=== PATIENT | male | born 1950 | race Caucasian/White ===

== ENCOUNTER 2022-03-24 11:30 | Outpatient (RCR) | payer MEDICARE, SELFPAY | END 2022-07-15 11:47 | disposition home or self-care (01) | PROVIDERS: PCP Family Medicine; Visit Provider Family Medicine | DX: M54.41 Lumbago with sciatica, right side (principal); M79.601 Pain in right arm; M54.13 Radiculopathy, cervicothoracic region; M48.03 Spinal stenosis, cervicothoracic region; M54.6 Pain in thoracic spine; Z51.89 Encounter for other specified aftercare | CPT/HCPCS: 97110; 97140; 97162 ==

== ENCOUNTER 2022-09-16 12:59 | Emergency (ER) | payer OTHER, SELFPAY ==
[2022-09-16 13:05] VITALS: BP 121/73; PULSE 93; RESP 18; TEMP 36.5; O2SAT 95; BMI 29.3
[2022-09-16 13:21] VITALS: BP 123/76; PULSE 93; RESP 16; TEMP 36.5; O2SAT 95
--- NOTE | 2022-09-16 13:40 | CRLHL7_ITS ---
For Patients: As a result of the Century Cures Act, medical imaging exams and procedure reports are released immediately into your electronic medical record. You may view this report before your referring provider. If you have questions, please contact your health care provider. INDICATION: Pain radiates to left shoulder and head. COMPARISON: Cervical spine radiographs 06/09/2011. TECHNIQUE: CT of the cervical spine without IV contrast. Coronal and sagittal reconstructions. FINDINGS: No acute fracture or traumatic malalignment of the cervical spine. Normal vertebral body alignment. Reversal of the normal cervical lordosis. Anterior instrumented fusion of C5-C6 with interbody spacer. Hardware appears intact. Status post C3-C6 laminectomies. Spondylotic changes including endplate spurring, facet arthropathy, and disc space narrowing greatest at C6-C7. Mild to moderate neural foraminal narrowing on the left at C2-C3, severe bilaterally at C3-C4, severe bilaterally at C4-C5, moderate bilaterally at C5-C6, severe on the right and moderate on the left at C6-C7, and severe on the right at C7-T1. Posterior osteophytes indenting on the anterior thecal sac at C4-C5 and C5-C6. Moderate spinal canal stenosis at C6-C7. Soft tissue scarring in the posterior neck. No prevertebral soft tissue swelling. Visualized intracranial contents are unremarkable. The mastoid air cells are clear. Partially visualized large polyp or mucous retention cyst in the left maxillary sinus. Bilateral carotid bulb calcifications. The thyroid gland is normal in appearance. The lung apices are clear. IMPRESSION: 1. No acute fracture or traumatic malalignment of the cervical spine. 2. Intact anterior instrumented fusion of C5-C6. Status post C3-C6 laminectomies. 3. Spondylotic changes of the cervical spine with multilevel moderate to severe neural foraminal narrowing as described above. 4. Moderate spinal canal stenosis at C6-C7. Please note that all CT scans at this facility use dose modulation, iterative reconstruction, and/or weight-based dosing when appropriate to reduce radiation dose to as low as reasonably achievable. Dictated by Beba Solorzano MD @ 09/16/2022 3:45:11 PM (Electronically Signed)
[2022-09-16] MEDS: OXYCODONE 5 MG TABLET 2.5 MG PO (13:55)
[2022-09-16] MEDS: ACETAMINOPHEN 500 MG TABLET 1000 MG PO (13:55)
--- NOTE | 2022-09-16 16:17 | ED_ITS ---
HPI - General Adult General Chief complaint: Neck Injury/Pain Stated complaint: L shoulder and neck pain Time Seen by Provider: 09/16/22 13:02 History of Present Illness HPI narrative: Patient is a 71-year-old male who presents saying that yesterday afternoon he developed pain in the back of his neck. He says for the past couple of weeks he has had some intermittent numbness in both hands kind of on and off. His left thumb has felt numb on and off as well, right now it feels pretty normal. However, he says he was on his way back from [employer] yesterday, he says he won 89 dollars, so who is in a pretty good mood, a by the time he got back, his neck was starting to bother him quite a bit. He denies any trauma, including even minor trauma. He has in the goes down into his left shoulder and into his upper arm. He has difficulty turning his head in either direction because of pain. Does have a history of prior neck pain and has had surgery although he does not remember anything about what kind of surgery had. He gets his care at the [place]. he says he takes 8-10 medications, he has no idea what he takes or what he might take them for. Does think he takes a blood thinner. He isn't sure whether he takes anything for pain although he does not think he does. He denie s chronic pain in his neck. He has not had any bad headache, he denies other neurologic changes. He has not had any chest pain. He does smoke but says that is his only bad habit. Related Data Allergies Allergy/AdvReac Type Severity Reaction Status Date / Time No Known Drug Allergies Allergy Verified 09/16/22 13:14 Review of Systems Status of ROS: Reports: 10 or more systems reviewed and unremarkable except as noted in History and below [facility] Social History Smoking Status: Current every day smoker What tobacco products do you use: cigarettes Smoking packs per day: 1 Smoking cigarettes per day: 20.0 Do you use any of these nicotine containing products: None How often do you have a drink containing alcohol: never AUDIT-C Alcohol total score: 0 Non-prescribed substance use: denies use service: Yes ([employer] Exam Narrative: Exam Narrative: Vital signs as noted above. In general, an alert, pleasant elderly male. He looks comfortable, sitting stil l on the cart. Head: Normocephalic, atraumatic. Eyes: Pupils are equal reactive. Extraocular movements are full. Conjunctivae are normal. ENT: Mucous membranes are moist. Throat is normal. Neck: He has a surgical scar over the midline posteriorly. He does not have a lot of tenderness to palpation anywhere in the posterior cervical spine. Rotation is essentially absent in both directions secondary to pain. He does have fairly well-preserved extension and flexion given his age. There is no anterior cervical tenderness. Heart: Regular with occasional ectopy. No significant murmur. Lungs: Clear bilaterally. No increased work of breathing, crackles or wheezes. Extremities: Well perfused. No edema. No calf tenderness. Pulses intact. Neurologic: Patient is alert and oriented to person and place. Speech is fluent. Face is symmetric. Strength in bilateral extremities is 5/5, sensation right now is equal. Affect: Normal. Skin: Warm and dry. Well perfused. Const: Vital Signs, click to edit/add: Vital Signs - 24 hr 09/16/22 13:05 09/16/22 13:21 Temperature 97.7 F 97.7 F Pulse Rate [Left P ulse Oximeter] 93 93 Respiratory Rate 18 16 Blood Pressure [Ri ght Upper Arm] 121/73 123/76 Pulse Oximetry 95 95 Oxygen Delivery Me thod Room Air Room Air Documenting provider has reviewed patient's vital signs: yes Course Course Hospital Course: Given his age, previous surgery, waxing and waning bilateral sensory symptoms, I elected to do a CT scan of the cervical spine. He had 2.5 mg of oxycodone as well as a 1000 mg of Tylenol here with improvement in his symptoms. CT scan is read by Radiology as follows: FINDINGS: No acute fracture or traumatic malalignment of the cervical spine. Normal vertebral body alignment. Reversal of the normal cervical lordosis. Anterior instrumented fusion of C5-C6 with interbody spacer. Hardware appears intact. Status post C3-C6 laminectomies. Spondylotic changes including endplate spurring, facet arthropathy, and disc space narrowing greatest at C6-C7. Mild to moderate neural foraminal narrowing on the left at C2-C3, severe bilaterally at C3-C4, severe bilaterally at C4-C5, moderate bilaterally at C5-C6, severe on the right and moderate on the left at C6-C7, and severe on the right at C7-T1. Posterior osteophytes indenting on the anterior thecal sac at C4-C5 and C5-C6. Moderate spinal canal stenosis at C6-C7. Soft tissue scarring in the posterior neck. No prevertebral soft tissue swelling. Visualized intracranial contents are unremarkable. The mastoid air cells are clear. Partially visualized large polyp or mucous retention cyst in the left maxillary sinus. Bilateral carotid bulb calcifications. The thyroid gland is normal in appearance. The lung apices are clear. IMPRESSION: 1. No acute fracture or traumatic malalignment of the cervical spine. 2. Intact anterior instrumented fusion of C5-C6. Status post C3-C6 laminectomies. 3. Spondylotic changes of the cervical spine with multilevel moderate to severe neural foraminal narrowing as described above. 4. Moderate spinal canal stenosis at C6-C7. He does not appear to have any acute findings which are concerning, but clearly has a lot of chronic degenerative findings which I think are responsible for his symptoms today. He was inadvertently discharged prior to my having a chance to go in and discuss to CT scan with him. I did provide discharge instructions advising the use of Tylenol 1000 mg daily, and will send a prescription for him for a small number of oxycodone over the next day or 2. He is limited in his use of anti-inflammatories because of his Coumadin. If he is not improving over the next few days to week, primary care follow-up. Acute changes such as fever, significant neurologic deficit, return to the ER. Vital Signs Vital signs: Initial Vital Signs Temperature 97.7 F 09/16/22 13:05 Temperature Source Temporal Artery Scan 09/16/22 13:05 Pulse Rate 93 09/16/22 13:05 Respiratory Rate 18 09/16/22 13:05 Blood Pressure 121/73 09/16/22 13:05 Blood Pressure Mean 89 09/16/22 13:05 Pulse Oximetry 95 09/16/22 13:05 Oxygen Delivery Method 09/16/22 13:05 Vital Signs Temperature 97.7 F 09/16/22 13:05 Pulse Rate 93 09/16/22 13:05 Respiratory Rate 18 09/16/22 13:05 Blood Pressure 121/73 09/16/22 13:05 Pulse Oximetry 95 09/16/22 13:05 Oxygen Delivery Method 09/16/22 13:05 Temperature 97.7 F 09/16/22 13:21 Pulse Rate 93 09/16/22 13:21 Respiratory Rate 16 09/16/22 13:21 Blood Pressure 123/76 09/16/22 13:21 Pulse Oximetry 95 09/16/22 13:21 Oxygen Delivery Method 09/16/22 13:21 Discharge Plan Discharge Clinical Impression: Acute neck pain Patient Disposition: Home, Self-Care Condition: Improved Instructions: Acute Neck Pain (ED) Additional Instructions: Tylenol 1000 mg 3 times daily. If needed for severe pain, oxycodone 2.5 mg. [facility] not improving over the next few days to week. If you have worsening pain, new symptoms such as fever, weakness, difficulty walking, or other new changes, return to the ER. Follow Up/Referrals: Provider,Not a Local [Primary Care Provider] - Stand Alone [facility]
== END 2022-09-16 16:27 | disposition home or self-care (01) ==
PROVIDERS: Emergency Provider Emergency Medicine
DX: M54.2 Cervicalgia (principal)
CPT/HCPCS: 72125; 99283; 99284; A9270

== ENCOUNTER 2022-09-29 23:07 | Inpatient (IN) | payer OTHER, SELFPAY ==
[2022-09-29 23:12] VITALS: BP 157/73; PULSE 86; RESP 18; TEMP 36.1; O2SAT 96
[2022-09-29 23:59] VITALS: BP 141/77; PULSE 84; RESP 18; TEMP 36.2; O2SAT 18
[2022-09-30] VITALS (11 sets, daily range): BP systolic 142–175; BP diastolic 66–77; PULSE 77–106; RESP 16–20; TEMP 36.6–36.9; O2SAT 91–99; BMI 29.2
--- NOTE | 2022-09-30 00:14 | ED_ITS ---
HPI - General Adult General Date Seen: 09/30/22 Chief complaint: Urogenital Problems, Male Stated complaint: blood in urine Time Seen by Provider: 09/29/22 23:24 Source: patient and family Mode of arrival: ambulatory Limitations: no limitations History of Present Illness HPI narrative: Patient is a 71-year-old male who is here on recommendation of his primary doctor, Dr. Smith. He was apparently in clinic today being seen for hematuria which he has had for about a month. This is painless. He had an INR checked which returned tonight at 7.29, and he received a call saying he should come to the ER immediately to have his Coumadin reversed. The bleeding has been pretty steady, not significantly changed. He has not had any urinary retention. It seems as if the Coumadin is most likely for atrial fibrillation although the patient himself is not really sure. I talked with his daughter on the phone and best I can tell, AFib seems to be the diagnosis. He does not have a history of heart valve replacement. His INR was last checked about 3 weeks ago and he reports that it was therapeutic at that time. He is not on any new medications. It is unclear why his INR is supratherapeutic today. He denies any other bleeding problems. He has not felt short of breath, lightheaded, or otherwise ill. He does have an appointment apparently for a CT scan tomorrow and then next week with a specialist, presumably Urology, for further evaluation of the hematuria. Related Data Home Medications Medication Instructions Recorded Confirmed amlodipine 10 mg tablet 10 mg PO DAILY 09/30/22 09/30/22 atorvastatin 20 mg tablet 20 mg PO HS 09/30/22 09/30/22 finasteride 5 mg tablet 5 mg PO DAILY 09/30/22 09/30/22 levothyroxine 75 mcg tablet 75 mcg PO DAILY 09/30/22 09/30/22 lisinopril 20 mg tablet 20 mg PO QPM 09/30/22 09/30/22 metformin 500 mg tablet 500 mg PO QPM 09/30/22 09/30/22 metoprolol tartrate 25 mg tablet 25 mg PO BID 09/30/22 09/30/22 pantoprazole 40 mg tablet,delayed 40 mg PO BID 09/30/22 09/30/22 release tamsulosin 0.4 mg capsule 0.4 mg PO DAILY 09/30/22 09/30/22 warfarin 1 mg tablet 1 - 2 mg PO DAILY 09/30/22 09/30/22 Allergies Allergy/AdvReac Type Severity Reaction Status Date / Time amoxicillin [From Augmentin] Allergy Unverified 09/30/22 10:01 clavulanic acid Allergy Unverified 09/30/22 10:01 [From Augmentin] Review of Systems Status of ROS: Reports: 6 or more systems reviewed and unremarkable except as noted in History and below [facility] Medical History (Updated 10/01/22 @ 16:14 by Fan Soto MD) Atrial fibrillation BPH (benign prostatic hyperplasia) Diverticulitis H/O drainage of abscess History of DVT of lower extremity Hyperlipidemia Hypertension Hypothyroidism Kidney stones Non-insulin dependent diabetes mellitus Surgical History (Updated 09/30/22 @ 08:06 by Meka Vines MD) H/O cervical discectomy History of laminectomy S/P partial colectomy Family History (Updated 09/30/22 @ 08:07 by Meka Vines MD) Father Heart disease Brother Heart disease Social History (Updated 09/30/22 @ 07:26 by Meka Vines MD) Narrative: Lives alone in [place], . 2 living daughters (son at age 23), daughter Francisco Javier in [place] and would be medical decision maker if needed. + smoker, no ETOH use. Requests Full Code Status. Smoking Status: Current every day smoker What tobacco products do you use: cigarettes Smoking packs per day: 1 Smoking cigarettes per day: 20.0 Years smoked: 60 Smoking pack-years: 60.00 Do you use any of these nicotine containing products: None How often do you have a drink containing alcohol: never AUDIT-C Alcohol total score: 0 Non-prescribed substance use: denies use Caffeine: Yes (2-5 cans pepsi per day) service: Yes ([employer], follows at [facility]) Exam Narrative: Exam Narrative: Vital signs as noted above. In general, an alert, nontoxic elderly male. Head: Normocephalic, atraumatic. Eyes: Pupils are equal reactive. Extraocular movements are full. Conjunctivae are normal. ENT: Mucous membranes are moist. Throat is normal. Neck: Supple without lymphadenopathy. Heart: Regular rate and rhythm. Lungs: Clear bilaterally. No increased work of breathing, crackles or wheezes. Abdomen: Soft and nontender. No organomegaly. Extremities: Well perfused. No edema. No calf tenderness. Pulses intact. Neurologic: Patient is alert and oriented to person and place. Speech is fluent. Face is symmetric. Moves all extremities equally. Affect: Normal. Skin: Warm and dry. Well perfused. Const: Vital Signs, click to edit/add: Vital Signs - 24 hr 09/29/22 23:12 09/29/22 23:59 09/30/22 00:57 Temperature 97.0 F L 97.2 F L Pulse Rate 106 H Pulse Rate [Left P ulse Oximeter] 86 84 Respiratory Rate 18 18 Blood Pressure Blood Pressure [Ri ght Upper Arm] 157/73 H 141/77 H Pulse Oximetry 96 18 L 99 Oxygen Delivery Me thod Room Air Room Air 09/30/22 01:00 09/30/22 01:15 09/30/22 01:17 Temperature 98 F Pulse Rate 98 100 97 Pulse Rate [Left P ulse Oximeter] Respiratory Rate 18 Blood Pressure 162/77 H 142/69 H Blood Pressure [Ri ght Upper Arm] Pulse Oximetry 98 96 97 Oxygen Delivery Me thod Documenting provider has reviewed patient's vital signs: yes Course Course Hospital Course: I am going to just recheck his INR and confirm that he is supra therapeutic. Will check hemoglobin, as well as get a UA and make sure there is no evidence of infection. At this time, bleeding seems to be mild, he is not showing evidence of urinary retention, unstable vital signs, or symptomatic bleeding. Ultimately labs showed an INR of 4.8, hemoglobin is reasonable at 11.9. However, his potassium is significantly low at 2.7. BUN and creatinine are normal and sodium is also normal at 142. His calcium came back at 6. The magnesium and ionized calcium are pending. Blood sugars normal. Urinalysis shows greater than 100 red blood cells but 2-5 white blood cells, infection seems unlikely particularly in the absence of symptoms. I have recommended that he stay overnight for replacement of his potassium. I have given 50 mEq orally here. I am going to give him 2.5 mg of oral vitamin K and we will hold his Coumadin for now and allow his INR to come down a bit. Vital Signs Vital signs: Initial Vital Signs Temperature 97.0 F L 09/29/22 23:12 Temperature Source Temporal Artery Scan 09/29/22 23:12 Pulse Rate 86 09/29/22 23:12 Pulse Rhythm 09/29/22 23:12 Respiratory Rate 18 09/29/22 23:12 Blood Pressure 157/73 H 09/29/22 23:12 Blood Pressure Mean 101 09/29/22 23:12 Blood Pressure Position Sitting 09/29/22 23:12 Pulse Oximetry 96 09/29/22 23:12 Oxygen Delivery Method 09/29/22 23:12 Vital Signs Temperature 97.0 F L 09/29/22 23:12 Pulse Rate 86 09/29/22 23:12 Respiratory Rate 18 09/29/22 23:12 Blood Pressure 157/73 H 09/29/22 23:12 Pulse Oximetry 96 09/29/22 23:12 Oxygen Delivery Method 09/29/22 23:12 Temperature 98.8 F 10/01/22 19:32 Pulse Rate 87 10/01/22 19:32 Respiratory Rate 18 10/01/22 19:32 Blood Pressure 157/81 H 10/01/22 19:32 Pulse Oximetry 95 10/01/22 19:32 Oxygen Delivery Method 10/01/22 19:32 Medical Decision Making Lab Data Labs: Lab Results 09/30/22 09/30/22 09/30/22 Range/Units 00:20 00:20 00:20 WBC 8.32 (4.50-11.00) K/uL RBC 3.98 L (4.30-5.90) m/uL Hgb 11.9 L (13.5-17.5) gm/dL Hct 35.2 L (37.0-53.0) % MCV 88 (80-100) fL MCH 30 (26-34) pg MCHC 34 (32-36) gm/dL RDW Coeff of [place] 13.6 (11.5-15.5) % Plt Count 177 (140-440) K/uL Neut % (Auto) 71.7 (42.0-72.0) % Lymph % (Auto) 20.2 (20-44) % [place] % (Auto) 6.5 (0.0-11.0) % Eos % (Auto) 1.4 (0.0-7.0) % Baso % (Auto) 0.1 (0.0-3.0) % Neut # (Auto) 5.96 (1.7-7.0) K/uL Lymph # (Auto) 1.68 (0.90-2.90) K/uL [place] # (Auto) 0.50 (0.00-0.90) K/UL Eos # (Auto) 0.12 (0.00-0.50) K/uL Baso # (Auto) 0.01 (0.00-0.30) K/uL INR 5.83 H* (0.91-1.10) Sodium 142 (135-149) mmol/L Potassium 2.7 L* (3.6-5.1) mmol/L Chloride 107 (96-114) mmol/L Carbon Dioxide 30 (20-32) mmol/L BUN 16 (7-30) mg/dL Creatinine 0.6 (0.5-1.5) mg/dL Estimated Creat Clear Estimated GFR 102 ml/min Glucose 125 H (60-115) mg/dL Calcium 6.0 L (8.4-10.6) mg/dL Ionized Calcium Ramos (1.11-1.30) mmol/L Magnesium (1.5-2.6) mg/dL TSH (0.270-4.20) uIU/mL Urine Color (Yellow) Urine Appearance (Clear) Urine pH (5.0-8.5) Ur Specific [place] (1.000-1.030) Urine Protein (Negative) Urine Glucose (UA) (Negative) Urine Ketones (Negative) Urine Blood (Negative) Urine Nitrite (Negative) Urine Bilirubin (Negative) Urine Urobilinogen (0.2-1.0) Ur Leukocyte Esterase (Negative) Urine RBC (0-2) Urine WBC (0-5) Ur Squamous Epith Cells (None-Few) Urine Bacteria (None) SARS-CoV-2 (PCR) (Negative) 09/30/22 09/30/22 09/30/22 Range/Units 00:20 00:20 01:00 WBC (4.50-11.00) K/uL RBC (4.30-5.90) m/uL Hgb (13.5-17.5) gm/dL Hct (37.0-53.0) % MCV (80-100) fL MCH (26-34) pg MCHC (32-36) gm/dL RDW Coeff of [place] (11.5-15.5) % Plt Count (140-440) K/uL Neut % (Auto) (42.0-72.0) % Lymph % (Auto) (20-44) % [place] % (Auto) (0.0-11.0) % Eos % (Auto) (0.0-7.0) % Baso % (Auto) (0.0-3.0) % Neut # (Auto) (1.7-7.0) K/uL Lymph # (Auto) (0.90-2.90) K/uL [place] # (Auto) (0.00-0.90) K/UL Eos # (Auto) (0.00-0.50) K/uL Baso # (Auto) (0.00-0.30) K/uL INR (0.91-1.10) Sodium (135-149) mmol/L Potassium (3.6-5.1) mmol/L Chloride (96-114) mmol/L Carbon Dioxide (20-32) mmol/L BUN (7-30) mg/dL Creatinine (0.5-1.5) mg/dL Estimated Creat Clear Estimated GFR ml/min Glucose (60-115) mg/dL Calcium (8.4-10.6) mg/dL Ionized Calcium Ramos (1.11-1.30) mmol/L Magnesium 0.6 L* (1.5-2.6) mg/dL TSH (0.270-4.20) uIU/mL Urine Color Red A (Yellow) Urine Appearance Cloudy A (Clear) Urine pH 8.5 (5.0-8.5) Ur Specific [place] 1.015 (1.000-1.030) Urine Protein 3+ A (Negative) Urine Glucose (UA) Negative (Negative) Urine Ketones Trace A (Negative) Urine Blood 3+ A (Negative) Urine Nitrite Positive A (Negative) Urine Bilirubin 2+ A (Negative) Urine Urobilinogen 2.0 A (0.2-1.0) Ur Leukocyte Esterase 3+ A (Negative) Urine RBC >100 A (0-2) Urine WBC 2-5 (0-5) Ur Squamous Epith Cells Few (None-Few) Urine Bacteria Few A (None) SARS-CoV-2 (PCR) Negative SARS-CoV-2 (Negative) 09/30/22 09/30/22 09/30/22 Range/Units 01:50 07:15 07:15 WBC (4.50-11.00) K/uL RBC (4.30-5.90) m/uL Hgb (13.5-17.5) gm/dL Hct (37.0-53.0) % MCV (80-100) fL MCH (26-34) pg MCHC (32-36) gm/dL RDW Coeff of [place] (11.5-15.5) % Plt Count (140-440) K/uL Neut % (Auto) (42.0-72.0) % Lymph % (Auto) (20-44) % [place] % (Auto) (0.0-11.0) % Eos % (Auto) (0.0-7.0) % Baso % (Auto) (0.0-3.0) % Neut # (Auto) (1.7-7.0) K/uL Lymph # (Auto) (0.90-2.90) K/uL [place] # (Auto) (0.00-0.90) K/UL Eos # (Auto) (0.00-0.50) K/uL Baso # (Auto) (0.00-0.30) K/uL INR 2.73 H (0.91-1.10) Sodium 142 (135-149) mmol/L Potassium 3.2 L (3.6-5.1) mmol/L Chloride 105 (96-114) mmol/L Carbon Dioxide 33 H (20-32) mmol/L BUN 15 (7-30) mg/dL Creatinine 0.6 (0.5-1.5) mg/dL Estimated Creat Clear 70.07 Estimated GFR 102 ml/min Glucose 111 (60-115) mg/dL Calcium 5.9 L* (8.4-10.6) mg/dL Ionized Calcium Ramos 0.78 L (1.11-1.30) mmol/L Magnesium (1.5-2.6) mg/dL TSH (0.270-4.20) uIU/mL Urine Color (Yellow) Urine Appearance (Clear) Urine pH (5.0-8.5) Ur Specific [place] (1.000-1.030) Urine Protein (Negative) Urine Glucose (UA) (Negative) Urine Ketones (Negative) Urine Blood (Negative) Urine Nitrite (Negative) Urine Bilirubin (Negative) Urine Urobilinogen (0.2-1.0) Ur Leukocyte Esterase (Negative) Urine RBC (0-2) Urine WBC (0-5) Ur Squamous Epith Cells (None-Few) Urine Bacteria (None) SARS-CoV-2 (PCR) (Negative) 09/30/22 09/30/22 09/30/22 Range/Units 07:15 07:15 07:15 WBC 7.62 (4.50-11.00) K/uL RBC 3.84 L (4.30-5.90) m/uL Hgb 11.6 L (13.5-17.5) gm/dL Hct 34.2 L (37.0-53.0) % MCV 89 (80-100) fL MCH 30 (26-34) pg MCHC 34 (32-36) gm/dL RDW Coeff of [place] 13.8 (11.5-15.5) % Plt Count 201 (140-440) K/uL Neut % (Auto) 66.9 (42.0-72.0) % Lymph % (Auto) 23.6 (20-44) % [place] % (Auto) 6.7 (0.0-11.0) % Eos % (Auto) 1.7 (0.0-7.0) % Baso % (Auto) 0.3 (0.0-3.0) % Neut # (Auto) 5.10 (1.7-7.0) K/uL Lymph # (Auto) 1.80 (0.90-2.90) K/uL [place] # (Auto) 0.50 (0.00-0.90) K/UL Eos # (Auto) 0.13 (0.00-0.50) K/uL Baso # (Auto) 0.02 (0.00-0.30) K/uL INR (0.91-1.10) Sodium (135-149) mmol/L Potassium (3.6-5.1) mmol/L Chloride (96-114) mmol/L Carbon Dioxide (20-32) mmol/L BUN (7-30) mg/dL Creatinine (0.5-1.5) mg/dL Estimated Creat Clear Estimated GFR ml/min Glucose (60-115) mg/dL Calcium (8.4-10.6) mg/dL Ionized Calcium Ramos 0.80 L (1.11-1.30) mmol/L Magnesium 1.4 L (1.5-2.6) mg/dL TSH (0.270-4.20) uIU/mL Urine Color (Yellow) Urine Appearance (Clear) Urine pH (5.0-8.5) Ur Specific [place] (1.000-1.030) Urine Protein (Negative) Urine Glucose (UA) (Negative) Urine Ketones (Negative) Urine Blood (Negative) Urine Nitrite (Negative) Urine Bilirubin (Negative) Urine Urobilinogen (0.2-1.0) Ur Leukocyte Esterase (Negative) Urine RBC (0-2) Urine WBC (0-5) Ur Squamous Epith Cells (None-Few) Urine Bacteria (None) SARS-CoV-2 (PCR) (Negative) 09/30/22 Range/Units 07:15 WBC (4.50-11.00) K/uL RBC (4.30-5.90) m/uL Hgb (13.5-17.5) gm/dL Hct (37.0-53.0) % MCV (80-100) fL MCH (26-34) pg MCHC (32-36) gm/dL RDW Coeff of [place] (11.5-15.5) % Plt Count (140-440) K/uL Neut % (Auto) (42.0-72.0) % Lymph % (Auto) (20-44) % [place] % (Auto) (0.0-11.0) % Eos % (Auto) (0.0-7.0) % Baso % (Auto) (0.0-3.0) % Neut # (Auto) (1.7-7.0) K/uL Lymph # (Auto) (0.90-2.90) K/uL [place] # (Auto) (0.00-0.90) K/UL Eos # (Auto) (0.00-0.50) K/uL Baso # (Auto) (0.00-0.30) K/uL INR (0.91-1.10) Sodium (135-149) mmol/L Potassium (3.6-5.1) mmol/L Chloride (96-114) mmol/L Carbon Dioxide (20-32) mmol/L BUN (7-30) mg/dL Creatinine (0.5-1.5) mg/dL Estimated Creat Clear Estimated GFR ml/min Glucose (60-115) mg/dL Calcium (8.4-10.6) mg/dL Ionized Calcium Ramos (1.11-1.30) mmol/L Magnesium (1.5-2.6) mg/dL TSH 2.450 (0.270-4.20) uIU/mL Urine Color (Yellow) Urine Appearance (Clear) Urine pH (5.0-8.5) Ur Specific [place] (1.000-1.030) Urine Protein (Negative) Urine Glucose (UA) (Negative) Urine Ketones (Negative) Urine Blood (Negative) Urine Nitrite (Negative) Urine Bilirubin (Negative) Urine Urobilinogen (0.2-1.0) Ur Leukocyte Esterase (Negative) Urine RBC (0-2) Urine WBC (0-5) Ur Squamous Epith Cells (None-Few) Urine Bacteria (None) SARS-CoV-2 (PCR) (Negative) Discharge Plan Discharge Clinical Impression: Hematuria, Elevated INR, Acute hypokalemia Patient Disposition: Admitted As Inpatient Condition: Stable
[2022-09-30 00:30] LABS: Basophils Absolute Auto 0.01 K/uL (0.00-0.30); Basophils Percent Auto 0.1 % (0.0-3.0); Eosinophils Absolute Auto 0.12 K/uL (0.00-0.50); Eosinophils Percent Auto 1.4 % (0.0-7.0); Hematocrit 35.2 % (37.0-53.0); Hemoglobin* 11.9 gm/dL (13.5-17.5); Immature Granulocytes Abs Auto 0.01 K/uL (0.00-0.30); Immature Granulocytes Pct Auto 0.1 %; Lymphocytes Absolute Auto 1.68 K/uL (0.90-2.90); Lymphocytes Percent Auto 20.2 % (20-44); Mean Corpuscular HGB Conc 34 gm/dL (32-36); Mean Corpuscular Hemoglobin 30 pg (26-34); Mean Corpuscular Volume 88 fL (80-100); Monocytes Percent Auto 6.5 % (0.0-11.0); Neutrophils Absolute Auto 5.96 K/uL (1.7-7.0); Neutrophils Percent Auto 71.7 % (42.0-72.0); Platelet Count* 177 K/uL (140-440); RDW Coefficient of Variation % 13.6 % (11.5-15.5); Red Blood Count 3.98 m/uL (4.30-5.90); White Blood Count* 8.32 K/uL (4.50-11.00)
[2022-09-30 00:32] LABS: Slide Review Reflex No
[2022-09-30 00:42] LABS: Chloride* 107 mmol/L (96-114); Sodium* 142 mmol/L (135-149)
[2022-09-30 00:44] LABS: Creatinine* 0.6 mg/dL (0.5-1.5); Estimated Glomerular Filt Rate 102 ml/min
[2022-09-30 00:45] LABS: Blood Urea Nitrogen* 16 mg/dL (7-30); Carbon Dioxide* 30 mmol/L (20-32); Glucose* 125 mg/dL (60-115)
[2022-09-30 00:47] LABS: Potassium* 2.7 mmol/L (3.6-5.1)
[2022-09-30 01:04] LABS: Appearance Urine Cloudy (Clear); Bilirubin Urine 2+ (Negative); Blood Urine 3+ (Negative); Color Urine Red (Yellow); Glucose Urine Negative (Negative); Ketones Urine Trace (Negative); Leukocyte Esterase Urine 3+ (Negative); Nitrite Urine Positive (Negative); Protein Urine 3+ (Negative); Specific Gravity Urine 1.015 (1.000-1.030); pH Urine 8.5 (5.0-8.5)
[2022-09-30 01:07] LABS: Prothrombin Time 54.7 Seconds
[2022-09-30 01:08] LABS: INR 5.83 (0.91-1.10)
[2022-09-30 01:11] LABS: Bacteria Urine Few; RBC Urine >100 (0-2); Squamous Epithelial Cell Urine Few (None-Few)
[2022-09-30] MEDS: POTASSIUM BICARB 25 MEQ EFFERVESCENT TAB 50 MEQ PO (01:20)
[2022-09-30 02:01] LABS: Ionized Calcium* 0.78 mmol/L (1.11-1.30)
[2022-09-30 02:02] LABS: SARS PCR* Negative SARS-CoV-2 (Negative)
[2022-09-30 02:03] LABS: Magnesium* 0.6 mg/dL (1.5-2.6)
[2022-09-30] MEDS: MAGNESIUM IV 4 GM/100 ML PIGGYBACK IVPB (03:21)
--- NOTE | 2022-09-30 04:04 | PM.IMCN1 ---
Date of Consult Consult date: 09/30/22 Primary Care Provider: Duane Smith MD Consult Narrative Narrative: [facility] was contacted with request of consultation on Duane Corrigan. 71-year-old gentleman who was sent to the hospital by his PCP because of intermittent hematuria that has been going on for about 1 month. He denies any abdominal pain. He is not sure of his medications and why is he taking Coumadin. He denies bleeding from any other orifices. He denies melena. Home Medications: see EMR Pertinent Medical History: See EMR Pertinent Social History: See EMR Exam (performed via interactive video with assistance of bedside nurse; Yudith): General: alert, cooperative, no acute distress HEENT: oral mucosa pink and moist without erythema Lungs: clear to auscultation bilaterally without crackle or wheeze CV: regular rate and rhythm without loud murmur rub or gallop Abd: denies tenderness and does not exhibit signs of pain with palpation done by bedside nurse Ext: no pitting edema noted Skin: no rashes, bruises or lesions. Neuro: alert, oriented x 3. facial muscles grossly intact, moves all extremities without any significant focal deficit appreciated by nurse Labs and imaging were reviewed. Assessment and Plan: Supratherapeutic INR Most likely incidental finding Could be exacerbating the degree of hematuria Agree on holding Coumadin right now Patient received 1 dose of vitamin K 2.5 mg IV in ED I would hold off on further reversal at this time Severe hypomagnesemia Hypokalemia I would assume the patient is taken loop diuretics at home however we do not have his medications at this time We will continue IV potassium and magnesium correction Hematuria Painless, has been going on for about 1 month I explained to the patient the importance of urgent urology evaluation for cystoscopy Thank you for including Piero Corona in the patients care. This service is available for further assistance as requested by your care team by calling [phone]. [facility] Social History Smoking Status: Current every day smoker What tobacco products do you use: cigarettes Smoking packs per day: 1 Smoking cigarettes per day: 20.0 Years smoked: 60 Smoking pack-years: 60.00 Do you use any of these nicotine containing products: None How often do you have a drink containing alcohol: never AUDIT-C Alcohol total score: 0 Non-prescribed substance use: denies use Caffeine: Yes (2-5 cans pepsi per day) service: Yes ([employer], follows at [facility]) Meds Home Medications and Allergies Allergies Allergy/AdvReac Type Severity Reaction Status Date / Time amoxicillin [From Augmentin] Allergy Unverified 09/29/22 23:23 clavulanic acid Allergy Unverified 09/29/22 23:23 [From Augmentin] Exam Const: Vital Signs, click to edit/add: Vital Signs - 24 hr 09/29/22 23:12 09/29/22 23:59 09/30/22 00:57 Temperature 97.0 F L 97.2 F L Pulse Rate 106 H Pulse Rate [Left P ulse Oximeter] 86 84 Pulse Rate [Right Pulse Oximeter] Respiratory Rate 18 18 Blood Pressure Blood Pressure [Ri ght Arm] Blood Pressure [Ri ght Upper Arm] 157/73 H 141/77 H Pulse Oximetry 96 18 L 99 Oxygen Delivery Me thod Room Air Room Air 09/30/22 01:00 09/30/22 01:15 09/30/22 01:17 Temperature 98 F Pulse Rate 98 100 97 Pulse Rate [Left P ulse Oximeter] Pulse Rate [Right Pulse Oximeter] Respiratory Rate 18 Blood Pressure 162/77 H 142/69 H Blood Pressure [Ri ght Arm] Blood Pressure [Ri ght Upper Arm] Pulse Oximetry 98 96 97 Oxygen Delivery Me thod 09/30/22 02:21 09/30/22 02:21 Temperature 98 F Pulse Rate Pulse Rate [Left P ulse Oximeter] Pulse Rate [Right Pulse Oximeter] 88 Respiratory Rate 20 20 Blood Pressure Blood Pressure [Ri ght Arm] 147/75 H Blood Pressure [Ri ght Upper Arm] Pulse Oximetry 96 96 Oxygen Delivery Me thod Room Air Room Air Labs Labs: Short CBC 09/30/22 Range/Units 00:20 WBC 8.32 (4.50-11.00) K/uL Hgb 11.9 L (13.5-17.5) gm/dL Hct 35.2 L (37.0-53.0) % Plt Count 177 (140-440) K/uL BMP 09/30/22 00:20 Sodium 142 Potassium 2.7 L* Chloride 107 Carbon Dioxide 30 BUN 16 Creatinine 0.6 Glucose 125 H Calcium 6.0 L Urine 09/30/22 Range/Units 01:00 Urine Color Red A (Yellow) Urine Appearance Cloudy A (Clear) Urine pH 8.5 (5.0-8.5) Ur Specific [place] 1.015 (1.000-1.030) Urine Protein 3+ A (Negative) Urine Glucose (UA) Negative (Negative)
[2022-09-30] MEDS: POTASSIUM CHLORIDE 10 MEQ CAPSULE ER 40 MEQ PO (06:15)
--- NOTE | 2022-09-30 06:58 | PC.NURSE ---
ADMISSION/SHIFT NOTE: Pt pleasant and cooperative, A&O. Denies pain. VSS on RA. Up adlib. Pt in with hematuria, reports he has had this for about one month, denies any UTI symptoms.
--- NOTE | 2022-09-30 07:23 | P.IMHP_ITS ---
Hospitalist- H&P: HPI History of Present Illness Date Seen: 09/30/22 Chief complaint: blood in urine Narrative: Duane Corrigan is a 71 year old male who presented to the ER last night at the behest of Dr. Smith at the [facility]. He was seen in the clinic for painless hematuria, present for 1-2 weeks. Exam was within normal limits, INR noted to be 7.2, patient and daughter directed to the ER for this finding. ER course and findings: - INR 5.8, given vitamin K - potassium 2.7, calcium 6.0, Mag 0.6; received all of these electrolytes in supplementation - EKG revealed normal sinus rhythm with prolonged QT - patient admitted by of al tele hospitalist overnight, no acute events noted after admission This morning, patient has no concerns for hospitalist team. He specifically denies abdominal pain or back pain. Upon questioning, it appears he has a degree of cognitive impairment. Patient is unable to provide details of his past medical history, after chart review and discussion with daughter Francisco Javier, tabs updated below. Notably, patient on Coumadin for history of paroxysmal atrial fibrillation and history of DVT. Francisco Javier notes that he had an abbreviated cognitive assessment at the [facility] recently, was told results were fine; however, she and her sister have both noted cognitive decline in their father. 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 Continues to smoke daily, no ETOH use for a few years. 2 living adult daughters; daughter Francisco Javier lives locally and would be medical decision maker if needed. Review of Systems Narrative: Limited by cognitive impairment, but notable findings: + diarrhea, unsure of time frame. Sometimes dark in color. No BRBPR No abdominal pain, no back pain + neck pain, noticed for the past 10 days. Unsure of any inciting incident, denies paresthesias PFSH PFSH Medical History (Updated 09/30/22 @ 09:46 by Meka Vines MD) Atrial fibrillation BPH (benign prostatic hyperplasia) Diverticulitis H/O drainage of abscess History of DVT of lower extremity Hyperlipidemia Hypertension Hypothyroidism Kidney stones Non-insulin dependent diabetes mellitus Surgical History (Updated 09/30/22 @ 08:06 by Meka Vines MD) H/O cervical discectomy History of laminectomy S/P partial colectomy Family History (Updated 09/30/22 @ 08:07 by Meka Vines MD) Father Heart disease Brother Heart disease Social History (Updated 09/30/22 @ 07:26 by Meka Vines MD) Narrative: Lives alone in [place], . 2 living daughters (son at age 23), daughter Francisco Javier in [place] and would be medical decision maker if needed. + smoker, no ETOH use. Requests Full Code Status. Smoking Status: Current every day smoker What tobacco products do you use: cigarettes Smoking packs per day: 1 Smoking cigarettes per day: 20.0 Years smoked: 60 Smoking pack-years: 60.00 Do you use any of these nicotine containing products: None How often do you have a drink containing alcohol: never AUDIT-C Alcohol total score: 0 Non-prescribed substance use: denies use Caffeine: Yes (2-5 cans pepsi per day) service: Yes ([employer], follows at [facility]) Meds Home Medications and Allergies Home Medications Medication Instructions Recorded Confirmed Type amlodipine 10 mg tablet 10 mg PO DAILY 09/30/22 09/30/22 History atorvastatin 20 mg tablet 20 mg PO HS 09/30/22 09/30/22 History finasteride 5 mg tablet 5 mg PO DAILY 09/30/22 09/30/22 History levothyroxine 75 mcg tablet 75 mcg PO DAILY 09/30/22 09/30/22 History lisinopril 20 mg tablet 20 mg PO QPM 09/30/22 09/30/22 History metformin 500 mg tablet 500 mg PO QPM 09/30/22 09/30/22 History metoprolol tartrate 25 mg tablet 25 mg PO BID 09/30/22 09/30/22 History pantoprazole 40 mg tablet,delayed 40 mg PO DAILY 09/30/22 09/30/22 History release tamsulosin 0.4 mg capsule 0.4 mg PO DAILY 09/30/22 09/30/22 History warfarin 1 mg tablet 1 mg PO DAILY 09/30/22 09/30/22 History Home Medication Comments: Patient unable to provide any history regarding his medication reconciliation. Does set up his own medications at home, per Francisco Javier. Allergies Allergy/AdvReac Type Severity Reaction Status Date / Time amoxicillin [From Augmentin] Allergy Unverified 02/09/23 23:23 clavulanic acid Allergy Unverified 09/29/22 23:23 [From Augmentin] Exam Narrative: Exam Narrative: GEN: Alert and laying comfortably in bed HEENT: Pupils miotic, EOMIs bilaterally, no scleral icterus. Scar noted posterior neck CV: RRR, No concerning murmurs, rubs, or gallops R: Air movement adequate, lungs exhibit wheezing throughout Ab: soft, nondistended, nontender to palpation, no masses Back: Normal contours, no mass or ttp over CVA Ext: wwp, no concerning edema Skin: No concerning skin lesions or rashes on exposed skin Neuro: Nonfocal Psych: Appropriate with normal affect, appears to have an element of cognitive impairment; unaware of any of his medical problems or medications. Also can not remember his address Const: Vital Signs, click to edit/add: Vital Signs - 24 hr 09/29/22 23:12 09/29/22 23:59 09/30/22 00:57 Temperature 97.0 F L 97.2 F L Pulse Rate 106 H Pulse Rate [Left P ulse Oximeter] 86 84 Pulse Rate [Right Pulse Oximeter] Respiratory Rate 18 18 Blood Pressure Blood Pressure [Ri ght Arm] Blood Pressure [Ri ght Upper Arm] 157/73 H 141/77 H Pulse Oximetry 96 18 L 99 Oxygen Delivery Me thod Room Air Room Air 09/30/22 01:00 09/30/22 01:15 09/30/22 01:17 Temperature 98 F Pulse Rate 98 100 97 Pulse Rate [Left P ulse Oximeter] Pulse Rate [Right Pulse Oximeter] Respiratory Rate 18 Blood Pressure 162/77 H 142/69 H Blood Pressure [Ri ght Arm] Blood Pressure [Ri ght Upper Arm] Pulse Oximetry 98 96 97 Oxygen Delivery Me thod 09/30/22 02:21 09/30/22 02:21 Temperature 98 F Pulse Rate Pulse Rate [Left P ulse Oximeter] Pulse Rate [Right Pulse Oximeter] 88 Respiratory Rate 20 20 Blood Pressure Blood Pressure [Ri ght Arm] 147/75 H Blood Pressure [Ri ght Upper Arm] Pulse Oximetry 96 96 Oxygen Delivery Co thod Room Air Room Air Hospitalist - H&P: Result Labs Labs: Short CBC 09/30/22 Range/Units 00:20 WBC 8.32 (4.50-11.00) K/uL Hgb 11.9 L (13.5-17.5) gm/dL Hct 35.2 L (37.0-53.0) % Plt Count 177 (140-440) K/uL [facility] 09/30/22 00:20 Sodium 142 Potassium 2.7 L* Chloride 107 Carbon Dioxide 30 BUN 16 Creatinine 0.6 Glucose 125 H Calcium 6.0 L Urine 09/30/22 Range/Units 01:00 Urine Color Red A (Yellow) Urine Appearance Cloudy A (Clear) Urine pH 8.5 (5.0-8.5) Ur Specific [place] 1.015 (1.000-1.030) Urine Protein 3+ A (Negative) Urine Glucose (UA) Negative (Negative) Assessment and Plan Assessment and plan (1) Hematuria: Problem comment: - likely secondary to supratherapeutic INR, concern for possible underlying process - history of nephrolithiasis, no back pain at this time - CT Urogram 09/30/22 Status: Acute (2) Elevated INR: Problem comment: - 5.8 on admission, presumably secondary to poor medication compliance, received vitamin K 09/29 - therapeutic INR noted 09/30 Status: Acute (3) Non-insulin dependent diabetes mellitus: Problem comment: - Accu-Cheks and sliding scale insulin, continue home medications Status: Acute (4) Acute hypokalemia: Problem comment: - replace and follow Status: Acute (5) Hypomagnesemia: Problem comment: - replace and follow Status: Acute (6) Hypocalcemia: Problem comment: - Replace and follow Status: Acute (7) Atrial fibrillation: Problem comment: - on Coumadin for this unclear history. In sinus rhythm upon admission Status: Acute (8) Tobacco use: Problem comment: - nicotine replacement prn Status: Acute Plan - continue to replace and follow electrolytes - CT Urogram today - daily INRs, pharmacy to manage Coumadin - reviewed plan of care with daughter Francisco Javier by phone; she endorses that patient certainly has memory issues and would be interested in more assistance if needed (Home health, [facility] community [facility] etc) - social work and occupational therapy referrals in place - patient requests full code status
[2022-09-30 07:24] LABS: Basophils Absolute Auto 0.02 K/uL (0.00-0.30); Basophils Percent Auto 0.3 % (0.0-3.0); Eosinophils Absolute Auto 0.13 K/uL (0.00-0.50); Eosinophils Percent Auto 1.7 % (0.0-7.0); Hematocrit 34.2 % (37.0-53.0); Hemoglobin* 11.6 gm/dL (13.5-17.5); Immature Granulocytes Abs Auto 0.06 K/uL (0.00-0.30); Immature Granulocytes Pct Auto 0.8 %; Lymphocytes Percent Auto 23.6 % (20-44); Mean Corpuscular HGB Conc 34 gm/dL (32-36); Mean Corpuscular Hemoglobin 30 pg (26-34); Mean Corpuscular Volume 89 fL (80-100); Monocytes Percent Auto 6.7 % (0.0-11.0); Neutrophils Percent Auto 66.9 % (42.0-72.0); Platelet Count* 201 K/uL (140-440); RDW Coefficient of Variation % 13.8 % (11.5-15.5); Red Blood Count 3.84 m/uL (4.30-5.90); White Blood Count* 7.62 K/uL (4.50-11.00)
[2022-09-30 07:29] LABS: Slide Review Reflex No
[2022-09-30 07:43] LABS: Chloride* 105 mmol/L (96-114); Potassium* 3.2 mmol/L (3.6-5.1); Sodium* 142 mmol/L (135-149)
[2022-09-30 07:45] LABS: Creatinine* 0.6 mg/dL (0.5-1.5); Est. Creatinine Clearance* 70.07; Estimated Glomerular Filt Rate 102 ml/min; INR 2.73 (0.91-1.10); Prothrombin Time 30.2 Seconds
[2022-09-30 07:46] LABS: Blood Urea Nitrogen* 15 mg/dL (7-30); Carbon Dioxide* 33 mmol/L (20-32); Glucose* 111 mg/dL (60-115)
[2022-09-30 07:49] LABS: Magnesium* 1.4 mg/dL (1.5-2.6)
[2022-09-30 07:50] LABS: Calcium* 5.9 mg/dL (8.4-10.6)
[2022-09-30] MEDS: CALCIUM GLUC 1,000MG/50 ML 1,000 MG/50 ML BAG 100 MG IVPB ×2 (08:14→14:03)
--- NOTE | 2022-09-30 09:24 | CRLHL7_ITS ---
For Patients: As a result of the 21st Century Cures Act, medical imaging exams and procedure reports are released immediately into your electronic medical record. You may view this report before your referring provider. If you have questions, please contact your health care provider. INDICATION: Hematuria. COMPARISON: June 24, 2017 TECHNIQUE: CT examination of the abdomen and pelvis was performed before and after the uneventful intravenous administration of 100 cc of Isovue 370. Thin section axial images were obtained from the lung bases through the pubic symphysis. Oral contrast was not administered. The examination is performed as a noncontrast study and then 2 faces obtained after contrast administration as per renal protocol. Please note that all CT scans at this facility use dose modulation, iterative reconstruction, and/or weight-based dosing when appropriate to reduce radiation dose to as low as reasonably achievable. FINDINGS: LUNG BASES: There is no significant lung base abnormality. Trace atelectasis. Heart size normal and the lung bases. LIVER/BILIARY SYSTEM:Hepatic steatosis. No focal mass or biliary ductal dilatation. The gallbladder appears normal. ADRENALS: Normal KIDNEYS, URETERS and BLADDER:The kidneys are normal in size. There are calculi bilaterally but there is no evidence of current obstructive uropathy. No calculi within the bladder. The prostate is significantly enlarged. There are scattered low-density renal lesions. The larger ones represent cysts. The smaller ones are too small to characterize. There are 2 hyperdense lesions on the left that do not enhance after contrast administration and represent hyperdense cysts. No solid enhancing mass. No filling defects identified within the upper tracts, ureters or bladder as visualized. There is abnormal thickening of the urothelium of the left renal pelvis without focal mass. This can be seen in recent obstruction or infection. No discretely visible tumor apparent flow urologic evaluation is advised. SPLEEN:Normal appearance. PANCREAS: Appears normal. RETROPERITONEUM and MESENTERY: There is no mass, adenopathy or aortic aneurysm. Atherosclerotic vascular calcification. Prominent mesenteric fat density probably representing incidental mesenteric panniculitis. GASTROINTESTINAL SYSTEM: There is no evidence of diverticulitis, colitis, mechanical obstruction, or appendicitis. The small bowel as visualized appears normal.Postoperative changes of the bowel PELVIS: Enlarged prostate. OSSEOUS STRUCTURES and ABDOMINAL WALL: There is an age-appropriate appearance of the osseous structures.No significant abdominal wall defect. OTHER: No free fluid or free air. IMPRESSION: 1. Bilateral renal calculi but no evidence of current obstructive uropathy. 2. Multiple bilateral renal lesions. These appear to represent a combination of cysts and hyperdense cysts. Smaller lesions are too small to characterize but likely benign. No suspicious appearing renal lesion. 3. Diffuse abnormal thickening of the urothelium of the left renal pelvis without focal mass. This is usually infectious/inflammatory but can be seen with recent obstruction. No focal tumor. Follow-up evaluation of this is advised. 4. No filling defects discretely visible in the upper tracts, ureters or bladder. 5. Significantly enlarged prostate. 6. Other incidental Bon acute non urinary tract findings as above Please note that all CT scans at this facility use dose modulation, iterative reconstruction, and/or weight-based dosing when appropriate to reduce radiation dose to as low as reasonably achievable. Dictated by Andriy Myers MD @ 09/30/2022 10:35:23 AM (Electronically Signed)
[2022-09-30] MEDS: MAGNESIUM OXIDE 400 MG TABLET PO ×2 (10:13→20:35)
[2022-09-30] MEDS: MAGNESIUM IV 2 GM/50 ML PIGGYBACK IVPB (10:13)
[2022-09-30] MEDS: SODIUM CHLORIDE 0.9 % (FLUSH) 10 ML SYRINGE 5 ML IVF ×2 (10:18→19:38)
[2022-09-30] MEDS: NICOTINE 14 mg PATCH 1 PATCH TRANSDERMA (10:46)
[2022-09-30] MEDS: predniSONE 20 MG TABLET 40 MG PO (11:18)
--- NOTE | 2022-09-30 12:38 | RESP.RT ---
Patient has a significant 60 pack year history. We discussed his smoking and COPD possibility. He was open to maintenance medications for COPD and is aware of the benefits of stopping smoking, but is not willing to do so at this time. Patient RR is normal 16RR and has a strong loose cough. Wheezing is audible throughout.
--- NOTE | 2022-09-30 13:37 | PC.SOCIAL ---
Discharge Planning: Met with patient, Bill and daughter, Francisco Javier. Francisco Javier had requested aids social worker visit. Francisco Javier would like her father to be discharged to an assisted living facility to provide him with more care. Explained about Assisted Living cost most likely not covered and applying for assistance if needed. Supplied daughter with list of area assisted living facilities. Encouraged daughter to contact the [employer] to inquire about benefits he might have. aniline press worker also e-mailed daughter with information and link to the Senior [employer], and [employer] Medical Assistance program.
[2022-09-30 17:29] LABS: Potassium* 3.4 mmol/L (3.6-5.1)
[2022-09-30 17:33] LABS: Magnesium* 2.2 mg/dL (1.5-2.6)
[2022-09-30] MEDS: WARFARIN 2 MG TABLET PO (18:45)
--- NOTE | 2022-09-30 19:31 | PC.NURSE ---
End of shift: Pt pleasant and cooperative, A&O. Denies pain. VSS on RA. Up independently in room. Pt in with hematuria, reports he has had this for about one month, denies any UTI symptoms, urine color is a bright reddish color. Pt. on reg. diet tolerating well. Pt's nicotine patch is located on the posterior left shoulder. PRN nicotine cartridges also used. see eMAR.
[2022-10-01] VITALS (8 sets, daily range): BP systolic 144–176; BP diastolic 63–95; PULSE 67–88; RESP 18; TEMP 36.4–37.1; O2SAT 91–96
--- NOTE | 2022-10-01 04:21 | PC.NURSE ---
Pt rested well this night. Up IND in room. On RA. LS wheeze insp & Exp. Afebrile. VS unremarkable. Reporting Zero Pain.
[2022-10-01 07:14] LABS: INR 1.44 (0.91-1.10); Prothrombin Time 18.4 Seconds
[2022-10-01 07:19] LABS: Basophils Absolute Auto 0.02 K/uL (0.00-0.30); Basophils Percent Auto 0.2 % (0.0-3.0); Eosinophils Absolute Auto 0.01 K/uL (0.00-0.50); Eosinophils Percent Auto 0.1 % (0.0-7.0); Hematocrit 33.5 % (37.0-53.0); Hemoglobin* 11.4 gm/dL (13.5-17.5); Immature Granulocytes Abs Auto 0.01 K/uL (0.00-0.30); Immature Granulocytes Pct Auto 0.1 %; Lymphocytes Percent Auto 17.1 % (20-44); Mean Corpuscular HGB Conc 34 gm/dL (32-36); Mean Corpuscular Hemoglobin 30 pg (26-34); Mean Corpuscular Volume 89 fL (80-100); Neutrophils Percent Auto 76.5 % (42.0-72.0); Platelet Count* 211 K/uL (140-440); RDW Coefficient of Variation % 13.3 % (11.5-15.5); Red Blood Count 3.76 m/uL (4.30-5.90); White Blood Count* 8.13 K/uL (4.50-11.00)
[2022-10-01 07:32] LABS: Slide Review Reflex No
[2022-10-01 07:37] LABS: Albumin* 3.2 g/dL (3.3-5.0)
[2022-10-01 07:38] LABS: Chloride* 109 mmol/L (96-114); Potassium* 3.5 mmol/L (3.6-5.1); Sodium* 139 mmol/L (135-149)
[2022-10-01 07:40] LABS: Aspartate Amino Transferase* 18 U/L (12-35); Bilirubin Total* 0.6 mg/dL (0.1-1.5); Carbon Dioxide* 29 mmol/L (20-32); Creatinine* 0.6 mg/dL (0.5-1.5); Est. Creatinine Clearance* 70.07; Estimated Glomerular Filt Rate 102 ml/min; Total Protein* 6.1 g/dL (6.0-8.3)
[2022-10-01 07:41] LABS: Alanine Aminotransferase* 13 U/L (4-50); Alkaline Phosphatase* 81 U/L (40-150); Blood Urea Nitrogen* 17 mg/dL (7-30); Calcium* 7.1 mg/dL (8.4-10.6); Glucose* 156 mg/dL (60-115); Phosphorus* 2.7 mg/dL (2.5-4.5)
[2022-10-01] MEDS: predniSONE 20 MG TABLET 40 MG PO (08:51)
[2022-10-01] MEDS: MAGNESIUM OXIDE 400 MG TABLET PO ×2 (08:51→20:38)
[2022-10-01] MEDS: SODIUM CHLORIDE 0.9 % (FLUSH) 10 ML SYRINGE 5 ML IVF ×2 (08:52→20:39)
[2022-10-01] MEDS: cefTRIAXone 1 GM in 0.9 % SODIUM CHLORIDE Mini-bag 100 ML IVPB (10:29)
[2022-10-01] MEDS: NICOTINE 14 mg PATCH 1 PATCH TRANSDERMA (12:27)
--- NOTE | 2022-10-01 16:07 | P.IMPN_ITS ---
Progress Note: A&P Assessment and plan (1) Hematuria: Problem details: - likely secondary to supratherapeutic INR, concern for possible underlying process - history of nephrolithiasis, no back pain at this time - CT Urogram 09/30/22: 1. Bilateral renal calculi but no evidence of current obstructive uropathy. 2. Multiple bilateral renal lesions. These appear to represent a combination of cysts and hyperdense cysts. Smaller lesions are too small to characterize but likely benign. No suspicious appearing renal lesion. 3. Diffuse abnormal thickening of the urothelium of the left renal pelvis without focal mass. This is usually infectious/inflammatory but can be seen with recent obstruction. No focal tumor. Follow-up evaluation of this is advised. 4. No filling defects discretely visible in the upper tracts, ureters or bladder. 5. Significantly enlarged prostate. 6. Other incidental non acute non urinary tract findings as above Status: Acute Assessment and Plan: Urine culture so far is negative. Possible contaminant thus far. (2) Elevated INR: Problem details: - 5.8 on admission, presumably secondary to poor medication compliance, received vitamin K 09/29. Current INR down to 1.4. - therapeutic INR noted 09/30 Status: Acute (3) Non-insulin dependent diabetes mellitus: Problem details: - Accu-Cheks and sliding scale insulin, continue home medications Status: Acute (4) Acute hypokalemia: Problem details: - replace and follow Status: Acute Assessment and Plan: Improved. (5) Hypomagnesemia: Problem details: - replace and follow - the combination of hypomagnesemia, hypocalcemia, and hypokalemia are suggestive of the possibility of proton pump inhibitor induced electrolyte changes. Status: Acute Assessment and Plan: Improved (6) Hypocalcemia: Problem details: - Replace and follow Status: Acute Assessment and Plan: Improving. (7) Atrial fibrillation: Problem details: - on Coumadin for this unclear history. In sinus rhythm upon admission Status: Acute (8) Tobacco use: Problem details: - nicotine replacement prn Status: Acute (9) Cognitive impairment: Problem details: MOCA on 09/30/2022 scored 22/30, consistent with severe cognitive impairment Status: Acute Assessment and Plan: 1. Reviewed with patient and his daughter Marylin in person, and with his daughter Francisco Javier via telephone. 2. Informed patient that he can not drive a vehicle at this time. Also given the adverse consequence of his inability to manage his medication regimen such that he landed in the hospital with this current admission, I informed him that his too dangerous for him to live independently at this time. He will be moving in with 1 of his daughters temporarily. 3. Recommended that he have outpatient neuropsychiatric testing in the relative ly near future which he is agreeable to. Plan 1. Reviewed above with patient and 2 daughters. 2. Daughter Francisco Javier will be taking care of her father in her home for a period of time as they continue their efforts to help further assess his condition in the outpatient setting particularly the neuro cognitive component. 3. Will need urology consultation the near future. 4. Was started empirically on ceftriaxone given the possibility of infection based on CT urogram findings. I am doubting that it is going to be an infection. I am anticipating will be able to discontinue the ceftriaxone at time of discharge if urine culture remains negative. Will likely need urology consultation the relatively near future. Time Spent With Patient Total time spent: 30 minutes Subjective Time Seen by Provider: 09:30 Date Seen: 10/01/22 Interval history: Hospital day number 2. His hematuria has stopped. Denies any pain. Tolerating activities. Exam Const: Vital Signs, click to edit/add: Vital Signs - 24 hr 09/30/22 18:48 09/30/22 22:54 09/30/22 23:38 Temperature 98.4 F 98.4 F Pulse Rate [Right Pulse Oximeter] 93 89 89 Respiratory Rate 16 16 16 Blood Pressure [Ri ght Arm] 143/66 H 151/71 H Pulse Oximetry 94 97 Oxygen Delivery Me thod Room Air Room Air 10/01/22 02:14 10/01/22 07:00 10/01/22 07:00 Temperature 98.6 F 97.6 F Pulse Rate [Right Pulse Oximeter] 76 67 67 Respiratory Rate 18 18 18 Blood Pressure [Ri ght Arm] 144/63 H 146/78 H Pulse Oximetry 93 91 Oxygen Delivery Me thod Room Air Room Air 10/01/22 11:00 Temperature 97.6 F Pulse Rate [Right Pulse Oximeter] 69 Respiratory Rate 18 Blood Pressure [Ri ght Arm] 152/77 H Pulse Oximetry 96 Oxygen Delivery Me thod Room Air Labs Labs: Laboratory Results - last 24 hr 09/30/22 09/30/22 10/01/22 17:10 17:10 06:17 WBC 8.13 RBC 3.76 L Hgb 11.4 L Hct 33.5 L MCV 89 MCH 30 MCHC 34 RDW Coeff of [place] 13.3 Plt Count 211 Neut % (Auto) 76.5 H Lymph % (Auto) 17.1 L [place] % (Auto) 6.0 Eos % (Auto) 0.1 Baso % (Auto) 0.2 Neut # (Auto) 6.20 Lymph # (Auto) 1.40 [place] # (Auto) 0.50 Eos # (Auto) 0.01 Baso # (Auto) 0.02 INR Sodium Potassium 3.4 L Chloride Carbon Dioxide BUN Creatinine Estimated Creat Clear Estimated GFR Glucose Calcium Ionized Calcium [place] 0.90 L Phosphorus Magnesium 2.2 Total Bilirubin AST ALT Alkaline Phosphatase Total Protein Albumin 10/01/22 10/01/22 10/01/22 06:17 06:17 06:17 WBC RBC Hgb Hct MCV MCH MCHC RDW Coeff of [place] Plt Count Neut % (Auto) Lymph % (Auto) [place] % (Auto) Eos % (Auto) Baso % (Auto) Neut # (Auto) Lymph # (Auto) [place] # (Auto) Eos # (Auto) Baso # (Auto) INR 1.44 H Sodium 139 Potassium 3.5 L Chloride 109 Carbon Dioxide 29 BUN 17 Creatinine 0.6 Estimated Creat Clear 70.07 Estimated GFR 102 Glucose 156 H Calcium 7.1 L Ionized Calcium [place] 1.00 L Phosphorus 2.7 Magnesium 2.0 Total Bilirubin 0.6 AST 18 ALT 13 Alkaline Phosphatase 81 Total Protein 6.1 Albumin [address] urogram: Attestation: I have reviewed the pertinent imaging results. Radiologist's impression: 1. Bilateral renal calculi but no evidence of current obstructive uropathy. 2. Multiple bilateral renal lesions. These appear to represent a combination of cysts and hyperdense cysts. Smaller lesions are too small to characterize but likely benign. No suspicious appearing renal lesion. 3. Diffuse abnormal thickening of the urothelium of the left renal pelvis without focal mass. This is usually infectious/inflammatory but can be seen with recent obstruction. No focal tumor. Follow-up evaluation of this is advised. 4. No filling defects discretely visible in the upper tracts, ureters or bladder. 5. Significantly enlarged prostate. 6. Other incidental Bon acute non urinary tract findings as above
[2022-10-01] MEDS: WARFARIN 2 MG TABLET PO (16:57)
--- NOTE | 2022-10-01 19:41 | PC.NURSE ---
End of shift: Pt pleasant and cooperative, A&O. Denies pain. VSS on RA. Up independently in room. Pt in with hematuria, reports he has had this for about one month, denies any UTI symptoms, urine color is a straw color today. Pt. on reg. diet tolerating well. Pt's nicotine patch is located on the anterior right shoulder. PRN nicotine cartridges also used. see eMAR.
[2022-10-02 04:11] VITALS: BP 136/68; PULSE 73; RESP 18; TEMP 37; O2SAT 97
--- NOTE | 2022-10-02 04:38 | PC.NURSE ---
Pt rested well this night. Reporting zero pain. Urine appears Clear Yellow.
[2022-10-02 07:00] VITALS: BP 149/69; PULSE 66; RESP 18; TEMP 37; O2SAT 95
[2022-10-02 07:07] LABS: Potassium* 3.3 mmol/L (3.6-5.1)
[2022-10-02 07:10] LABS: Calcium* 7.2 mg/dL (8.4-10.6); Magnesium* 1.9 mg/dL (1.5-2.6)
[2022-10-02 07:25] LABS: INR 1.76 (0.91-1.10); Prothrombin Time 21.5 Seconds
[2022-10-02] MEDS: predniSONE 20 MG TABLET 40 MG PO (09:31)
[2022-10-02] MEDS: MAGNESIUM OXIDE 400 MG TABLET PO (09:31)
[2022-10-02] MEDS: POTASSIUM BICARB 25 MEQ EFFERVESCENT TAB PO ×2 (10:51→12:45)
[2022-10-02 11:00] VITALS: BP 152/73; PULSE 84; RESP 18; TEMP 36.6; O2SAT 100
[2022-10-02 13:27] VITALS: BP 142/69; PULSE 97; RESP 18; TEMP 37
--- NOTE | 2022-10-02 16:29 | PM.DS1 ---
DS: Providers Provider Time Seen by Provider: 11:00 Date Seen: 10/02/22 Date of admission: 09/30/22 07:54 Primary care physician: Duane Smith MD Admitting Clinician: Jacquie Kee MD Consults: 09/30/22 07:56 Consult to Occupational Therapy [CONS] Routine Comment: ADLs, MOCA Reason(s) for OT Consult:: Evaluate and Treat Any Restrictions?:: No Restrictions 09/30/22 09:30 Consult to Retail [facility] [CONS] Routine Comment[facility], [facility] etc Reason for Consult:: Discharge Planning Needs 09/30/22 09:51 Consult to Respiratory Therapy [CONS] Routine Comment: Reason(s) for RT Consult:: New COPD/Asthma Diag 09/30/22 19:18 Consult to Physical Therapy [CONS] Routine Comment: Reason(s) for PT Consult:: Balance Assessment Any Restrictions?:: No Restrictions Attending Physician on discharge: Fan Soto MD Date of Discharge: 10/02/22 DS: Diagnosis Discharge Diagnosis (1) Hematuria: Status: Acute Problem details: - likely secondary to supratherapeutic INR, concern for possible underlying process - history of nephrolithiasis, no back pain at this time - CT Urogram 09/30/22: 1. Bilateral renal calculi but no evidence of current obstructive uropathy. 2. Multiple bilateral renal lesions. These appear to represent a combination of cysts and hyperdense cysts. Smaller lesions are too small to characterize but likely benign. No suspicious appearing renal lesion. 3. Diffuse abnormal thickening of the urothelium of the left renal pelvis without focal mass. This is usually infectious/inflammatory but can be seen with recent obstruction. No focal tumor. Follow-up evaluation of this is advised. 4. No filling defects discretely visible in the upper tracts, ureters or bladder. 5. Significantly enlarged prostate. 6. Other incidental non acute non urinary tract findings as above (2) Elevated INR: Status: Acute Problem details: - 5.8 on admission, presumably secondary to poor medication compliance, received vitamin K 09/29. Current INR down to 1.4. - therapeutic INR noted 09/30 (3) Atrial fibrillation: Status: Acute Problem details: - on Coumadin for this unclear history. In sinus rhythm upon admission (4) Abnormal radiologic findings on diagnostic imaging of left kidney: Status: Acute Problem details: 09/30/2022 CT urogram: Urothelial thickening of left renal pelvis (5) Renal calculi: Status: Acute (6) Medical non-compliance: Status: Acute Problem details: Due to cognitive impairment (7) Medication adverse effect: Status: Acute Problem details: Presumably has hypomagnesemia and hypocalcemia associated with chronic use of PPI, pantoprazole. (8) Cognitive impairment: Status: Acute Problem details: MOCA on 09/30/2022 scored 22/30, consistent with severe cognitive impairment (9) Hypocalcemia: Status: Acute Problem details: - Replace and follow (10) Hypomagnesemia: Status: Acute Problem details: - replace and follow - the combination of hypomagnesemia, hypocalcemia, and hypokalemia are suggestive of the possibility of proton pump inhibitor induced electrolyte changes. (11) Acute hypokalemia: Status: Acute Problem details: - replace and follow (12) Non-insulin dependent diabetes mellitus: Status: Acute Problem details: - Accu-Cheks and sliding scale insulin, continue home medications (13) Tobacco use: Status: Acute Problem details: - nicotine replacement prn (14) Wheezing: Status: Acute Problem details: - likely COPD given smoking history DS: Summary Hospital Course Hospital Course: Duane Corrigan is a 71 year old male who presented to the ER last night at the behest of Dr[facility]. He was seen in the clinic for painless hematuria, present for 1-2 weeks.? Exam was within normal limits, INR noted to be 7.2, patient and daughter directed to the ER for this finding. ER course and findings: ?- INR 5.8, given vitamin K ?- potassium 2.7, calcium 6.0, Mag 0.6; received all of these electrolytes in supplementation ?- EKG revealed normal sinus rhythm with prolonged QT ?- patient admitted by of [facility] hospitalist overnight, no acute events noted after admission This morning, patient has no concerns for hospitalist team.? He specifically denies abdominal pain or back pain.? Upon questioning, it appears he has a degree of cognitive impairment. Patient is unable to provide details of his past medical history, after chart review and discussion with daughter Francisco Javier, tabs updated below. Notably, patient on Coumadin for history of paroxysmal atrial fibrillation and history of DVT. Francisco Javier notes that he had an abbreviated cognitive assessment at the [facility] recently, was told results were fine; however, she and her sister have both noted cognitive decline in their father. 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 Continues to smoke daily, no ETOH use for a few years. 2 living adult daughters; daughter Francisco Javier lives locally and would be medical decision maker if needed. With reversal of his elevated INR he no longer had hematuria. CT urogram suggests abnormality in the left renal pelvis with urothelial thickening, unclear if it is inflammatory versus neoplastic. Will warrant additional urologic consultation to sort through this. Subsequently restarted his warfarin and will need to monitor his PT INR closely hereafter. Remarkably presented with hypokalemia, hypomagnesemia, hypocalcemia. He is on a proton pump inhibitor. In this setting the proton pump inhibitor can cause the hypo magnesemia and hypocalcemia. The hypo magnesemia can elicit the hypokalemia. I stopped the proton pump inhibitor that he presented on, pantoprazole 40 mg once daily. I switched him to famotidine. We replaced his various electrolyte abnormalities. This will warrant outpatient monitoring and intervention as warranted. Ferguson cognitive Assessment (MOCA) performed in hospital with patient scoring 22/30 suggestive of severe cognitive impairment. This finding certainly warrants additional neuropsychiatric assessment. This finding in combination with his poor judgment in taking his medications as prescribed, with family description of his altered cognition evolving over time, prompted us to recommend that he no longer drive an automobile at this time until such time as additional testing demonstrates that he can in fact safely drive an automobile. This also prompted our recommendation that he remain with family members until such time as it is determined that he can safely return to an independent living setting as he has been attempting to live up until now. Patient hesitatingly agrees to above-stated recommendations. Status at Discharge Overall status at discharge: patient is progressing back to baseline Time Spent with Patient Time attestation: Total time spent providing and/or coordinating discharge services: Time spent: Greater than 30 minutes Exam Narrative: Exam Narrative: Appears comfortable and in no acute distress. Alert and oriented to self, not to time, oriented to place, in part to situation. Sometimes asks the same question multiple times despite are trying to answer in a way that he might understand. Lungs are clear to auscultation. Heart tones chaotic with regular rate. Abdomen with active bowel sounds, soft, nontender. Independent transfer, station, and gait. Const: Vital Signs, click to edit/add: Vital Signs - 24 hr 10/01/22 19:32 10/01/22 22:27 10/01/22 22:28 Temperature 98.8 F 98.8 F Pulse Rate Pulse Rate [Right Pulse Oximeter] 87 76 76 Respiratory Rate 18 18 18 Blood Pressure Blood Pressure [Ri ght Arm] 157/81 H 162/71 H Pulse Oximetry 95 96 Oxygen Delivery Me thod Room Air Room Air 10/01/22 22:29 10/02/22 04:11 10/02/22 07:00 Temperature 98.6 F Pulse Rate Pulse Rate [Right Pulse Oximeter] 76 73 66 Respiratory Rate 18 18 18 Blood Pressure Blood Pressure [Ri ght Arm] 136/68 Pulse Oximetry 97 Oxygen Delivery Me thod Room Air 10/02/22 07:00 10/02/22 11:00 10/02/22 13:27 Temperature 98.6 F 97.8 F 98.6 F Pulse Rate 97 Pulse Rate [Right Pulse Oximeter] 66 84 Respiratory Rate 18 18 18 Blood Pressure 142/69 H Blood Pressure [Ri ght Arm] 149/69 H 152/73 H Pulse Oximetry 95 100 Oxygen Delivery Me thod Room Air Room Air Documenting provider has reviewed patient's vital signs: yes DS: Data Data Completed and Pending Labs on day of discharge: Labs from last 24 hours 10/02/22 10/02/22 06:00 06:00 INR 1.76 H Potassium 3.3 L Calcium 7.2 L Magnesium 1.[address] urogram: Radiologist's impression: FINDINGS: LUNG BASES: There is no significant lung base abnormality. Trace atelectasis. Heart size normal and the lung bases. LIVER/BILIARY SYSTEM:Hepatic steatosis. No focal mass or biliary ductal dilatation. The gallbladder appears normal. ADRENALS: Normal KIDNEYS, URETERS and BLADDER:The kidneys are normal in size. There are calculi bilaterally but there is no evidence of current obstructive uropathy. No calculi within the bladder. The prostate is significantly enlarged. There are scattered low-density renal lesions. The larger ones represent cysts. The smaller ones are too small to characterize. There are 2 hyperdense lesions on the left that do not enhance after contrast administration and represent hyperdense cysts. No solid enhancing mass. No filling defects identified within the upper tracts, ureters or bladder as visualized. There is abnormal thickening of the urothelium of the left renal pelvis without focal mass. This can be seen in recent obstruction or infection. No discretely visible tumor apparent flow urologic evaluation is advised. SPLEEN:Normal appearance. PANCREAS: Appears normal. RETROPERITONEUM and MESENTERY: There is no mass, adenopathy or aortic aneurysm. Atherosclerotic vascular calcification. Prominent mesenteric fat density probably representing incidental mesenteric panniculitis. GASTROINTESTINAL SYSTEM: There is no evidence of diverticulitis, colitis, mechanical obstruction, or appendicitis. The small bowel as visualized appears normal.Postoperative changes of the bowel PELVIS: Enlarged prostate. OSSEOUS STRUCTURES and ABDOMINAL WALL: There is an age-appropriate appearance of the osseous structures.No significant abdominal wall defect. OTHER: No free fluid or free air. IMPRESSION: 1. Bilateral renal calculi but no evidence of current obstructive uropathy. 2. Multiple bilateral renal lesions. These appear to represent a combination of cysts and hyperdense cysts. Smaller lesions are too small to characterize but likely benign. No suspicious appearing renal lesion. 3. Diffuse abnormal thickening of the urothelium of the left renal pelvis without focal mass. This is usually infectious/inflammatory but can be seen with recent obstruction. No focal tumor. Follow-up evaluation of this is advised. 4. No filling defects discretely visible in the upper tracts, ureters or bladder. 5. Significantly enlarged prostate. Discharge Plan Discharge Disposition: Home w/ Parent or Adult Date of Admission: 09/30/22 07:54 Attending Provider on Discharge: Fan Soto Primary Care Provider: Duane Smith Condition: Stable Anticipated Discharge Date/Time: 10/02/22 13:30 Discharge Medications: New potassium chloride 10 mEq Capsule, Extended Release 20 meq PO DAILY 30 Days Qty: 60 1RF prednisone 20 mg Tablet 40 mg PO DAILYWM 3 Days Qty: 6 0RF magnesium oxide 400 mg (241.3 mg magnesium) Tablet 400 mg PO BID 30 Days Qty: 60 1RF famotidine 20 mg tablet 20 mg PO DAILY 30 Days Qty: 30 2RF Continued amlodipine 10 mg tablet 10 mg PO DAILY atorvastatin 20 mg tablet 20 mg PO HS finasteride 5 mg tablet 5 mg PO DAILY levothyroxine 75 mcg tablet 75 mcg PO DAILY lisinopril 20 mg tablet 20 mg PO QPM metformin 500 mg tablet 500 mg PO QPM metoprolol tartrate 25 mg tablet 25 mg PO BID tamsulosin 0.4 mg capsule 0.4 mg PO DAILY warfarin 1 mg tablet 1 - 2 mg PO DAILY Label Comments: INR GOAL OF 2-3 Rx Instructions: 1 mg on Mon and Monday 2 mg on Mon, , Wed, Th, Sat Discontinued pantoprazole 40 mg tablet,delayed release (DR/EC) 40 mg PO BID Discharge Orders: Discharge Order (Routine); Ordered 10/02/22 Ordered By: Fan Soto Patient Education: Famotidine (By mouth), Prednisone (By mouth), Potassium Chloride (By mouth), Magnesium (By mouth), Hypokalemia (DC), Hematuria (ED) Additional Instructions: Hold your warfarin for now. Discuss when to resume and dosing with Dr. Smith. Follow-up for CT scan and with Urology as planned. Return to the emergency department if you have urinary retention or develop other significant bleeding. Activity Level: Activity as Tolerated Activity Detail: 1. Need follow-up with primary care physician in 5-10 days with pre-visit labs: Sodium, potassium, magnesium, calcium, creatinine, PT/INR, and CBC; 2. Return to clinic or hospital sooner if needed; 3. Live with daughter(s) for now, due to safety risk, until can obtain formal neuropsychiatric testing; 4. No driving any automobile until can have additional testing to ascertain ability to drive safely given concern of decreased cognition. Discharge Diet: Diabetic Follow Up Appointments: Provider,Not a Local [Referring] - Duane Smith MD [Primary Care Provider] - 10/05/22 2:45 pm (Pre-visit labs: Sodium, potassium, magnesium, calcium, creatinine, PT/INR, and CBC ) Forms: [employer] Info Instructions
--- NOTE | 2022-10-02 16:37 | PC.NURSE ---
Discharge: Pt pleasant and cooperative, A&O. Denies pain. VSS on RA. Up independently in room. Pt in with hematuria, urine color is a straw color. Pt. on reg. diet tolerating well. Pt's nicotine patch is located on the anterior right shoulder and DC'd. Discharged at 1430 accompanied by daughter Francisco Javier whom pt. will be living with until he gets further testing. IV removed intact. Discharge instructions were given to both the patient and his Daughter. They verbalized understanding. Belongings sheet signed and discharge forms signed.
== END 2022-10-02 14:30 | disposition home or self-care (01) | DRG 696 ==
LOC: ED 09-30 02:10 → MEDSURG 09-30 02:12
PROVIDERS: Internal Medicine; Admitting Provider Emergency Medicine; Emergency Provider Emergency Medicine; PCP Family Medicine; Visit Provider Family Medicine
DX: R31.9 Hematuria, unspecified (principal); D68.32 Hemorrhagic disorder due to extrinsic circulating anticoagulants; T45.515A Adverse effect of anticoagulants, initial encounter; E83.42 Hypomagnesemia; E87.6 Hypokalemia; R93.422 Abnormal radiologic findings on diagnostic imaging of left kidney; N20.0 Calculus of kidney; Z91.199 Patient's noncompliance with other medical treatment and regimen due to unspecified reason; T50.905A Adverse effect of unspecified drugs, medicaments and biological substances, initial encounter; I48.0 Paroxysmal atrial fibrillation; T47.1X5A Adverse effect of other antacids and anti-gastric-secretion drugs, initial encounter; G31.84 Mild cognitive impairment of uncertain or unknown etiology; N28.9 Disorder of kidney and ureter, unspecified; N28.1 Cyst of kidney, acquired; R06.2 Wheezing; E11.9 Type 2 diabetes mellitus without complications; I10 Essential (primary) hypertension; N40.1 Benign prostatic hyperplasia with lower urinary tract symptoms; F17.210 Nicotine dependence, cigarettes, uncomplicated; E78.5 Hyperlipidemia, unspecified; E03.9 Hypothyroidism, unspecified
CPT/HCPCS: 36415; 74178; 80048; 80053; 81001; 82310; 82330; 83735; 84100; 84132; 84443; 85025; 85610; 87086; 87635; 93005; 97165; 97535; 99199; 99284; 99285; A9270; G0378; J0610; J0696; J3430; J3475; J7512; Q9967; S4990

== ENCOUNTER 2022-10-31 11:29 | Outpatient (REF) | payer OTHER, SELFPAY ==
[2022-10-31 12:17] LABS: Basophils Absolute Auto 0.02 K/uL (0.00-0.30); Basophils Percent Auto 0.2 % (0.0-3.0); Eosinophils Absolute Auto 0.12 K/uL (0.00-0.50); Eosinophils Percent Auto 1.2 % (0.0-7.0); Hematocrit 41.7 % (37.0-53.0); Hemoglobin* 13.7 gm/dL (13.5-17.5); Immature Granulocytes Abs Auto 0.01 K/uL (0.00-0.30); Immature Granulocytes Pct Auto 0.1 %; Lymphocytes Percent Auto 19.6 % (20-44); Mean Corpuscular HGB Conc 33 gm/dL (32-36); Mean Corpuscular Hemoglobin 30 pg (26-34); Mean Corpuscular Volume 91 fL (80-100); Monocytes Percent Auto 4.9 % (0.0-11.0); Platelet Count* 227 K/uL (140-440); RDW Coefficient of Variation % 13.6 % (11.5-15.5); Red Blood Count 4.57 m/uL (4.30-5.90); White Blood Count* 9.75 K/uL (4.50-11.00)
[2022-10-31 12:18] LABS: Slide Review Reflex No
[2022-10-31 12:31] LABS: Chloride* 102 mmol/L (96-114); Potassium* 4.5 mmol/L (3.6-5.1); Sodium* 137 mmol/L (135-149)
[2022-10-31 12:34] LABS: Blood Urea Nitrogen* 29 mg/dL (7-30); Calcium* 9.7 mg/dL (8.4-10.6); Carbon Dioxide* 31 mmol/L (20-32); Creatinine* 0.9 mg/dL (0.5-1.5); Estimated Glomerular Filt Rate 90 ml/min; Glucose* 219 mg/dL (60-115)
== END 2022-10-31 11:30 | disposition home or self-care (01) ==
LOC: NPINS 11:29
PROVIDERS: PCP Family Medicine; Visit Provider Internal Medicine Cardiovascular Disease
DX: I10 Essential (primary) hypertension (principal); I48.91 Unspecified atrial fibrillation; E11.9 Type 2 diabetes mellitus without complications; Z79.01 Long term (current) use of anticoagulants
CPT/HCPCS: 80048; 85025

== ENCOUNTER 2022-11-07 12:11 | Emergency (ER) | payer OTHER, SELFPAY ==
[2022-11-07 12:23] VITALS: BP 111/64; PULSE 51; RESP 16; TEMP 36.4; O2SAT 96; BMI 33.5
--- NOTE | 2022-11-07 12:51 | ED_ITS ---
HPI - Weakness General Time Seen by Provider: 12:51 Date Seen: 11/07/22 Chief complaint: Weakness Stated complaint: low BP 89/55 Time Seen by Provider: 11/07/22 12:51 Source: patient and RN notes reviewed Mode of arrival: ambulatory Limitations: no limitations History of Present Illness HPI Narrative: Patient is a very pleasant 72-year-old gentleman with a history of short-term memory loss, atrial fibrillation, type 2 diabetes and recent hospitalization for elevated INR, hematuria and acute hypokalemia who comes to the emergency room after having been noted to be hypotensive at home. Patient notes that he is feeling well but that home health noted multiple blood pressure readings that were low. They describe of systolic blood pressure in the 80s. Patient denies lightheadedness, fever, dysuria, chest pain, shortness of breath. However, they thought he needed to be checked out. Here in the emergency room blood pressure is 111 systolic and most recent reading 118 systolic. Alex denies being dehydrated although he admits to poor fluid intake this morning. States he only takes 2 drinks of water with his pills and has had a half of Pepsi. He denies any diarrhea. He denies chest pain, shortness of breath, recent cough or cold. Recent hospitalization noted him to have an INR of 7.2 and a potassium that was concerning. Alexs daughter is not sure if it was low or high. Again, Alex feels well and has no complaints at this time. No recent medication changes. Related Data Home Medications Medication Instructions Recorded Confirmed amlodipine 10 mg tablet 10 mg PO DAILY 09/30/22 11/07/22 atorvastatin 20 mg tablet 20 mg PO HS 09/30/22 11/07/22 finasteride 5 mg tablet 5 mg PO DAILY 09/30/22 11/07/22 levothyroxine 75 mcg tablet 75 mcg PO DAILY 09/30/22 11/07/22 lisinopril 20 mg tablet 20 mg PO QPM 09/30/22 11/07/22 metformin 500 mg tablet 500 mg PO QPM 09/30/22 11/07/22 metoprolol tartrate 25 mg tablet 25 mg PO BID 09/30/22 11/07/22 tamsulosin 0.4 mg capsule 0.4 mg PO DAILY 09/30/22 11/07/22 warfarin 1 mg tablet 1 - 2 mg PO DAILY 09/30/22 11/07/22 omeprazole 20 mg capsule,delayed 20 mg PO DAILY 11/07/22 11/07/22 release Previous Rx's Medication Instructions Recorded famotidine 20 mg tablet 20 mg PO DAILY 30 days #30 tabs 10/02/22 magnesium oxide 400 mg (241.3 mg 400 mg PO BID 30 days #60 tabs 10/02/22 magnesium) tablet potassium chloride 10 mEq 20 meq PO DAILY 30 days #60 caps 10/02/22 capsule,extended release Allergies Allergy/AdvReac Type Severity Reaction Status Date / Time amoxicillin [From Augmentin] Allergy Verified 11/07/22 12:29 clavulanic acid Allergy Verified 11/07/22 12:29 [From Augmentin] Review of Systems Status of ROS: Reports: 10 or more systems reviewed and unremarkable except as noted in History and below Const: Denies: fever, chills or fatigue Eyes: Denies: change in vision or blurry vision ENMT: Denies: throat pain or neck pain Cardio: Denies: chest pain, palpitations, edema, swelling of feet/ankles, lightheadedness or shortness of breath with exertion Resp: Denies: shortness of breath, cough or wheezing GI: Denies: abdominal pain, nausea, vomiting or diarrhea : Denies: painful urination or urinary frequency Musculo: Denies: neck pain Neuro: Denies: headache, numbness in extremities or weakness in extremities Endo: Denies: excessive urination or fatigue Allergy/Immuno: Denies: wheezing PFSH PFSH Medical History Atrial fibrillation BPH (benign prostatic hyperplasia) Diverticulitis H/O drainage of abscess History of DVT of lower extremity Hyperlipidemia Hypertension Hypothyroidism Kidney stones Non-insulin dependent diabetes mellitus Surgical History H/O cervical discectomy History of laminectomy S/P partial colectomy Family History Father Heart disease Brother Heart disease Social History Narrative: Lives alone in [place], . 2 living daughters (son at age 23), daughter Francisco Javier in [place] and would be medical decision maker if needed. + smoker, no ETOH use. Requests Full Code Status. Smoking Status: Current every day smoker What tobacco products do you use: cigarettes Smoking packs per day: 1 Smoking cigarettes per day: 20.0 Years smoked: 60 Smoking pack-years: 60.00 Do you use any of these nicotine containing products: None Second hand tobacco smoke exposure: No How often do you have a drink containing alcohol: never AUDIT-C Alcohol total score: 0 Non-prescribed substance use: denies use Caffeine: Yes (2-5 cans pepsi per day) service: Yes ([employer], follows at [facility]) Exam Narrative: Exam Narrative: Patient is alert and oriented. No acute distress. External ears eyes nose clear. Face symmetrical. Speech is normal. Neck is supple without lymphadenopathy. Heart with a drip bradycardic rate normal rhythm. Lungs are clear in all lung topete. Abdomen soft nontender. Lower extremities with no evidence of edema or calf tenderness. Moving all extremities. Const: Vital Signs, click to edit/add: Vital Signs - 24 hr 11/07/22 12:23 Temperature 97.6 F Pulse Rate [Right Pulse Oximeter] 51 L Respiratory Rate 16 Blood Pressure [Ri ght Upper Arm] 111/64 Pulse Oximetry 96 Oxygen Delivery Me thod Room Air Documenting provider has reviewed patient's vital signs: yes Course Course Hospital Course: Patient was sent to the emergency room for hypotension asymptomatic. After discussion with daughter it does sound like amlodipine was added to his medical regimen in late September. He has not been experiencing any near syncope, lightheadedness or falls. Nursing concerned this morning regarding his hypotension but blood pressure here is normal. His pulse, however is low initially 51 and a EKG shows 48. No evidence of infection, and no recent fever chills cough dysuria. Vital Signs Vital signs: Initial Vital Signs Temperature 97.6 F 11/07/22 12:23 Temperature Source Temporal Artery Scan 11/07/22 12:23 Pulse Rate 51 L 11/07/22 12:23 Respiratory Rate 16 11/07/22 12:23 Blood Pressure 111/64 11/07/22 12:23 Blood Pressure Mean 79 11/07/22 12:23 Blood Pressure Position Sitting 11/07/22 12:23 Pulse Oximetry 96 11/07/22 12:23 Oxygen Delivery Method 11/07/22 12:23 Vital Signs Temperature 97.6 F 11/07/22 12:23 Pulse Rate 51 L 11/07/22 12:23 Respiratory Rate 16 11/07/22 12:23 Blood Pressure 111/64 11/07/22 12:23 Pulse Oximetry 96 11/07/22 12:23 Oxygen Delivery Method 11/07/22 12:23 Temperature 97.6 F 11/07/22 12:23 Pulse Rate 51 L 11/07/22 12:23 Respiratory Rate 16 11/07/22 12:23 Blood Pressure 111/64 11/07/22 12:23 Pulse Oximetry 96 11/07/22 12:23 Oxygen Delivery Method 11/07/22 12:23 MDM - Weakness MDM Narrative Medical decision making narrative: 1. Bradycardia-patient is asymptomatic but heart rate drops into the 40s. Recently had amlodipine added to his medical regimen. Will decrease his metoprolol from 25 mg b.i.d. to 12.5 mg at this time. I do worry that this may precipitate atrial fibrillation which she has had in the past but certainly would continue to monitor. I did state that primary MD may change this. Our initial plan was to leave all the medications as is and have patient follow-up with primary MD. However, just learned that they are waiting on paperwork to be transferred to the [facility]. [facility] will not allow them to make an appointment until that happens. Because of this potential delay will decreased medication at this time. No evidence of acute coronary injury. 2. Disposition-patient is discharged home in the care of his daughter. Issues that had been a problem previously include elevated INR, hypokalemia and hematuria. Patient is noted to have INR of 1.99, potassium of 4.8 and 20-25 rbc's in his urine. His daughter states that they will be following up with Urology. Medical Records Attestation: I reviewed the patient's medical records. Lab Data Attestation: I reviewed the patient's lab results. Labs: Lab Results 11/07/22 11/07/22 11/07/22 Range/Units 13:15 13:15 13:15 WBC 7.67 (4.50-11.00) K/uL RBC 4.31 (4.30-5.90) m/uL Hgb 12.8 L (13.5-17.5) gm/dL Hct 39.1 (37.0-53.0) % MCV 91 (80-100) fL MCH 30 (26-34) pg MCHC 33 (32-36) gm/dL RDW Coeff of Duane 13.7 (11.5-15.5) % Plt Count 197 (140-440) K/uL Neut % (Auto) 71.1 (42.0-72.0) % Lymph % (Auto) 21.8 (20-44) % Garrard % (Auto) 5.7 (0.0-11.0) % Eos % (Auto) 1.2 (0.0-7.0) % Baso % (Auto) 0.1 (0.0-3.0) % Neut # (Auto) 5.45 (1.7-7.0) K/uL Lymph # (Auto) 1.67 (0.90-2.90) K/uL Garrard # (Auto) 0.40 (0.00-0.90) K/UL Eos # (Auto) 0.09 (0.00-0.50) K/uL Baso # (Auto) 0.01 (0.00-0.30) K/uL INR 1.99 H (0.91-1.10) Sodium 137 (135-149) mmol/L Potassium 4.8 (3.6-5.1) mmol/L Chloride 103 (96-114) mmol/L Carbon Dioxide 30 (20-32) mmol/L BUN 28 (7-30) mg/dL Creatinine 0.9 (0.5-1.5) mg/dL Estimated Creat Clear 69.03 Estimated GFR 90 ml/min Glucose 123 H (60-115) mg/dL Calcium 9.3 (8.4-10.6) mg/dL Urine Color (Yellow) Urine Appearance (Clear) Urine pH (5.0-8.5) Ur Specific [place] (1.000-1.030) Urine Protein (Negative) Urine Glucose (UA) (Negative) Urine Ketones (Negative) Urine Blood (Negative) Urine Nitrite (Negative) Urine Bilirubin (Negative) Urine Urobilinogen (0.2-1.0) Ur Leukocyte Esterase (Negative) Urine RBC (0-2) Urine WBC (0-5) Ur Squamous Epith Cells (None-Few) Urine Bacteria (None) Urine Mucus (None) 03/20/23 Range/Units 13:34 WBC (4.50-11.00) K/uL RBC (4.30-5.90) m/uL Hgb (13.5-17.5) gm/dL Hct (37.0-53.0) % MCV (80-100) fL MCH (26-34) pg MCHC (32-36) gm/dL RDW Coeff of Duane (11.5-15.5) % Plt Count (140-440) K/uL Neut % (Auto) (42.0-72.0) % Lymph % (Auto) (20-44) % Garrard % (Auto) (0.0-11.0) % Eos % (Auto) (0.0-7.0) % Baso % (Auto) (0.0-3.0) % Neut # (Auto) (1.7-7.0) K/uL Lymph # (Auto) (0.90-2.90) K/uL [place]ard # (Auto) (0.00-0.90) K/UL Eos # (Auto) (0.00-0.50) K/uL Baso # (Auto) (0.00-0.30) K/uL INR (0.91-1.10) Sodium (135-149) mmol/L Potassium (3.6-5.1) mmol/L Chloride (96-114) mmol/L Carbon Dioxide (20-32) mmol/L BUN (7-30) mg/dL Creatinine (0.5-1.5) mg/dL Estimated Creat Clear Estimated GFR ml/min Glucose (60-115) mg/dL Calcium (8.4-10.6) mg/dL Urine Color [place]aris A (Yellow) Urine Appearance Clear (Clear) Urine pH 6.0 (5.0-8.5) Ur Specific [place] 1.020 (1.000-1.030) Urine Protein Trace A (Negative) Urine Glucose (UA) Negative (Negative) Urine Ketones Negative (Negative) Urine Blood 2+ A (Negative) Urine Nitrite Negative (Negative) Urine Bilirubin Negative (Negative) Urine Urobilinogen 0.2 (0.2-1.0) Ur Leukocyte Esterase Negative (Negative) Urine RBC 10-25 A (0-2) Urine WBC 2-5 (0-5) Ur Squamous Epith Cells Few (None-Few) Urine Bacteria Few A (None) Urine Mucus Moderate A (None) ECG Data Attestation: I personally reviewed and interpreted this ECG as follows: Interpretation: EKG shows sinus bradycardia at a rate of 48. No acute ST or T-wave changes are noted. Normal QT and NH intervals. Discharge Plan Discharge Clinical Impression: Bradycardia Patient Disposition: Home w/ Parent or Adult Condition: Unchanged Additional Instructions: Continue to monitor heart rate. At this time suggest changing medication called metoprolol from 25 mg twice a day to 12.5 mg twice a day. This means you will be taking a half a tablet twice a day. Your new doctor may change that back. Please return to the emergency room for chest pain, shortness of breath, lightheadedness, fainting and as needed. INR today 1.99 and potassium 4.8 Prescriptions: No Action amlodipine 10 mg tablet 10 mg PO DAILY atorvastatin 20 mg tablet 20 mg PO HS finasteride 5 mg tablet 5 mg PO DAILY levothyroxine 75 mcg tablet 75 mcg PO DAILY lisinopril 20 mg tablet 20 mg PO QPM metformin 500 mg tablet 500 mg PO QPM metoprolol tartrate 25 mg tablet 25 mg PO BID tamsulosin 0.4 mg capsule 0.4 mg PO DAILY warfarin 1 mg tablet 1 - 2 mg PO DAILY Label Comments: INR GOAL OF 2-3 Rx Instructions: 1 mg on Mon and Monday 2 mg on Sun, , Mon, , Sat potassium chloride 10 mEq Capsule, Extended Release 20 meq PO DAILY 30 Days Qty: 60 1RF magnesium oxide 400 mg (241.3 mg magnesium) Tablet 400 mg PO BID 30 Days Qty: 60 1RF famotidine 20 mg tablet 20 mg PO DAILY 30 Days Qty: 30 2RF omeprazole 20 mg capsule,delayed release(DR/EC) 20 mg PO DAILY Follow Up/Referrals: Duane Smith MD [Primary Care Provider] - Stand Alone Forms: [employer] Info Instructions
[2022-11-07 13:28] LABS: Basophils Absolute Auto 0.01 K/uL (0.00-0.30); Basophils Percent Auto 0.1 % (0.0-3.0); Eosinophils Absolute Auto 0.09 K/uL (0.00-0.50); Eosinophils Percent Auto 1.2 % (0.0-7.0); Hematocrit 39.1 % (37.0-53.0); Hemoglobin* 12.8 gm/dL (13.5-17.5); Immature Granulocytes Abs Auto 0.01 K/uL (0.00-0.30); Immature Granulocytes Pct Auto 0.1 %; Lymphocytes Absolute Auto 1.67 K/uL (0.90-2.90); Lymphocytes Percent Auto 21.8 % (20-44); Mean Corpuscular HGB Conc 33 gm/dL (32-36); Mean Corpuscular Hemoglobin 30 pg (26-34); Mean Corpuscular Volume 91 fL (80-100); Monocytes Percent Auto 5.7 % (0.0-11.0); Neutrophils Absolute Auto 5.45 K/uL (1.7-7.0); Neutrophils Percent Auto 71.1 % (42.0-72.0); Platelet Count* 197 K/uL (140-440); RDW Coefficient of Variation % 13.7 % (11.5-15.5); Red Blood Count 4.31 m/uL (4.30-5.90); White Blood Count* 7.67 K/uL (4.50-11.00)
[2022-11-07 13:33] LABS: Slide Review Reflex No
[2022-11-07 13:44] LABS: Appearance Urine Clear (Clear); Bilirubin Urine Negative (Negative); Blood Urine 2+ (Negative); Color Urine Amber (Yellow); Glucose Urine Negative (Negative); Ketones Urine Negative (Negative); Leukocyte Esterase Urine Negative (Negative); Nitrite Urine Negative (Negative); Protein Urine Trace (Negative); Urobilinogen Urine 0.2 (0.2-1.0)
[2022-11-07 14:08] LABS: Chloride* 103 mmol/L (96-114); INR 1.99 (0.91-1.10); Potassium* 4.8 mmol/L (3.6-5.1); Prothrombin Time 23.6 Seconds; Sodium* 137 mmol/L (135-149)
[2022-11-07 14:11] LABS: Blood Urea Nitrogen* 28 mg/dL (7-30); Carbon Dioxide* 30 mmol/L (20-32); Creatinine* 0.9 mg/dL (0.5-1.5); Est. Creatinine Clearance* 69.03; Estimated Glomerular Filt Rate 90 ml/min; Glucose* 123 mg/dL (60-115)
[2022-11-07 14:12] LABS: Calcium* 9.3 mg/dL (8.4-10.6)
[2022-11-07 14:13] LABS: Bacteria Urine Few; Squamous Epithelial Cell Urine Few (None-Few)
[2022-11-07 14:14] LABS: Mucus Urine Moderate
== END 2022-11-07 14:50 | disposition home or self-care (01) ==
PROVIDERS: Emergency Provider Family Medicine; PCP Family Medicine
DX: R00.1 Bradycardia, unspecified (principal)
CPT/HCPCS: 36415; 80048; 81001; 85025; 85610; 87086; 93005; 99284

== ENCOUNTER 2022-11-23 18:03 | Emergency (ER) | payer OTHER, SELFPAY ==
[2022-11-23 18:04] VITALS: BP 109/92; PULSE 86; TEMP 35.7; O2SAT 95
--- NOTE | 2022-11-23 18:27 | ED.GENADULT ---
HPI - General Adult General Time Seen by Provider: 18:27 Date Seen: 11/23/22 Chief complaint: Psychiatric Problem/Disorder Stated complaint: Mental health Time Seen by Provider: 11/23/22 18:14 Source: patient and family Mode of arrival: ambulatory Limitations: no limitations History of Present Illness HPI narrative: 72-year-old male brought in by family today for suicidal statements. Patient had a driving evaluation today and apparently was told he cannot drive anymore. On the way home from that appointment, he and his daughter got into argument as she said she was going to take his car back to her house. He said that he did not want to be here anymore if he cannot drive. He refused to stay at her house tonight and given her concerns, she brought him to the emergency department. Patient does avoid acknowledging statements made initially but does say that he got upset and said some things with he probably should not have. Patient had blood work done at the [facility] today, INR 1.8, per daughter remaining labs reassuring. Patient does smoke cigarettes. Related Data Home Medications Medication Instructions Recorded Confirmed amlodipine 10 mg tablet 10 mg PO DAILY 09/30/22 11/07/22 atorvastatin 20 mg tablet 20 mg PO HS 09/30/22 11/07/22 finasteride 5 mg tablet 5 mg PO DAILY 09/30/22 11/07/22 levothyroxine 75 mcg tablet 75 mcg PO DAILY 09/30/22 11/07/22 lisinopril 20 mg tablet 20 mg PO QPM 09/30/22 11/07/22 metformin 500 mg tablet 500 mg PO QPM 09/30/22 11/07/22 metoprolol tartrate 25 mg tablet 25 mg PO BID 09/30/22 11/07/22 tamsulosin 0.4 mg capsule 0.4 mg PO DAILY 09/30/22 11/07/22 warfarin 1 mg tablet 1 - 2 mg PO DAILY 09/30/22 11/07/22 omeprazole 20 mg capsule,delayed 20 mg PO DAILY 11/07/22 11/07/22 release Previous Rx's Medication Instructions Recorded famotidine 20 mg tablet 20 mg PO DAILY 30 days #30 tabs 10/02/22 magnesium oxide 400 mg (241.3 mg 400 mg PO BID 30 days #60 tabs 10/02/22 magnesium) tablet potassium chloride 10 mEq 20 meq PO DAILY 30 days #60 caps 10/02/22 capsule,extended release Allergies Allergy/AdvReac Type Severity Reaction Status Date / Time amoxicillin [From Augmentin] Allergy Verified 11/07/22 12:29 clavulanic acid Allergy Verified 11/07/22 12:29 [From Augmentin] Review of Systems Status of ROS: Reports: 10 or more systems reviewed and unremarkable except as noted in History and below PFSH PFS Medical History Atrial fibrillation BPH (benign prostatic hyperplasia) Diverticulitis H/O drainage of abscess History of DVT of lower extremity Hyperlipidemia Hypertension Hypothyroidism Kidney stones Non-insulin dependent diabetes mellitus Surgical History H/O cervical discectomy History of laminectomy S/P partial colectomy Family History Father Heart disease Brother Heart disease Social History Narrative: Lives alone in [place], . 2 living daughters (son at age 23), daughter Francisco Javier in [place] and would be medical decision maker if needed. + smoker, no ETOH use. Requests Full Code Status. Smoking Status: Current every day smoker What tobacco products do you use: cigarettes Smoking packs per day: 1 Smoking cigarettes per day: 20.0 Years smoked: 60 Smoking pack-years: 60.00 Do you use any of these nicotine containing products: None Second hand tobacco smoke exposure: No How often do you have a drink containing alcohol: never AUDIT-C Alcohol total score: 0 Non-prescribed substance use: denies use Caffeine: Yes (2-5 cans pepsi per day) service: Yes ([employer], follows at [facility]) Exam Narrative: Exam Narrative: General: Well-developed and well-nourished, no acute distress Head: Atraumatic and normocephalic Eyes: Pupils are equal reactive, extraocular motions intact, conjunctiva clear ENT: External nose and ears are normal, posterior pharynx without erythema or exudate Neck: No midline cervical tenderness, full spontaneous range of motion the neck, trachea midline, no adenopathy Heart: irregular rate and rhythm no murmurs or thrills Lungs: Expiratory wheezes bilaterally Abdomen: Soft, nontender, nondistended with active bowel sounds Musculoskeletal: No tenderness, deformity, or edema Neurologic: Awake, alert, and oriented x3, no gross focal neurologic deficits, cranial nerves intact as tested, slight upper extremity tremor Psych: Mood and affect are appropriate Skin: No rashes Const: Vital Signs, click to edit/add: Vital Signs - 24 hr 11/23/22 18:04 Temperature 96.2 F L Pulse Rate [Pulse Oximeter] 86 Blood Pressure [Ri ght Upper Arm] 109/92 H Pulse Oximetry 95 Oxygen Delivery Me thod Room Air Course Course Hospital Course: Patient seen examined, prior records reviewed. Patient brought in by daughter concerned about suicide ideation in setting of multiple life changes including moving into assisted living this week as well as loss of driving privileges today. Labs are done today at [facility], will attempt to get these records. Telemental health assessment ordered. Reevaluation(s) Reevaluation #1: Care discussed with mental health data communications software consultant, patient is stable for discharge daughter, neuropsych testing tomorrow. Time: 22:30 Vital Signs Vital signs: Initial Vital Signs Temperature 96.2 F L 11/23/22 18:04 Temperature Source Temporal Artery Scan 11/23/22 18:04 Pulse Rate 86 11/23/22 18:04 Blood Pressure 109/92 H 11/23/22 18:04 Blood Pressure Mean 97 11/23/22 18:04 Blood Pressure Position Sitting 11/23/22 18:04 Pulse Oximetry 95 11/23/22 18:04 Oxygen Delivery Method Room Air 11/23/22 18:04 Vital Signs Temperature 96.2 F L 11/23/22 18:04 Pulse Rate 86 11/23/22 18:04 Blood Pressure 109/92 H 11/23/22 18:04 Pulse Oximetry 95 11/23/22 18:04 Oxygen Delivery Method Room Air 11/23/22 18:04 Temperature 96.2 F L 11/23/22 18:04 Pulse Rate 86 11/23/22 18:04 Blood Pressure 109/92 H 11/23/22 18:04 Pulse Oximetry 95 11/23/22 18:04 Oxygen Delivery Method Room Air 11/23/22 18:04 Medical Decision Making Medical Records Medical records reviewed: Yes I reviewed the patient's medical records Lab Data Lab results reviewed: Yes I reviewed the patient's lab results Discharge Plan Discharge Clinical Impression: Mental health-related complaint Patient Disposition: Home w/ Parent or Adult Condition: Stable Instructions: Depression in Older Adults (ED) Activity Level: No Restrictions Discharge Diet: Regular Prescriptions: No Action amlodipine 10 mg tablet 10 mg PO DAILY atorvastatin 20 mg tablet 20 mg PO HS finasteride 5 mg tablet 5 mg PO DAILY levothyroxine 75 mcg tablet 75 mcg PO DAILY lisinopril 20 mg tablet 20 mg PO QPM metformin 500 mg tablet 500 mg PO QPM metoprolol tartrate 25 mg tablet 25 mg PO BID tamsulosin 0.4 mg capsule 0.4 mg PO DAILY warfarin 1 mg tablet 1 - 2 mg PO DAILY Patient Comments: INR GOAL OF 2-3 Rx Instructions: 1 mg on Mon and Monday 2 mg on Mon, , Mon, , Sat potassium chloride 10 mEq Capsule, Extended Release 20 meq PO DAILY 30 Days Qty: 60 1RF magnesium oxide 400 mg (241.3 mg magnesium) Tablet 400 mg PO BID 30 Days Qty: 60 1RF famotidine 20 mg tablet 20 mg PO DAILY 30 Days Qty: 30 2RF omeprazole 20 mg capsule,delayed release(DR/EC) 20 mg PO DAILY Follow Up/Referrals: Duane Smith MD [Primary Care Provider] - Stand Alone Forms: [employer] Info Instructions
--- OUTSIDE RECORDS SUMMARY | 2022-11-23 18:51 | XMS_ITS | Continuity of Care Document ---
Author Name Unknown Organization [facility] Address [address] [address] [place] [address] Phone Care Team Providers Care Underwriting Support Specialist Name Role Phone Unavailable Unavailable Unavailable Allergies, [...] Active Procedures Procedure Date Colonoscopy Flex; Dx (sep Pro) 16 Init Hosp-da E&m Mod Severity 6 cancelled appt cancelled appt Advance Directives Directive Yes / No Effective Date File Name No Information Encounters Encounter Description Practice Location Reason(s) For Visit Diagnoses Date Provider Providers Copied on Encounter [facility], [address] [address], [place], [place], [id number], [place] tel:[phone] [facility] No Information 6 No Information [facility], [address] [address], [place], [place], [id number], [place] tel:[phone] [facility] No Information 6 No Information Referring Provider: Jorge Cobb, [address], [place], [address]. tel:[phone] [facility], [address] [address], [place], [place], [id number], [place] tel:[phone] [facility] No Information 6 No Information Referring Provider: Jorge Cobb, [address], [place], [address]. tel:[phone] [facility], [address] [address], [place], [place], [id number], [place] tel:[phone] [facility] No Information 6 Carolina Rios. [address] [place] [address], [id number], [place]. tel:[phone] Referring Provider: Jorge Cobb, [address], [place], [address]. tel:[phone] [facility], [address] [address], [place], [place], [id number], [place] tel:[phone] [facility] No Information 6 Rodo Juares. [address] [place] [address], [id number], [place]. tel:[phone] Referring Provider: Jorge Cobb, [address], [place], [address]. tel:[phone] [facility], [address] [address], [place], [place], [id number], [place] tel:[phone] [facility] Diverticuliti s of large intestine with abscess without bleeding Sep-2 6 Rodo Juares. [address] [facility], [place], [place], [id number], [place]. tel:[phone] Referring Provider: Jorge Pulido MD W, [address] [facility], [place], [address]. tel:[phone] Family History Family Member Type Diagnosis Age At Onset No Information Payers Payer name Insurance type Covered constitution party ID Authoriza tion(s) No Information Social History Type Description Quantity Date Captured Comments Sex Male Smoking Status No Information Chief Complaint And Reason For Visit No Information Reason For Referral Reason For Referral No Information Plan Of Treatment Date Type Action Status No Information History Of Present Illness Encounter Date Complaint History Of Prese nt Illness No Information Functional Status Date Functional Assessmen t No Information Instructions Date Instruction Additional Infor mation No Information Assessments Type Assessment Date No Information Patient Care Teams Name Effective Dates (start - stop) Status Members No Information
[2022-11-23] MEDS: IPRAT-ALBUT 0.5-2.5 MG/3 ML NEB 1 NEB IH (18:55)
[2022-11-23] MEDS: NICOTINE 2 MG GUM BUCCAL (22:04)
--- NOTE | 2022-11-23 23:07 | ED.NURSE ---
safety contract signed and pt dc'd, son in law for ride home.
[2022-11-23 23:10] VITALS: BP 121/71; PULSE 64; RESP 16; TEMP 36.9
== END 2022-11-23 23:11 | disposition home or self-care (01) ==
PROVIDERS: Emergency Provider Family Medicine; PCP Family Medicine
DX: F99 Mental disorder, not otherwise specified (principal); R45.851 Suicidal ideations
CPT/HCPCS: 94640; 99283; 99284

== ENCOUNTER 2024-01-16 13:46 | Outpatient (CLI) | payer OTHER, SELFPAY ==
--- OUTSIDE RECORDS SUMMARY | 2024-01-16 13:51 | XMS_ITS | Encounter Summary ---
Author Name [facility] of [facility] Organization [facility] Address [address] [place] [address] Support Name Relationship Address Phone UNK, NON-GIVEN Emergency Contact Unknown Azeba LELAND Childers Next of Kin [id number] [place] [address] EVA NGUYEN Next of Kin [id number] [place] [id number] Insurance Providers: All historical and current Section Date Range: From patient's date of to the date document was created. This section includes the names of all active insurance providers for the patient. Insurance Provider Type of Coverage Plan Name Start of Policy Coverage End of Policy Coverage Group Number Member ID Insurance Provider's Telephone Number Policy Carvalho's Name Patient's Relationship to Policy [facility]valho [facility] MEDICARE ADVANTAGE [facility] ([facility]) Aug 21, 2022 [id number] [phone] KELLEN BARRIENTOS [facility]IENT [facility] MEDICARE ADVANTAGE M[employer] ([facility]) Aug 21, 2022 [id number] KELLEN BARRIENTOS PATIENT [facility] ([facility]) MEDICARE [facility] ([facility]) Oct 19, 2018 [id number] KELLEN BARRIENTOS PATIENT [facility] ([facility]) MEDICARE ADVANTAGE M[employer] ([facility]) Oct 19, 2018 [id number] KELLEN BARRIENTOS PATIENT [facility] ([facility]) MEDICARE ADVANTAGE MCR ([facility]) Aug 21, 2018 [id number] KELELN BARRIENTOS PATIENT [facility] ([facility]) MEDICARE ADVANTAGE [facility] ([facility]) Aug 21, 2018 [id number] KELLEN BARRIENTOS PATIENT Selected Encounter This section includes the information on record at [place] for the Encounter. Date/Time Encounter Type Encounter Description Reason Pro vider Source Nov 22, 2023 07:39 AM Outpatient Encounter TELEPHONE/MEDICINE IHE Encounter Template Text not used by [place] Plan of Treatment: Future Appointments (+ 6 months) and Future Tests (+/- 45 days) The Plan of Treatment section includes future care activities for the patient from all [place] treatmentfacilities. This section includes future appointments and future orders which are active, pending or scheduled. Future Appointments This section includes appointments that were scheduled to occur 6 months from the date of the Encounter, up to a maximum of 20 appointments. The data comes from all [facility] facilities. Appointment Date/Time Appointment Type Appointme nt Facility Name January 05, 2024 08:00 AM AMBULATORY - NONE [facility] Active, Pending, and Scheduled Orders This section includes a listing of several types of active, pending, and scheduled orders, including clinic medications orders, diagnostic test orders, procedure orders and consult orders; where the start date of the order is 45 days before the date of the Encounter or 45 days after the date of theEncounter. The data comes from all [facility]. Test Date/Time Test Type Test Details Facility Name Nov 21, 2023 03:31 PM Consult Order COMMUNITY CARE-PRIMARY CARE Cons Cloth Washer's Choice [facility] January 04, 2024 10:17 AM Consult Order COMMUNITY CARE-WOUND CARE PC Cons Cloth [facility] Choice [facility] Social History: Smoking Status (Most current) and Tobacco Use (All prior to encounter date) This section includes the most current, and the historical, smoking and tobacco- related health factors from the [place] facility where the Encounter took place. Current Smoking Status This section includes the most current smoking, or tobacco-related health factor, from the [place] facility where the Encounter took place. Date/Time Current Smoking Status Johny colbert Oct 04, 2022 04:00 PM VA-TOBACCO USER EVERY DAY [facility] Tobacco Use History This section includes a history of the smoking, or tobacco-related health factors, that were collected on or before the date of the Encounter. The data comes from the [place] facility where the Encounter took place. 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 NO [facility] Oct 04, 2022 04:00 PM VA-TOBACCO USE MED NO [facility] Oct 04, 2022 04:00 PM VA-TOBACCO USE WI 30 MIN OF WAKE UP [facility] Oct 04, 2022 04:00 PM VA-TOBACCO USER EVERY DAY [facility] Sep 17, 2021 01:30 PM VA-TOBACCO USE 30 YEARS OR MORE [facility] Sep 17, 2021 01:30 PM VA-TOBACCO USE ADVICE [facility] Sep 17, 2021 01:30 PM VA-TOBACCO USE LABOR RELATIONS WORKER NO [facility] Sep 17, 2021 01:30 PM VA-TOBACCO USE MED NO [facility] Sep 17, 2021 01:30 PM VA-TOBACCO USE WI 30 MIN OF WAKE UP [facility] Sep 17, 2021 01:30 PM VA-TOBACCO USER EVERY DAY [facility] Dec 14, 2020 03:05 PM VA-TOBACCO USE 30 YEARS OR MORE [facility] Dec 14, 2020 03:05 PM VA-TOBACCO USE ADVICE [facility] Dec 14, 2020 03:05 PM VA-TOBACCO USE LABOR RELATIONS WORKER NO [facility] Dec 14, 2020 03:05 PM VA-TOBACCO USE MED NO [facility] Dec 14, 2020 03:05 PM VA-TOBACCO USE WI 30 MIN OF WAKE UP [facility] Dec 14, 2020 03:05 PM VA-TOBACCO USER EVERY DAY [facility] Mar 27, 2018 01:28 PM CURRENT TOBACCO USER [facility] Advance Directives: All historical and current Section Date Range: From patient's date of to the date document was created. This section includes ALL of a patient's completed or amended [place] Advance and Rescinded Directives. The entries below indicate that a directive exists for the patient, but an actual copy is not included with this document. The data comes from all [place] facilities. Date Advance Directives Provider Source Oct 07, 2022 ADVANCE DIRECTIVE ANUM GRIFFITHS [facility] Oct 07, 2022 ADVANCE DIRECTIVE DISCUSSION AMIRAH GRIFFITHS [facility] Encounter Notes: All associated encounter notes This section contains the clinical notes associated to the Encounter. Date/Time Encounter Note(s) Provider Source Nov 22, 2023 07:39 AM PRIMARY CARE NOTE: LOCAL TITLE: PC REFERRAL TEAM NOTE STANDARD TITLE: PRIMARY CARE NOTE DATE OF NOTE: NOV 22, 2023@07:39 ENTRY DATE: NOV 22, 2023@07:39:47 AUTHOR: MIGUEL MARTINEZ COSIGNER: URGENCY: STATUS: COMPLETED The following information has been mailed to the [place], [facility] is committed to providing excellent health care for all Veterans and you may choose to return to the [facility] system for your primary care anytime by [phone]. This letter confirms you have chosen to receive your Primary Care outside of the [facility]. The authorization for [facility] Primary Care is valid for 365 days, starting with your first appointment, at that time you are considered established. If you were on a [facility] Patient Aligned Care Team (PACT) you will be reassigned to a [facility] PACT team, and you may not be eligible for home telehealth monitoring services that require a [place] primary care referral. Your assigned RN PACT Dietitian Consultant for [facility] Care: Nany Nj [phone] Please call with questions or concerns, Monday-Monday from 7:30 a.m. to 4:00 p.m., or contact [facility] Care through secure messaging on [email or web address]. Things you need to know: ALL Community Care MUST be pre-authorized. If you seek services or attend an appointment without authorization, payment is not guaranteed. All care must be provided by vendors within the [facility] ([facility]) and MUST be requested, reviewed, and pre-authorized BEFORE scheduling an appointment. Community Care records are required before additional care will be approved by the [place]. Community Care Primary Care approval does not mean you are eligible for all Community Care; requirements differ by department/specialty. Requests for additional care in the community can be done through the Community Care Call Line at [phone], Monday-Monday from 8:30 a.m. to 3:00 p.m. If you chose to self-schedule, our facility community care office will mail you a letter with the community provider address and phone number along with an authorization number so that you can schedule your own appointment. Please remember, wait for this letter before you schedule your appointment. You will have seven (7) calendar days from the date on the letter to schedule your appointment. After you schedule the appointment, you must notify the community [facility] office of the appointment date so it can be documented. The contact number will be included in the letter. Audiology and Optometry: To schedule basic Eye Care and Hearing/Audiology exams call [phone]. If your Community Care provider orders equipment, [place] must be notified before equipment is issued. If you have a [place] Mental Health Provider, you will stay assigned to this provider. Veterans Crisis Line dial [phone], press #1. Prescriptions need to be faxed by the Community Care provider to the [place] pharmacy at [phone]. If a medication is needed urgently, please see attached Billing Information Card. Anticoagulants (blood thinners), checking labs, and dosage changes will be managed by the [facility] provider. You will be unenrolled with the [place] anti- coagulation clinic. Emergency Care Notification: If you go to the emergency department for any services and want the [place] to consider payment, please call the national ER Notification Line at [phone] within 72 hours of presenting to an outside facility for emergency care or hospitalization. [facility] does not provide authorization for emergency care. /jamaal/ JOSE WEST, RN REGISTERED NURSE REFERRAL COORDINATION TEAM Signed: 11/22/2023 07:42 Receipt Acknowledged By: 11/22/2023 09:40 /jamaal/ LUPE CORTES MD STAFF PHYSICIAN 11/22/2023 09:06 /jamala/ NANY [place] RN Registered Nurse, Care in [facility]
--- OUTSIDE RECORDS SUMMARY | 2024-01-16 13:51 | XMS_ITS | Encounter Summary ---
Author Name Department of Vetera Affairs Organization Department of Vetera ns Affairs Address [address] [place] [address] Support Name Relationship Address Phone UNK, NON-GIVEN Emergency Contact Unknown Azeba FRANCISCO JAVIER Childers Next of Kin [id number] [place] [address] EVA NGUYEN Next of Kin [phone] [place] [id number] Insurance Providers: All historical and current Section Date Range: From patient's date of to the date document was created. This section includes the names of all active insurance providers for the patient. Insurance Provider Type of Coverage Plan Name Start of Policy Coverage End of Policy Coverage Group Number Member ID Insurance Provider's Telephone Number Policy Carvalho's Name Patient's Relationship to Policy Carvalho DANIELLAA [facility] ([facility]) MEDICARE ADVANTAGE M[facility] ([facility]) Aug 21, 2022 [id number] KELLEN BARRIENTOS [facility]) MEDICARE [facility] ([facility]) Aug 21, 2022 [id number] [phone] KELLEN BARRIENTOS PATIENT [facility] ([place]NR) MEDICARE ADVANTAGE [facility] ([facility]) Oct 19, 2018 RIVAAB [id number] KELLEN BARRIENTOS PATIENT [facility] ([place]NR) MEDICARE ADVANTAGE MCR ([facility]) Oct 19, 2018 [id number] [phone] KELLEN BARRIENTOS PATIENT [facility]ARE [facility] (WN) MEDICARE ADVANTAGE MCR ([facility]) Aug 21, 2018 RIVAAB [id number] KELLEN BARRIENTOS PATIENT [facility]ARE [facility] (WNR) MEDICARE ADVANTAGE [facility] (WNR) Aug 21, 2018 [id number] [phone] KELLEN BARRIENTOS PATIENT Selected Encounter This section includes the information on record at [place] for the Encounter. Date/Time Encounter Type Encounter Description Reason Pro vider Source Nov 21, 2023 01:49 PM Outpatient Encounter COMMUNITY CARE CONSULT IHE Encounter Template Text not used by [place] Plan of Treatment: Future Appointments (+ 6 months) and Future Tests (+/- 45 days) The Plan of Treatment section includes future care activities for the patient from all [place] treatmentfacilities. This section includes future appointments and future orders which are active, pending or scheduled. Future Appointments This section includes appointments that were scheduled to occur 6 months from the date of the Encounter, up to a maximum of 20 appointments. The data comes from all [facility] facilities. Appointment Date/Time Appointment Type Appointme nt Facility Name January 05, 2024 08:00 AM AMBULATORY - NONE [facility] Active, Pending, and Scheduled Orders This section includes a listing of several types of active, pending, and scheduled orders, including clinic medications orders, diagnostic test orders, procedure orders and consult orders; where the start date of the order is 45 days before the date of the Encounter or 45 days after the date of theEncounter. The data comes from all [facility]. Test Date/Time Test Type Test Details Facility Name Nov 21, 2023 03:31 PM Consult Order COMMUNITY CARE-PRIMARY CARE Cons Pulmonary Specialist's Choice [facility] January 04, 2024 10:17 AM Consult Order COMMUNITY CARE-WOUND CARE PC Cons Pulmonary Specialist's Choice [facility] Social History: Smoking Status (Most current) and Tobacco Use (All prior to encounter date) This section includes the most current, and the historical, smoking and tobacco- related health factors from the [place] facility where the Encounter took place. Current Smoking Status This section includes the most current smoking, or tobacco-related health factor, from the [place] facility where the Encounter took place. Date/Time Current Smoking Status Johny colbert Oct 04, 2022 04:00 PM VA-TOBACCO USER EVERY DAY [facility] Tobacco Use History This section includes a history of the smoking, or tobacco-related health factors, that were collected on or before the date of the Encounter. The data comes from the [place] facility where the Encounter took place. Date/Time Smoking Status/Tobacco Use Comment F acility Oct 04, 2022 04:00 PM VA-TOBACCO USE ADVICE [facility] Oct 04, 2022 04:00 PM VA-TOBACCO USE PROGRAM MANAGEMENT MANAGER NO [facility] Oct 04, 2022 04:00 PM VA-TOBACCO USE MED NO [facility] Oct 04, 2022 04:00 PM VA-TOBACCO USE [place] [address] UP [facility] Oct 04, 2022 04:00 PM VA-TOBACCO USER EVERY DAY [facility] Sep 17, 2021 01:30 PM VA-TOBACCO USE [address] [facility] Sep 17, 2021 01:30 PM VA-TOBACCO USE ADVICE [facility] Sep 17, 2021 01:30 PM VA-TOBACCO USE PROGRAM MANAGEMENT MANAGER NO [facility] Sep 17, 2021 01:30 PM VA-TOBACCO USE MED NO [facility] Sep 17, 2021 01:30 PM VA-TOBACCO USE [place] [address] [facility] Sep 17, 2021 01:30 PM VA-TOBACCO USER EVERY DAY [facility] Dec 14, 2020 03:05 PM VA-TOBACCO USE [address] [facility] Dec 14, 2020 03:05 PM VA-TOBACCO USE ADVICE [facility] Dec 14, 2020 03:05 PM VA-TOBACCO USE PROGRAM MANAGEMENT MANAGER NO [facility] Dec 14, 2020 03:05 PM VA-TOBACCO USE MED NO [facility] Dec 14, 2020 03:05 PM VA-TOBACCO USE WI [address] [facility] Dec 14, 2020 03:05 PM VA-TOBACCO USER EVERY DAY [facility] Mar 27, 2018 01:28 [address] TOBACCO USER [facility] Advance Directives: All historical and current Section Date Range: From patient's date of to the date document was created. This section includes ALL of a patient's completed or amended [place] Advance and Rescinded Directives. The entries below indicate that a directive exists for the patient, but an actual copy is not included with this document. The data comes from all [place] facilities. Date Advance Directives Provider Source Oct 07, 2022 ADVANCE DIRECTIVE [facility]UM [facility] Oct 07, 2022 ADVANCE DIRECTIVE DISCUSSION AMIRAH [facility]RIFF[facility] Encounter Notes: All associated encounter notes This section contains the clinical notes associated to the Encounter. Date/Time Encounter Note(s) Provider Source Dec 08, 2023 11:17 AM ADDENDUM: LOCAL TITLE: Addendum STANDARD TITLE: ADDENDUM DATE OF NOTE: DEC 08, 2023@11:17:03 ENTRY DATE: DEC 08, 2023@11:17:04 AUTHOR: PEDRO LUIS OSWALD COSIGNER: URGENCY: STATUS: COMPLETED Second outreach call to 's daughter as requested concerning disposition planning. Francisco Javier answers the call, noting she unfortunately is home sick with a migraine today. Leave my direct # with her for call back next week to address her questions. /jamaal/ Pedro Lius Oswald Web Press Operator Community Lumber Sorter Machine Signed: 12/08/2023 11:18 Receipt Acknowledged By: 12/08/2023 11:41 /jamaal/ NANY SHRESTHA RN Registered Nurse, Care in Community --- Original Document --- 11/21/23 COMMUNITY CARE-CARE COORDINATION PLAN NOTE: Received a call from Francisco Javier Gavin(PH: [phone])daughter who is POA and would like to renew his Primary Care. She states they prefer to stay with [facility] due to distance/dementia. She would like to also have someone call to give resources in community as he is living independently now but with his dementia progressing would like resources re assisted living and NH placement. She also thought he was to have follow-up with neuropsyche at [place]. In review of notes he was last seen in 11/2022, I will alert that provider to see if follow-up can be done(Dr. Mono Davis). Confirmed patient's address: Residential Address: Mailing Address: [address] [facility] [place] [address] [place] [address] Referral expires on 11/30/2023 Authorization #:[id number] He would like to renew with: [facility] Dr. Smith [address] [place] [id number] Placed new CC PCP consult held for signature. MADELEINE:12/01/2023 Next scheduled appointment: appt on 11/21/2023 We did review his current CC Specialty consults: None Discussed [facility] in [place] [facility] [place] [facility] network with [facility]. Informed patient he will get an appt date of the day after the expiration of his previous CC PCP referral He understands the CITC process, need for preauthorization for appts and has my number to call with any questions or concerns. Discussed the ER/Hospitalization notification process and he has the phone number to call within 72 hours. Provided the ER Notification line phone number [phone]. will call if he has any questions or concerns regarding [facility]. Alerting Steffanie Oswald in social work to contact patient's daughter to provide assisting living/NH resources for noam. Alerting Dr. Davis to call patient's daughter re neuropsyche follow-up /jamaal/ NANY SHRESTHA RN Registered Nurse, Care in Community Signed: 11/21/2023 14:14 Receipt Acknowledged By: 11/22/2023 12:00 /julito Oswald Web Press Operator Community Lumber Sorter Machine 11/21/2023 15:31 /jamaal/ LUPE CORTES MD STAFF PHYSICIAN 11/23/2023 12:57 /jamaal/ Mono Georges, PhD Staff Neuropsychologist 11/21/2023 ADDENDUM STATUS: COMPLETED Order for ongoing CC primary care has been signed as requested. /julito CORTES MD STAFF PHYSICIAN Signed: 11/21/2023 15:32 11/27/2023 ADDENDUM STATUS: COMPLETED Outreach call to 's daughter/healthcare LIZA Gavin, , left message with food writer's direct number to arrange time for follow up consultation re: care planning/disposition. /julito Oswald Web Press Operator Community Lumber Sorter Machine Signed: 11/27/2023 15:30 11/24/2023 ADDENDUM STATUS: COMPLETED Outreach call made to Dilliner's daughter/healthcare POAlexis, Francisco Javier Gavin, as requested above re: Neuropsychology follow up. There was no answer, left message with food writer's direct number and requested call back. /jamaal/ Mono Georges, PhD Staff Neuropsychologist Signed: 11/27/2023 15:[address] [facility] Nov 21, 2023 01:49 PM NONVA NOTE: LOCAL TITLE: COMMUNITY CARE-CARE COORDINATION PLAN NOTE STANDARD TITLE: NONVA NOTE DATE OF NOTE: NOV 21, 2023@13:49 ENTRY DATE: NOV 21, 2023@13:49:08 AUTHOR: NANY SHRESTHA EXP COSIGNER: URGENCY: STATUS: COMPLETED COMMUNITY CARE-CARE COORDINATION PLAN NOTE Has ADDENDA Received a call from Francisco Javier Gavin(PH: [phone])daughter who is POA and would like to renew his CC Primary Care. She states they prefer to stay with [facility] due to distance/dementia. She would like to also have someone call to give resources in community as he is living independently now but with his dementia progressing would like resources re assisted living and NH placement. She also thought he was to have follow-up with [place]psyche [place]. In review of notes he was last seen in 11/2022, I will alert that provider to see if follow-up can be done(Dr. Mono Davis). Confirmed patient's address: Residential Address: Mailing Address: [address] [place] [address] [address] [facility] [address] [place] [address] [place] [address] Referral expires on 11/30/2023 Authorization #:[id number] He would like to renew with: [facility] [address] Placed new CC PCP consult held for signature. MADELEINE:12/01/2023 Next scheduled appointment: appt on 11/21/2023 We did review his current CC Specialty consults: None Discussed [facility] in [place] not in network with [place]. Informed patient he will get an appt date of the day after the expiration of his previous CC PCP referral He understands the CITC process, need for preauthorization for appts and has my number to call with any questions or concerns. Discussed the ER/Hospitalization notification process and he has the phone number to call within 72 hours. Provided the ER Notification line phone number [phone]. will call if he has any questions or concerns regarding [facility]. Alerting Steffanie Oswald in social work to contact patient's daughter to provide assisting living/NH resources for noam. Alerting Dr. Davis to call patient's daughter re neuropsyche follow-up /jamaal/ NANY SHRESTHA RN Registered Nurse, Care in Community Signed: 11/21/2023 14:14 Receipt Acknowledged By: 11/22/2023 12:00 /julito Oswald Web Press Operator Community Lumber Sorter Machine 11/21/2023 15:31 /jamaal/ LUPE CORTES MD STAFF PHYSICIAN 11/23/2023 12:57 /jamaal/ Mono Georges, PhD Staff Neuropsychologist 11/21/2023 ADDENDUM STATUS: COMPLETED Order for ongoing CC primary care has been signed as requested. /julito OCRTES MD STAFF PHYSICIAN Signed: 11/21/2023 15:32 11/27/2023 ADDENDUM STATUS: COMPLETED Outreach call to Dilliner's daughter/healthcare POA Francisco Javier Gavin, , left message with food writer's direct number to arrange time for follow up consultation re: care planning/disposition. /julito Oswald Web Press Operator Community Lumber Sorter Machine Signed: 11/27/2023 15:30 11/24/2023 ADDENDUM STATUS: COMPLETED Outreach call made to Dilliner's daughter/healthcare POA, Francisco Javier Romaine, as requested above re: Neuropsychology follow up. There was no answer, left message with food writer's direct number and requested call back. /jamaal/ Mono Georges, PhD Staff Neuropsychologist Signed: 11/27/2023 15:35 12/08/2023 ADDENDUM STATUS: COMPLETED Second outreach call to Dilliner's daughter as requested concerning disposition planning. Francisco Javier answers the call, noting she unfortunately is home sick with a migraine today. Leave my direct # with her for call back next week to address her questions. /jamaal/ Pedro Luis Oswald Web Press Operator Community Lumber Sorter Machine Signed: 12/08/2023 11:18 Receipt Acknowledged By: * AWAITING SIGNATURE * NANY SHRESTHA ANNE E [facility]
--- OUTSIDE RECORDS SUMMARY | 2024-01-16 13:51 | XMS_ITS | Encounter Summary ---
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 This section includes the names of all active insurance providers for the patient. Insurance Provider Type of Coverage Plan Name Start of Policy Coverage End of Policy Coverage Group Number Member ID Insurance Provider's Telephone Number Policy Carvalho's Name Patient's Relationship to Policy [facility] MEDICARE ADVANTAGE MCR ([facility]) Aug 21, 2022 [id number] KELLEN BARRIENTOS [facility]IENT [facility] MEDICARE ADVANTAGE MCR ([facility]) Aug 21, 2022 [id number] [phone] KELLEN BARRIENTOS PATIENT [facility] ([facility]) MEDICARE [facility] ([facility]) Oct 19, 2018 RIVAAB [id number] KELLEN BARRIENTOS PATIENT [facility] OF [facility] (WN) MEDICARE ADVANTAGE MCR ([facility]) Oct 19, 2018 [id number] [phone] KELLEN BARRIENTOS PATIENT [facility] ([facility]) MEDICARE ADVANTAGE MCR ([facility]) Aug 21, 2018 [id number] KELLEN BARRIENTOS PATIENT [facility] (WNR) MEDICARE ADVANTAGE [facility] ([facility]NR) Aug 21, 2018 RIVAAB [id number] EKLLEN BARRIENTOS PATIENT Selected Encounter This section includes the information on record at [place] for the Encounter. Date/Time Encounter Type Encounter Description Reason Pro vider Source May 03, 2023 08:45 AM Outpatient Encounter COMMUNITY CARE CONSULT IHE Encounter Template Text not used by [place] Plan of Treatment: Future Appointments (+ 6 months) and Future Tests (+/- 45 days) The Plan of Treatment section includes future care activities for the patient from all [place] treatmentfacilities. This section includes future appointments and future orders which are active, pending or scheduled. Future Appointments This section includes appointments that were scheduled to occur 6 months from the date of the Encounter, up to a maximum of 20 appointments. The data comes from all [place] treatment facilities. Appointment Date/Time Appointment Type Appointme nt Facility Name Oct 28, 2023 07:00 AM AMBULATORY - NONE [facility] Social History: Smoking Status (Most current) and Tobacco Use (All prior to encounter date) This section includes the most current, and the historical, smoking and tobacco- related health factors from the [place] facility where the Encounter took place. Current Smoking Status This section includes the most current smoking, or tobacco-related health factor, from the [place] facility where the Encounter took place. Date/Time Current Smoking Status Comment Remi colbert Oct 04, 2022 04:00 PM VA-TOBACCO USER EVERY DAY [facility] Tobacco Use History This section includes a history of the smoking, or tobacco-related health factors, that were collected on or before the date of the Encounter. The data comes from the [place] facility where the Encounter took place. 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 [facility] Sep 17, 2021 01:30 PM VA-TOBACCO USE MED NO [facility] Sep 17, 2021 01:30 PM VA-TOBACCO USE WI 30 MIN OF WAKE UP [facility] Sep 17, 2021 01:30 PM VA-TOBACCO USER EVERY DAY [facility] Dec 14, 2020 03:05 PM VA-TOBACCO USE 30 YEARS OR MORE [facility] Dec 14, 2020 03:05 PM VA-TOBACCO USE ADVICE [facility] Dec 14, 2020 03:05 PM VA-TOBACCO USE 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 This section includes ALL of a patient's completed or amended [place] Advance and Rescinded Directives. The entries below indicate that a directive exists for the patient, but an actual copy is not included with this document. The data comes from all [place] facilities. Date Advance Directives Provider Source Oct 07, 2022 ADVANCE DIRECTIVE ANUM [facility] Oct 07, 2022 ADVANCE DIRECTIVE DISCUSSION AMIRAH GRIFFITHS [facility] Encounter Notes: All associated encounter notes This section contains the clinical notes associated to the Encounter. Date/Time Encounter Note(s) Provider Source May 03, 2023 08:45 AM PHARMACY NOTE: LOCAL TITLE: PHARMACY NON VA CARE MEDICATIONS STANDARD TITLE: PHARMACY NOTE DATE OF NOTE: MAY 03, 2023@08:45 ENTRY DATE: MAY 03, 2023@08:45:53 AUTHOR: REBECCA SLADE EXP COSIGNER: URGENCY: STATUS: COMPLETED PHARMACY NON VA CARE MEDICATIONS Has ADDENDA [facility] received a anticoagulant prescription for from NON-VA provider, authorized [facility]-Primary Care provider: MD Khadijah NOEL[facility] FAX: [phone] Date RX received: 05/01/2023 Prescription Information: eRx Drug: warfarin 2 mg tablet (COUMADIN) eRx Qty: 75 eRx Refills: 1 eRx Sig: Take by mouth 1 mg (2 mg x 0.5) every Mon, Wed, Fri 2 mg (2 mg x 1) all other days in the evening OR as directed Anticoagulation prescriptions cannot be co-managed. Patient has [facility]. Alerting Finished Goods Planner to send the Anticoagulation Responsibility letter. 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
--- OUTSIDE RECORDS SUMMARY | 2024-01-16 13:51 | XMS_ITS | Encounter Summary ---
Author Name [facility] Organization [facility] Address [address] [place] [address] Support Name Relationship Address Phone UNK, NON-GIVEN Emergency Contact Unknown Azeba LELAND Childers Next of Kin [id number] [place] [address] EVA NGUYEN Next of Kin [id number] [place] [id number] Insurance Providers: All historical and current Section Date Range: From patient's date of to the date document was created. This section includes the names of all active insurance providers for the patient. Insurance Provider Type of Coverage Plan Name Start of Policy Coverage End of Policy Coverage Group Number Member ID Insurance Provider's Telephone Number Policy Carvalho's Name Patient's Relationship to Policy [facility] MEDICARE ADVANTAGE [facility] ([facility]) Aug 21, 2022 [id number] KELLEN BARRIENTOS [facility] MEDICARE ADVANTAGE [employer] ([facility]) Aug 21, 2022 [id number] KELLEN BARRIENTOS PATIENT [facility] ([facility]) MEDICARE [facility] ([facility]) Oct 19, 2018 [id number] KELLEN BARRIENTOS PATIENT [facility] ([facility]) MEDICARE ADVANTAGE [facility] ([facility]) Oct 19, 2018 [id number] KELLEN BARRIENTOS PATIENT [facility] ([facility]) MEDICARE ADVANTAGE [facility] ([facility]) Aug 21, 2018 [id number] KELLEN BARRIENTOS PATIENT [facility] ([facility]) MEDICARE [facility] Aug 21, 2018 [id number] KELLEN BARRIENTOS PATIENT Selected Encounter This section includes the information on record at [place] for the Encounter. Date/Time Encounter Type Encounter Description Reason Pro vider Source Oct 20, 2023 08:50 AM Outpatient Encounter COMMUNITY CARE CONSULT IHE Encounter Template Text not used by [place] Plan of Treatment: Future Appointments (+ 6 months) and Future Tests (+/- 45 days) The Plan of Treatment section includes future care activities for the patient [facility] [place] [facility] This section includes future appointments and future orders which are active, pending or scheduled. Future Appointments This section includes appointments that were scheduled to occur 6 months from the date of the Encounter, up to a maximum of 20 appointments. The data comes from all [facility] ([facility] facilities. Appointment Date/Time Appointment Type Appointme nt Facility Name Oct 28, 2023 07:00 AM AMBULATORY - NONE [facility] January 05, 2024 08:00 AM AMBULATORY - NONE [facility] Active, Pending, and Scheduled Orders This section includes a listing of several types of active, pending, and scheduled orders, including clinic medications orders, diagnostic test orders, procedure orders and consult orders; where the start date of the order is 45 days before the date of the Encounter or 45 days after the date of theEncounter. The data comes from all [facility] ([facility]) facilities. Test Date/Time Test Type Test Details Facility Name Nov 21, 2023 03:31 PM Consult Order COMMUNITY CARE-PRIMARY CARE Cons [employer] [place] [facility] Social History: Smoking Status (Most current) and Tobacco Use (All prior to encounter date) This section includes the most current, and the historical, smoking and tobacco- related health factors from the [place] facility where the Encounter took place. Current Smoking Status This section includes the most current smoking, or tobacco-related health factor, from the [place] facility where the Encounter took place. Date/Time Current Smoking Status Comment Remi colbert Oct 04, 2022 04:00 PM VA-TOBACCO USER EVERY DAY [facility] Tobacco Use History This section includes a history of the smoking, or tobacco-related health factors, that were collected on or before the date of the Encounter. The data comes from the [place] facility where the Encounter took place. 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 [facility] Oct 04, 2022 04:00 PM VA-TOBACCO USE MED NO [facility] Oct 04, 2022 04:00 PM VA-TOBACCO USE WI 30 MIN OF WAKE UP [facility] Oct 04, 2022 04:00 PM VA-TOBACCO USER EVERY DAY [facility] Sep 17, 2021 01:30 PM VA-TOBACCO USE 30 YEARS OR MORE [facility] Sep 17, 2021 01:30 PM VA-TOBACCO USE ADVICE [facility] Sep 17, 2021 01:30 PM VA-TOBACCO USE WRINKLE CHASER NO [facility] Sep 17, 2021 01:30 PM VA-TOBACCO USE MED NO [facility] Sep 17, 2021 01:30 PM VA-TOBACCO USE WI 30 MIN OF WAKE UP [facility] Sep 17, 2021 01:30 PM VA-TOBACCO USER EVERY DAY [facility] Dec 14, 2020 03:05 PM VA-TOBACCO USE 30 YEARS OR MORE [facility] Dec 14, 2020 03:05 PM VA-TOBACCO USE ADVICE [facility] Dec 14, 2020 03:05 PM VA-TOBACCO USE WRINKLE CHASER NO [facility] Dec 14, 2020 03:05 PM VA-TOBACCO USE MED NO [facility] Dec 14, 2020 03:05 PM VA-TOBACCO USE WI 30 MIN OF WAKE UP [facility] Dec 14, 2020 03:05 PM VA-TOBACCO USER EVERY DAY [facility] Mar 27, 2018 01:28 PM CURRENT TOBACCO USER [facility] Advance Directives: All historical and current Section Date Range: From patient's date of to the date document was created. This section includes ALL of a patient's completed or amended [place] Advance and Rescinded Directives. The entries below indicate that a directive exists for the patient, but an actual copy is not included with this document. The data comes from all [place] facilities. Date Advance Directives Provider Source Oct 07, 2022 ADVANCE DIRECTIVE ANUM GRIFFITHS [facility] Oct 07, 2022 ADVANCE DIRECTIVE DISCUSSION AMIRAH GRIFFITHS [facility] Encounter Notes: All associated encounter notes This section contains the clinical notes associated to the Encounter. Date/Time Encounter Note(s) Provider Source Oct 20, 2023 08:50 AM PHARMACY NOTE: LOCAL TITLE: PHARMACY NON VA CARE MEDICATIONS STANDARD TITLE: PHARMACY NOTE DATE OF NOTE: OCT 20, 2023@08:50 ENTRY DATE: OCT 20, 2023@08:50:51 AUTHOR: LALITHA BRANDT EXP COSIGNER: URGENCY: STATUS: COMPLETED PHARMACY NON VA CARE MEDICATIONS Has ADDENDA [facility] [address] [place] [address] Oct Provider: Dr Kellen Smith Fax #: [phone] Regarding Patient: KELLEN BARRIENTOS Date of : Oct [facility] ([facility]) received a PRESCRIPTION written for: Rivaroxaban (Xarelto) 2.5mg by mouth twice daily for persistent atrial fibrillation This [place] [facility] cannot process this due to the following: [X] Dose/SIG needs Clarification: -Has patient discontinued warfarin? -Approved doing for persistent atrial fibrillation is 20mg daily for normal renal function (15mg daily if CrCl is 15-50ml/min). A dose of 2.5mg twice daily is typically reserved for vascular events. [X] Please send updated prescription with updated labs for consideration. PLEASE NOTE: Prescriptions may be sent ELECTRONICALLY to [facility] FAX RESPONSE to FAX # or call # if questions. /julito BRANDT pharmacist Signed: 10/20/2023 09:07 10/20/2023 ADDENDUM STATUS: COMPLETED SENT /jamaal/ CHRISTIANO GAITAN pharmacy intake technician Signed: 10/20/2023 10:07 10/23/2023 ADDENDUM STATUS: COMPLETED Per [facility] notes and JHONY Henderson (Khadijah Middleton): Patient will be transitioning from Warfarin to DOAC. Instructions have been given to patient about the transition. Beatriz will be sending us an updated RX with correct dosing. /julito LARRY PharmD CLINICAL PHARMACIST Signed: 10/23/2023 09:45 2023 ADDENDUM STATUS: COMPLETED Received a new RX with correct dosing and processed to be mailed /es/ DAHLIA [email or web address], PharmD CLINICAL PHARMACIST Signed: 2023 08:59 LALITHA BRANDT [facility]
--- OUTSIDE RECORDS SUMMARY | 2024-01-16 13:51 | XMS_ITS | Continuity of Care Document ---
Author Name [facility] Organization [facility] Care Team Providers Care Bottle Packer Name Role Phone [facility] Unavailable Unavailable Problems Combined list of problems from Department of Defense and Veterans Affairs facilities. It does not include entries that were removed or entered in error. Problem Status Onset Date Problem Type Date of Resolution Comments Source AF- Atrial Fibrillation (SCT [id number]) Active Condition [facility] Benign Prostatic Hypertrophy Without Outflow Obstruction (SCT [id number]) Active Condition [facility] Diabetes Mellitus Type 2 ([facility] [id number]) Active Condition [facility] GERD - Gastro-Esophageal Reflux Disease ([facility] [id number]) Active Condition [facility] Hearing Loss ([facility] [id number]) Active Condition [facility] HTN - Hypertension ([facility] [id number]) Active Condition [facility] Hypothyroidism (SCT 22307014) Active Condition [facility] Long-term current use of anticoagulant Active Condition [facility] Mild dementia Active Condition [facility] Tobacco User ([facility] [id number]) Active Condition [facility] Diagnosis: ICD-10-CM Z51.81 Encounter for therapeutic drug level monitoring Active Diagnosis [facility] Diagnosis: ICD-10-CM F02.A0 Dem in other dis classd elswhr, mild, w/o beh/psych/mood/anx Active Diagnosis [facility] Diagnosis: ICD-10-CM Z73.6 Limitation of activities due to disability Active Diagnosis [facility] Diagnosis: ICD-10-CM Z71.9 Counseling, unspecified Active Diagnosis [facility] Diagnosis: ICD-10-CM R31.0 Gross hematuria Active Diagnosis [facility] Diagnosis: ICD-10-CM F03.918 Unsp dementia, unsp severity, with other behavioral disturb Active Diagnosis [facility] Diagnosis: ICD-10-CM R31.9 Hematuria, unspecified Active Diagnosis [facility] Diagnosis: ICD-10-CM Z79.01 alf (current) use of anticoagulants Active Diagnosis [facility] Medications Combined list of outpatient medications from Department of Defense and [facility] Affairs facilities.Medications provided include 1) outpatient medications from the last 15 months, and 2) patient-reported medications. Medication Details Route Status Patient Instructions Prescription Expires Prescription Number Last Dispense Date Ordering Provider Order Date Order Qty Source ALBUTEROL 90MCG/ACTUA T (CFC-F) INHL,ORAL,8 .5GM DOSE COUNTER INHALE 2 PUFFS BY INHALATI ON FOUR TIMES A DAY NEEDED INHALA TION ACTIVE Yordan BENITEZ E 2017 [facility] AMLODIPINE BESYLATE 10MG TAB TAKE ONE TABLET BY MOUTH EVERY DAY ORALLY ACTIVE 11/14/2024 [id number] 4 Yordan BENITEZ E 2023 90 [facility] AMLODIPINE BESYLATE 10MG TAB TAKE ONE TABLET BY MOUTH EVERY DAY ORALLY DISCONT INUED 09/08/2023 [id number] 3 Yordan BENITEZ E 2022 90 [facility] ATORVASTATI N CA 20MG TAB TAKE ONE TABLET BY MOUTH AT BEDTIME FOR CHOLESTE ROL ORALLY ACTIVE 08/16/2024 [id number] 4 Yordan BENITEZ E 2023 90 [facility] ATORVASTATI N CA 20MG TAB TAKE ONE TABLET BY MOUTH AT BEDTIME FOR CHOLESTE ROL ORALLY DISCONT INUED 08/25/2023 [id number] 3 Yordan BENITEZ E 2022 90 [facility] ATORVASTATI N CA 40MG TAB TAKE ONE-HALF TABLET BY MOUTH AT BEDTIME FOR CHOLESTE ROL ORALLY DISCONT INUED (EDIT) 08/25/2023 [id number] 3 Yordan BENITEZMIN E 2022 45 [facility] DOCUSATE NA 100MG CAP TAKE ONE CAPSULE BY MOUTH TWICE A DAY FOR CONSTIPA TION ORALLY DISCONT INUED 09/19/2024 [id number] 4 KELLEN LOBO 2023 200 [facility] DOCUSATE NA 50MG/SENNOS IDES 8.6MG TAB TAKE 2 TABLETS BY MOUTH TWICE A DAY ORALLY DISCONT INUED 11/23/2024 [id number] 4 MELISSA RODRIGUEZ 2023 400 [facility] FAMOTIDINE 20MG TAB TAKE ONE TABLET BY MOUTH EVERY DAY NEEDED FOR HEARTBUR N TAKE SEPARATE D BY 2 HOURS FROM OMEPRAZO LE ORALLY 11/18/2023 [id number] 3 Yordan BENITEZ ENJAMIN E 2022 30 [facility] FINASTERIDE 5MG TAB TAKE ONE TABLET BY MOUTH EVERY DAY FOR PROSTATE ORALLY ACTIVE 09/26/2024 [id number] 4 Yordan BENITEZJAMIN E 2023 90 [facility] FINASTERIDE 5MG TAB TAKE ONE TABLET BY MOUTH EVERY DAY FOR PROSTATE ORALLY DISCONT INUED 09/22/2023 [id number] 3 Yordan BENITEZ ENWANDAMIN E 2022 90 [facility] LEVOTHYROXI NE NA 75MCG TAB (SYNTHROID) TAKE ONE TABLET BY MOUTH EVERY DAY FOR THYROID -TAKE ON AN EMPTY STOMACH ORALLY ACTIVE 12/27/2024 [id number] 4 Yordan BENITEZ ENJAMIN E 2023 90 [facility] LEVOTHYROXI NE NA 75MCG TAB (SYNTHROID) TAKE ONE TABLET BY MOUTH EVERY DAY FOR THYROID -TAKE ON AN EMPTY STOMACH ORALLY DISCONT INUED 01/10/2024 [id number] 4 Yordan BENITEZ ENJAMIN E 2022 90 [facility] LISINOPRIL 10MG TAB TAKE ONE TABLET BY MOUTH ONCE EVERY DAY *DOSE REDUCTIO N 02/10 ORALLY ACTIVE 02/02/2024 [id number] 4 KELLEN LOBO 2022 90 [facility] LISINOPRIL 20MG TAB TAKE ONE TABLET BY MOUTH EVERY DAY ORALLY DISCONT INUED 12/08/2023 [id number] 3 Yordan BENITEZ ENWANDAMIN E 2022 90 [facility] LISINOPRIL 40MG TAB TAKE ONE-HALF TABLET BY MOUTH EVERY DAY ORALLY DISCONT INUED (EDIT) 12/06/2023 [id number] 3 Yordan BENITEZ ENJAMIN E 2022 45 [facility] MAGNESIUM OXIDE 400MG TAB TAKE ONE TABLET BY MOUTH TWICE A DAY ORALLY ACTIVE 02/08/2024 [id number] KELLEN LOBO 2022 120 [facility] MAGNESIUM OXIDE 400MG TAB TAKE ONE TABLET BY MOUTH TWICE A DAY FOR MAGNESIU M SUPPLEME NT ORALLY DISCONT INUED 10/15/2023 [id number] 3 Yordan BENITEZ E 2022 240 [facility] METFORMIN HCL 1000MG TAB TAKE ONE-HALF TABLET BY MOUTH EVERY DAY FOR DIABETES -TAKE WITH FOOD ORALLY 09/29/2023 [id number] 4 Yordan BENITEZ E 2022 45 [facility] METFORMIN HCL 500MG TAB TAKE ONE TABLET BY MOUTH EVERY DAY WITH A MEAL ORALLY ACTIVE 02/26/2024 [id number] 4 MELISSA RODRIGUEZ 2023 90 [facility] METOPROLOL TARTRATE 25MG TAB TAKE ONE-HALF TABLET BY MOUTH TWICE A DAY ORALLY ACTIVE 01/27/2024 [id number] 4 MELISSA RODRIGUEZ 2023 60 [facility] METOPROLOL TARTRATE 25MG TAB TAKE ONE TABLET BY MOUTH TWICE A DAY FOR ATRIAL FIBRILLA TION ORALLY DISCONT INUED (EDIT) 10/15/2023 [id number] 3 Yordan BENITEZ E 2022 180 [facility] METOPROLOL TARTRATE 25MG TAB TAKE ONE-HALF TABLET BY MOUTH TWICE A DAY FOR ATRIAL FIBRILLA TION ORALLY 11/16/2023 [id number] 4 Yordan BENITEZ E 2022 90 [facility] OMEPRAZOLE 20MG CAP,EC TAKE ONE CAPSULE BY MOUTH TWICE A DAY BEFORE MEALS ORALLY ACTIVE 02/08/2024 [id number] 4 FB-KELLEN RODRIGUEZ 2022 180 [facility] OMEPRAZOLE 20MG CAP,EC TAKE ONE CAPSULE BY MOUTH TWICE A DAY FOR HEARTBUR N ORALLY DISCONT INUED 10/15/2023 [id number] 3 Yordan BENITEZ ENJAMIN E 2022 180 [facility] POTASSIUM CHLORIDE 20MEQ TAB,SA (DISPERSIBL E) TAKE ONE TABLET BY MOUTH EVERY DAY FOR POTASSIU M SUPPLEME NT ORALLY 10/15/2023 [id number] 3 Yordan BENITEZ ENJAMIN E 2022 90 [facility] PSYLLIUM SUGAR FREE PWDR,ORAL TAKE 1 TEASPOON FUL BY MOUTH EVERY DAY MIXED IN JUICE OR WATER DIRECTED : COULD INCREASE TO TABLESPO ON, IF NEEDED ORALLY 11/16/2023 [id number] 3 Yordan BENITEZ ENJAMIN E 2022 300 [facility] RIVAROXABAN 20MG TAB TAKE ONE TABLET BY MOUTH EVERY DAY WITH EVENING MEALTH IS REPLACES YOUR WARFARIN * ORALLY ACTIVE 10/23/2024 [id number] 4 MELISSA RODRIGUEZ 2023 90 [facility] TAMSULOSIN HCL 0.4MG CAP TAKE ONE CAPSULE BY MOUTH EVERY DAY ORALLY ACTIVE 12/12/2024 [id number] 4 Yordan BENITEZ ENJAMIN E 2023 90 [facility] TAMSULOSIN HCL 0.4MG CAP TAKE ONE CAPSULE BY MOUTH EVERY DAY ORALLY DISCONT INUED 01/10/2024 [id number] 4 Yordan BENITEZ ENJAMIN E 2022 90 [facility] TRAZODONE HCL 50MG TAB TAKE ONE TABLET BY MOUTH EVERY DAY AT BEDTIME ORALLY ACTIVE 02/20/2024 [id number] 4 MELISSA RODRIGUEZ R 2023 90 [facility] TRAZODONE HCL 50MG TAB TAKE ONE TABLET BY MOUTH AT BEDTIME ORALLY DISCONT INUED 06/19/2024 [id number] 3 FB-KELLEN RODRIGUEZ 2022 30 [facility] TRAZODONE HCL 50MG TAB TAKE ONE TABLET BY MOUTH AT BEDTIME ORALLY 10/26/2023 [id number] 3 FB-KELLEN RODRIGUEZ 2022 90 [facility] WARFARIN NA ([place]) 2MG TAB TAKE ONE-HALF TABLET (1MG) BY MOUTH EVERY MONDAY, AND MONDAY AND TAKE ONE TABLET (2MG) ALL OTHER DAYS OR DIRECTED . TAKE IN THE EVENING. ORALLY DISCONT INUED 05/01/2024 [id number] 3 FB-KELLEN RODRIGUEZ 2022 75 [facility] WARFARIN NA ([place]) 2MG TAB TAKE THIS MEDICATI ON BY MOUTH DIRECTED BY YOUR ANTICOAG ULATION PROVIDER TO PREVENT AND/OR TREAT BLOOD CLOTS. CALL THE [facility] CLINIC AT [phone] WITH QUESTION S BY YOUR ANTICOAG ULATION PROVIDER TO PREVENT AND/OR TREAT BLOOD CLOTS. CALL THE [facility]ICO[facility]ATION CLINIC AT [phone] WITH QUESTION S ORALLY DISCONT INUED 08/11/2023 [id number] 3 Tess STEVENS Y 2021 90 [facility] WARFARIN TAB TAKE DIRECTED BY MOUTH EVERY DAY ORALLY ACTIVE KERRIE PRICE 2022 [facility] Allergies, Adverse Reactions, Alerts Combined list of allergies from Department of Defense and Veterans Affairs facilities. It does not include entries that were removed or entered in error. Substance Category Reaction Severity Reaction type Status Date Reported Comments Source AUGMENTIN Propensity to adverse reactions to drug (finding) Anaphylaxis active 8 [facility] ERYTHROMYCIN Propensity to adverse reactions to drug (finding) active 8 [facility] PENICILLIN Propensity to adverse reactions to drug (finding) Anaphylaxis active 8 [facility] Immunizations Combined list of available immunizations from the Department of Defense and Veterans Affairs facilities. Immunization Series Date Given Administered By Site Reaction Lot Number CVX Code Drug Citizenship Teacher Status Comments Source INFLUENZA VACCINE, QUADRIVALENT, ADJUVANTED 2022 SUNIL RAPHAELSOSA Yoselin Alexis LEFT DELTO ID [id number] 205 complet ed [facility] TDAP 2021 115 complet ed [facility] COVID-19 (PFIZER), MRNA, LNP-S, PF, 30 MCG/0.3 ML DOSE 3 2020 208 complet ed PFR; [id number]; 2 [facility] INFLUENZA, INJECTABLE, QUADRIVALENT, PRESERVATIVE FREE 2020 150 complet ed [facility] PNEUMOCOCCAL POLYSACCHARID E PPV23 2020 33 complet ed [facility] COVID-19 (PFIZER), MRNA, LNP-S, PF, 30 MCG/0.3 ML DOSE 2 2020 208 complet ed PFR; [id number]; 1 [facility] COVID-19 (PFIZER), MRNA, LNP-S, PF, 30 MCG/0.3 ML DOSE 1 2020 LEFT DELTO ID 208 complet ed PFR; [id number]; 1 [facility] INFLUENZA, INJECTABLE, QUADRIVALENT, PRESERVATIVE FREE 2019 150 complet ed [facility] INFLUENZA, SEASONAL, INJECTABLE, PRESERVATIVE FREE 2018 140 complet ed [facility] ZOSTER RECOMBINANT 2 2018 187 complet ed [facility] PNEUMOCOCCAL CONJUGATE PCV 13 2018 133 complet ed [facility] [id number] 01/07 [facility] ZOSTER RECOMBINANT 1 2018 187 complet ed [facility] INFLUENZA, SEASONAL, INJECTABLE 2017 141 complet ed [facility] TDAP 2011 115 complet ed [facility] Results Combined list of recent chemistry, hematology and other laboratory results from Department of Defense and Veterans Affairs, ranging from 15 months to all on record, depending upon the facility. Order Name Results Value Reference Range Date Interpretation Specimen Comments Source PROTHROM BIN TIME/INR INR IN PLATELET POOR PLASMA BY COAGULATIO N ASSAY 1.8 0.8 - 1.1 11/23 H Specimen Type: PLASMA No comment entered. Ordering Provider: HEENA BENITEZ Report Released Date/Time: Nov 15, 2022 08:59 AM Reporting Lab: [facility] [address] Performing Lab: [facility] [address] [place] [facility] PROTHROM BIN TIME/INR PROTHROMBI N TIME (PT) 21.7 9.4 - 12.5 11/23 H Specimen Type: PLASMA No comment entered. Ordering Provider: HEENA BENITEZ Report Released Date/Time: Nov 15, 2022 08:59 AM Reporting Lab: [facility] [address] Performing Lab: [facility] [address] [place] [facility] CBC LEUKOCYTES [#/VOLUME] IN BLOOD BY AUTOMATED COUNT 7.52 4.0 - 11.0 11/23 Specimen Type: BLOOD No comment entered. Ordering Provider: HEENA BENITEZ Report Released Date/Time: Nov 15, 2022 08:56 AM Reporting Lab: [facility] [address] Performing Lab: [facility] [address] [place] [facility] CBC ERYTHROCYT ES [#/VOLUME] IN BLOOD BY AUTOMATED COUNT 4.73 4.6 - 6.2 11/23 Specimen Type: BLOOD No comment entered. Ordering Provider: HEENA BENITEZ Report Released Date/Time: Nov 15, 2022 08:56 AM Reporting Lab: [facility] [address] Performing Lab: [facility] [address] [place] [facility] CBC HEMOGLOBIN [MASS/VOLU ME] IN BLOOD 14.1 13.5 - 17.9 11/23 Specimen Type: BLOOD No comment entered. Ordering Provider: HEENA BENITEZ Report Released Date/Time: Nov 15, 2022 08:56 AM Reporting Lab: [facility] [address] Performing Lab: [facility] [address] [place] [facility] CBC HEMATOCRIT [VOLUME FRACTION] OF BLOOD BY AUTOMATED COUNT 43.0 41 - 54 11/23 Specimen Type: BLOOD No comment entered. Ordering Provider: HEENA BEINTEZ Report Released Date/Time: Nov 15, 2022 08:56 AM Reporting Lab: [facility] [address] Performing Lab: [facility] [address] [place] [facility] CBC MCV [ENTITIC VOLUME] BY AUTOMATED COUNT 90.9 80 - 100 11/23 Specimen Type: BLOOD No comment entered. Ordering Provider: HEENA BENITEZ Report Released Date/Time: Nov 15, 2022 08:56 AM Reporting Lab: [facility] [address] Performing Lab: [facility] [address] [place] [facility] CBC MCH [ENTITIC MASS] BY AUTOMATED COUNT 29.8 27 - 33 11/23 Specimen Type: BLOOD No comment entered. Ordering Provider: HEENA BENITEZ Report Released Date/Time: Nov 15, 2022 08:56 AM Reporting Lab: [facility] [address] Performing Lab: [facility] [address] [place] [facility] CBC MCHC [MASS/VOLU ME] BY AUTOMATED COUNT 32.8 32.0 - 37.5 11/23 Specimen Type: BLOOD No comment entered. Ordering Provider: HEENA BENITEZ Report Released Date/Time: Nov 15, 2022 08:56 AM Reporting Lab: [facility] [address] Performing Lab: [facility] [address] [place] [facility] CBC PLATELETS [#/VOLUME] IN BLOOD BY AUTOMATED COUNT 168 150 - 400 11/23 Specimen Type: BLOOD No comment entered. Ordering Provider: HEENA BENITEZ Report Released Date/Time: Nov 15, 2022 08:56 AM Reporting Lab: [facility] [address] Performing Lab: [facility] [address] [place] [facility] CBC PLATELET MEAN VOLUME [ENTITIC VOLUME] IN BLOOD BY AUTOMATED COUNT 10.2 7.4 - 10.4 11/23 Specimen Type: BLOOD No comment entered. Ordering Provider: HEENA BENITEZ Report Released Date/Time: Nov 15, 2022 08:56 AM Reporting Lab: [facility] [address] Performing Lab: [facility] [address] [place] [facility] CBC ERYTHROCYT E DISTRIBUTI ON WIDTH [RATIO] BY AUTOMATED COUNT 14.4 11.5 - 14.5 11/23 Specimen Type: BLOOD No comment entered. Ordering Provider: HEENA BENITEZ Report Released Date/Time: Nov 15, 2022 08:56 AM Reporting Lab: [facility] [address] Performing Lab: [facility] [address] [place] [facility] BASIC METABOLI C PANEL+MG CREATININE [MASS/VOLU ME] IN SERUM OR PLASMA 0.8 0.7 - 1.2 11/23 Specimen Type: PLASMA No comment entered. Ordering Provider: HEENA BENITEZ Report Released Date/Time: Nov 15, 2022 08:56 AM Reporting Lab: [facility] [address] Performing Lab: [facility] [address] [place] [facility] BASIC METABOLI C PANEL+MG UREA NITROGEN [MASS/VOLU ME] IN SERUM OR PLASMA 26 8 - 26 11/23 Specimen Type: PLASMA No comment entered. Ordering Provider: HEENA BENITEZ Report Released Date/Time: Nov 15, 2022 08:56 AM Reporting Lab: [facility] [address] Performing Lab: [facility] [address] [place] [facility] BASIC METABOLI C PANEL+MG GLUCOSE [MASS/VOLU ME] IN SERUM OR PLASMA 151 70 - 100 11/23 H Specimen Type: PLASMA No comment entered. Ordering Provider: HEENA BENITEZ Report Released Date/Time: Nov 15, 2022 08:56 AM Reporting Lab: [facility] [address] Performing Lab: [facility] [address] [place] [facility] BASIC METABOLI C PANEL+MG SODIUM [MOLES/VOL UME] IN SERUM OR PLASMA 139 136 - 145 11/23 Specimen Type: PLASMA No comment entered. Ordering Provider: HEENA BENITEZ Report Released Date/Time: Nov 15, 2022 08:56 AM Reporting Lab: [facility] [address] Performing Lab: [facility] [address] [place] [facility] BASIC METABOLI C PANEL+MG POTASSIUM [MOLES/VOL UME] IN SERUM OR PLASMA 4.5 3.5 - 5.1 11/23 Specimen Type: PLASMA No comment entered. Ordering Provider: HEENA BENITEZ Report Released Date/Time: Nov 15, 2022 08:56 AM Reporting Lab: [facility] [address] Performing Lab: [facility] [address] [place] [facility] BASIC METABOLI C PANEL+MG CHLORIDE [MOLES/VOL UME] IN SERUM OR PLASMA 105 98 - 107 11/23 Specimen Type: PLASMA No comment entered. Ordering Provider: HEENA BENITEZ Report Released Date/Time: Nov 15, 2022 08:56 AM Reporting Lab: [facility] [address] Performing Lab: [facility] [address] [place] [facility] BASIC METABOLI C PANEL+MG CARBON DIOXIDE, TOTAL [MOLES/VOL UME] IN SERUM OR PLASMA 27 - 11/23 Specimen Type: PLASMA No comment entered. Ordering Provider: HEENA BENITEZ Report Released Date/Time: Nov 15, 2022 08:56 AM Reporting Lab: [facility] [address] Performing Lab: [facility] [address] [place] [facility] BASIC METABOLI C PANEL+MG CALCIUM [MASS/VOLU ME] IN SERUM OR PLASMA 9.7 8.4 - 10.2 11/23 Specimen Type: PLASMA No comment entered. Ordering Provider: HEENA BENITEZ Report Released Date/Time: Nov 15, 2022 08:56 AM Reporting Lab: [facility] [address] Performing Lab: [facility] [address] [place] [facility] BASIC METABOLI C PANEL+MG MAGNESIUM [MASS/VOLU ME] IN SERUM OR PLASMA 2.0 1.6 - 2.6 11/23 Specimen Type: PLASMA No comment entered. Ordering Provider: HEENA BENITEZ Report Released Date/Time: Nov 15, 2022 08:56 AM Reporting Lab: [facility] [address] Performing Lab: [facility] [address] [place] [facility] BASIC METABOLI C PANEL+MG ANION GAP IN SERUM OR PLASMA 7 5 - 15 11/23 Specimen Type: PLASMA No comment entered. Ordering Provider: HEENA BENITEZ Report Released Date/Time: Nov 15, 2022 08:56 AM Reporting Lab: [facility] [address] Performing Lab: [facility] [address] [place] [facility] BASIC METABOLI C PANEL+MG GLOMERULAR FILTRATION RATE/1.73 SQ M.PREDICTE D [VOLUME RATE/AREA] IN SERUM, PLASMA OR BLOOD BY CREATININE -BASED FORMULA (CKD-EPI) >90 60 11/23 Specimen Type: PLASMA No comment entered. Ordering Provider: HEENA BENITEZ Report Released Date/Time: Nov 15, 2022 08:56 AM Reporting Lab: [facility] [address] Performing Lab: [facility] [address] [place] [facility] HEMOGLOB IN A1C HEMOGLOBIN A1C/HEMOGL OBIN.TOTAL IN BLOOD 6.3 4.0 - 6.0 11/23 H Specimen Type: BLOOD Comment: Values obtained from A1C measurement s can vary. For typical A1C assays, a reported value of 7.0 could actually be between 6.7 and 7.3 if measured by a reference method. A reported value of 9.0 could actually be between 8.7 and 9.3. Ref: http://www. ngsp.org/[place] Pdata.asp Ordering Provider: HEENA BENITEZ Report Released Date/Time: Nov 23, 2022 04:00 PM Reporting Lab: [facility] [address] Performing Lab: [place] [address] [place] [facility] URINALYS IS COLOR OF URINE LIGHT-OR ANA 10/26 Specimen Type: URINE No comment entered. Ordering Provider: GENARO GORDON Report Released Date/Time: Oct 26, 2022 07:36 AM Reporting Lab: [facility] [address] Performing Lab: [facility] [address] [place] [facility] URINALYS IS SPECIFIC GRAVITY OF URINE 1.024 1.003 - 1.035 10/26 Specimen Type: URINE No comment entered. Ordering Provider: GENARO GORDON Report Released Date/Time: Oct 26, 2022 07:36 AM Reporting Lab: [facility] [address] Performing Lab: [facility] [address] [place] [facility] URINALYS IS BILIRUBIN. TOTAL [PRESENCE] IN URINE BY TEST STRIP NEGATIVE 10/26 Specimen Type: URINE No comment entered. Ordering Provider: GENARO GORDON Report Released Date/Time: Oct 26, 2022 07:36 AM Reporting Lab: [facility] [address] Performing Lab: [facility] [address] [place] [facility] URINALYS IS KETONES [MASS/VOLU ME] IN URINE BY TEST STRIP NEGATIVE 10/26 Specimen Type: URINE No comment entered. Ordering Provider: GENARO GORDON Report Released Date/Time: Oct 26, 2022 07:36 AM Reporting Lab: [facility] [address] Performing Lab: [facility] [address] [place] [facility] URINALYS IS GLUCOSE [MASS/VOLU ME] IN URINE BY TEST STRIP NEGATIVE <30 - 30 10/26 Specimen Type: URINE No comment entered. Ordering Provider: GENARO GORDON Report Released Date/Time: Oct 26, 2022 07:36 AM Reporting Lab: [facility] [address] Performing Lab: [facility] [address] [place] [facility] URINALYS IS PROTEIN [MASS/VOLU ME] IN URINE BY TEST STRIP 50 <20 - 20 10/26 Specimen Type: URINE No comment entered. Ordering Provider: GENARO GORDON Report Released Date/Time: Oct 26, 2022 07:36 AM Reporting Lab: [facility] [address] Performing Lab: [facility] [address] [place] [facility] URINALYS IS PH OF URINE BY TEST STRIP 5.5 5.0 - 8.0 10/26 Specimen Type: URINE No comment entered. Ordering Provider: GENARO GORDON Report Released Date/Time: Oct 26, 2022 07:36 AM Reporting Lab: [facility] [address] Performing Lab: [facility] [address] [place] [facility] URINALYS IS LEUKOCYTES [#/AREA] IN URINE SEDIMENT BY MICROSCOPY HIGH POWER FIELD 9 0 - 7 10/26 H Specimen Type: URINE No comment entered. Ordering Provider: GENARO GORDON Report Released Date/Time: Oct 26, 2022 07:36 AM Reporting Lab: [facility] [address] Performing Lab: [facility] [address] [place] [facility] URINALYS IS BACTERIA [PRESENCE] IN URINE SEDIMENT BY LIGHT MICROSCOPY NONE SEEN 10/26 Specimen Type: URINE No comment entered. Ordering Provider: GENARO GORDON Report Released Date/Time: Oct 26, 2022 07:36 AM Reporting Lab: [facility] [id number] Performing Lab: [facility] [id number] [place] [facility] URINALYS IS ERYTHROCYT ES [#/AREA] IN URINE SEDIMENT BY MICROSCOPY HIGH POWER FIELD 14 0 - 3 10/26 H Specimen Type: URINE No comment entered. Ordering Provider: GENARO GORDON Report Released Date/Time: Oct 26, 2022 07:36 AM Reporting Lab: [facility] [phone] Performing Lab: [facility] [address] [place] [facility] URINALYS IS APPEARANCE OF URINE EX.TURBI D 10/26 Specimen Type: URINE No comment entered. Ordering Provider: GENARO GORDON Report Released Date/Time: Oct 26, 2022 07:36 AM Reporting Lab: [facility] [phone] Performing Lab: [facility] [id number] [place] [facility] URINALYS IS EPITHELIAL CELLS.SQUA MOUS [#/AREA] IN URINE SEDIMENT BY MICROSCOPY HIGH POWER FIELD 1 10/26 Specimen Type: URINE No comment entered. Ordering Provider: GENARO GORDON Report Released Date/Time: Oct 26, 2022 07:36 AM Reporting Lab: [facility] [phone] Performing Lab: [facility] [address] [place] [facility] URINALYS IS HEMOGLOBIN [PRESENCE] IN URINE BY TEST STRIP 1+ 10/26 Specimen Type: URINE No comment entered. Ordering Provider: GENARO GORDON Report Released Date/Time: Oct 26, 2022 07:36 AM Reporting Lab: [facility] [phone] Performing Lab: [facility] [address] [place] [facility] URINALYS IS NITRITE [PRESENCE] IN URINE BY TEST STRIP NEGATIVE 10/26 Specimen Type: URINE No comment entered. Ordering Provider: GENARO GORDON Report Released Date/Time: Oct 26, 2022 07:36 AM Reporting Lab: [facility] [address] Performing Lab: [facility] [address] [place] [facility] URINALYS IS LEUKOCYTE ESTERASE [PRESENCE] IN URINE BY TEST STRIP 25 10/26 Specimen Type: URINE No comment entered. Ordering Provider: GENARO GORDON Report Released Date/Time: Oct 26, 2022 07:36 AM Reporting Lab: [facility] [address] Performing Lab: [facility] [address] [place] [facility] PT/INR(A NTICOAG) INR IN PLATELET POOR PLASMA BY COAGULATIO N ASSAY 3.4 0.8 - 1.1 10/14 H Specimen Type: PLASMA No comment entered. Ordering Provider: YONNY HIDALGO Report Released Date/Time: Oct 14, 2022 01:10 PM Reporting Lab: [facility] [address] Performing Lab: [facility] [address] [place] [facility] PT/INR(A NTICOAG) PROTHROMBI N TIME (PT) 41.3 9.4 - 12.5 10/14 H Specimen Type: PLASMA No comment entered. Ordering Provider: YONNY HIDALGO Report Released Date/Time: Oct 14, 2022 01:10 PM Reporting Lab: [facility] [address] Performing Lab: [facility] [address] [place] [facility] DIFF COUNT (BLOOD) NEUTROPHIL S/100 LEUKOCYTES IN BLOOD BY MANUAL COUNT 74.6 10/14 Specimen Type: BLOOD Comment: Added by [id number] on Oct 16, 2022@17:48 Automated Differentia l Performed Ordering Provider: HEENA BENITEZ Report Released Date/Time: Sep 17, 2021 01:45 PM Reporting Lab: [facility] [address] Performing Lab: [facility] [address] [place] [facility] DIFF COUNT (BLOOD) LYMPHOCYTE S/100 LEUKOCYTES IN BLOOD BY MANUAL COUNT 16.1 10/14 Specimen Type: BLOOD Comment: Added by [id number] on Oct 16, 2022@17:48 Automated Differentia l Performed Ordering Provider: HEENA BENITEZ Report Released Date/Time: Sep 17, 2021 01:45 PM Reporting Lab: [facility] [address] Performing Lab: [facility] [address] [place] [facility] DIFF COUNT (BLOOD) MONOCYTES/ 100 LEUKOCYTES IN BLOOD BY AUTOMATED COUNT 7.6 10/14 Specimen Type: BLOOD Comment: Added by [id number] on Oct 16, 2022@17:48 Automated Differentia l Performed Ordering Provider: HEENA BENITEZ Report Released Date/Time: Sep 17, 2021 01:45 PM Reporting Lab: [facility] [address] Performing Lab: [facility] [address] [place] [facility] DIFF COUNT (BLOOD) EOSINOPHIL S/100 LEUKOCYTES IN BLOOD BY AUTOMATED COUNT 0.5 10/14 Specimen Type: BLOOD Comment: Added by [id number] on Oct 16, 2022@17:48 Automated Differentia l Performed Ordering Provider: HEENA BENITEZ Report Released Date/Time: Sep 17, 2021 01:45 PM Reporting Lab: [facility] [address] Performing Lab: [place] [address] [place] [facility] DIFF COUNT (BLOOD) BASOPHILS/ 100 LEUKOCYTES IN BLOOD BY MANUAL COUNT 0.5 10/14 Specimen Type: BLOOD Comment: Added by [id number] on Oct 16, 2022@17:48 Automated Differentia l Performed Ordering Provider: HEENA BENITEZ Report Released Date/Time: Sep 17, 2021 01:45 PM Reporting Lab: [facility] [address] Performing Lab: [facility] [address] [place] [facility] DIFF COUNT (BLOOD) LYMPHOCYTE S [#/VOLUME] IN BLOOD BY AUTOMATED COUNT 1.97 1.0 - 4.0 10/14 Specimen Type: BLOOD Comment: Added by [id number] on Oct 16, 2022@17:48 Automated Differentia l Performed Ordering Provider: HEENA BENITEZ Report Released Date/Time: Sep 17, 2021 01:45 PM Reporting Lab: [facility] [address] Performing Lab: [facility] [address] [place] [facility] DIFF COUNT (BLOOD) MONOCYTES [#/VOLUME] IN BLOOD BY AUTOMATED COUNT 0.93 0.1 - 1.0 10/14 Specimen Type: BLOOD Comment: Added by [id number] on Oct 16, 2022@17:48 Automated Differentia l Performed Ordering Provider: HEENA BENITEZ Report Released Date/Time: Sep 17, 2021 01:45 PM Reporting Lab: [facility] [address] Performing Lab: [facility] [address] [employer] DIFF COUNT (BLOOD) NEUTROPHIL S [#/VOLUME] IN BLOOD BY AUTOMATED COUNT 9.15 2.0 - 7.7 10/14 H Specimen Type: BLOOD Comment: Added by [id number] on Oct 16, 2022@17:48 Automated Differentia l Performed Ordering Provider: HEENA BENITEZ Report Released Date/Time: Sep 17, 2021 01:45 PM Reporting Lab: [facility] [address] Performing Lab: [place] [address] [employer] DIFF COUNT (BLOOD) EOSINOPHIL S [#/VOLUME] IN BLOOD BY AUTOMATED COUNT 0.06 0 - 0.5 10/14 Specimen Type: BLOOD Comment: Added by [id number] on Oct 16, 2022@17:48 Automated Differentia l Performed Ordering Provider: HEENA BENITEZ Report Released Date/Time: Sep 17, 2021 01:45 PM Reporting Lab: [facility] [address] Performing Lab: [facility] [address] [employer] DIFF COUNT (BLOOD) BASOPHILS [#/VOLUME] IN BLOOD BY AUTOMATED COUNT 0.06 0 - 0.2 10/14 Specimen Type: BLOOD Comment: Added by [id number] on Oct 16, 2022@17:48 Automated Differentia l Performed Ordering Provider: HEENA BENITEZ Report Released Date/Time: Sep 17, 2021 01:45 PM Reporting Lab: [facility] [address] Performing Lab: [facility] [address] [employer] DIFF COUNT (BLOOD) IG(META,MY ELIESER,PRO) 0.7 10/14 Specimen Type: BLOOD Comment: Added by [id number] on Oct 16, 2022@17:48 Automated Differentia l Performed Ordering Provider: HEENA BENITEZ Report Released Date/Time: Sep 17, 2021 01:45 PM Reporting Lab: [facility] [address] Performing Lab: [facility] [address] [employer] DIFF COUNT (BLOOD) IMMATURE GRANULOCYT ES [PRESENCE] IN BLOOD BY AUTOMATED COUNT 0.09 0 - 0.1 10/14 Specimen Type: BLOOD Comment: Added by [id number] on Oct 16, 2022@17:48 Automated Differentia l Performed Ordering Provider: HEENA BENITEZ Report Released Date/Time: Sep 17, 2021 01:45 PM Reporting Lab: [facility] [address] Performing Lab: [facility] [address] [employer] CBC LEUKOCYTES [#/VOLUME] IN BLOOD BY AUTOMATED COUNT 12.23 4.0 - 11.0 10/14 H Specimen Type: BLOOD Comment: Added by [id number] on Oct 16, 2022@17:48 Automated Differentia l Performed Ordering Provider: HEENA BENITEZ Report Released Date/Time: Sep 17, 2021 01:45 PM Reporting Lab: [facility] [address] Performing Lab: [facility] [address] [employer] CBC ERYTHROCYT ES [#/VOLUME] IN BLOOD BY AUTOMATED COUNT 4.90 4.6 - 6.2 10/14 Specimen Type: BLOOD Comment: Added by [id number] on Oct 16, 2022@17:48 Automated Differentia l Performed Ordering Provider: HEENA BENITEZ Report Released Date/Time: Sep 17, 2021 01:45 PM Reporting Lab: [facility] [address] Performing Lab: [facility] [address] [employer] CBC HEMOGLOBIN [MASS/VOLU ME] IN BLOOD 14.8 13.5 - 17.9 10/14 Specimen Type: BLOOD Comment: Added by [id number] on Oct 16, 2022@17:48 Automated Differentia l Performed Ordering Provider: HEENA BENITEZ Report Released Date/Time: Sep 17, 2021 01:45 PM Reporting Lab: [facility] [address] Performing Lab: [facility] [address] [place] [facility] CBC HEMATOCRIT [VOLUME FRACTION] OF BLOOD BY AUTOMATED COUNT 45.3 41 - 54 10/14 Specimen Type: BLOOD Comment: Added by [id number] on Oct 16, 2022@17:48 Automated Differentia l Performed Ordering Provider: HEENA BENITEZ Report Released Date/Time: Sep 17, 2021 01:45 PM Reporting Lab: [facility] [address] Performing Lab: [facility] [address] [place] [facility] CBC MCV [ENTITIC VOLUME] BY AUTOMATED COUNT 92.4 80 - 100 10/14 Specimen Type: BLOOD Comment: Added by [id number] on Oct 16, 2022@17:48 Automated Differentia l Performed Ordering Provider: HEENA BENITEZ Report Released Date/Time: Sep 17, 2021 01:45 PM Reporting Lab: [facility] [address] Performing Lab: [facility] [address] [place] [facility] CBC MCH [ENTITIC MASS] BY AUTOMATED COUNT 30.2 27 - 33 10/14 Specimen Type: BLOOD Comment: Added by [id number] on Oct 16, 2022@17:48 Automated Differentia l Performed Ordering Provider: HEENA BENITEZ Report Released Date/Time: Sep 17, 2021 01:45 PM Reporting Lab: [facility] [address] Performing Lab: [facility] [address] [place] [facility] CBC MCHC [MASS/VOLU ME] BY AUTOMATED COUNT 32.7 32.0 - 37.5 10/14 Specimen Type: BLOOD Comment: Added by [id number] on Oct 16, 2022@17:48 Automated Differentia l Performed Ordering Provider: HEENA BENITEZ Report Released Date/Time: Sep 17, 2021 01:45 PM Reporting Lab: [facility] [address] Performing Lab: [facility] [address] [place] [facility] CBC PLATELETS [#/VOLUME] IN BLOOD BY AUTOMATED COUNT 236 150 - 400 10/14 Specimen Type: BLOOD Comment: Added by [id number] on Oct 16, 2022@17:48 Automated Differentia l Performed Ordering Provider: HEENA BENITEZ Report Released Date/Time: Sep 17, 2021 01:45 PM Reporting Lab: [facility] [address] Performing Lab: [facility] [address] [place] [facility] CBC PLATELET MEAN VOLUME [ENTITIC VOLUME] IN BLOOD BY AUTOMATED COUNT 10.6 7.4 - 10.4 10/14 H Specimen Type: BLOOD Comment: Added by [id number] on Oct 16, 2022@17:48 Automated Differentia l Performed Ordering Provider: HEENA BENITEZ Report Released Date/Time: Sep 17, 2021 01:45 PM Reporting Lab: [facility] [address] Performing Lab: [facility] [address] [facility] CBC ERYTHROCYT E DISTRIBUTI ON WIDTH [RATIO] BY AUTOMATED COUNT 14.0 11.5 - 14.5 10/14 Specimen Type: BLOOD Comment: Added by [id number] on Oct 16, 2022@17:48 Automated Differentia l Performed Ordering Provider: HEENA BENITEZ Report Released Date/Time: Sep 17, 2021 01:45 PM Reporting Lab: [facility] [address] Performing Lab: [facility] [address] [place] [facility] LIPID PANEL,NO N-FASTIN G CHOLESTERO L [MASS/VOLU ME] IN SERUM OR PLASMA 154 <199 - 199 10/14 Specimen Type: PLASMA No comment entered. Ordering Provider: HEENA BENITEZ Report Released Date/Time: Sep 17, 2021 01:45 PM Reporting Lab: [facility] [address] Performing Lab: [facility] [address] [place] [facility] LIPID PANEL,NO N-FASTIN G CHOLESTERO L IN HDL [MASS/VOLU ME] IN SERUM OR PLASMA 51 40 10/14 Specimen Type: PLASMA No comment entered. Ordering Provider: HEENA BENITEZ Report Released Date/Time: Sep 17, 2021 01:45 PM Reporting Lab: [facility] [address] Performing Lab: [facility] [address] [place] [facility] LIPID PANEL,NO N-FASTIN G CHOLESTERO L IN LDL [MASS/VOLU ME] IN SERUM OR PLASMA BY CALCULATIO N 71 <99 - 99 10/14 Specimen Type: PLASMA No comment entered. Ordering Provider: HEENA BENITEZ Report Released Date/Time: Sep 17, 2021 01:45 PM Reporting Lab: [facility] [address] Performing Lab: [facility] [address] [place] [facility] LIPID PANEL,NO N-FASTIN G CHOLESTERO L IN VLDL [MASS/VOLU ME] IN SERUM OR PLASMA BY CALCULATIO N 32 <29 - 29 10/14 H Specimen Type: PLASMA No comment entered. Ordering Provider: HEENA BENITEZ Report Released Date/Time: Sep 17, 2021 01:45 PM Reporting Lab: [facility] [address] Performing Lab: [facility] [address] [place] [facility] LIPID PANEL,NO N-FASTIN G CHOLESTERO L NON HDL [MASS/VOLU ME] IN SERUM OR PLASMA 103 <129 - 129 10/14 Specimen Type: PLASMA No comment entered. Ordering Provider: HEENA BENITEZ Report Released Date/Time: Sep 17, 2021 01:45 PM Reporting Lab: [facility] [address] Performing Lab: [facility] [address] [place] [facility] LIPID PANEL,NO N-FASTIN G TRIGLYCERI DE [MASS/VOLU ME] IN SERUM OR PLASMA 162 <149 - 149 10/14 H Specimen Type: PLASMA No comment entered. Ordering Provider: HEENA BENITEZ Report Released Date/Time: Sep 17, 2021 01:45 PM Reporting Lab: [facility] [address] Performing Lab: [facility] [address] [place] [facility] HEMOGLOB IN A1C HEMOGLOBIN A1C/HEMOGL OBIN.TOTAL IN BLOOD 6.2 4.0 - 6.0 10/14 H Specimen Type: BLOOD Comment: Values obtained from A1C measurement s can vary. For typical A1C assays, a reported value of 7.0 could actually be between 6.7 and 7.3 if measured by a reference method. A reported value of 9.0 could actually be between 8.7 and 9.3. Ref: http://www. ngsp.org/[place] Pdata.asp Ordering Provider: HEENA BENITEZ Report Released Date/Time: Sep 17, 2021 01:45 PM Reporting Lab: [facility] [address] Performing Lab: [facility] [address] [employer] Encounters Combined list of: 1) Encounters from Department of Veterans Affairs facilities going back up to thelast 18 months. 2) Encounters from the Department of Defense facilities going back up to 280 months. Location Location Details Encounter Type Encounter Number Reason For Visit Attending Provider ADM Date DC Date Status Disposition Source [facility] QNHP OL DIG ASSMT&MGMT 5-10 [id number] Diagnos is: ICD-10- CM Z51.81 Encount er for therape utic drug level monitor ing<br/ > AG HIGHTOWER 07/13 [facility] PRO PHONE CALL 5-10 MIN [id number] Diagnos is: ICD-10- CM Z51.81 Encount er for therape utic drug level monitor ing<br/ > AJ STEVENS 08/10 [facility] [place] [facility] Outpatient Encounter [id number] 09/29 [facility] [place] [facility] Outpatient Encounter [id number] 09/30 [facility] Outpatient Encounter [id number] BRYN STRANGE Yoselin M 09/30 [place] [facility] [place] [facility] Outpatient Encounter [id number] 10/03 [place] [facility] [place] [facility] QNHP OL DIG ASSMT&MGMT 11-20 [id number] Diagnos is: ICD-10- CM Z79.01 watermaster (curren t) use of anticoa gulants
ERNESTO CHEUNG 10/04 [place] [facility] [place] [facility] OFFICE O/P EST HI 40-54 MIN [id number] Diagnos is: ICD-10- CM Z79.01 alf (curren t) use of anticoa gulants
SAKINA FRANKS 10/04 [place] [facility] [place] [facility] HC PRO PHONE CALL 11-20 MIN [id number] Diagnos is: ICD-10- CM Z51.81 Encount er for therape utic drug level monitor ing<br/ > YONNY HIDALGO 10/05 [place] [facility] [place] [facility] Outpatient Encounter [id number] 10/07 [place] [facility] [place] [facility] HC PRO PHONE CALL 11-20 MIN [id number] Diagnos is: ICD-10- CM Z79.01 watermaster (curren t) use of anticoa gulants
JAXSON CRYSTAL M 10/07 [place] [facility] [place] [facility] Outpatient Encounter [id number] 10/11 [place] [facility] [place] [facility] OFFICE O/P EST HI 40-54 MIN [id number] Diagnos is: ICD-10- CM R31.9 Hematur ia, unspeci fied
GENESIS BENITEZ E 10/14 [place] [facility] PRO PHONE CALL 11-20 MIN [id number] Diagnos is: ICD-10- CM Z51.81 Encount er for therape utic drug level monitor ing<br/ > ERNESTO CHEUNG 10/14 [facility] PRO PHONE CALL 11-20 MIN [id number] Diagnos is: ICD-10- CM Z71.9 Review Specialist ing, unspeci fied
MARY ANNE SOTELO 10/17 [facility] Outpatient Encounter [id number] 10/18 [facility] Outpatient Encounter [id number] 10/19 [facility] IS [facility] PRO PHONE CALL 21-30 MIN [id number] Diagnos is: ICD-10- CM F03.918 Unsp dementi a, unsp severit y, with other behavio ral disturb
VERONA GARCIABE NJAMIN E 10/19 [facility] Outpatient Encounter [id number] Diagnos is: ICD-10- CM F02.A0 Dem in other dis classd elswhr, mild, w/o beh/psy ch/mood /anx
GENESIS BENITEZ NJAMIN E 10/20 [facility] Outpatient Encounter [id number] 10/24 [facility] Outpatient Encounter [id number] 10/24 [facility] Outpatient Encounter [id number] 10/24 [facility] Outpatient Encounter [id number] SUDARSHAN HAYES 10/25 [facility] Outpatient Encounter [id number] 10/25 [place] [facility] [place] [facility] QNHP OL DIG ASSMT&MGMT 5-10 [id number] Diagnos is: ICD-10- CM Z51.81 Encount er for therape utic drug level monitor ing<br/ > MIGUEL BISHOP 10/26 [place] [facility] [place] [facility] OFFICE O/P NEW HI 60-74 MIN [id number] Diagnos is: ICD-10- CM R31.0 Gross hematur ia
MIROSLAVA GORDON K 10/26 [place] [facility] [place] [facility] Outpatient Encounter [id number] MARIKA EARL 10/28 [place] [facility] [place] [facility] Outpatient Encounter [id number] 10/31 [place] [facility] [place] [facility] HC PRO PHONE CALL 11-20 MIN [id number] Diagnos is: ICD-10- CM Z51.81 Encount er for therape utic drug level monitor ing<br/ > ERNESTO CHEUNG 10/31 [place] [facility] [place] [facility] Outpatient Encounter [id number] BRYN STRANGE 11/07 [place] [facility] [place] [facility] Outpatient Encounter [id number] 11/10 [place] [facility] [place] [facility] Outpatient Encounter [id number] 11/11 [place] [facility] [place] [facility] Outpatient Encounter [id number] 11/11 [place] [facility] [place] [facility] Outpatient Encounter [id number] 11/14 [place] [facility] [place] [facility] HC PRO PHONE CALL 11-20 MIN [id number] Diagnos is: ICD-10- CM Z51.81 Encount er for therape utic drug level monitor ing<br/ > ERNESTO CHEUNG 11/14 [facility] IS [facility] PRO PHONE CALL 5-10 MIN [id number] Diagnos is: ICD-10- CM Z71.9 Review Specialist ing, unspeci fied
CAMILO KIDD VALERIE 11/14 [facility] Outpatient Encounter [id number] 11/22 [facility] Outpatient Encounter [id number] 11/23 [facility] COMMUNITY/ WORK REINTEGRAT ION [id number] Diagnos is: ICD-10- CM Z73.6 Limitat ion of activit ies due to disabil ity<br/ > HELEN CHO J 11/23 [facility] OFFICE O/P EST HI 40-54 MIN [id number] Diagnos is: ICD-10- CM F02.A0 Dem in other dis classd elswhr, mild, w/o beh/psy ch/mood /anx
GENESIS BENITEZ NJAMIN E 11/23 [facility] Outpatient Encounter [id number] Eddie ALEMAN ACLEFREN R 11/24 [facility] PSYCL/NRPS YC TST PHY/Q[place] [id number] Diagnos is: ICD-10- CM F02.A0 Dem in other dis classd elswhr, mild, w/o beh/psy ch/mood /anx
CATRACHO LASSITER H 11/24 [facility] Outpatient Encounter [id number] BRYN STRANGE 11/24 [place] [facility] [place] [facility] PSYTX W PT 30 MINUTES [id number] Diagnos is: ICD-10- CM F02.A0 Dem in other dis classd elswhr, mild, w/o beh/psy ch/mood /anx
SKROCH,DAVIS ET A 11/24 [place] [facility] [place] [facility] Outpatient Encounter [id number] 11/28 [place] [facility] [place] [facility] HC PRO PHONE CALL 11-20 MIN [id number] Diagnos is: ICD-10- CM Z51.81 Encount er for therape utic drug level monitor ing<br/ > POEPBURAK,H EATHER L 11/29 [place] [facility] [place] [facility] Outpatient Encounter [id number] 11/30 [place] [facility] [place] [facility] Outpatient Encounter [id number] 12/05 [place] [facility] [place] [facility] Outpatient Encounter [id number] AGUSTIN CADENA 12/06 [place] [facility] [place] [facility] Outpatient Encounter [id number] SETH CORONA 12/07 [place] [facility] [place] [facility] Outpatient Encounter [id number] 12/07 [place] [facility] [place] [facility] Outpatient Encounter [id number] 12/12 [place] [facility] [place] [facility] HC PRO PHONE CALL 11-20 MIN [id number] Diagnos is: ICD-10- CM Z51.81 Encount er for therape utic drug level monitor ing<br/ > MIGUEL BISHOP L 12/12 [place] [facility] [place] [facility] NRPSYC TST EVAL PHYS/QHP 1ST [id number] Diagnos is: ICD-10- CM F02.A0 Dem in other dis classd elswhr, mild, w/o beh/psy ch/mood /anx
Amanda BLANCHARD 12/19 [place] [place] [facility] Outpatient Encounter [id number] 12/27 [place] [facility] [place] [facility] Out[place] Encounter [id number] 01/02 [place] [facility] [place] [facility] HC PRO PHONE CALL 11-20 MIN [id number] Diagnos is: ICD-10- CM Z51.81 Encount er for therape utic drug level monitor ing<br/ > AG HIGHTOWER 01/02 [place] [facility] [place] [facility] Out[place] Encounter [id number] 01/02 [place] [facility] [place] [facility] Out[place] Encounter [id number] 01/02 [place] [facility] [place] [facility] Out[place] Encounter [id number] 01/04 [place] [facility] [place] [facility] Out[place] [facility]counter [id number] 01/04 [place] [facility] [place] [facility] Out[place] [facility]counter [id number] 01/04 [place] [facility] [place] [facility] Out[place] Encounter [id number] 01/05 [place] [facility] [place] [facility] Out[place] [facility]counter [id number] 01/05 [place] [facility] [place] [facility] Out[place] Encounter [id number] 01/05 [place] [facility] [place] [facility] Out[place] [facility]counter [id number] 01/19 [place] [facility] [place] [facility] [id number] 02/01 [place] [facility] [place] [facility] [place] [facility] [id number] 02/01 [place] [facility] [place] [facility] [facility] [id number] 02/08 [place] [facility] [place] [facility] [place] [facility] [id number] 02/16 [place] [facility] [place] [facility] [place] [facility] [id number] 05/03 [place] [facility] [place] [facility] [place] [facility] [id number] 10/19 [place] [facility] [place] [facility] Out[place] [facility]counter [id number] 11/20 [place] [facility] [place] [facility] [facility] [id number] 11/21 [place] [facility] [place] [facility] Out[place] Encounter [id number] Alexis SHRESTHA NNE E 11/21 [facility] [place] [facility] Outpatient [facility]counter [id number] 11/30 [place] [place] [facility] Outpatient Encounter [id number] 12/28 [place] [facility] [place] [facility] Outpatient Encounter [id number] SERGIO TONG E 01/01 [place] [facility] [place] [facility] Outpatient Encounter [id number] Alexis SHRESTHA NNE E 01/09 [place] [facility] [place] [facility] Outpatient Encounter [id number] 01/09 [place] Social History Combined list of available smoking, tobacco, and other social history from [facility] and [facility] facilities. Social History Type Response Date Comment Sourc e Tobacco [facility] 30 MIN OF WAKEUP 10/04/2022 [facility] History of tobacco use VA-TOBACCO USE 30 YEARS OR MORE 10/04/2022 [facility] History of tobacco use VA-TOBACCO USER E VERY DAY 09/17/2021 [facility] History of tobacco use VA-TOBACCO USE WI 30 MIN OF WAKEUP 12/14/2020 [facility] History of tobacco use CURRENT TOBACCO USER 03/27/2018 [facility] Plan of Care List of future care activities from [facility] facilities. Additional future care activities may be listed in the Assessment and Plan section. Date/Time Care Activity Care Activity Detail Facili ty 01/04/2024 Consult Order COMMUNITY CARE-[facility] Cons Clinical Trial Specialist's Choice [facility] Advance Directives List of completed, amended, or rescinded Advance Directives on record at [facility] facilities. An actual copy of the Directive is not included. Date Advance Directive Provider Source 10/07/2022 ADVANCE DIRECTIVE ANUM GRIFFITHS [facility] 10/07/2022 ADVANCE DIRECTIVE DISCUSSION AMIRAH GRIFFITHS [facility]
--- OUTSIDE RECORDS SUMMARY | 2024-01-16 13:52 | XMS_ITS | Encounter Summary ---
Author Name [facility] Organization [facility] Address [address] [place] [address] Support Name Relationship Address Phone UNK, NON-GIVEN Emergency Contact Unknown Azeba LELAND Childers Next of Kin [id number] [place] [address] EVA NGUYEN Next of Kin [id number] [place] [id number] Insurance Providers: All historical and current Section Date Range: From patient's date of to the date document was created. This section includes the names of all active insurance providers for the patient. Insurance Provider Type of Coverage Plan Name Start of Policy Coverage End of Policy Coverage Group Number Member ID Insurance Provider's Telephone Number Policy Carvalho's Name Patient's Relationship to Policy [facility]val[facility] MEDICARE ADVANTAGE [facility] ([facility]) Aug 21, 2022 [id number] KELLEN BARRIENTOS [facility]IENT [facility] MEDICARE ADVANTAGE [facility] ([facility]) Aug 21, 2022 [id number] KELLEN BARRIENTOS PATIENT [facility] ([facility]) MEDICARE [facility] ([facility]) Oct 19, 2018 RIVAAB [id number] [phone] KELLEN BARRIENTOS PATIENT [facility] ([facility]) MEDICARE ADVANTAGE [facility] ([facility]) Oct 19, 2018 [id number] [phone] KELLEN BRARIENTOS PATIENT [facility] ([facility]) MEDICARE ADVANTAGE [facility] ([facility]) Aug 21, 2018 [id number] [phone] KELLEN BARRIENTOS PATIENT [facility] ([facility]) MEDICARE ADVANTAGE [facility] ([facility]) Aug 21, 2018 [id number] [phone] KELLEN BARRIENTOS PATIENT Selected Encounter This section includes the information on record at [place] for the Encounter. Date/Time Encounter Type Encounter Description Reason Pro vider Source Dec 01, 2023 09:56 AM Outpatient Encounter COMMUNITY CARE CONSULT IHE Encounter Template Text not used by [place] Plan of Treatment: Future Appointments (+ 6 months) and Future Tests (+/- 45 days) The Plan of Treatment section includes future care activities for the patient from all [place] treatmentfacilities. This section includes future appointments and future orders which are active, pending or scheduled. Future Appointments This section includes appointments that were scheduled to occur 6 months from the date of the Encounter, up to a maximum of 20 appointments. The data comes from all [facility] facilities. Appointment Date/Time Appointment Type Appointme nt Facility Name January 05, 2024 08:00 AM AMBULATORY - NONE [facility] Active, Pending, and Scheduled Orders This section includes a listing of several types of active, pending, and scheduled orders, including clinic medications orders, diagnostic test orders, procedure orders and consult orders; where the start date of the order is 45 days before the date of the Encounter or 45 days after the date of theEncounter. The data comes from all [facility]. Test Date/Time Test Type Test Details Facility Name Nov 21, 2023 03:31 PM Consult Order COMMUNITY CARE-PRIMARY CARE Cons Tag Stringer's Choice [facility] January 04, 2024 10:17 AM Consult Order COMMUNITY CARE-WOUND CARE PC Cons Tag Stringer's Choice [facility] Social History: Smoking Status (Most current) and Tobacco Use (All prior to encounter date) This section includes the most current, and the historical, smoking and tobacco- related health factors from the [place] facility where the Encounter took place. Current Smoking Status This section includes the most current smoking, or tobacco-related health factor, from the [place] facility where the Encounter took place. Date/Time Current Smoking Status Johny colbert Oct 04, 2022 04:00 PM VA-TOBACCO USE [place] 30 MIN OF WAKE UP [facility] Tobacco Use History This section includes a history of the smoking, or tobacco-related health factors, that were collected on or before the date of the Encounter. The data comes from the [place] facility where the Encounter took place. 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 [facility] Oct 04, 2022 04:00 PM VA-TOBACCO USE MED NO [facility] Oct 04, 2022 04:00 PM VA-TOBACCO USE WI 30 MIN OF WAKE UP [facility] Oct 04, 2022 04:00 PM VA-TOBACCO USER EVERY DAY [facility] Sep 17, 2021 01:30 PM VA-TOBACCO USE 30 YEARS OR MORE [facility] Sep 17, 2021 01:30 PM VA-TOBACCO USE ADVICE [facility] Sep 17, 2021 01:30 PM VA-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 USE 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 [facility] Sep 17, 2021 01:30 PM VA-TOBACCO USE MED NO [facility] Sep 17, 2021 01:30 PM VA-TOBACCO USE WI 30 MIN OF WAKE UP [facility] Sep 17, 2021 01:30 PM VA-TOBACCO USER EVERY DAY [facility] Dec 14, 2020 03:05 PM VA-TOBACCO USE 30 YEARS OR MORE [facility] Dec 14, 2020 03:05 PM VA-TOBACCO USE ADVICE [facility] Dec 14, 2020 03:05 PM VA-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 This section includes ALL of a patient's completed or amended [place] Advance and Rescinded Directives. The entries below indicate that a directive exists for the patient, but an actual copy is not included with this document. The data comes from all [facility]. Date Advance Directives Provider Source Oct 07, 2022 ADVANCE DIRECTIVE ANUM GRIFFITHS [facility] Oct 07, 2022 ADVANCE DIRECTIVE DISCUSSION AMIRAH GRIFFITHS [facility] Encounter Notes: All associated encounter notes This section contains the clinical notes associated to the Encounter. Date/Time Encounter Note(s) Provider Source Dec 01, 2023 09:56 AM NONVA NOTE: LOCAL TITLE: COMMUNITY CARE PRE-AUTH LETTER (AUTOPRINT) STANDARD TITLE: NONVA NOTE DATE OF NOTE: DEC 01, 2023@09:56 ENTRY DATE: DEC 01, 2023@09:57:05 AUTHOR: PATRICA WALKER COSIGNER: URGENCY: STATUS: COMPLETED Nov KELLEN BARRIENTOS [address] [facility] [address], [place] [address] Dear KELLEN BARRIENTOS, Your VA provider has referred you to a provider within the community for care. Your medical care for PRIMARY CARE has been authorized with the community care provider listed below. DO NOT REPORT TO THE [place] [facility] Provider info: Care has been approved for the following vendor: Office name, address, and phone number: [address], [address] PH: [phone] Please contact the identified provider to schedule your community appointment. If you need assistance with this appointment, please call your facility community care office [facility] Office [facility] Community Care at [phone] during the hours of 8:30AM - 3:00PM. Please follow up with your local [facility] community care office once this is scheduled. This step is needed to ensure your referral duration is maximized and the [place] has accurate referral information for billing purposes. Authorization Number: [id number] Referral Issue Date: Nov Expiration Date: Nov (subject to change based on first appointment) If you are unable to schedule this appointment or the appointment is no longer needed, please contact the community provider above for notification/rescheduling and then call the [facility] Office of Community Care at [phone] during the hours of 8:30AM - 3:00PM. If you need additional care/services not mentioned above or your authorization has and additional care is needed, please contact your primary care provider for a new referral. To review all care/service(s) approved under your referral, please go to the following link: [email or web address]) Co-Payments: If you are required to pay a VA co-payment, you will be billed by the VA for each authorized visit that you attend. However, you are NOT REQUIRED to make co-payments to a community provider. Thank you for the opportunity to serve you. Sincerely, [place] Community [facility] ([facility]) /jamaal/ PATRICA TILLMAN Signed: 12/01/2023 09:57 PATRICA WALKER [facility]
--- OUTSIDE RECORDS SUMMARY | 2024-01-16 13:52 | XMS_ITS | Encounter Summary ---
Author Name [employer] [facility] [employer] Organization [facility] Address [address] [place] [address] Support Name Relationship Address Phone UNK, NON-GIVEN Emergency Contact Unknown Azeba FRANCISCO JAVIER Childers Next of Kin [address] [place] [address] EVA NGUYEN Next of Kin [address] [place] [id number] Insurance Providers: All historical and current Section [...] Name Patient's Relationship to Policy Carvalho DANIELLAA [facility] ([facility]) MEDICARE ADVANTAGE MCR ([facility]) Aug 21, 2022 [id number] KELLEN BARRIENTOS [facility]) MEDICARE ADVANTAGE MCR ([facility]) Aug 21, 2022 [id number] [phone] KELLEN BARRIENTOS PATIENT [facility] ([facility]) MEDICARE [facility] ([facility]) Oct 19, 2018 RIVAAB [id number] [phone] KELLEN BARRIENTOS PATIENT [facility] ([facility]) MEDICARE ADVANTAGE MCR ([facility]) Oct 19, 2018 [id number] [phone] KELLEN BARRIENTOS PATIENT UCARE [facility] (WN) MEDICARE ADVANTAGE MCR ([facility]) Aug 21, 2018 [id number] [phone] KELLEN BARRIENTOS PATIENT UCARE [facility] ([facility]) MEDICARE ADVANTAGE [facility] (WNR) Aug 21, 2018 RIVAAB [id number] KELLEN BARRIENTOS PATIENT Selected Encounter This section includes the information on record at [place] for the Encounter. Date/Time Encounter Type Encounter Description Reason Pro vider Source December 29, 2023 12:23 PM Outpatient Encounter TELEPHONE TRIAGE IHE Encounter Template Text not used by [place] Plan of Treatment: Future Appointments (+ 6 months) and Future Tests (+/- 45 days) The Plan of Treatment section includes future care activities for the patient from all [place] [facility]. This section includes future appointments and future orders which are active, pending or scheduled. Future Appointments This section includes appointments that were scheduled to occur 6 months from the date of the Encounter, up to a maximum of 20 appointments. The data comes from all [facility] facilities. Appointment Date/Time Appointment Type Appointme nt Facility Name January 05, 2024 08:00 AM AMBULATORY - NONE [facility] Active, Pending, and Scheduled Orders This section includes a listing of several types of active, pending, and scheduled orders, including clinic medications orders, diagnostic test orders, procedure orders and consult orders; where the start date of the order is 45 days before the date of the Encounter or 45 days after the date of theEncounter. The data comes from all [facility]. 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 Current Smoking Status This section includes the most current smoking, or tobacco-related health factor, from the [place] facility where the Encounter took place. Date/Time Current Smoking Status Comment Remi colbert Oct 04, 2022 04:00 PM VA-TOBACCO USER EVERY DAY [facility] Tobacco Use History This section includes a history of the smoking, or tobacco-related health factors, that were collected on or before the date of the Encounter. The data comes from the [place] facility where the Encounter took place. 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 [facility] Oct 04, 2022 04:00 PM VA-TOBACCO USE MED NO [facility] Oct 04, 2022 04:00 PM VA-TOBACCO USE WI 30 MIN OF WAKE UP [facility] Oct 04, 2022 04:00 PM VA-TOBACCO USER EVERY DAY [facility] Sep 17, 2021 01:30 PM VA-TOBACCO USE 30 YEARS OR MORE [facility] Sep 17, 2021 01:30 PM VA-TOBACCO USE ADVICE [facility] Sep 17, 2021 01:30 PM VA-TOBACCO USE 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 [facility] Sep 17, 2021 01:30 PM VA-TOBACCO USE MED NO [facility] Sep 17, 2021 01:30 PM VA-TOBACCO USE WI 30 MIN OF WAKE UP [facility] Sep 17, 2021 01:30 PM VA-TOBACCO USER EVERY DAY [facility] Dec 14, 2020 03:05 PM VA-TOBACCO USE 30 YEARS OR MORE [facility] Dec 14, 2020 03:05 PM VA-TOBACCO USE ADVICE [facility] Dec 14, 2020 03:05 PM VA-TOBACCO USE 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 This section includes ALL of a patient's completed or amended [place] Advance and Rescinded Directives. The entries below indicate that a directive exists for the patient, but an actual copy is not included with this document. The data comes from all [place] facilities. Date Advance Directives Provider Source Oct 07, 2022 ADVANCE DIRECTIVE ANUM [facility]FFITHS [facility] Oct 07, 2022 ADVANCE DIRECTIVE DISCUSSION AMIRAH GRIFFITHS [facility] Encounter Notes: All associated encounter notes This section contains the clinical notes associated to the Encounter. Date/Time Encounter Note(s) Provider Source January 09, 2024 12:29 PM ADDENDUM: LOCAL TITLE: Addendum STANDARD TITLE: ADDENDUM DATE OF NOTE: JANUARY 09, 2024@12:29:49 ENTRY DATE: JANUARY 09, 2024@12:29:50 AUTHOR: NANY SHRESTHA COSIGNER: URGENCY: STATUS: COMPLETED Alerting Sumeet Luizmorenitapurvi to please expedite referral as patient has been waiting for an appt. Per [facility] note next available appt 02/12/2024 and needs referral ESHA, thank you! /jamaal/ NANY SHRESTHA RN Registered Nurse, Care in [facility] Signed: 01/09/2024 12:30 Receipt Acknowledged By: 01/09/2024 16:44 /jamaal/ SUMEET CORBIN MSA Pressure Control Supervisor-Referral Coordination Team --- Original Document --- 12/29/23 CCC: SCHEDULING ADMINISTRATION: Primary Care Call Center Primary Care Provider Call. Other: Sumeet from [facility] calls requesting a community care wound consult for . She states he has a wound on his second right toe and can be seen at [facility]. The phone number for them is [phone] and the fax is [phone]. Thank you This note was created by a V23 [facility] Call Center PRIMO/MISTY. Please do not alert this continuity writer by adding as a signer for future communications. Alerts are not monitored by this user, please reach out to [facility] Leadership instead if indicated. Phone number verified as correct. Sumeet [phone] /jamaal/ MIGUEL DE OLIVEIRA VSN23 [facility] Signed: 12/29/2023 12:26 Receipt Acknowledged By: 12/29/2023 12:47 /jamaal/ NANY SHRESTHA RN Registered Nurse, Care in [facility] 12/29/2023 ADDENDUM STATUS: COMPLETED Called [facility] and informed them we will need an order from Dr. Smith his [facility] PC provider and left my phone number for Sumeet to call with any questions. I did fax RFS to Dr. Smith @[phone] /jamaal/ NANY SHRESTHA RN Registered Nurse, Care in [facility] Signed: 12/29/2023 12:47 01/03/2024 ADDENDUM STATUS: COMPLETED I called Dr. Smith's office at [facility] and asked if they have received request for wound consult for toe wound. She can see a communication that they had questions about referral. I asked to have his care team call me back and also provided Sumeet, the home care nurse's phone number to call her if any more information is needed re his wound. She states she will have his care team get back to me. /jamaal/ NANY SHRESTHA RN Registered Nurse, Care in [facility] Signed: 01/03/2024 14:11 01/03/2024 ADDENDUM STATUS: COMPLETED Still awaiting RFS (called clinic today to request again)but did receive order from Dr. Smith requesting referral to wound clinic for wound on second right toe per request from patient's home health nurse. Patient does not meet drive-time for specialty care. Please see order uploaded [facility] dated 01/03/[address] Cortes for placement of referral if clinically indicated. /jamaal/ NANY SHRESTHA RN Registered Nurse, Care in [facility] Signed: 01/03/2024 15:47 Receipt Acknowledged By: 01/04/2024 10:18 /jamaal/ LUPE CORTES MD STAFF PHYSICIAN 01/02/2024 ADDENDUM STATUS: COMPLETED [facility] Scanned Document - Addendum. [facility] Order for wound care SCANNED DOCUMENT SIGNATURE NOT REQUIRED Electronically Filed: 01/03/2024 by: NANY SHRESTHA RN Registered Nurse, Care in [facility] 01/03/2024 ADDENDUM STATUS: COMPLETED error noted above please see order in [facility] dated 01/02/2024, not 01/03/2024, thank you! /julito SHRESTHA RN Registered Nurse, Care in [facility] Signed: 01/03/2024 15:52 01/04/2024 ADDENDUM STATUS: COMPLETED Records reviewed in response to above notification with placement of the following consult, as pt does not meet drive time for [facility] Wound Care: Wound Care consult (to [facility]) #[id number]. Will ask CC RN to advise pt/local PCP of same. /jamaal/ LUPE CORTES MD STAFF PHYSICIAN Signed: 01/04/2024 10:19 Receipt Acknowledged By: 01/04/2024 10:57 /jamaal/ NANY SHRESTHA RN Registered Nurse, Care in [facility] 01/08/2024 ADDENDUM STATUS: COMPLETED Patient's daughter Francisco Javier calls asking about referral to wound clinic( was delayed 2 weeks waiting for primary care to send in referral). It appears that patient does not meet drive time for specialty care(46 minutes from [facility]). Reaching out to wound clinic to please call daughter to expedite referral scheduling or forwarding to Community Care if indicated (patient's daughter would prefer community care due to her work schedule), thank you! He does not have any other payment source for community wound clinic. /jamaal/ NANY SHRESTHA RN Registered Nurse, Care in [facility] Signed: 01/09/2024 09:28 Receipt Acknowledged By: 01/09/2024 12:45 /jamaal/ GEOVANNA YEUNG advanced biomedical engineering technician NANY SHRESTHA [facility] January 08, 2024 04:03 PM ADDENDUM: LOCAL TITLE: Addendum STANDARD TITLE: ADDENDUM DATE OF NOTE: JANUARY 08, 2024@16:03:31 ENTRY DATE: JANUARY 08, 2024@16:03:31 AUTHOR: NANY SHRESTHA COSIGNER: URGENCY: STATUS: COMPLETED Patient's daughter Francisco Javier calls asking about referral to wound clinic( was delayed 2 weeks waiting for primary care to send in referral). It appears that patient does not meet drive time for specialty care(46 minutes from [facility]). Reaching out to wound clinic to please call daughter to expedite referral scheduling or forwarding to Community Care if indicated (patient's daughter would prefer community care due to her work schedule), thank you! He does not have any other payment source for community wound clinic. /julito SHRESTHA RN Registered Nurse, Care in [facility] Signed: 01/09/2024 09:28 Receipt Acknowledged By: 01/09/2024 12:45 /es/ GEOVANNA YEUNG advanced biomedical engineering technician --- Original Document --- 12/29/23 CCC: SCHEDULING ADMINISTRATION: Primary Care Call Center Primary Care Provider Call. Other: Sumeet from [facility] calls requesting a community [facility] wound consult for . She states he has a wound on his second right toe and can be seen at [facility]. The phone number for them is [phone] and the fax is [phone]. Thank you This note was created by a V23 [facility] Call Center PRIMO/MISTY. Please do not alert this continuity writer by adding as a signer for future communications. Alerts are not monitored by this user, please reach out to [facility] Leadership instead if indicated. Phone number verified as correct. Sumeet [phone] /es/ MIGUEL DE OLIVEIRA VSN23 [facility] Signed: 12/29/2023 12:26 Receipt Acknowledged By: 12/29/2023 12:47 /es/ NANY SHRESTHA RN Registered Nurse, Care in [facility] 12/29/2023 ADDENDUM STATUS: COMPLETED Called [facility] and informed them we will need an order from Dr. Smith his CC PC provider and left my phone number for Sumeet to call with any questions. I did fax RFS to Dr. Smith @[phone] /es/ NANY SHRESTHA, JHONY Registered Nurse, Care in [facility] Signed: 12/29/2023 12:47 01/03/2024 ADDENDUM STATUS: COMPLETED I called Dr. Smith's office at [facility] and asked if they have received request for wound consult for toe wound. She can see a communication that they had questions about referral. I asked to have his care team call me back and also provided Sumeet, the home care nurse's phone number to call her if any more information is needed re his wound. She states she will have his care team get back to me. /julito SHRESTHA RN Registered Nurse, Care in [facility] Signed: 01/03/2024 14:11 01/03/2024 ADDENDUM STATUS: COMPLETED Still awaiting RFS (called clinic today to request again)but did receive order from Dr. Smith requesting referral to wound clinic for wound on second right toe per request from patient's home health nurse. Patient does not meet drive-time for specialty care. Please see order uploaded [facility] dated 01/03/[address] Cortes for placement of referral if clinically indicated. /julito SHRESTHA RN Registered Nurse, Care in [facility] Signed: 01/03/2024 15:47 Receipt Acknowledged By: 01/04/2024 10:18 /julito CORTES MD STAFF PHYSICIAN 01/02/2024 ADDENDUM STATUS: COMPLETED [facility] Scanned Document - Addendum. [facility] Order for wound care SCANNED DOCUMENT SIGNATURE NOT REQUIRED Electronically Filed: 01/03/2024 by: NANY SHRESTHA RN Registered Nurse, Care in [facility] 01/03/2024 ADDENDUM STATUS: COMPLETED error noted above please see order in [facility] dated 01/02/2024, not 01/03/2024, thank you! /julito SHRESTHA RN Registered Nurse, Care in [facility] Signed: 01/03/2024 15:52 01/04/2024 ADDENDUM STATUS: COMPLETED Records reviewed in response to above notification with placement of the following consult, as pt does not meet drive time for [facility] Wound Care: Wound Care consult (to [facility]) #[id number]. Will ask CC RN to advise pt/local PCP of same. /julito CORTES MD STAFF PHYSICIAN Signed: 01/04/2024 10:19 Receipt Acknowledged By: 01/04/2024 10:57 /julito SHRESTHA RN Registered Nurse, Care in [facility] 01/09/2024 ADDENDUM STATUS: COMPLETED Alerting Sumeet Corbin to please expedite referral as patient has been waiting for an appt. Per [facility] note next available appt 02/12/2024 and needs referral ESHA, thank you! /julito SHRESTHA RN Registered Nurse, Care in Community Signed: 01/09/2024 12:30 Receipt Acknowledged By: * AWAITING SIGNATURE * SIMRANHAYES BARFIELDH Alexis NANY SHRESTHA [facility] January 04, 2024 10:18 AM ADDENDUM: LOCAL TITLE: Addendum STANDARD TITLE: ADDENDUM DATE OF NOTE: JANUARY 04, 2024@10:18:36 ENTRY DATE: JANUARY 04, 2024@10:18:37 AUTHOR: LUPE CORTES EXP COSIGNER: URGENCY: STATUS: COMPLETED Records reviewed in response to above notification with placement of the following consult, as pt does not meet drive time for [facility] Wound Care: Wound Care consult (to [facility]) #[id number]. Will ask CC RN to advise pt/local PCP of same. /julito CORTES MD STAFF PHYSICIAN Signed: 01/04/2024 10:19 Receipt Acknowledged By: 01/04/2024 10:57 /julito SHRESTHA RN Registered Nurse, Care in [facility] --- Original Document --- 12/29/23 CCC: SCHEDULING ADMINISTRATION: Primary Care Call Center Primary Care Provider Call. Other: Sumeet from [facility] calls requesting a community care wound consult for . She states he has a wound on his second right toe and can be seen at [facility]. The phone number for them is [phone] and the fax is [phone]. Thank you This note was created by a 3 [place] [facility] Call Center AMSAlexis/MISTY. Please do not alert this continuity writer by adding as a signer for future communications. Alerts are not monitored by this user, please reach out to [facility] Leadership instead if indicated. Phone number verified as correct. Sumeet [phone] /es/ MIGUEL Amanda DE OLIVEIRA VSN23 [facility] Signed: 12/29/2023 12:26 Receipt Acknowledged By: 12/29/2023 12:47 /jamaal/ NANY SHRESTHA RN Registered Nurse, Care in [facility] 12/29/2023 ADDENDUM STATUS: COMPLETED Called [facility] and informed them we will need an order from Dr. Smith his CC PC provider and left my phone number for Sumeet to call with any questions. I did fax RFS to Dr. Smith @[phone] /jamaal/ NANY SHRESTHA RN Registered Nurse, Care in [facility] Signed: 12/29/2023 12:47 01/03/2024 ADDENDUM STATUS: COMPLETED I called Dr. Smith's office at [facility] and asked if they have received request for wound consult for toe wound. She can see a communication that they had questions about referral. I asked to have his care team call me back and also provided Sumeet, the home care nurse's phone number to call her if any more information is needed re his wound. She states she will have his care team get back to me. /jamaal/ NANY SHRESTHA RN Registered Nurse, Care in [facility] Signed: 01/03/2024 14:11 01/03/2024 ADDENDUM STATUS: COMPLETED Still awaiting RFS (called clinic today to request again)but did receive order from Dr. Smith requesting referral to wound clinic for wound on second right toe per request from patient's home health nurse. Patient does not meet drive-time for specialty care. Please see order uploaded [facility] dated 01/03/[address] Cortes for placement of referral if clinically indicated. /jamaal/ NANY SHRESTHA RN Registered Nurse, Care in [facility] Signed: 01/03/2024 15:47 Receipt Acknowledged By: 01/04/2024 10:18 /jamaal/ LUPE CORTES MD STAFF PHYSICIAN 01/02/2024 ADDENDUM STATUS: COMPLETED [facility] Scanned Document - Addendum. [facility] Order for wound care SCANNED DOCUMENT SIGNATURE NOT REQUIRED Electronically Filed: 01/03/2024 by: NANY SHRESTHA RN Registered Nurse, Care in [facility] 01/03/2024 ADDENDUM STATUS: COMPLETED error noted above please see order in [facility] dated 01/02/2024, not 01/03/2024, thank you! /julito SHRESTHA RN Registered Nurse, Care in [facility] Signed: 01/03/2024 15:52 LUPE CORTES [facility] January 03, 2024 03:42 PM ADDENDUM: LOCAL TITLE: Addendum STANDARD TITLE: ADDENDUM DATE OF NOTE: JANUARY 03, 2024@15:42:33 ENTRY DATE: JANUARY 03, 2024@15:42:34 AUTHOR: NANY SHRESTHA COSIGNER: URGENCY: STATUS: COMPLETED Still awaiting RFS (called clinic today to request again)but did receive order from Dr. Smith requesting referral to wound clinic for wound on second right toe per request from patient's home health nurse. Patient does not meet drive-time for specialty care. Please see order uploaded [facility] dated 01/03/[address] Cortes for placement of referral if clinically indicated. /jamaal/ NANY SHRESTHA RN Registered Nurse, Care in [facility] Signed: 01/03/2024 15:47 Receipt Acknowledged By: 01/04/2024 10:18 /julito CORTES MD STAFF PHYSICIAN --- Original Document --- 12/29/23 CCC: SCHEDULING ADMINISTRATION: Primary Care Call Center Primary Care Provider Call. Other: Sumeet from [facility] calls requesting a community care wound consult for . She states he has a wound on his second right toe and can be seen at [facility]. The phone number for them is [phone] and the fax is [phone]. Thank you This note was created by a V23 [facility] Call Center PRIMO/MISTY. Please do not alert this continuity writer by adding as a signer for future communications. Alerts are not monitored by this user, please reach out to [facility] Leadership instead if indicated. Phone number verified as correct. Sumeet [phone] /es/ MIGUEL DE OLIVEIRA VSN23 [facility] Signed: 12/29/2023 12:26 Receipt Acknowledged By: 12/29/2023 12:47 /es/ NANY SHRESTHA RN Registered Nurse, Care in [facility] 12/29/2023 ADDENDUM STATUS: COMPLETED Called [facility] and informed them we will need an order from Dr. Smith his CC PC provider and left my phone number for Sumeet to call with any questions. I did fax RFS to Dr. Smith @[phone] /jamaal/ NANY SHRESTHA RN Registered Nurse, Care in [facility] Signed: 12/29/2023 12:47 01/03/2024 ADDENDUM STATUS: COMPLETED I called Dr. Smith's office at [facility] and asked if they have received request for wound consult for toe wound. She can see a communication that they had questions about referral. I asked to have his care team call me back and also provided Sumeet, the home care nurse's phone number to call her if any more information is needed re his wound. She states she will have his care team get back to me. /jamaal/ NANY SHRESTHA RN Registered Nurse, Care in [facility] Signed: 01/03/2024 14:11 01/02/2024 ADDENDUM STATUS: COMPLETED [facility] Scanned Document - Addendum. [facility] Order for wound care SCANNED DOCUMENT SIGNATURE NOT REQUIRED Electronically Filed: 01/03/2024 by: NANY SHRESTHA RN Registered Nurse, Care in [facility] 01/03/2024 ADDENDUM STATUS: COMPLETED error noted above please see order in [facility] dated 01/02/2024, not 01/03/2024, thank you! /jamaal/ NANY SHRESTHA RN Registered Nurse, Care in [facility] Signed: 01/03/2024 15:52 01/04/2024 ADDENDUM STATUS: UNSIGNED You may not VIEW this UNSIGNED Addendum. NANY SHRESTHA [facility] December 29, 2023 12:23 PM ADMINISTRATIVE NOT E: LOCAL TITLE: CCC: SCHEDULING ADMINISTRATION STANDARD TITLE: ADMINISTRATIVE NOTE DATE OF NOTE: DECEMBER 29, 2023@12:23 ENTRY DATE: DECEMBER 29, 2023@12:23:10 AUTHOR: MIGUEL DE OLIVEIRA EXP COSIGNER: URGENCY: STATUS: COMPLETED CCC: SCHEDULING ADMINISTRATION Has ADDENDA Primary Care Call Center Primary Care Provider Call. Other: Sumeet from [facility] calls requesting a [facility] wound consult for . She states he has a wound on his second right toe and can be seen at [facility] The phone number for them is [phone] and the fax is [phone]. Thank you This note was created by a V23 [facility] AMSA/MSA. Please do not alert this continuity writer by adding as a signer for future communications. Alerts are not monitored by this user, please reach out to [facility] Leadership instead if indicated. Phone number verified as correct. Sumeet [phone] /jamaal/ MIGUEL DE OLIVEIRA VSN23 [facility] Signed: 12/29/2023 12:26 Receipt Acknowledged By: 12/29/2023 12:47 /jamaal/ NANY SHRESTHA RN Registered Nurse, Care in [facility] 12/29/2023 ADDENDUM STATUS: COMPLETED Called [facility] and informed them we will need an order from Dr. Smith his CC PC provider and left my phone number for Sumeet to call with any questions. I did fax RFS to Dr. Smith @[phone] /jamaal/ NANY SHRESTHA RN Registered Nurse, Care in [facility] Signed: 12/29/2023 12:47 01/03/2024 ADDENDUM STATUS: COMPLETED I called Dr. Smith's office at [facility] and asked if they have received request for wound consult for toe wound. She can see a communication that they had questions about referral. I asked to have his care team call me back and also provided Sumeet, the home care nurse's phone number to call her if any more information is needed re his wound. She states she will have his care team get back to me. /julito SHRESTHA RN Registered Nurse, Care in [facility] Signed: 01/03/2024 14:11 01/03/2024 ADDENDUM STATUS: COMPLETED Still awaiting RFS (called clinic today to request again)but did receive order from Dr. Smith requesting referral to wound clinic for wound on second right toe per request from patient's home health nurse. Patient does not meet drive-time for specialty care. Please see order uploaded [facility] dated 01/03/[address] Cortes for placement of referral if clinically indicated. /julito SHRESTHA RN Registered Nurse, Care in [facility] Signed: 01/03/2024 15:47 Receipt Acknowledged By: 01/04/2024 10:18 /julito CORTES MD STAFF PHYSICIAN 01/02/2024 ADDENDUM STATUS: COMPLETED [facility] Scanned Document - Addendum. [facility] Order for wound care SCANNED DOCUMENT SIGNATURE NOT REQUIRED Electronically Filed: 01/03/2024 by: NNAY SHRSETHA RN Registered Nurse, Care in [facility] 01/03/2024 ADDENDUM STATUS: COMPLETED error noted above please see order in [facility] dated 01/02/2024, not 01/03/2024, thank you! /julito SHRESTHA RN Registered Nurse, Care in [facility] Signed: 01/03/2024 15:52 01/04/2024 ADDENDUM STATUS: COMPLETED Records reviewed in response to above notification with placement of the following consult, as pt does not meet drive time for [facility] Wound Care: Wound Care consult (to [facility]) #[id number]. Will ask CC RN to advise pt/local PCP of same. /julito CORTES MD STAFF PHYSICIAN Signed: 01/04/2024 10:19 Receipt Acknowledged By: 01/04/2024 10:57 /julito SHRESTHA RN Registered Nurse, Care in [facility] 01/08/2024 ADDENDUM STATUS: COMPLETED Patient's daughter Francisco Javier calls asking about referral to wound clinic( was delayed 2 weeks waiting for primary care to send in referral). It appears that patient does not meet drive time for specialty care(46 minutes from [facility]). Reaching out to wound clinic to please call daughter to expedite referral scheduling or forwarding to Community Care if indicated (patient's daughter would prefer community care due to her work schedule), thank you! He does not have any other payment source for community wound clinic. /es/ NANY SHRESTHA RN Registered Nurse, Care in Community Signed: 01/09/2024 09:28 Receipt Acknowledged By: * AWAITING SIGNATURE * GEOVANNA YEUNG 01/09/2024 ADDENDUM STATUS: COMPLETED Alerting Sumeet Corbin to please expedite referral as patient has been waiting for an appt. Per AMSA note next available appt 02/12/2024 and needs referral ESHA, thank you! /es/ NANY SHRESTHA RN Registered Nurse, Care in [facility] Signed: 01/09/2024 12:30 Receipt Acknowledged By: * AWAITING SIGNATURE * SUMEET CORBIN [facility]
--- OUTSIDE RECORDS SUMMARY | 2024-01-16 13:52 | XMS_ITS | Encounter Summary ---
Author Name Department of Vetera Affairs Organization Department of Vetera ns Affairs Address [address] [place] [address] Support Name Relationship Address Phone LELAND SU Next of Kin [address] [place] [address] LELAND SU Emergency Contact [address] [place] [address] WENDY, EVA Next of Kin [address] [place] [phone] WENDY, EVA Emergency Contact [phone] [place] [phone] UNK, NON-GIVEN Emergency Contact Unknown Unavaila ble Insurance Providers: All historical and current Section Date Range: From patient's date of to the date document was created. This section includes the names of all active insurance providers for the patient. Insurance Provider Type of Coverage Plan Name Start of Policy Coverage End of Policy Coverage Group Number Member ID Insurance Provider's Telephone Number Policy Carvalho's Name Patient's Relationship to Policy Carvalho [facility] ([facility]) Aug 21, 2022 [id number] [phone] KELLEN BARRIENTOS PATIENT [facility] (WNR) MEDICARE [facility] (WNR) Aug 21, 2022 [id number] FLOYD KELLEN PATIENT [facility]-C[facility] OF [facility] (WNR) MEDICARE ADVANTAGE M[facility] (R) Oct 19, 2018 RIVAAB [id number] FLOYDKELLEN PATIENT [facility] (WNR) MEDICARE ADVANTAGE MCR ([facility]) Oct 19, 2018 [id number] KELLEN BARRIENTOS PATIENT [facility] (WNR) MEDICARE ADVANTAGE [facility] (WNR) Aug 21, 2018 [id number] [phone] KELLEN BARRIENTOS PATIENT R[facility]LAN [facility] (WNR) MEDICARE ADVANTAGE [facility] (WNR) Aug 21, 2018 RIVAAB [id number] [phone] KELLEN BARRIENTOS PATIENT Selected Encounter This section includes the information on record at [place] for the Encounter. Date/Time Encounter Type Encounter Description Reason Provider Source Nov 22, 2023 09:09 AM Outpatient Encounter COMMUNITY CARE CONSULT NANY NJ Encounter Template Text not used by [place] Plan of Treatment: Future Appointments (+ 6 months) and Future Tests (+/- 45 days) The Plan of Treatment section includes future care activities for the patient from all [place] treatmentfacilities. This section includes future appointments and future orders which are active, pending or scheduled. Future Appointments This section includes appointments that were scheduled to occur 6 months from the date of the Encounter, up to a maximum of 20 appointments. The data comes from all [place] treatment facilities. Appointment Date/Time Appointment Type Appointme nt Facility Name January 05, 2024 08:00 AM AMBULATORY - NONE [facility] Active, Pending, and Scheduled Orders This section includes a listing of several types of active, pending, and scheduled orders, including clinic medications orders, diagnostic test orders, procedure orders and consult orders; where the start date of the order is 45 days before the date of the Encounter or 45 days after the date of theEncounter. The data comes from all [facility]. Test Date/Time Test Type Test Details Facility Name Nov 21, 2023 03:31 PM Consult Order COMMUNITY CARE-PRIMARY CARE Cons Control Panel [facility] Choice [facility] January 04, 2024 10:17 AM Consult Order COMMUNITY CARE-WOUND CARE PC Cons Control Panel [facility] Social History: Smoking Status (Most current) and Tobacco Use (All prior to encounter date) This section includes the most current, and the historical, smoking and tobacco- related health factors from the [place] facility where the Encounter took place. Current Smoking Status This section includes the most current smoking, or tobacco-related health factor, from the [place] facility where the Encounter took place. Date/Time Current Smoking Status Comment Facil ity Oct 04, 2022 04:00 PM VA-TOBACCO USER EVERY DAY [facility] Tobacco Use History This section includes a history of the smoking, or tobacco-related health factors, that were collected on or before the date of the Encounter. The data comes from the [place] facility where the Encounter took place. 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 USE 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 [facility] Sep 17, 2021 01:30 PM VA-TOBACCO USE MED NO [facility] Sep 17, 2021 01:30 PM VA-TOBACCO USE [place] 30 MIN OF WAKE UP [facility] Sep 17, 2021 01:30 PM VA-TOBACCO USER EVERY DAY [facility] Dec 14, 2020 03:05 PM VA-TOBACCO USE 30 YEARS OR MORE [facility] Dec 14, 2020 03:05 PM VA-TOBACCO USE ADVICE [facility] Dec 14, 2020 03:05 PM VA-TOBACCO USE 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 This section includes ALL of a patient's completed or amended [place] Advance and Rescinded Directives. The entries below indicate that a directive exists for the patient, but an actual copy is not included with this document. The data comes from all [place] facilities. Date Advance Directives Provider Source Oct 07, 2022 ADVANCE DIRECTIVE ANUM GRIFFITHS [facility] Oct 07, 2022 ADVANCE DIRECTIVE DISCUSSION AMIRAH GRIFFITHS [facility] Encounter Notes: All associated encounter notes This section contains the clinical notes associated to the Encounter. Date/Time Encounter Note(s) Provider Source Nov 22, 2023 09:09 AM NONVA NOTE: LOCAL TITLE: COMMUNITY CARE-CARE COORDINATION PLAN NOTE STANDARD TITLE: NONVA NOTE DATE OF NOTE: NOV 22, 2023@09:09 ENTRY DATE: NOV 22, 2023@09:09:28 AUTHOR: NANY NJ EXP COSIGNER: URGENCY: STATUS: COMPLETED Community Care Consult: COMMUNITY CARE-PRIMARY CARE Consult No: [id number] [facility] Referral #: Chief Complaint: I request a Primary Care Appointment. Patient Admitted? No Level of Care Coordination Complex/Chronic Care Coordination was determined from: Chart Review Facility Community Care Office Contact Care Coordination Point of Contact: Nany Nj RN Services: Moderate Care Coordination Services Case Management, if appropriate Direct communications with interdisciplinary team Plan: Proceed with scheduling /es/ NANY NJ, RN Registered Nurse, Care in Community Signed: 11/22/2023 09:10 NANY [place] [facility]
--- OUTSIDE RECORDS SUMMARY | 2024-01-16 13:52 | XMS_ITS | Encounter Summary ---
Author Name Department of Vetera Affairs Organization Department of Vetera ns Affairs Address [address] [place] [address] Support Name Relationship Address Phone UNK, NON-GIVEN Emergency Contact Unknown Azeba LELAND Childers Next of Kin [address] [place] [address] EVA NGUYEN Next of Kin [address] [facility] [address] [place] [id number] Insurance Providers: All historical and current Section Date Range: From patient's date of to the date document was created. This section includes the names of all active insurance providers for the patient. Insurance Provider Type of Coverage Plan Name Start of Policy Coverage End of Policy Coverage Group Number Member ID Insurance Provider's Telephone Number Policy Carvalho's Name Patient's Relationship to Policy [facility]val[facility] MEDICARE ADVANTAGE [facility] ([facility]) Aug 21, 2022 [id number] [phone] KELLEN BARRIENTOS [facility] MEDICARE ADVANTAGE MCR ([facility]) Aug 21, 2022 [id number] KELLEN BARRIENTOS PATIENT U-CARE OF [facility] (WNR) MEDICARE [facility] ([facility]) Oct 19, 2018 [id number] KELLEN BARRIENTOS PATIENT U-CARE OF [facility] (WN) MEDICARE ADVANTAGE MCR ([facility]) Oct 19, 2018 RIVAAB [id number] KELLEN BARRIENTOS [facility] ADV[facility] ([facility]) Aug 21, 2018 [id number] KELLEN BARRIENTOS PATIENT [facility]ARE [facility] (WNR) MEDICARE ADVANTAGE [facility] (WNR) Aug 21, 2018 RIVAAB [id number] [phone] KELLEN BARRIENTOS PATIENT Selected Encounter This section includes the information on record at [place] for the Encounter. Date/Time Encounter Type Encounter Description Reason Pro vider Source January 10, 2024 12:04 PM Outpatient Encounter COMMUNITY CARE CONSULT IHE Encounter Template Text not used by [place] Plan of Treatment: Future Appointments (+ 6 months) and Future Tests (+/- 45 days) The Plan of Treatment section includes future care activities for the patient from all [place] treatmentfacilities. This section includes future appointments and future orders which are active, pending or scheduled. Active, Pending, and Scheduled Orders This section includes a listing of several types of active, pending, and scheduled orders, including clinic medications orders, diagnostic test orders, procedure orders and consult orders; where the start date of the order is 45 days before the date of the Encounter or 45 days after the date of theEncounter. The data comes from all [place] treatment facilities. Test Date/Time Test Type Test Details Facility Name January 04, 2024 10:17 AM Consult Order COMMUNITY CARE-WOUND CARE PC Cons Diamond Selector's Choice [facility] Social History: Smoking Status (Most current) and Tobacco Use (All prior to encounter date) This section includes the most current, and the historical, smoking and tobacco- related health factors from the [place] facility where the Encounter took place. Current Smoking Status This section includes the most current smoking, or tobacco-related health factor, from the [place] facility where the Encounter took place. Date/Time Current Smoking Status Comment Remi itlety Oct 04, 2022 04:00 PM VA-TOBACCO USE [place] [address] [facility] Tobacco Use History This section includes a history of the smoking, or tobacco-related health factors, that were collected on or before the date of the Encounter. The data comes from the [place] facility where the Encounter took place. Date/Time Smoking Status/Tobacco Use Comment F acility Oct 04, 2022 04:00 PM VA-TOBACCO USE ADVICE 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 Oct 04, 2022 04:00 PM VA-TOBACCO USE MED NO [facility] Oct 04, 2022 04:00 PM VA-TOBACCO USE [place] [address] UP [facility] Oct 04, 2022 04:00 PM VA-TOBACCO USER EVERY DAY [facility] Sep 17, 2021 01:30 PM VA-TOBACCO USE [address] [facility] Sep 17, 2021 01:30 PM VA-TOBACCO USE ADVICE [facility] Sep 17, 2021 01:30 PM VA-TOBACCO USE TELEPHONE ENGINEER NO [facility] Sep 17, 2021 01:30 PM VA-TOBACCO USE MED NO [facility] Sep 17, 2021 01:30 PM VA-TOBACCO USE [place] [address] UP [facility] Sep 17, 2021 01:30 PM VA-TOBACCO USER EVERY DAY [facility] Dec 14, 2020 03:05 PM VA-TOBACCO USE [address] [facility] Dec 14, 2020 03:05 PM VA-TOBACCO USE ADVICE [facility] Dec 14, 2020 03:05 PM VA-TOBACCO USE TELEPHONE ENGINEER NO [facility] Dec 14, 2020 03:05 PM VA-TOBACCO USE MED NO [facility] Dec 14, 2020 03:05 PM VA-TOBACCO USE [place] [address] UP [facility] Dec 14, 2020 03:05 PM VA-TOBACCO USER EVERY DAY [facility] Mar 27, 2018 01:28 PM CURRENT TOBACCO USER [facility] Advance Directives: All historical and current Section Date Range: From patient's date of to the date document was created. This section includes ALL of a patient's completed or amended [place] Advance and Rescinded Directives. The entries below indicate that a directive exists for the patient, but an actual copy is not included with this document. The data comes from all [place] facilities. Date Advance Directives Provider Source Oct 07, 2022 ADVANCE DIRECTIVE ANUM [facility]ITHS [facility] Oct 07, 2022 ADVANCE DIRECTIVE DISCUSSION AMIRAH GRIFFITHS [facility] Encounter Notes: All associated encounter notes This section contains the clinical notes associated to the Encounter. Date/Time Encounter Note(s) Provider Source January 10, 2024 12:04 PM NONVA NOTE: LOCAL TITLE: COMMUNITY CARE PRE-AUTH LETTER (AUTOPRINT) STANDARD TITLE: NONVA NOTE DATE OF NOTE: JANUARY 10, 2024@12:04 ENTRY DATE: JANUARY 10, 2024@12:04:53 AUTHOR: GALA WRIGHT COSIGNER: URGENCY: STATUS: COMPLETED December KELLEN BARRIENTOS [address] [place], [place] [address] Dear KELLEN BARRIENTOS, Your VA provider has referred you to a provider within the community for care. Your medical care for WOUND CARE has been authorized with the community care provider listed below. DO NOT REPORT TO THE [place] [facility] Provider info: Care has been approved for the following vendor: Office name, address, and phone number: [facility] [address] [place] [address] Please contact the identified provider to schedule your community appointment. If you need assistance with this appointment, please call your facility community care office [facility] Office of Community Care at [phone] during the hours of 8:30AM - 3:00PM. Please follow up with your local [facility] community care office once this is scheduled. This step is needed to ensure your referral duration is maximized and the [place] has accurate referral information for billing purposes. Authorization Number: [id number] Referral Issue Date: December Expiration Date: Jun (subject to change based on first appointment) If you are unable to schedule this appointment or the appointment is no longer needed, please contact the community provider above for notification/rescheduling and then call the [facility] Office of Community Care at [phone] during the hours of 8:30AM - 3:00PM. If you need additional care/services not mentioned above or your authorization has and additional care is needed, please contact your primary care provider for a new referral. To review all care/service(s) approved under your referral, please go to the following link: [employer] [facility]([employer]) Co-Payments: If you are required to pay a VA co-payment, you will be billed by the VA for each authorized visit that you attend. However, you are NOT REQUIRED to make co-payments to a community provider. Thank you for the opportunity to serve you. Sincerely, [place] Community Care ([facility]ACC) /jamaal/ GALA WRIGHT Advanced Breaker Up Signed: 01/10/2024 12:05 GALA WRIGHT [facility] [place] [facility]
--- OUTSIDE RECORDS SUMMARY | 2024-01-16 13:52 | XMS_ITS | Encounter Summary ---
Author Name Department of Vetera Affairs Organization Department of Vetera ns Affairs Address [address] [place] [address] Support Name Relationship Address Phone UNK, NON-GIVEN Emergency Contact Unknown Azeba LELAND Childers Next of Kin [address] [place] [address] EVA NGUYEN Next of Kin [phone] [place] [id number] Insurance Providers: All historical and current Section Date Range: From patient's date of to the date document was created. This section includes the names of all active insurance providers for the patient. Insurance Provider Type of Coverage Plan Name Start of Policy Coverage End of Policy Coverage Group Number Member ID Insurance Provider's Telephone Number Policy Carvalho's Name Patient's Relationship to Policy Carvalho [facility] MEDICARE ADVANTAGE MCR ([facility]) Aug 21, 2022 [id number] KELLEN BARRIENTOS [facility]) MEDICARE ADVANTAGE [facility] ([facility]) Aug 21, 2022 [id number] KELLEN BARRIENTOS PATIENT [facility] OF [facility] ([facility]) MEDICARE ADVANTAGE MCR ([facility]) Oct 19, 2018 RIVAAB [id number] [phone] KELLEN BARRIENTOS PATIENT [facility] ([facility]) MEDICARE ADVANTAGE MCR ([facility]) Oct 19, 2018 [id number] KELLEN BARRIENTOS PATIENT [facility] ([facility]) MEDICARE ADVANTAGE MCR ([facility]) Aug 21, 2018 [id number] KELLEN BARRIENTOS PATIENT [facility] (WNR) MEDICARE ADVANTAGE [facility] (WNR) Aug 21, 2018 RIVAAB [id number] KELLEN BARRIENTOS PATIENT Selected Encounter This section includes the information on record at [place] for the Encounter. Date/Time Encounter Type Encounter Description Reason Pro vider Source IHE Encounter Template Text not used by [place] Advance Directives: All historical and current Section Date Range: From patient's date of to the date document was created. This section includes ALL of a patient's completed or amended [place] Advance and Rescinded Directives. The entries below indicate that a directive exists for the patient, but an actual copy is not included with this document. The data comes from all [place] facilities. Date Advance Directives Provider Source Oct 07, 2022 ADVANCE DIRECTIVE ANUM GRIFFITHS [facility] [place] Oct 07, 2022 ADVANCE DIRECTIVE DISCUSSION AMIRAH [facility]
--- OUTSIDE RECORDS SUMMARY | 2024-01-16 13:52 | XMS_ITS | Encounter Summary ---
Author Name [facility] of [facility] Organization [facility] Address [address] [place] [address] Support Name Relationship Address Phone UNK, NON-GIVEN Emergency Contact Unknown Azeba LELAND Childers Next of Kin [id number] [place] [address] EVA NGUYEN Next of Kin [address] [place] [address] Insurance Providers: All historical and current [...] Name Patient's Relationship to Policy Carvalho DANIELLAA [facility] ([facility]) MEDICARE ADVANTAGE [facility] ([facility]) Aug 21, 2022 [id number] KELLEN BARRIENTOS [facility]IENT [facility] MEDICARE [facility] ([facility]) Aug 21, 2022 [id number] [phone] KELLEN BARRIENTOS PATIENT [facility] ([facility]) MEDICARE ADVANTAGE [facility] ([facility]) Oct 19, 2018 RIVAAB [id number] KELLEN BARRIENTOS PATIENT [facility] ([place]) MEDICARE ADVANTAGE M[facility] ([facility]) Oct 19, 2018 [id number] [phone] KELLEN BARRIENTOS PATIENT [facility] ([facility]) MEDICARE ADVANTAGE MCR ([facility]) Aug 21, 2018 [id number] [id number] KELLEN BARRIENTOS PATIENT [facility] ([facility]) MEDICARE ADVANTAGE [facility] ([facility]) Aug 21, 2018 [id number] KELLEN BARRIENTOS PATIENT Selected Encounter This section includes the information on record at [place] for the Encounter. Date/Time Encounter Type Encounter Description Reason Provider Source January 10, 2024 11:19 AM Outpatient Encounter COMMUNITY CARE CONSULT [place] Encounter Template Text not used by [place] Plan of Treatment: Future Appointments (+ 6 months) and Future Tests (+/- 45 days) The Plan of Treatment section includes future care activities for the patient from all [place] treatmentfacilities. This section includes future appointments and [...] of theEncounter. The data comes from all [place] treatment facilities. Test Date/Time Test Type Test Details Facility Name January 04, 2024 10:17 AM Consult Order [facility] Cons Human Intelligence's Choice [facility] Social History: Smoking Status (Most current) and Tobacco Use (All prior to encounter date) This section includes the most current, and the historical, smoking and tobacco- related health factors from the [place] facility where the Encounter took place. Current Smoking Status This section includes the most current smoking, or tobacco-related health factor, from the [place] facility where the Encounter took place. Date/Time Current Smoking Status Comment Remi itlety Oct 04, 2022 04:00 PM VA-TOBACCO USER EVERY DAY [facility] Tobacco Use History This section includes a history of the smoking, or tobacco-related health factors, that were collected on or before the date of the Encounter. The data comes from the [place] facility where the Encounter took place. 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 NO [facility] Oct 04, 2022 04:00 PM VA-TOBACCO USE MED NO [facility] Oct 04, 2022 04:00 PM VA-TOBACCO USE WI 30 MIN OF WAKE UP [facility] Oct 04, 2022 04:00 PM VA-TOBACCO USER EVERY DAY [facility] Sep 17, 2021 01:30 PM VA-TOBACCO USE 30 YEARS OR MORE [facility] Sep 17, 2021 01:30 PM VA-TOBACCO USE ADVICE [facility] Sep 17, 2021 01:30 PM 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 NO [facility] Sep 17, 2021 01:30 PM VA-TOBACCO USE MED NO [facility] Sep 17, 2021 01:30 PM VA-TOBACCO USE WI 30 MIN OF WAKE UP [facility] Sep 17, 2021 01:30 PM VA-TOBACCO USER EVERY DAY [facility] Dec 14, 2020 03:05 PM VA-TOBACCO USE 30 YEARS OR MORE [facility] Dec 14, 2020 03:05 PM VA-TOBACCO USE ADVICE [facility] Dec 14, 2020 03:05 PM 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 LOADING NO [facility] Dec 14, 2020 03:05 PM VA-TOBACCO USE MED NO [facility] Dec 14, 2020 03:05 PM VA-TOBACCO USE WI 30 MIN OF WAKE UP [facility] Dec 14, 2020 03:05 PM VA-TOBACCO USER EVERY DAY [facility] Mar 27, 2018 01:28 PM CURRENT TOBACCO USER [facility] Advance Directives: All historical and current Section Date Range: From patient's date of to the date document was created. This section includes ALL of a patient's completed or amended [place] Advance and Rescinded Directives. The entries below indicate that a directive exists for the patient, but an actual copy is not included with this document. The data comes from all [place] facilities. Date Advance Directives Provider Source Oct 07, 2022 ADVANCE DIRECTIVE ANUM GRIFFITHS [facility] Oct 07, 2022 ADVANCE DIRECTIVE DISCUSSION AMIRAH GRIFFITHS [facility] Encounter Notes: All associated encounter notes This section contains the clinical notes associated to the Encounter. Date/Time Encounter Note(s) Provider Source January 10, 2024 11:19 AM NONVA NOTE: LOCAL TITLE: COMMUNITY CARE-CARE COORDINATION PLAN NOTE STANDARD TITLE: NONVA NOTE DATE OF NOTE: JANUARY 10, 2024@11:19 ENTRY DATE: JANUARY 10, 2024@11:19:06 AUTHOR: NANY [place] COSIGNER: URGENCY: STATUS: COMPLETED Community [facility] Consult: [facility] Consult No: [id number] Referral #: Chief Complaint: Evaluate, treat, manage, and transfer the care of the wound: Patient gets his primary care through [facility] but does not meet drive time for [facility]. Pt with wound on right second toe, for which local PCP is requesting wound care assistance. This specification writer does not have further details. Please review and either schedule with [place] [facility] or forward to [facility] if wait time is an issue. Thanks. Patient Admitted? No Level of Care Coordination Complex/Chronic Care Coordination was determined from: Chart Review Facility Community Care Office Contact Care Coordination Point of Contact: Nany [place] RN Services: Moderate Care Coordination Services Case Management, if appropriate Direct communications with interdisciplinary team Plan: Proceed with scheduling Alerting [facility] for expedited processing/scheduling Called and left patient's JUAN PABLONAntoinette a message that referral was approved and will be processing today. /jamaal/ NANY [place] RN Registered Nurse, Care in [facility] Signed: 01/10/2024 11:22 NANY [place] [facility]
--- OUTSIDE RECORDS SUMMARY | 2024-01-16 13:53 | XMS_ITS | Clinical Summary ---
Author Organization [facility] Address [place], [place] [address] Care Team Providers Care Job Putter Up And Ticket Preparer Name Role Phone SkylertelDuane MD Primary Care Provider + Allergies Active Allergy Reactions Criticality Noted Date Comments Amoxicillin-Pot Clavulanate Anaphylaxis High Erythromycin Rash Low Penicillins Anaphylaxis High 04/14/2016 Medications Medication Sig Dispensed Refills Start Date End Date Status atorvastatin (LIPITOR) 20 mg tabletIndications:Mixe d hyperlipidemia Take 1 Tablet (20 mg) by mouth at bedtime. 90 Tablet 3 01/04/2023 Active finasteride (PROSCAR) 5 mg tabletIndications:Carlos gn prostatic hyperplasia with urinary frequency Take 1 Tablet (5 mg) by mouth every morning. 90 Tablet 3 01/04/2023 Active psyllium powd Mix 1 tsp in liquid then take by mouth once daily if needed for Constipation. 283 g 11 01/05/2023 Active tamsulosin (FLOMAX) 0.4 mg capsuleIndications:Johny ign prostatic hyperplasia with urinary frequency Take 1 Capsule (0.4 mg) by mouth once daily after a meal. 90 Capsule 3 01/10/2023 Active levothyroxine (SYNTHROID) 75 mcg tabletIndications:Acqu ired hypothyroidism Take 1 Tablet (75 mcg) by mouth once daily. 90 Tablet 3 01/10/2023 Active lisinopriL (PRINIVIL; ZESTRIL) 10 mg tabletIndications:HTN (hypertension) Take 1 Tablet (10 mg) by mouth once daily. 90 Tablet 3 02/01/2023 Active omeprazole 20 mg tabletIndications:Brooks ett's esophagus without dysplasia Take 1 Tablet (20 mg) by mouth two times daily before meals. 180 Tablet 3 02/07/2023 Active magnesium oxide (MAG-OX 400) 400 mg tabletIndications:Low magnesium level Take 1 Tablet (400 mg) by mouth two times daily. 180 Tablet 3 02/07/2023 Active rivaroxaban (Xarelto) 20 mg tabletIndications:Anti coagulation monitoring, INR range 2-3,Longstanding persistent atrial fibrillation (HC) Take 1 Tablet (20 mg) by mouth once daily with evening meal. 90 Tablet 3 10/23/2023 Active traZODone (DESYREL) 50 mg tabletIndications:Diff iculty sleeping Take 1 Tablet (50 mg) by mouth at bedtime. 90 Tablet 11/22/2023 Active amLODIPine (NORVASC) 10 mg tabletIndications:Esse ntial hypertension Take 0.5 Tablets (5 mg) by mouth once daily. 11/23/2023 Active metoprolol tartrate (LOPRESSOR) 25 mg tabletIndications:New onset atrial fibrillation (HC) 0.5 tablets BID, 12.5 mg in the am and pm. 60 Tablet 11/28/2023 Active metFORMIN (GLUCOPHAGE) 500 mg tabletIndications:Diab etes mellitus without complication (HC) Take 1 Tablet (500 mg) by mouth once daily with a meal. 90 Tablet 11/28/2023 Active sennosides-docusate (SENOKOT S) (8.6-50 mg) tabletIndications:Surveyor Oil Well Directional nikolay constipation Take 2 Tablets by mouth once daily. 12/12/2023 Active Active Problems Problem Noted Date Diagnosed Date Type 2 diabetes mellitus wit h diabetic peripheral angiopathy without gangrene, without long-term current use of insulin 11/23/2023 Moderate cognitive impairment 08/23/2023 Hypertensive heart disease with heart failure Chronic obstructive pulmonar y disease with (acute) lower respiratory infection 08/23/2023 Longstanding persistent atrial fibrillation 12/19 Alzheimer's disease 01/04/2023 Unspecified dementia, unspec ified severity, with other behavioral disturbance 01/04/2023 Depression, recurrent 01/04/2023 Overweight 09/15/2017 ESTEFANIA (obstructive sleep apnea) 06/07/2017 History of DVT (deep vein thrombosis) 07/22/2016 Transient cerebral ischemia, unspecified type TIA (transient ischemic attack) 06/17/2016 Abscess of abdominal cavity 04/15/2016 History of penicillin allergy 04/15/2016 LLQ abdominal pain 04/02/2016 Syncope 04/02/2016 BPH (benign prostatic hypertrophy) 04/02/2016 Acute diverticulitis 04/02/2016 Wide-complex tachycardia 04/02/2016 Gastrointestinal hemorrhage with melena 12/30/19 16 Diabetes mellitus without complication 6 Insomnia 12/04/2015 Slow urinary stream 12/04/2015 Peripheral artery disease 05/04/2014 Overview: Stent to right SFA - 05/20/2014 Elevated PSA 11/08/2013 Personal history of colonic polyps 09/08/2010 Overview: Colonoscopy 08/2010 polyp repeat in 3 years Colonoscopy 01/2014 polyps repeat in 5 years Tobacco use disorder 06/18/2010 Cruz's esophagus 07/01/2009 Overview: EGD 06/2009 - Cruz's esophagus, repeat EGD in 3 years EGD 08/2012 reflux , repeat EGD in 3 years EGD 11/2015 normal , repeat EGD in 5 years Kidney stones 10/07/2008 Overview: Bilateral about 6 times History of Laminectomy 01/200804/07/2008 Spinal stenosis in cervical region 01/06/2008 Mixed hyperlipidemia Diverticulosis of large intestine without hemorr michelle Unspecified hypothyroidism Cervicalgia Esophageal reflux Unspecified essential hypertension Resolved Problems Problem Noted Date Diagnosed Date Resolved Date Anticoagulation monitoring, INR range 2-3 08/08/2016 10/31/2023 Type 2 diabetes mellitus with hyperglycemia 02/25/2015 07/07/2015 Overview: Dx: 02/05/15 Encounters Date Type Department Care Team Description 01/03/2024 Telephone [facility] [address] [facility] [place] [address] Duane Smith MD Form (FOLLOWING UP REGARDING ADDITIONAL SERVICES FORM) 01/01/2024 Telephone [facility] [address] [facility] [place] [address] Duane Smith MD Form 01/01/2024 Telephone [facility] [address] [place] [address] Duane Smith MD Error-please disregard 01/01/[address] [address] Duane Smith MD 12/27/[address] [address] Duane Smith MD 12/12/2023 Telephone [facility] [address] [place] [address] Duane Smith MD Medication Management (sennosides-docusate (SENOKOT S) (8.6-50 mg) tablet) 12/05/2023 Orders Only [facility] Scanner 1 scan: (1-Ord) [facility], PERIPHERAL ARTERY DISEASE TEST, 12/05/2023 11/28/[address] [address] Duane Smith MD Refill Request (metoprolol tartrate (LOPRESSOR) 25 mg tablet, metFORMIN (GLUCOPHAGE) 500 mg tablet//) 11/23/2023 1:15 PM CDT Office Visit [address] [address] Duane Smith MD Concerns (Rt elbow and rt foot second toe) 11/23/2023 Travel 11/21/[address] [address] Duane Smith MD Refill Request (Trazodone Tab 50mg ) 11/08/[address] [address] Duane Smith MD 11/01/[address] [address] Duane Smith MD 11/01/2023 Telephone [place] [address] [place] [address] VoteDuane montano MD 10/31/2023 Anticoagulation (warfarin) [facility] [address] [place] [address] 1, [facility] 10/25/2023 Telephone [facility] [address] [place] [address] VoteDuane montano MD 2023 Telephone [facility] [address] [place] [address] VotelDuane MD Form 2023 Telephone [facility] [address] [place] [address] VoteDuane montano MD Anticoagulation (Warfarin to Xarelto transition) 10/23/2023 Telephone [facility] [address] [place] [address] VoteDuane montano MD Anticoagulation (Chart Update ) from Last 3 Months Immunizations Name Administration Dates Next Due AMB Influenza, IIV3 (Age >=3 years)(Flu Clinic Only) 07/04/2008 COVID-19 vaccine (Pfizer-Bio NTech 30mcg/0.3mL) 12YO+ BIVALENT PF, MDV 01/04/2023 COVID-19 vaccine (Pfizer-Bio NTech 30mcg/0.3mL) 12YO+ MECHE-SUCROSE PF, MDV 01/28/2022 COVID-19 vaccine (Pfizer-Bio NTech 30mcg/0.3mL) PF, MDV 08/18/2021,11/17/2020,10/27/2020 Influenza Virus, Unspecified 07/09/2021, 06/15/2020,05/06/2019,2017 Influenza, High-dose Inactivated 07/22/2016,05/21 Influenza, High-dose Quadriv alent Inactivated 06/08/2023 Influenza, IIV3 (Age 6-35 mos) 05/25/2011,2009 Influenza, IIV3 (Age >=3 years) 05/25/20 11,05/06/2010,06/09/2009,2007,06/26/2007,06/28/2006,06/08/2005,1 ,06/26/2003 Influenza, IIV4 06/16/2017 Influenza, Inactivated AIIV4 (Age 65+ Years) Preserv Free 10/04/2022 Influenza, Inactivated IIV3 (Age 65+ Years) Preserv Free 06/05/2018 Pneumococcal Poly,23-Valent (Pneumovax) 12/15/2020,11/08/2013,06/04/2011 Pneumococcal conj 13-Valent (Prevnar 13) 12/03/2018,07/22/2016 Td (Age >=7 Years) 06/05/2002 Tdap 09/17/2021, 2,11/20/2011,2001 Zoster (Shingrix-RZV, recombinant) 02/04/2019, Family History Medical History Relation Name Comments Other Brother 3 d72, cancer spi ne/brain Heart Disease Brother 4 [place] at 71 Heart Disease Father d78, unsure wh at type of cancer Other Mother d74 liver cance r Other Sister 2 [place] Relation Name Status Comments Brother 1 Alive Brother 2 Alive Brother 3 Brother 4 Father Mother Sister 1 Alive Sister 2 Social History Tobacco Use Types Packs/Day Years Used Date Smoking Tobacco: Every Day Cigarettes 1 25 Smokeless Tobacco: Never Tobacco Cessation:Ready to Q uit: No; Counseling Given: Yes Comments:TIP done 04/05/16, 06/20/16, 10-12 cigs per day 03/21/17 Alcohol Use Standard Drinks/Week Comments No 0 (1 standard drink = 0.6 oz pur e alcohol) PHQ-2 Answer Date Recorded PHQ-2 TOTAL SCORE 2 01/04/2023 Social Connections Answer Date Recorded Frequency of Communication with Friends and Fami ly Not on file 01/29/2023 Financial Resource Strain Answer Date R ecorded Difficulty of Paying Living Expenses 3 01/28/2022 Difficulty of Paying Living Expenses Not on file 01/28/2022 Food Insecurity Answer Date Recorded Worried About Running Out of Food in the Last Ye ar 1 01/28/2022 Transportation Needs Answer Date Record ed Lack of Transportation (Medical) 1 01/28/2022 Housing Stability Answer Date Recorded Unable to Pay for Housing in the Last Year 1 01/28/2022 Sex and Gender Information Value Date Recorded Sex Assigned at Not on file Gender Identity Not on file Sexual Orientation Not on file Obstetrics History Last Filed Vital Signs Vital Sign Reading Time Taken Comments Blood Pressure 97/55 11/23/2023 1:12 PM CDT Pulse 58 11/23/2023 1:12 PM CDT Temperature 36.4 ??C (97.6 ??F) 08/23/2023 9:08 AM CS T Respiratory Rate 16 04/16/2018 1:23 PM CDT Oxygen Saturation 95% 11/23/2023 1:12 PM CDT Inhaled Oxygen Concentration - - Weight 96.4 kg (212 lb 8 oz) 11/23/2023 1:12 PM CDT Height 180.3 cm (5' 11) 11/23/2023 1:12 PM CDT Body Mass Index 29.64 11/23/2023 1:12 PM CDT Plan of Treatment Upcoming Encounters Date Type Department Care Team (Late st Contact Info) Description 01/23/2024 3:45 PM CDT Office Visit [facility] [address] [place] [address] Votel, Duane Arceo MD [address] [place] [address] Health Maintenance Due Date Last Done Comments Low Dose CT (for lung CA) ag e 50-80 1998 Colonoscopy through age 75 06/21/202106/21, 02/05/2014, 02/05/2014, Additional history exists COVID-19 vaccine series (2022- season) 2023 01/04/2023, 01/28/2022, 08/18/2021, Additional history exists Medicare Wellness for age 65+ 01/05/2024 01/04/2023 Depression screening for age 12+ 01/07/2024 01/06/2023, 01/05/2023, 01/05/2023, Additional history exists Influenza for age 65+ 04/21/2024 06/08/2023 , 10/04/2022, 07/09/2021, Additional history exists BMI (ht and wt on same day) for age 18+ 11/22/2024 11/23/2023, 08/23/2023, 02/01/2023, Additional history exists Lipids for age 45-75 01/05/2028 01/04/2023, 06/05/2018, 11/20/2017, Additional history exists Tetanus booster 09/17/2031 09/17/2021, 11/2011, 11/20/2011, Additional history exists Hepatitis C screening for ag e 18-79 Completed 11/08/2013 Zoster (shingles) series for age 50+ Completed 02/04/2019, 12/03/2018 Pneumococcal series for age 65+ Completed 12/15/2020, 12/03/2018, 07/22/2016, Additional history exists Tdap Completed 09/17/2021, 11/2011, 11/20/2011, Additional history exists Medical Devices Implanted Type Area Program Checker Device Identifier Shelf Expiration Date Model / Serial / Lot Plate Cerv Ant 25mm [place] Vision 976-125 - [id number] Implanted:Qty: 1 on 06/03/2011 at [facility] Spine Implants Cervical Vertebrae SOFAMOR DANEK 976-125# / / Screw Self Tap 4.5x15mm Fixed Ang - [id number] Implanted:Qty: 1 on 06/03/2011 at [facility] Spine Implants Cervical Vertebrae Medtronic [id number]# / / Screw 4.0x14mm - [id number] Implanted:Qty: 2 on 06/03/2011 at [facility] Spine Implants Cervical Vertebrae SOFAMOR DANEK 876-614# / / Screw 4.0x15mm - [id number] Implanted:Qty: 1 on 06/03/2011 at [facility] Spine Implants Cervical Vertebrae SOFAMOR DANEK 876-615# / / [id number] [id number] [[id number] ] Implanted:Qty: 1 on 06/03/2011 at [facility] Explanted:at [facility] (Quantity not on file) Spine SPINAL GRAFT 08/03/[id number]# / [id number] / [id number] putty Progenix Dbm 1cc [[id number] ] Implanted:Qty: 1 on 06/03/2011 at [facility] Explanted:at [facility] (Quantity not on file) Spine SPINAL GRAFT 12/13/2012 [id number]# / [id number] / Procedures Procedure Name Priority Date/Time Associated Diagnosis Comments SCAN-DIAGNOSTIC REPORT 12/05/2023 12:00 AM CDT LIPID PANEL W REFLEX MEASURED LDL Routine 01/04/2023 2:45 PM CDT Mixed hyperlipidemia COLONOSCOPY 06/21/2016 3:38 PM CDT ANTI HCV Routine 11/08/2013 4:27 PM CDT Need for hepatitis C screening test from Last 3 Months or Most Recently Relevant to Health Maintenance Results * SCAN-DIAGNOSTIC REPORT (12/05/2023 12:00 AM CDT) Scanner OTHER * (ABNORMAL) LIPID PANEL W REFLEX MEASURED LDL (01/04/2023 2:45 PM CDT) CHOLESTEROL,TOTAL 164 100 - 199 mg/dL 01/05/2023 1:51 AM CDT [facility] Comment: Cholesterol, Total Reference Ranges Desirable <200 mg/dL Borderline 200-239 mg/dL High >=240 mg/dL TRIGLYCERIDES 172(H) <150 mg/dL 01/05/2023 1:51 AM CDT [facility] HDL CHOLESTEROL 49 >40 mg/dL 1:51 AM CDT [facility] NON-HDL CHOLESTEROL 115 <145 mg/dl 01/05/2023 1:51 AM CDT [facility] CHOL/HDL RATIO 3.35 <4.50 01/05/2023 1:51 AM CDT [facility] LDL CHOLESTEROL 81 <=130 mg/dL 01/05/2023 1:51 AM CDT [facility] VLDL CHOLESTEROL 34(H) <=30 mg/dL 01/05/2023 1:51 AM CDT [facility] PROVIDER ORDERED STATUS RANDOM 01/05/2023 1:51 AM CDT [facility] Blood BLOOD SPECIMEN / Unknown Venipuncture / Unknown 01/04/2023 2:45 PM CDT 01/04/2023 2:48 PM CDT Duane Smith MD CHEMISTRY [facility] [address] [place] [address], * COLONOSCOPY (06/21/2016 3:38 PM CDT) 06/21/2016 3:38 PM CDT Narrative 06/21/2016 3:38 PM CDT [facility] Patient Name: Duane Corrigan ?Procedure Date: 06/21/2016 ? Gender: Male ? Date of : 1950 Admit Type: Inpatient ? Procedure: ?Colonoscopy Proceduralist: ?Bg Blankenship MD - [facility] Indications/Pre-Op Diagnosis: Follow-up of diverticulitis Medications: ?Fentanyl 100 micrograms IV, Midazolam 2 mg IV ? Procedure Description: ? The patient had risks, benefits and alternatives explained to and gave ? informed consent. The patient had a stable cardiopulmonary status and ? judged an adequate candidate for conscious sedation. ? The colonoscope was passed through the anus and advanced to the cecum, ? identified by appendiceal orifice and ileocecal valve. The patient ? tolerated the procedure well. The quality of the bowel preparation was ? fair. ? Complications: ?No immediate complications. Estimated Blood Loss & Specimen: ? Estimated blood loss: none. ? Specimen collected: None ? Findings: ? In the sigmoid between 20-25 cm there was modest patch edema, very focal ? erythema and trace purulence consistent with resoving diverticulitis. ? There are scattered medium-mouthed diverticula found in the sigmoid ? colon, in the descending colon and in the transverse colon. The colonic ? mucosa and vascularity is otherwise unremarkable. There is no evident ? neoplasia. Estimated blood loss: none. Estimated blood loss: none. ? Impressions/Post-Op Diagnosis: ? - Diverticulosis in the sigmoid colon, in the descending colon and in ? the transverse colon. ? - No specimens collected. ? Recommendation: ? - Resume regular diet today. ? - Return patient to [facility] for [facility] care. ? Bg Blankenship MD 06/21/2016 6:06:00 PM This report has been signed electronically. Note Initiated On: 06/21/2016 3:38 PM Procedure Note Bg Blankenship MD - 06/21/2016 6:06 PM CDT [facility] Patient Name: Duane Corrigan Procedure Date: 06/21/2016 Gender: Male Date of : 1950 Admit Type: Inpatient Procedure: Colonoscopy Proceduralist: Bg Blankenship [facility] [place] Indications/Pre-Op Diagnosis: Follow-up of diverticulitis Medications: Fentanyl 100 micrograms IV, Midazolam 2 mgIV Procedure Description: The patient had risks, benefits and alternatives explained to andgave informed consent. The patient had a stable cardiopulmonary status and judged an adequate candidate for conscious sedation. The colonoscope was passed through the anus and advanced to thececum, identified by appendiceal orifice and ileocecal valve. The patient tolerated the procedure well. The quality of the bowel preparationwas fair. Complications: No immediate complications. Estimated Blood Loss & Specimen: Estimated blood loss: none. Specimen collected: None Findings: In the sigmoid between 20-25 cm there was modest patch edema, veryfocal erythema and trace purulence consistent with resoving diverticulitis. There are scattered medium-mouthed diverticula found in the sigmoid colon, in the descending colon and in the transverse colon. Thecolonic mucosa and vascularity is otherwise unremarkable. There is no evident neoplasia. Estimated blood loss: none. Estimated blood loss: none. Impressions/Post-Op Diagnosis: - Diverticulosis in the sigmoid colon, in the descending colon and in the transverse colon. - No specimens collected. Recommendation: - Resume regular diet today. - Return patient to [facility] for ongoing care. Bg Blankenship MD 06/21/2016 6:06:00 PM This report has been signed electronically. Note Initiated On: 06/21/2016 3:38 PM Bg Blankenship MD PROCEDURE ORD * ANTI HCV [05201.2] (11/08/2013 4:27 PM CDT) ANTI HCV Non-reacti ve [facility] Blood specimen (specimen) BLOOD SPECIMEN / Unknown 11/08/2013 4:27 PM CDT 11/08/2013 4:18 PM CDT Jorge Pulido MD SEND OUTS [facility] [place]NAL ZIP [id number] [place] [id number] from Last 3 Months or Most Recently Relevant to Health Maintenance Advance Directives Documents on File Type Date Recorded Patient Medical Record Administrator Expl anation Healthcare Directive 12/06/2022 1:29 PM HE ALTHCARE DIRECTIVE, [facility] 07/29/2021 Power of Relief Operator 12/02/2022 12:56 PM LIZA SU 07/29/2021 * Full Code (Latest Code Status on File) Date Activated Date Inactivated Comments 06/24/2017 12:36 PM 06/26/2017 3:02 PM Question Answer Comments Code Status Discussion: Discussed * Full Code Date Activated Date Inactivated Comments 06/24/2017 5:50 AM 06/24/2017 12:36 PM * Full Code Date Activated Date Inactivated Comments 06/13/2017 5:28 PM 06/17/2017 3:46 PM Question Answer Comments Code Status Discussion: Not Discussed * Full Code Date Activated Date Inactivated Comments 06/13/2017 5:52 AM 06/13/2017 5:08 PM Question Answer Comments Code Status Discussion: Not Discussed * Full Code Date Activated Date Inactivated Comments 06/22/2016 7:59 AM 06/22/2016 3:54 PM Care Teams Job Putter Up And Ticket Preparer Relationship Specialty Start Date End Date Votel, Duane Arceo MD [address] [place] [address] PCP - General Family Practice 02/07/23
--- OUTSIDE RECORDS SUMMARY | 2024-01-16 13:54 | XMS_ITS | Referral Summary ---
Author Organization [facility] Address [address] [place] [address] Care Team Providers Care Cookie Breaker Name Role Phone [facility], [facility] Primary Care Provider Jorge Pulido Unavailable Unavailable Allergies Active Allergy Reactions Criticality Noted Date Comments Amoxicillin-Pot Clavulanate 06/17/20 16 Amoxicillin-Pot Clavulanate Anaphylaxis High Erythromycin Rash Low Penicillins Anaphylaxis High 04/14/2016 Medications Medication Sig Dispensed Refills Start Date End Date Status albuterol (2.5 MG/3ML) 0.083% nebulizer solution Take 1 vial by nebulization every 6 hours as needed for shortness of breath / dyspnea or wheezing Active ASPIRIN NOT PRESCRIBED (INTENTIONAL) continuous prn for other Antiplatelet medication not prescribed intentionally due to per md Active ATORVASTATIN CALCIUM PO Active Clopidogrel Bisulfate (PLAVIX PO) Active LEVOTHYROXINE SODIUM PO Active LISINOPRIL PO Active loratadine (CLARITIN) 10 MG tablet Take 10 mg by mouth daily Active METOPROLOL TARTRATE PO Active nicotine (NICOTROL) 10 MG inhaler Inhale 6-16 cartridge into the lungs daily as needed for smoking cessation Active Pantoprazole Sodium (PROTONIX PO) Active sennosides (SENOKOT) 8.6 MG tablet Take 1 tablet by mouth daily Active ZOLPIDEM TARTRATE PO Active Active Problems Problem Noted Date Diagnosed Date Vocal cord polyp 11/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 11/18/2017 Dysphonia 11/18/2017 Cervicalgia 11/16/2017 Diverticulosis of large intestine without hemorr michelle 11/16/2017 Esophageal reflux 11/16/2017 Mixed hyperlipidemia 11/16/2017 Essential hypertension 11/16/2017 Hypothyroidism 11/16/2017 Overweight 09/15/2017 ESTEFANIA (obstructive sleep apnea) 06/07/2017 Anticoagulation monitoring, INR range 2-3 2015 History of DVT (deep vein thrombosis) 07/22/2016 New onset atrial fibrillation 07/22/2016 Transient cerebral ischemia, unspecified type TIA (transient ischemic attack) 06/17/2016 Abscess of abdominal cavity 04/15/2016 History of penicillin allergy 04/15/2016 Acute diverticulitis 04/02/2016 Benign prostatic hyperplasia 04/02/2016 LLQ abdominal pain 04/02/2016 Syncope 04/02/2016 Wide-complex tachycardia 04/02/2016 Gastrointestinal hemorrhage with melena 12/30/19 16 Diabetes mellitus without complication 6 Insomnia 12/04/2015 Slow urinary stream 12/04/2015 Peripheral artery disease (H24) 05/04/2014 Overview: Overview: Stent to right SFA - 05/20/2014 Elevated PSA 11/08/2013 History of colonic polyps 09/08/2010 Overview: Overview: Colonoscopy 08/2010 polyp repeat in 3 years Colonoscopy 01/2014 polyps repeat in 5 years Tobacco use disorder 06/18/2010 Cruz's esophagus 07/01/2009 Overview: Overview: EGD 06/2009 - Cruz's esophagus, repeat EGD in 3 years EGD 08/2012 reflux , repeat EGD in 3 years EGD 11/2015 normal , repeat EGD in 5 years Kidney stones 10/07/2008 Overview: Overview: Bilateral about 6 times History of laminectomy 04/07/2008 Spinal stenosis in cervical region 01/06/2008 Immunizations Name Administration Dates Next Due Influenza (High Dose) 3 angie nt vaccine 07/22/2016,06/04/2015 Influenza (IIV3) PF 05/25/2011, 0,06/09/2009,2007,06/26/2007,06/28/2006,06/08/2005,1 ,06/26/2003 Influenza, seasonal, injectable, PF 05/25/2011,0 05/06/2010 Tdap (Adult) Unspecified Formulation 06/05/2002 Social History Tobacco Use Types Packs/Day Years Used Date Smoking Tobacco: Every Day Cigarettes 0.5 54 Tobacco Cessation:Ready to Q uit: No; Counseling Given: No Alcohol Use Standard Drinks/Week Comments No 0 (1 standard drink = 0.6 oz pur e alcohol) PHQ-2 Answer Date Recorded PHQ-2 Score 0 08/29/2018 Adolescent Education Answer Date Record ed Getting School Help Needed Not on file 05/12 Sex and Gender Information Value Date Recorded Sex Assigned at Not on file Gender Identity Not on file Sexual Orientation Not on file Last Filed Vital Signs Vital Sign Reading Time Taken Comments Blood Pressure 174/90 06/17/2016 2:55 PM CDT Pulse 79 06/17/2016 10:48 AM CDT Temperature 36.7 ??C (98 ??F) 06/17/2016 10:48 AM CDT Respiratory Rate 18 06/17/2016 10:48 AM CDT Oxygen Saturation 94% 06/17/2016 1:15 PM CDT Inhaled Oxygen Concentration - - Weight 103 kg (227 lb) 11/16/2017 12:52 PM CDT Height 176 cm (5' 9.29) 11/16/2017 12:52 PM CDT Body Mass Index 33.24 11/16/2017 12:52 PM CDT Plan of Treatment Not on file Care Teams Cookie Breaker Relationship Specialty Start Date End Date Clinic, [address] [address] PCP - General 06/17/16 Jorge Pulido [address] [place] [address] 11/18/17
--- OUTSIDE RECORDS SUMMARY | 2024-01-16 13:54 | XMS_ITS | Clinical Summary ---
Author Organization [facility] Address [address] [place] [id number] Care Team Providers Care Hand Candle Molder Name Role Phone [facility], [facility] Primary Care Provider Jorge Pulido Unavailable Unavailable [...] of Treatment Not on file Care Teams Hand Candle Molder Relationship Specialty Start Date End Date Clinic, [address] [address] PCP - General 06/17/16 Jorge Pulido [address] [place] [address] 11/18/17
== END 2024-01-16 13:47 | disposition home or self-care (01) ==
LOC: WOUND 13:48
PROVIDERS: PCP Family Medicine; Visit Provider Nurse Practitioner Family
DX: E11.621 Type 2 diabetes mellitus with foot ulcer (principal); E11.42 Type 2 diabetes mellitus with diabetic polyneuropathy; L97.512 Non-pressure chronic ulcer of other part of right foot with fat layer exposed; I73.9 Peripheral vascular disease, unspecified; B35.1 Tinea unguium; R41.841 Cognitive communication deficit; Z79.84 Long term (current) use of oral hypoglycemic drugs; Z72.0 Tobacco use
CPT/HCPCS: 11042; 11750; G0463

== ENCOUNTER 2024-01-25 13:08 | Outpatient (CLI) | payer OTHER, SELFPAY | END 2024-01-25 13:09 | disposition home or self-care (01) | LOC: WOUND 13:08 | PROVIDERS: PCP Family Medicine; Visit Provider Nurse Practitioner Family | DX: E11.621 Type 2 diabetes mellitus with foot ulcer (principal); L97.511 Non-pressure chronic ulcer of other part of right foot limited to breakdown of skin; I73.9 Peripheral vascular disease, unspecified; Z79.84 Long term (current) use of oral hypoglycemic drugs | CPT/HCPCS: 97597 ==

== ENCOUNTER 2024-02-01 13:00 | Outpatient (CLI) | payer OTHER, SELFPAY | END 2024-02-01 13:01 | disposition home or self-care (01) | LOC: WOUND 13:01 | PROVIDERS: PCP Family Medicine; Visit Provider Nurse Practitioner Family | DX: E11.621 Type 2 diabetes mellitus with foot ulcer (principal); E11.42 Type 2 diabetes mellitus with diabetic polyneuropathy; L97.518 Non-pressure chronic ulcer of other part of right foot with other specified severity; Z79.84 Long term (current) use of oral hypoglycemic drugs | CPT/HCPCS: G0463 ==

== ENCOUNTER 2025-05-25 15:20 | Emergency (ER) | payer MEDICARE, OTHER, SELFPAY ==
--- OUTSIDE RECORDS SUMMARY | 2016-06-20 19:00 | XMS_ITS | Continuity of Care Document ---
Author Organization [facility] Address [address] [address] [place] [address] Phone Care Team Providers Care Care Rep Name Role Phone Unavailable Unavailable Unavailable Allergies, Adverse Reactions, Alerts Substance Reaction Status Criticality erythromycin base hiveshives Active No Informa tion POTASSIUM CLAVULANATE anaphylaxis Active No Inf ormation AMOXICILLIN TRIHYDRATE anaphylaxis Active No In formation Medications Medication Instructions Dosage Effective Dates (start - stop) Status Comments aspirin 81 mg tablet,delayed release take 1 tablet by oral route every day 81 MG - Active senna 8.6 mg capsule take 1 capsule by oral route every day at bedtime 1 capsule - Active Reglan 5 mg tablet take 1 tablet by ora l route every 8 hours during colonoscopy prep for nausea - Active lisinopril 20 mg tablet take 1 tablet by oral route every day 20 MG - Active atorvastatin 20 mg tablet take 1 tablet by oral route every day 20 MG - Active Tirosint 75 mcg capsule take 1 capsule by oral route every day 75 MCG - Active tamsulosin 0.4 mg capsule take 1 capsule by oral route every day 1/2 hour following the same meal each day 0.4 MG - Active pantoprazole 40 mg tablet,delayed release take 1 tablet by oral route every day 40 MG - Active Procedures Procedure Date Colonoscopy Flex; Dx (apr Pro) 16 Init Hosp-da E&m Mod Severity 6 cancelled appt cancelled appt Advance Directives Directive Yes / No Effective Date File Name No Information Encounters Encounter Description Practice Location Reason(s) For Visit Diagnoses Date Provider Providers Copied on Encounter [facility], [address] [address], [place], [place], [id number], [place] tel:[phone] [facility] No Information 6 No Information [facility], [address] [address], [place], [place], [id number], [place] tel:[phone] [facility] No Information 6 No Information Referring Provider: Jorge Cobb, [address], [place], [address]. tel:[phone] [facility], [address] [address], [place], [place], [id number], [place] tel:[phone] [facility] No Information 6 No Information Referring Provider: Jorge Cobb, [address], [place], [address]. tel:[phone] [facility], [address] [address], [place], [place], [id number], [place] tel:[phone] [facility] No Information 6 Carolina Rios. [address] [place] [address], [id number], [place]. tel:[phone] Referring Provider: Jorge Cobb, [address], [place], [address]. tel:[phone] [facility], [address] [address], [place], [place], [id number], [place] tel:[phone] [facility] No Information 6 Rodo Juares. [address] [place] [address], [id number], [place]. tel:[phone] Referring Provider: Jorge Cobb, [address], [place], [address]. tel:[phone] [facility], [address] [address], [place], [place], [id number], [place] tel:[phone] [facility] Diverticuliti s of large intestine with abscess without bleeding Apr-2 Rodo Juares. [address] [facility] [address], [place], [place], [id number], [place]. tel:[phone] Referring Provider: Jorge Pulido MD W, [address] [facility], [place], [address]. tel:[phone] Family History Family Member Type Diagnosis Age At Onset No Information Payers Payer name Insurance type Covered democrat ID Authoriza tion(s) No Information Social History Type Description Quantity Date Captured Comments Sex Male Smoking Status No Information Chief Complaint And Reason For Visit No Information Reason For Referral Reason For Referral No Information History Of Present Illness Encounter Date Complaint History Of Prese nt Illness No Information Functional Status Date Functional Assessmen t No Information Instructions Date Instruction Additional Infor mation No Information Assessments Type Assessment Date No Information Patient Care Teams Name Effective Dates (start - stop) Status Members No Information
--- OUTSIDE RECORDS SUMMARY | 2016-06-20 19:00 | XMS_ITS | Continuity of Care Document ---
Author Organization [facility] Address [address] [address] [place] [address] Phone Care Team Providers Care Assistant Director Of Admissions Name Role Phone Unavailable Unavailable Unavailable Allergies, [...] Diagnoses Date Provider Providers Copied on Encounter [facility], [address] [address], [place], [place], [id number], [place] tel:[phone] [facility] No Information 6 No Information [facility], [address] [address], [place], [id number], [place] tel:[phone] [facility] No Information 6 No Information Referring Provider: Jorge Cobb, [address], [place], [address]. tel:[phone] [facility], [address] [address], [place], [place], [id number], [place] tel:[phone] [facility] No Information 6 No Information Referring Provider: Jorge Cobb, [address], [place], [address]. tel:[phone] [facility], [address] [address], [place], [id number], [place] tel:[phone] [facility] No Information 6 Carolina Rios. [address] [place] [address], [id number], [place]. tel:[phone] Referring Provider: Jorge Cobb, [address], [place], [address]. tel:[phone] [facility], [address] [address], [place], [id number], [place] tel:[phone] [facility] No Information 6 Rodo Juares. [address] [place] [address], [id number], [place]. tel:[phone] Referring Provider: Jorge Cobb, [address], [place], [address]. tel:[phone] [facility], [address] [address], [place], [place], [id number], [place] tel:[phone] [facility] Diverticuliti s of large intestine with abscess without bleeding Apr-2 Rodo Juares. [address] [facility] [address], [place], [place], [id number], [place]. tel:[phone] Referring Provider: Jorge Pulido MD W, [address] [facility], [place], [address]. tel:[phone] Family History Family Member Type Diagnosis Age At Onset No Information Payers Payer name Insurance type Covered constitution party ID Authoriza tion(s) No Information Social History [...]
--- OUTSIDE RECORDS SUMMARY | 2025-05-25 15:23 | XMS_ITS ---
Author Name REHANA WATSON Address [address] [place] [address] Phone Organization [facility] Address [address] [place] [address] Phone Care Team Providers Care Manager News Name Role Phone VICTORINO WATSON Unavailable [phone] DANIA ALMONTE Unavailable ALLERGIES, ADVERSE REACTIONS AND ALERTS Allergy Name Allergy Date Allergy Status Allergy Severity Allergy Reaction UNKNOWN DRUG ALLERGIES MAY E XIST PROBLEMS Problem Code Problem Description Problem Status Problem Da te Problem End Date 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 Current 08/27/2024 B35.1-Tinea unguium Tinea unguium Current 08/30/2024 E11.51-Type 2 diabetes mellitus with diabetic peripheral angiopathy without gangrene Type 2 diabetes mellitus with diabetic peripheral angiopathy without gangrene Current 08/30/2024 I70.203-Unspecified atherosclerosis of [place] arteries of extremities, bilateral legs Unspecified atherosclerosis of [place] arteries of extremities, bilateral legs Current 08/30/2024 I73.89-Other specified peripheral vascular diseases Other specified peripheral vascular diseases Current 08/30/2024 L60.3-NAIL DYSTROPHY NAIL DYSTROPHY Current 08/30/2024 V72-Fwvot and callosities Corns and callosities Current 08/30/2024 M79.671-PAIN IN RIGHT FOOT PAIN IN RIGHT FOOT Current 08/30/2024 M79.672-PAIN IN LEFT FOOT PAIN IN LEFT FOOT Current 08/30/2024 M79.674-PAIN IN RIGHT TOE(S) PAIN IN RIGHT TOE(S) Current 08/30/2024 M79.675-PAIN IN LEFT TOE(S) PAIN IN LEFT TOE(S) Current 08/30/2024 PROCEDURES Procedure Description Date Notes NO PROCEDURES PERFORMED ASSESSMENTS Assessment None PLAN OF TREATMENT Assessment Planned Activity LOINC Planned Daljit e None CONSULTATION NOTE Note Author Date None HISTORY AND PHYSICAL NOTE Note Author Date None PROGRESS NOTE Note Author Date None DISCHARGE SUMMARY Note Author Date None CHIEF COMPLAINT AND REASON FOR VISIT FUNCTIONAL STATUS Functional or Cognitive Find ing None MENTAL STATUS Cognitive Finding None ENCOUNTERS Encounter Type Provider Diagnoses Start Date Location Disc harged to None SOCIAL HISTORY Social Status Observation Smoking Status Not Recorded Sex: Male CARE TEAM INFORMATION Manager News Provider ID Role Location Phone DANIA ALMONTE [phone] [phone] [place] [address] Tess WATSON [phone] [phone] [place] [address] INSURANCE PROVIDERS Payer Name Policy type / Covera ge type Covered republican ID Policy [place] AARP [facility] PLUS Private Health Insurance [id number] SELF
[2025-05-25 15:34] VITALS: BP 148/61; PULSE 84; RESP 16; TEMP 36.4; O2SAT 95; BMI 29.3
--- NOTE | 2025-05-25 15:45 | ED.GENADULT ---
HPI - General Adult General Time Seen by Provider: 15:45 Date Seen: 05/25/25 Chief complaint: Extremity Pain/Injury, Lower Stated complaint: Right foot infection Time Seen by Provider: 05/25/25 15:44 Source: patient, family and RN notes reviewed Mode of arrival: ambulatory Limitations: no limitations History of Present Illness HPI narrative: This 74-year-old male is brought into the ER by his daughters after being in urgent care today at [facility]. He was right 2nd toe swelling and drainage, there is some pain. His daughter notice this yesterday. Memory care staff for he resides had not noticed it. She is not sure how long it has been going on. He has underlying diabetes, had a toe infection in this toe 2 years ago. They had an x-ray done and there was skin ulcer at the 2nd toe distally surrounding soft tissue swelling is suspicious for cellulitis. There is bony erosion at the 2nd distal phalanx distally, consistent with osteomyelitis. No acute fracture or malalignment. Mild degenerative changes. Osteopenia. Vascular calcification. They talked to the urgent care provider, they were thinking palliative care. She did recommend that they proceed to [facility] as there were more specialist there but they brought the patient here as he is originally from [place]. When he was still cognizant more so than he is now, he wanted more comfort care measures, wanted to go be with his and have an. If you ask him now, he just states that he wants the ugly toe taking care of. He is still aware that is daughters are with him. He is known to have peripheral arterial disease, he had abnormal DAVID and right SFA occlusion April 2014, this was stented. He has had a history of atrial fibrillation, history of wide complex tachycardia. He is anticoagulated with Xarelto. Related Data Home Medications ?Medication ?Instructions ?Recorded ?Confirmed amlodipine 10 mg tablet 10 mg PO DAILY 09/30/22 11/07/22 atorvastatin 20 mg tablet 20 mg PO HS 09/30/22 05/25/25 finasteride 5 mg tablet 5 mg PO DAILY 09/30/22 05/25/25 levothyroxine 75 mcg tablet 75 mcg PO DAILY 09/30/22 05/25/25 lisinopril 20 mg tablet 20 mg PO QPM 09/30/22 11/07/22 metformin 500 mg tablet 500 mg PO QPM 09/30/22 05/25/25 metoprolol tartrate 25 mg tablet 25 mg PO BID 09/30/22 05/25/25 tamsulosin 0.4 mg capsule 0.4 mg PO DAILY 09/30/22 05/25/25 warfarin 1 mg tablet 1 - 2 mg PO DAILY 09/30/22 11/07/22 omeprazole 20 mg capsule,delayed 20 mg PO DAILY 11/07/22 05/25/25 release ciprofloxacin HCl 750 mg tablet 750 mg PO BID 05/25/25 05/25/25 clindamycin HCl 150 mg capsule 150 mg PO 3XD 05/25/25 05/25/25 lisinopril 10 mg tablet 10 mg PO DAILY 05/25/25 05/25/25 rivaroxaban 20 mg tablet (Xarelto) 20 mg PO QPM 05/25/25 05/25/25 trazodone 50 mg tablet 50 mg PO QPM 05/25/25 05/25/25 Previous Rx's ?Medication ?Instructions ?Recorded famotidine 20 mg tablet 20 mg PO DAILY 30 days #30 tabs 10/02/22 magnesium oxide 400 mg (241.3 mg 400 mg PO BID 30 days #60 tabs 10/02/22 magnesium) tablet potassium chloride 10 mEq 20 meq (2 x 10 mEq) PO DAILY 30 10/02/22 capsule,extended release days #60 caps Allergies Allergy/AdvReac Type Severity Reaction Status Date / Time Penicillins Allergy Severe Anaphylaxis Verified 05/25/25 15:37 amoxicillin (From Augmentin) Allergy Verified 11/07/22 12:29 clavulanic acid (From Allergy Verified 11/07/22 12:29 Augmentin) Review of Systems Status of ROS: Reports: 6 or more systems reviewed and unremarkable except as noted in History and below [facility] Medical History Atrial fibrillation ?I48.91 - Unspecified atrial fibrillation (ICD-10) Kidney stones ?N20.0 - Calculus of kidney (ICD-10) Diverticulitis ?K57.92 - Diverticulitis of intestine, part unspecified, without perforation or abscess without bleeding (ICD-10) H/O drainage of abscess ?Z98.890 - Other specified postprocedural states (ICD-10) Non-insulin dependent diabetes mellitus History of DVT of lower extremity ?Z86.718 - Personal history of other venous thrombosis and embolism (ICD-10) Hyperlipidemia ?E78.5 - Hyperlipidemia, unspecified (ICD-10) Hypertension ?I10 - Essential (primary) hypertension (ICD-10) BPH (benign prostatic hyperplasia) ?N40.0 - Benign prostatic hyperplasia without lower urinary tract symptoms (ICD-10) Hypothyroidism ?E03.9 - Hypothyroidism, unspecified (ICD-10) Surgical History S/P partial colectomy ?Z90.49 - Acquired absence of other specified parts of digestive tract (ICD-10) H/O cervical discectomy ?Z98.890 - Other specified postprocedural states (ICD-10) History of laminectomy ?Z98.890 - Other specified postprocedural states (ICD-10) Family History Father Heart disease Brother Heart disease Social History Narrative: Lives alone in [place], . 2 living daughters (son at age 23), daughter Francisco Javier in [place] and would be medical decision maker if needed. + smoker, no ETOH use. Requests Full Code Status. Smoking Status: Current every day smoker What tobacco products do you use: cigarettes Smoking packs per day: 1 Smoking cigarettes per day: 20.0 Years smoked: 60 Smoking pack-years: 60.00 Do you use any of these nicotine containing products: None Second hand tobacco smoke exposure: No How often do you have a drink containing alcohol: never AUDIT-C Alcohol total score: 0 Non-prescribed substance use: denies use Caffeine: Yes (2-5 cans pepsi per day) service: Yes ([employer], follows at [facility]) Exam Const: Vital Signs, click to edit/add: Vital Signs - 24 hr 05/25/25 15:34 Temperature 97.5 F L Pulse Rate [Pulse Oximeter] 84 Respiratory Rate 16 Blood Pressure [Ri ght Upper Arm] 148/61 H Pulse Oximetry 95 Oxygen Delivery Me thod Room Air This 74-year-old male is alert, interactive, no apparent distress. Sitting in the bed in exam room 3. He jokes is very pleasant. Sclera clear, symmetrical facial function, speech normal. Lungs are clear come good air entry, no wheezing or crackles. CV sounds regular the brief time I listened, no murmur, normal S1-S2, no S3-S4 heard. He is known to have underlying atrial fibrillation. Abdomen is soft, nontender, nondistended, no organomegaly noted. He has no lower extremity edema, right foot is warm, the 2nd digit is erythematous, the bulb of the toe is swollen red, almost has some ecchymosis underneath the nail bed. Note no drainage. There does seem to be some erythema extending up the base of this toe into the foot in a wedge shape, goes maybe to about mid 2nd metatarsal on the dorsal foot. There is maybe some increased warmth of the toe, cannot say feel this in the foot. Documenting provider has reviewed patient's vital signs: yes Course Course ED Course: Daughters are unclear what to do, when he was of more sound mind it was easier as they are recollect he would have wanted minimal treatments. They are unclear what to do, if this is a simple toe amputation they might consider it. They would consider antibiotics but we did discuss if there is significant underlying osteomyelitis, antibiotics are not likely to cure it or repressed it completely. He certainly might have ongoing pain with osteomyelitis just treated with antibiotics. We certainly could consider hospice and comfort cares but understand that this is difficult because he is really not ill appearing right now. He has not had labs for while. They would like to proceed with MR imaging of this foot to see the extent of the osteomyelitis, obtain baseline labs. I do think that is reasonable. There may be a component of vascular issue here to that we might have to consider. Foot is warm at this time but do not know when he last had any vascular studies done. Reevaluation(s) Time of Reevaluation #1: 18:57 Reevaluation #1: Have brought in the MRI report, it looks like it is just the distal toe. The daughters did want to talk to me in the hallway, they really feel like comfort cares and hospice or the route they want to go. He does not even understand that he is at the hospital. There mom's birthday was yesterday, the day they discover this, they feel that is sign. Thirteen years ago yesterday, she decided she did not want to do anymore cancer treatment and let go. When jamel was more in his right mind, he did continually express how he wanted to join his . The daughter's really want on her that. They would like to just go back to his assisted living, they can get pain meds here, they would like that on hand in case he is having significant pain. They can get hospice in place within 1-2 days. They would like him comfort care no antibiotics. I certainly can support this and will get him discharged with the 10 tablets of 5 mg oxycodone from [facility]. They note he is not having significant pain at this time but the memory care unit would like to have pain medicines on hand in case that should happen, it will take up to a couple days to get hospice involved. Thus, we will make sure he does have some oxycodone there. Vital Signs Vital signs: Initial Vital Signs Temperature 97.5 F L 05/25/25 15:34 Temperature Source Temporal Artery Scan 05/25/25 15:34 Pulse Rate 84 05/25/25 15:34 Respiratory Rate 16 05/25/25 15:34 Blood Pressure 148/61 H 05/25/25 15:34 Blood Pressure Mean 90 05/25/25 15:34 Blood Pressure Position Sitting 05/25/25 15:34 Pulse Oximetry 95 05/25/25 15:34 Oxygen Delivery Method Room Air 05/25/25 15:34 Vital Signs Temperature 97.5 F L 05/25/25 15:34 Pulse Rate 84 05/25/25 15:34 Respiratory Rate 16 05/25/25 15:34 Blood Pressure 148/61 H 05/25/25 15:34 Pulse Oximetry 95 05/25/25 15:34 Oxygen Delivery Method Room Air 05/25/25 15:34 Temperature 97.5 F L 05/25/25 15:34 Pulse Rate 84 05/25/25 15:34 Respiratory Rate 16 05/25/25 15:34 Blood Pressure 148/61 H 05/25/25 15:34 Pulse Oximetry 95 05/25/25 15:34 Oxygen Delivery Method Room Air 05/25/25 15:34 Medical Decision Making Lab Data Lab results reviewed: Yes I reviewed the patient's lab results Labs: Lab Results 10/05/25 Range/Units 16:05 WBC 7.87 (4.50-11.00) K/uL RBC 4.27 L (4.30-5.90) m/uL Hgb 12.9 L (13.5-17.5) gm/dL Hct 38.9 (37.0-53.0) % MCV 91 (80-100) fL MCH 30 (26-34) pg MCHC 33 (32-36) gm/dL RDW Coeff of Duane 13.5 (11.5-15.5) % Plt Count 211 (140-440) K/uL Neut % (Auto) 76.8 H (42.0-72.0) % Lymph % (Auto) 15.1 L (20-44) % [place] % (Auto) 6.9 (0.0-11.0) % Eos % (Auto) 1.0 (0.0-7.0) % Baso % (Auto) 0.1 (0.0-3.0) % Neut # (Auto) 6.00 (1.7-7.0) K/uL Lymph # (Auto) 1.20 (0.90-2.90) K/uL [place] # (Auto) 0.50 (0.00-0.90) K/UL Eos # (Auto) 0.08 (0.00-0.50) K/uL Baso # (Auto) 0.01 (0.00-0.30) K/uL Abs Immat Gran (auto) 0.01 (0.00-0.30) K/uL Imm/Tot Granulo (auto) 0.1 % ESR 38 H (2-15) mm/hr Sodium 134 L (135-149) mmol/L Potassium 3.9 (3.6-5.1) mmol/L Chloride 100 (96-114) mmol/L Carbon Dioxide 29 (20-32) mmol/L Anion Gap 5 L (7-15) mEq/L BUN 16 (7-30) mg/dL Creatinine 0.9 (0.5-1.5) mg/dL Estimated Creat Clear 66.93 Estimated GFR 89 ml/min Glucose 231 H (60-115) mg/dL Lactate 2.9 H (0.5-1.9) mmol/L Calcium 9.3 (8.4-10.6) mg/dL Total Bilirubin 0.9 (0.1-1.5) mg/dL AST 25 (12-35) U/L ALT 15 (4-50) U/L Alkaline Phosphatase 99 (40-150) U/L C-Reactive Protein 3.6 H (0.5-1.0) mg/dL Total Protein 7.1 (6.0-8.3) g/dL Albumin 3.6 (3.3-5.0) g/dL Imaging Data MR right foot: Attestation: I have reviewed the pertinent imaging results. Radiologist's impression: Patient: DUANE BARRIENTOS Facility:?[facility] RIS Patient ID:?[id number] Site Patient ID:?[id number]. Site :?[id number] Study:?MRI-Extremity Right WO OSTEO-05/25/2025 5:06:45 PM Ordering Physician:?Suki Heard Preliminary Report: T1 hypointense signal and STIR hyperintense signal of the entirety of the 2nd distal phalanx and questionably at the distal most aspect of the 2nd middle phalanx, dorsal aspect, difficult to accurately assess given motion artifact. Findings are concerning for osteomyelitis. No additional sites of signal abnormality throughout the remainder of the bones to suggest additional sites of osteomyelitis. Soft tissue edema of the distal aspect of the 2nd phalanx. See final report for further details. Read by:?Owen Schreiber MD @05/25/2025 6:41:51 PM Discharge Plan Discharge Clinical Impression: Osteomyelitis of second toe of right foot, Advanced dementia, Need for comfort care Patient Disposition: Home w/ Parent or Adult Condition: Unchanged Instructions: Osteomyelitis (ED) Additional Instructions: Can use Tylenol 1000 mg up to 3 times a day baseline for any pain. Have given 10 tablets of 5 mg oxycodone, can be used 1 tablet every 6 hours as needed for more severe pain. We are not initiating antibiotics, comfort cares will be observed. Work with the memory care unit he is that to employ hospice. Hospice will be patiño in helping you navigate in manage end of life cares. Activity Level: Activity as Tolerated Prescriptions: No Action amlodipine 10 mg tablet 10 mg PO DAILY atorvastatin 20 mg tablet 20 mg PO HS finasteride 5 mg tablet 5 mg PO DAILY levothyroxine 75 mcg tablet 75 mcg PO DAILY lisinopril 20 mg tablet 20 mg PO QPM metformin 500 mg tablet 500 mg PO QPM metoprolol tartrate 25 mg tablet 25 mg PO BID tamsulosin 0.4 mg capsule 0.4 mg PO DAILY warfarin 1 mg tablet 1 - 2 mg PO DAILY Patient Comments: INR GOAL OF 2-3 Rx Instructions: 1 mg on Mon and Monday 2 mg on Mon, , Mon, , Sat potassium chloride 10 mEq Capsule, Extended Release 20 meq PO DAILY 30 Days Qty: 60 1RF magnesium oxide 400 mg (241.3 mg magnesium) Tablet 400 mg PO BID 30 Days Qty: 60 1RF famotidine 20 mg tablet 20 mg PO DAILY 30 Days Qty: 30 2RF omeprazole 20 mg capsule,delayed release(DR/EC) 20 mg PO DAILY ciprofloxacin HCl 750 mg tablet 750 mg PO BID trazodone 50 mg tablet 50 mg PO QPM clindamycin HCl 150 mg capsule 150 mg PO 3XD lisinopril 10 mg tablet 10 mg PO DAILY Xarelto 20 mg tablet 20 mg PO QPM Follow Up/Referrals: Duane Smith MD [Referring, Family Practice] [facility]: [facility] Inst[facility]
--- NOTE | 2025-05-25 15:57 | CRLHL7_ITS ---
For Patients: As a result of the Century Cures Act, medical imaging exams and procedure reports are released immediately into your electronic medical record. You may view this report before your referring provider. If you have questions, please contact your health care provider. CLINICAL INDICATION: Osteomyelitis of the 2nd toe seen radiographically. Evaluate for additional extension of infection. COMPARISON IMAGING STUDIES: No prior MRI. TECHNICAL: Noncontrast MRI of the right forefoot. Axial, sagittal and coronal T1 and STIR images. 1.5 Emmie MR scanner. FINDINGS: There is infiltration of the soft tissues of the 2nd toe distally compatible with cellulitis. Assessment for fluid collections limited by noncontrast nature of this MRI. Possible small amount of fluid within the soft tissues adjacent to the distal phalanx of the 2nd toe. There is osteomyelitis of the distal phalanx of the 2nd toe. Reactive bone marrow edema within the middle phalanx of the 2nd toe. No confluent effacement of fatty marrow within that bone specific for osteomyelitis. No osteomyelitis of the proximal phalanx of the 2nd toe. No osteomyelitis of the other toes. First MTP joint degenerative changes. No excessive joint fluid. No definite septic arthritis. Denervation changes involving foot musculature. No tendon sheath fluid collection. IMPRESSION: 1. Infiltration of the soft tissues of the distal 2nd toe compatible with cellulitis. Possible small amount of fluid within the soft tissues adjacent to the distal phalanx of the 2nd toe. 2. Osteomyelitis of the distal phalanx the 2nd toe. Reactive bone marrow edema within the middle phalanx of the 2nd toe. 3. No osteomyelitis of the other toes. 4. First MTP joint degenerative changes. No effusion. 5. Denervation changes involving foot musculature. Dictated by Vik Streeter MD @ 05/26/2025 7:39:17 AM (Electronically Signed)
[2025-05-25 16:17] LABS: Lactate* 2.9 mmol/L (0.5-1.9)
[2025-05-25 16:20] LABS: Hematocrit* 38.9 % (37.0-53.0); Hemoglobin* 12.9 gm/dL (13.5-17.5); Immature Granulocytes Abs Auto 0.01 K/uL (0.00-0.30); Immature Granulocytes Pct Auto 0.1 %; Mean Corpuscular HGB Conc 33 gm/dL (32-36); Mean Corpuscular Hemoglobin 30 pg (26-34); Mean Corpuscular Volume 91 fL (80-100); RDW Coefficient of Variation % 13.5 % (11.5-15.5); Red Blood Count* 4.27 m/uL (4.30-5.90); White Blood Count* 7.87 K/uL (4.50-11.00)
[2025-05-25 16:23] LABS: Lymphocytes Absolute Auto 1.20 K/uL (0.90-2.90); Slide Review Reflex No
--- OUTSIDE RECORDS SUMMARY | 2025-05-25 16:23 | XMS_ITS | CCD ---
Author Name Eugenia Burgos CNP Address [address] [place] [address] Phone Organization [facility] Phone Care Team Providers Care Carding Machine Operator Name Role Phone Eugenia Burgos CNP Primary Care Provider Unavail able Unavailable Chronic Care Management Unavaila ble Summary Purpose DataExchange Insurance Providers Payer name Policy type / Coverage type Covered democrat ID Effective Begin Date Effective End Date [facility] Medicare Risk [id number] Unknown Unknown Family history Sister Diagnosis Age At Onset Multiple sclerosis Unknown Father Diagnosis Age At Onset Heart disease Unknown Brother Diagnosis Age At Onset Heart disease Unknown Brain Cancer Unknown Cancer Unknown Mother Diagnosis Age At Onset Liver Cancer Unknown Social History Social History Element Codes Description Effec tive Dates Marital status Unknown 09/04/2024 Living arrangements Unknown Assisted Living 09/[address]: 35201748 Current every day smoker 09/04/[address]: 235376393 No Alcohol Consum ption 09/04/2024 Children Unknown Has Children 09/04/2024 Caregiver Assessment Unknown Healthcare POA on [facility] 09/04/2024 Marital status Unknown 08/15/[address]: 75792785 Current every day smoker 08/15/[address]: 995027533 No Alcohol Consum ption 08/15/2024 Children Unknown Has Children 3 08/15/2024 Allergies, Adverse Reactions, Alerts Substance Reaction Codes Entered Date Inactivated Date Status Augmentin RxNorm: 213440 08/02/2024 No Inactive Da te Active erythromycin RxNorm: 4053 08/02/2024 No Inactive D ate Active Past Medical History Illness Codes Condition Status Onset Date Resolved Date Advanced care planning - to document end of life discussions Unknown Active 09/04/2024 Unknown Diabetes mellitus Type 2 Unknown Active 09/04/2024 Unknown ACP (advance care planning) ICD-10: Z71.89 ICD-9: V65.49 Active 09/04/2024 10/10/2024 Acquired hypothyroidism ICD-10: E03.9 ICD-9: 244.9 Active 09/04/2024 10/10/2024 Alzheimer's dementia ICD-10: G30.9 ICD-9: 331.0 Active 09/04/2024 10/10/2024 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 ICD-10: K22.70 ICD-9: 530.85 Active 09/04/2024 10/10/2024 BPH (benign prostatic hyperplasia) ICD-10: N40.0 ICD-9: 600.00 Active 09/04/2024 10/10/2024 Cerebrovascular disease ICD-10: I67.9 ICD-9: 437.9 Active 09/04/2024 10/10/2024 Chronic constipation ICD-10: K59.09 ICD-9: 564.00 Active 09/04/2024 10/10/2024 COPD (chronic obstructive pulmonary disease) ICD-10: J44.9 ICD-9: 496 Active 09/04/2024 10/10/2024 Dementia in other diseases classified elsewhere, unspecified severity, without behavioral disturbance, psychotic disturbance, mood disturbance, and anxiety ICD-10: F02.80 Active 09/04/2024 025 Essential hypertension ICD-10: I10 ICD-9: 401.9 Active 09/04/2024 10/10/2024 History of penicillin allergy ICD-10: Z88.0 ICD-9: V14.0 Active 09/04/2024 Unknown History of smoking ICD-10: Z87.891 ICD-9: V15.82 Active 09/04/2024 Unknown HLD (hyperlipidemia) ICD-10: E78.5 ICD-9: 272.4 Active 09/04/2024 10/10/2024 Hypercoagulability due to atrial fibrillation ICD-10: D68.69 ICD-9: 289.82 Active 09/04/2024 10/10/2024 Impaired gait and mobility ICD-10: R26.8 9 ICD-9: 781.2 Active 09/04/2024 10/10/2024 Longstanding persistent atrial fibrillation ICD-10: I48.11 ICD-9: 427.31 Active 09/04/2024 10/10/2024 PVD (peripheral vascular disease) ICD-10: I73.9 ICD-9: 443.9 Active 09/04/2024 Unknown Recurrent major depressive disorder, in partial remission ICD-10: F33.41 ICD-9: 296.35 Active 09/04/2024 10/10/[address]: 609993564 ICD-10: Z72.0 ICD-9: 305.1 Active 09/04/2024 Unknown Type 2 diabetes mellitus ICD-10: E11.9 ICD-9: 250.00 Active 09/04/2024 10/10/2024 Unspecified atrial fibrillation ICD-10: I48.91 Active 09/04/2024 10/10/2024 Problems Condition Codes Effective Dates Condition St atus Advanced care planning - to document end of life discussions Unknown 09/04/2024 Active Diabetes mellitus Type 2 Unknown 09/04/2024 Act bi ACP (advance care planning) ICD-10: Z71. 89 ICD-9: V65.49 09/04/2024 Active Acquired hypothyroidism ICD-10: E03.9 ICD-9: 244.9 09/04/2024 Active Alzheimer's dementia ICD-10: G30.9 ICD-9: 331.0 09/04/2024 Active 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 ICD-10: K22.70 ICD-9: 530.85 09/04/2024 Active BPH (benign prostatic hyperplasia) ICD-10: N40.0 ICD-9: 600.00 09/04/2024 Active Cerebrovascular disease ICD-10: I67.9 ICD-9: 437.9 09/04/2024 Active Chronic constipation ICD-10: K59.09 ICD-9: 564.00 09/04/2024 Active COPD (chronic obstructive pulmonary disease) ICD-10: J44.9 ICD-9: 496 09/04/2024 Active Dementia in other diseases classified elsewhere, unspecified severity, without behavioral disturbance, psychotic disturbance, mood disturbance, and anxiety ICD-10: F02.80 09/04/2024 Active Essential hypertension ICD-10: I10 ICD-9: 401.9 09/04/2024 Active History of penicillin allergy ICD-10: Z8 8.0 ICD-9: V14.0 09/04/2024 Active History of smoking ICD-10: Z87.891 ICD-9: V15.82 09/04/2024 Active HLD (hyperlipidemia) ICD-10: E78.5 ICD-9: 272.4 09/04/2024 Active Hypercoagulability due to atrial fibrillation ICD-10: D68.69 ICD-9: 289.82 09/04/2024 Active Impaired gait and mobility ICD-10: R26.8 9 ICD-9: 781.2 09/04/2024 Active Longstanding persistent atri al fibrillation ICD-10: I48.11 ICD-9: 427.31 09/04/2024 Active PVD (peripheral vascular disease) ICD-10: I73.9 ICD-9: 443.9 09/04/2024 Active Recurrent major depressive disorder, in partial remission ICD-10: F33.41 ICD-9: 296.35 09/04/2024 Active Tobacco abuse SNOMED CT: 798531307 ICD-10: Z72.0 ICD-9: 305.1 09/04/2024 Active Type 2 diabetes mellitus ICD-10: E11.9 ICD-9: 250.00 09/04/2024 Active Unspecified atrial fibrillation ICD-10: I48.91 025 Active Medications Medication Codes Instructions Start Date Stop Date Status Fill Instructions ipratropium 0.5 mg-albuterol 3 mg (2.5 mg base)/3 mL nebulization soln RxNorm: 1214307 Take 3 Milliliter(s) Inhalation QID as needed wheezing/ shortness of breath 5 025 Inactive albuterol sulfate HFA 90 mcg/actuation aerosol inhaler RxNorm: 6047245 Take 2 Puff(s) Inhalation Q2H every 2 hours as needed for SOB 5 No Stop Date Active metformin 500 mg tablet RxNorm: 894262 Take 1 Tablet(s) Oral QAM every morning 5 025 Inactive Milk of Magnesia 400 mg/5 mL oral suspension RxNorm: 704566 Take 30 Milliliter(s) Oral QD as needed 5 No Stop Date Active bisacodyl 10 mg rectal suppository RxNorm: 660937 Insert 1 Suppository Rectal QD as needed 5 No Stop Date Active lisinopril 10 mg tablet RxNorm: 506970 Take 1 Tablet(s) Oral QD 5 No Stop Date Active tamsulosin 0.4 mg capsule RxNorm: 536398 Take 1 Capsule(s) Oral QAM every morning 5 No Stop Date Active loperamide 2 mg tablet RxNorm: 714349 Take 1 Tablet(s) Oral QD as needed 5 No Stop Date Active atorvastatin 20 mg tablet RxNorm: 994632 Take 1 Tablet(s) Oral QHS every night at bedtime 5 No Stop Date Active magnesium 400 mg (as magnesium oxide) tablet RxNorm: 609342 Take 1 Tablet(s) Oral BID 5 No Stop Date Active aspirin 325 mg tablet RxNorm: 019925 Take 1 Tablet(s) Oral QD as needed 5 025 Inactive psyllium oral powder RxNorm: Take 1 Teaspoon(s) Oral QD as needed 5 No Stop Date Active Antacid 200 mg (as calcium carbonate 500 mg) chewable tablet RxNorm: 752519 Take 2 Tablet(s) Oral Q1H every hour as needed 5 No Stop Date Active hydrocortisone 1 % topical cream RxNorm: 344581 Apply 1 Application Topical QD as needed 5 No Stop Date Active trazodone 50 mg tablet RxNorm: 779311 Take 1 Tablet(s) Oral QHS every night at bedtime 5 No Stop Date Active finasteride 5 mg tablet RxNorm: 597114 Take 1 Tablet(s) Oral QAM every morning 5 No Stop Date Active levothyroxine 75 mcg tablet RxNorm: 551325 Take 1 Tablet(s) Oral QD 5 No Stop Date Active acetaminophen 325 mg tablet RxNorm: 197929 Take 2 Tablet(s) Oral Q4H every four hours as needed 5 No Stop Date Active Claritin 10 mg tablet RxNorm: 673826 Take 1 Tablet(s) Oral QD as needed 5 No Stop Date Active guaifenesin 100 mg/5 mL oral liquid RxNorm: 919426 Take 10 Milliliter(s) Oral Q4H every four hours as needed 5 No Stop Date Active omeprazole 20 mg capsule,delayed release RxNorm: 690701 Take 1 Capsule(s) Oral BID 5 No Stop Date Active Xarelto 20 mg tablet RxNorm: 6174694 Take 1 Tablet(s) Oral QPM every evening 5 No Stop Date Active Triple Antibiotic Plus topical RxNorm: 938820 topical 5 Active menthol mucous membrane RxNorm: 6750 mucous membrane 5 Active Medication Administered No Medication Administered data Immunizations Vaccine Codes Dose Date Status Influenza CVX: 197 1.0 06/08/2023 Influenza CVX: 205 1.0 10/04/2022 Tdap CVX: 115 09/17/2021 Pneumococcal CVX: 33 12/15/2020 Zostavax CVX: 187 02/04/2019 Zoster CVX: 187 02/04/2019 Pneumococcal CVX: 133 12/03/2018 Zostavax CVX: 187 12/03/2018 Zoster CVX: 187 12/03/2018 Pneumococcal CVX: 133 1.0 07/22/2016 Pneumococcal CVX: 33 1.0 11/08/2013 Tetanus, Diptheria, Pertussis CVX: 115 1.0 2011 Pneumococcal CVX: 33 1.0 06/04/2011 Medical Equipment No Medical Equipment data Assessments Condition Codes Effective Dates Notes Recurrent major depressive disorder, in partial remission ICD-10: F33.41 ICD-9: 296.35 09/04/2024 No note found History of penicillin allergy ICD-10: Z8 8.0 ICD-9: V14.0 09/04/2024 No note found Unspecified atrial fibrillation ICD-10: I48.91 025 No note found History of smoking ICD-10: Z87.891 ICD-9: V15.82 09/04/2024 No note found Cerebrovascular disease ICD-10: I67.9 ICD-9: 437.9 09/04/2024 No note found HLD (hyperlipidemia) ICD-10: E78.5 ICD-9: 272.4 09/04/2024 No note found Acquired hypothyroidism ICD-10: E03.9 ICD-9: 244.9 09/04/2024 No note found Dementia in other diseases classified elsewhere, unspecified severity, without behavioral disturbance, psychotic disturbance, mood disturbance, and anxiety ICD-10: F02.80 09/04/2024 No note found BPH (benign prostatic hyperplasia) ICD-10: N40.0 ICD-9: 600.00 09/04/2024 No note found ACP (advance care planning) ICD-10: Z71. 89 ICD-9: V65.49 09/04/2024 No note found Essential hypertension ICD-10: I10 ICD-9: 401.9 09/04/2024 No note found COPD (chronic obstructive pulmonary disease) ICD-10: J44.9 ICD-9: 496 09/04/2024 No note found Impaired gait and mobility ICD-10: R26.8 9 ICD-9: 781.2 09/04/2024 No note found Chronic constipation ICD-10: K59.09 ICD-9: 564.00 09/04/2024 No note found PVD (peripheral vascular disease) ICD-10: I73.9 ICD-9: 443.9 09/04/2024 S/P stent to right SFA in 2013 Alzheimer's dementia ICD-10: G30.9 ICD-9: 331.0 09/04/2024 No note found Hypercoagulability due to at rial fibrillation ICD-10: D68.69 ICD-9: 289.82 09/04/2024 No note found 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 ICD-10: K22.70 ICD-9: 530.85 09/04/2024 No note found Tobacco abuse SNOMED: 869807107 ICD-10: Z72.0 ICD-9: 305.1 09/04/2024 No note found Type 2 diabetes mellitus ICD-10: E11.9 ICD-9: 250.00 09/04/2024 No note found Longstanding persistent atri al fibrillation ICD-10: I48.11 ICD-9: 427.31 09/04/2024 No note found Reason For Visit No Reason For Visit data Results Observation Observation Code Item Item Code Result Date S ervice Location [facility] ([facility]) [address]-9 [facility] [id number] 09/04/2024 Unknown PHQ2 PHQ2 18551-4 0 09/04/2024 Unknown Review of Systems No Review of Systems data Physical Exam No Physical Exam data Procedures Procedure Codes Date SYST BP GE 130 - 139MM HG CPT-4: 3075F 2024 DIAST BP <80 MM HG CPT-4: 3078F 09/04/2024 PT INELIG NEG SCRN DEPRES SNOMED CT: 428 [id number] CPT-4: G8510 09/04/2024 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 CPT-4: G0436 2024 Vital Signs Date Vital 09/04/2024 Blood Pressure 1: 166/72 Code: 8480-6 Blood Pressure 1: 130/70 Code: 8480-6 BMI: 30.0 Code: 73557-7 BMI: 30.0 Code: 00087-2 Heart Rate 1: 60 bpm Code: 8867-4 Heart Rate 1: 59 bpm Code: 8867-4 Height: 5'11 Code: 8302-2 Height: 5'11 Code: 8302-2 Respiratory Rate: 18 bpm Respiratory Rate: 18 bpm SpO2: 95% Temperature: 36.3 (C) / 97.4 (F) Temperature: 36.4 (C) / 97.5 (F) Weight: 215 lbs 3 oz Code: 3141-9 Weight: 215 lbs 3 oz Code: 3141-9 Functional Status Functional / Cognitive Codes Status Result Ef fective Dates Functional Assessment Unknown ADL - Dressing Independen t 09/04/2024 Functional Assessment Unknown ADL - Feeding Independent 09/04/2024 Functional Assessment Unknown ADL - Toileting Independe nt 09/04/2024 Functional Assessment Unknown ADL - Bathing Needs Help 09/04/2024 Functional Assessment Unknown ADL - Grooming Independen t 09/04/2024 Functional Assessment Unknown ADL - Physical Ambulation Independent 09/04/2024 Functional Assessment Unknown iADL - Mod e of Transportation Dependent 09/04/2024 Functional Assessment Unknown iADL - Managing Medicatio n Dependent 09/04/2024 Functional Assessment Unknown Other: [place] pping, Finances, Housekeeping, Needs Help 09/04/2024 History of Present Illness No History of Present Illness data Advance Directives No Advance Directive data Encounters Encounter Performer Location Location Address Codes Date ([address]) Home or Residence 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, 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 Diagnosis: Type 2 diabetes mellitus[ICD10: E11.9] Diagnosis: COPD (chronic obstructive pulmonary disease)[ICD10: J44.9] Diagnosis: 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[ICD10: K22.70] Diagnosis: Acquired hypothyroidism[ICD10: E03.9] Diagnosis: Chronic constipation[ICD10: K59.09] Diagnosis: Essential hypertension[ICD10: I10] Diagnosis: History of smoking[ICD10: Z87.891] Diagnosis: PVD (peripheral vascular disease)[ICD10: I73.9] Diagnosis: BPH (benign prostatic hyperplasia)[ICD10: N40.0] Diagnosis: History of penicillin allergy[ICD10: Z88.0] Diagnosis: Cerebrovascular disease[ICD10: I67.9] Diagnosis: Alzheimer's dementia[ICD10: G30.9] Diagnosis: Dementia in other diseases classified elsewhere, unspecified severity, without behavioral disturbance, psychotic disturbance, mood disturbance, and anxiety[ICD10: F02.80] Diagnosis: Longstanding persistent atrial fibrillation[ICD10: I48.11] Diagnosis: Hypercoagulability due to atrial fibrillation[ICD10: D68.69] Diagnosis: Unspecified atrial fibrillation[ICD10: I48.91] Diagnosis: Recurrent major depressive disorder, 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] Diagnosis: HLD (hyperlipidemia)[ICD10: E78.5] Diagnosis: Impaired gait and mobility[ICD10: R26.89] Diagnosis: ACP (advance care planning)[ICD10: Z71.89] Diagnosis: Tobacco abuse[SNOMED: 371908065] [address] [address] CPT-4: 55698 Plan of Care Planned Activity Notes Codes Status Date Patient Education: Patient Medication Summary Completed 09/04/2024 Patient Education: Influenza Complet ed 09/04/2024 Patient Education: Smoking Cessation Completed 09/04/2024 Patient Education: Alzheimer''s Disease Completed 09/04/2024 Patient Education: Dementia Complete d 09/04/2024 Instructions Comment Date Elderly male with a past med ical history of POLST:SLUMS:LAB: POA: 2 daughters Specialists: Patient's preferred name is BillInitial visit 09/04/2024 05/05/2025 Recurrent major depressive d isorder, in partial remission Per outside records- not on medications. Cerebrovascular disease Managed with Atorvastatin and xarelto HLD (hyperlipidemia) Managed with atorvastatin Acquired hypothyroidism Managed with levothyroxine 75mcg daily Dementia in other diseases classified elsewhere, unspecified severity, without behavioral disturbance, psychotic disturbance, mood disturbance, and anxiety see Alzheimer's dementia BPH (benign prostatic hyperplasia) Managed with Finasteride 5mg and tamsulosin 0.4mg daily Advance Care Planning Family not present during visit. Will reach out to family. Essential hypertension Managed with lisinopril 10mg daily COPD (chronic obstructive pulmonary disease) Per outside records; Not on inhaled therapies. Will continue to monitor for changes in breathing. Expiratory wheezing heard on exam. Plan to obtain nebulizer machine and start duo nebs PRN Impaired gait and mobility No recent falls reported. Will continue fall prevention measures. Could consider PT/OT eval if needed in the future. Chronic constipation Managed with fiber supplement Alzheimer's dementia Patient safe in setting. Ongoing decline is expected due to progressive nature of disease process. Facility to monitor for increased needs and ongoing decline including changes in ADLs and behaviors. Plan to reassess in 4-6 weeks. Hypercoagulability due to atrial fibrillation At risk for thrombus due to atrial fibrillation. Plan: continue to monitor for thrombus formation 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 Managed with Omeprazole 20mg BID Type 2 diabetes mellitus Managed with Metformin 500mg once daily Longstanding persistent atrial fibrillation Managed with metoprolol and Xarelto. 09/04/2024 Health Concerns Section Concern Status Date (D68.69-289.82) Hypercoagulability due to atrial fibrillation Active 09/04/2024 (E03.9-244.9) Acquired hypothyroidism Active 09/04/2024 (E11.9-250.00) Type 2 diabetes mellitus Active 09/04/2024 (E78.5-272.4) HLD (hyperlipidemia) Active 09/04/2024 (F33.41-296.35) Recurrent ma alma depressive disorder, in partial remission Active 09/04/2024 (G30.9-331.0) Alzheimer's dementia Active 09/04/2024 (I10-401.9) Essential hypertension Active 09/04/2024 (I48.11-427.31) Longstanding persistent atrial f ibrillation Active 09/04/2024 (I73.9-443.9) PVD (peripheral vascular disease) Active 09/04/2024 (J44.9-496) COPD (chronic obstructive pulmonary disease) Active 09/04/2024 (K59.09-564.00) Chronic constipation Active 09/04/2024 (N40.0-600.00) BPH (benign prostatic hyperplasia ) Active 09/04/2024 (R26.89-781.2) Impaired gait and mobility Active 09/04/2024 No Related Observations Available Goals Section Goals Value Date The goal of treatment for at rial fibrillation (AF) and atrial flutter is to help control the heart s rhythm, reduce the risk of blood clots, and improve overall health. Another goal is to prevent complications like stroke or heart failure and to help you feel better and stay active. With regular treatment, including medications to control heart rate or rhythm and reduce blood clots, many people with atrial fibrillation can manage their symptoms and live healthy lives.The patient or their caregiver should notify the primary care team for the following symptoms: Heart racing or skipping beats.Feeling very dizzy, lightheaded, or faint.Chest pain or shortness of breath.Swelling in the legs or feet.Extreme tiredness or weakness. Unknown 09/04/2024 COPD is a chronic and progre ssive condition with a guarded prognosis. The treatment goal is to minimize episodes of exacerbation, and the desired outcome is stable respiratory functioning allowing for optimal quality of life. The prognosis is guarded due to the progressive nature of the disease. The patient or their caregiver should notify the primary care team for symptoms of COPD exacerbation including increased difficulty breathing, increased frequency of cough, or increased sputum production. Unknown 09/04/2024 Dementia is a chronic, progr essive disease with an overall poor prognosis. Measurable goals include avoiding hospitalization and ED visits and minimizing pain and depression. The desired outcomes of care include maximizing comfort and quality of life. The prognosis is poor given the progressive neurodegenerative nature of the disease. The patient or their caregiver should notify the primary care team for changes in symptoms such as abrupt changes in functioning, signs of pain or discomfort, weight loss, or signs of illness. Unknown 09/04/2024 Hypertension is a chronic co ndition. The treatment goal is a blood pressure less than 150/90, without dizziness, hypotension or falls. The desired outcome is a reduction in the risk of stroke, heart disease, or damage to other organs while maintaining safety. The patient or their caregiver should notify the primary care team for symptoms of high or low blood pressure including dizziness that occurs when getting up, headache, nausea, changes in vision, nose bleeds, or increased fatigue. Unknown 09/04/2024 Hypothyroidism is a chronic condition with a good prognosis. The treatment goal is a TSH within the normal range (approximately 0.4 - 5.0 mU/L) to achieve the desired outcome of a euthyroid state free of symptoms of hyper or hypothyroid. The patient or their caregiver should notify the primary care team for symptoms of hyperthyroid, such as weight loss, rapid heartbeat, nervousness or irritability, tremors, frequent bowel movements, difficulty sleeping, intolerance to heat, or swelling in the neck. Additional notify the team for signs of hypothyroid including fatigue, weight gain, cold intolerance, hair loss, constipation, dry skin, swelling in the face, or changes in mood or memory. Unknown Peripheral edema is a chroni c and often progressive condition, that can be well managed with elevation and compression of the affected limbs. The treatment goal is to minimize swelling to achieve an outcome of stable mobility, minimal discomfort, and no wounds. The patient or their caregiver should notify the primary care team for changes in symptoms including an increase in swelling, changes to the color of the skin, increased pain or heaviness of the limb(s), new wounds or skin injuries. Unknown 09/04/[address] ate due to atrial fibrillation. Increases risk for thrombotic event.GOAL: Monitor for signs/ symptoms of thrombus formation. Unknown 09/04/2024 The treatment goal is hemogl obin A1C <9% with no blood glucose readings less than 80. The desired outcome is to avoid complicated medication regimens if possible and prevent or slow the progression of diabetes-related complications.The patient or their caregivers should notify the primary care team of changes in diabetes symptoms including blood sugars >400 or <70, Frequent or severe thirst and frequent urination, sudden changes in vision, unexplained weight loss or fatigue, nausea, vomiting, abdominal pain, new cuts or sores, confusion, dizziness, or sudden changes in mood or mental status. Unknown 09/04/2024 The treatment goal is no add itional falls. The desired outcome is to remain free from injury and to maintain optimal physical and social functioning. The patient or their caregivers should notify the primary care team of any additional falls or changes in their mobility. Unknown 09/04/2024 The treatment goal is to ach ieve a measurable reduction in the PHQ-9 score within 6 months. The desired outcome is minimal depressive symptoms and optimal daily functioning which will lead to a favorable prognosis. The patient or their caregivers should notify the primary care team for exacerbation of symptoms including, but not limited to, sad, irritable, or anxious mood, loss of pleasure in activities, impaired concentration, worthlessness and inappropriate guilt, hopelessness, fatigue or loss of energy, or sleep disturbances. Unknown 09/04/2024 The treatment goal is to all eviate lower urinary tract symptoms associated with BPH, such as urinary frequency, nocturia, weak stream, and incomplete bladder emptying. The desired outcome is to improve quality of life and prevent complications such as urinary retention and urinary tract infections. 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 The patient or their caregiver should notify the primary care team for symptoms such as inability to urinate, increased frequency of needing to urinate, a persistent feeling of incomplete bladder emptying, pain in the pelvis or stomach, blood in the urine. Unknown 09/04/2024 Treatment Goal: improve symptoms, have soft stools, and have a normal bowel patternDesired Outcome: regular bowel movements with minimal medicationsPrognosis: manageable with medications and lifestyle changesThe patient or their caregiver should notify the primary care team of symptoms such as: abdominal pain, hard stools, blood in stools, diarrhea or nausea Unknown 09/04/2024 Treatment Goal: cholesterol level lower than 200, LDL below 100, HDL greater than 40Desired Outcome: reduce risk of cardiovascular disease, lower cholesterol and triglyceride levelsPrognosis: typically good if managed with medications and lifestyle changes The patient or their caregiver should notify the primary care team of symptoms such as: chest pain, stroke like symptoms, xanthomas Unknown 09/04/2024
--- OUTSIDE RECORDS SUMMARY | 2025-05-25 16:23 | XMS_ITS | CCD ---
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 Name Role Phone Eugenia Burgos CNP Primary Care Provider Unavail able Unavailable Chronic Care Management Unavaila ble Summary Purpose DataExchange Insurance Providers Payer name Policy type / Coverage type Covered alliance party ID Effective Begin Date Effective End Date [facility] Medicare Risk [id number] Unknown Unknown Family history Sister Diagnosis Age At Onset Multiple sclerosis Unknown Father Diagnosis Age At Onset Heart disease Unknown Brother Diagnosis Age At Onset Heart disease Unknown Brain Cancer Unknown Cancer Unknown Mother Diagnosis Age At Onset Liver Cancer Unknown Social History Social History Element Codes Description Effec tive Dates Marital status Unknown 10/10/2024 Living arrangements Unknown Assisted Living 10/[address]: 50148415 Current some days smoker 10/10/[address]: 402506849 No Alcohol Consum ption 10/10/2024 Sexually Active? Unknown No 10/10/2024 Children Unknown Has Children 10/10/2024 Caregiver Assessment Unknown Healthcare POA on [facility] 10/10/2024 Patient Health Status Self Assessment Unknown Good 10/10/2024 Oral health Unknown Patient unable t o answer 10/10/2024 Do you worry about access to food? Unknown No 10/10/2024 Seatbelt safety Unknown Wears seatbelt 10/10/2024 Illicit Drug History Unknown Has never u sed illegal drugs 10/10/2024 Do you feel safe in your home? Unknown Yes 10/10/2024 Marital status Unknown 09/04/2024 Living arrangements Unknown Assisted Living 09/[address]: 55061433 Current ever y day smoker 09/04/[address]: 551824411 No Alcohol Consum ption 09/04/2024 Children Unknown Has Children 09/04/2024 Caregiver Assessment Unknown Healthcare POA on fi le 09/04/2024 Marital status Unknown 08/15/[address]: 26676400 Current ever y day smoker 08/15/[address]: 965600072 No Alcohol Consum ption 08/15/2024 Children Unknown Has Children 3 08/15/2024 Allergies, Adverse Reactions, Alerts Substance Reaction Codes Entered Date Inactivated Date Status Augmentin RxNorm: 290435 08/02/2024 No Inactive Da te Active erythromycin RxNorm: 4053 08/02/2024 No Inactive D ate Active Past Medical History Illness Codes Condition Status Onset Date Resolved Date ACP (advance care planning) SNOMED CT: 733518730 ICD-10: Z71.89 ICD-9: V65.49 Active 10/10/2024 Unknown Acquired hypothyroidism ICD-10: E03.9 ICD-9: 244.9 Active 10/10/2024 02/10/2025 Alzheimer's dementia ICD-10: G30.9 ICD-9: 331.0 Active 10/10/2024 11/14/2024 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 ICD-10: K22.70 ICD-9: 530.85 Active 10/10/2024 Unknown BPH (benign prostatic hyperplasia) ICD-10: N40.0 ICD-9: 600.00 Active 10/10/2024 11/14/2024 Cerebrovascular disease ICD-10: I67.9 ICD-9: 437.9 Active 10/10/2024 Unknown Chronic constipation ICD-10: K59.09 ICD-9: 564.00 Active 10/10/2024 01/09/2025 COPD (chronic obstructive pulmonary disease) ICD-10: J44.9 ICD-9: 496 Active 10/10/2024 11/14/2024 Dementia in other diseases classified elsewhere, unspecified severity, without behavioral disturbance, psychotic disturbance, mood disturbance, and anxiety ICD-10: F02.80 Active 10/10/2024 025 Encounter for preventive care SNOMED CT: 881528276 ICD-10: Z00.00 ICD-9: V70.0 Active 10/10/2024 Unknown Essential hypertension ICD-10: I10 ICD-9: 401.9 Active 10/10/2024 11/28/[address]: 281795063 ICD-10: R54 ICD-9: 797 Active 10/10/2024 Unknown HLD (hyperlipidemia) ICD-10: E78.5 ICD-9: 272.4 Active 10/10/2024 Unknown Hypercoagulability due to atrial fibrillation ICD-10: D68.69 ICD-9: 289.82 Active 10/10/2024 Unknown Impaired gait and mobility ICD-10: R26.8 9 ICD-9: 781.2 Active 10/10/2024 01/09/2025 Longstanding persistent atrial fibrillation ICD-10: I48.11 ICD-9: 427.31 Active 10/10/2024 Unknown Recurrent major depressive disorder, in partial remission ICD-10: F33.41 ICD-9: 296.35 Active 10/10/2024 02/10/2025 Type 2 diabetes mellitus ICD-10: E11.9 ICD-9: 250.00 Active 10/10/2024 02/10/2025 Unspecified atrial fibrillation ICD-10: I48.91 Duplicate 10/10/2024 Unknown Advanced care planning - to document end of life discussions Unknown Active 09/04/2024 Unknown Diabetes mellitus Type 2 Unknown Active 09/04/2024 Unknown History of penicillin allergy ICD-10: Z88.0 ICD-9: V14.0 Active 09/04/2024 Unknown History of smoking ICD-10: Z87.891 ICD-9: V15.82 Active 09/04/2024 Unknown PVD (peripheral vascular disease) ICD-10: I73.9 ICD-9: 443.9 Active 09/04/2024 Unknown Tobacco abuse SNOMED CT: 418190734 ICD-10: Z72.0 ICD-9: 305.1 Active 09/04/2024 Unknown Problems Condition Codes Effective Dates Condition St atus ACP (advance care planning) SNOMED CT: 3 88951198 ICD-10: Z71.89 ICD-9: V65.49 10/10/2024 Active Acquired hypothyroidism ICD-10: E03.9 ICD-9: 244.9 10/10/2024 Active Alzheimer's dementia ICD-10: G30.9 ICD-9: 331.0 10/10/2024 Active 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 ICD-10: K22.70 ICD-9: 530.85 10/10/2024 Active BPH (benign prostatic hyperplasia) ICD-10: N40.0 ICD-9: 600.00 10/10/2024 Active Cerebrovascular disease ICD-10: I67.9 ICD-9: 437.9 10/10/2024 Active Chronic constipation ICD-10: K59.09 ICD-9: 564.00 10/10/2024 Active COPD (chronic obstructive pulmonary disease) ICD-10: J44.9 ICD-9: 496 10/10/2024 Active Dementia in other diseases classified elsewhere, unspecified severity, without behavioral disturbance, psychotic disturbance, mood disturbance, and anxiety ICD-10: F02.80 10/10/2024 Active Encounter for preventive care SNOMED CT: 417993636 ICD-10: Z00.00 ICD-9: V70.0 10/10/2024 Active Essential hypertension ICD-10: I10 ICD-9: 401.9 10/10/[address]: 690934845 ICD-10: R54 ICD-9: 797 10/10/2024 Active HLD (hyperlipidemia) ICD-10: E78.5 ICD-9: 272.4 10/10/2024 Active Hypercoagulability due to atrial fibrillation ICD-10: D68.69 ICD-9: 289.82 10/10/2024 Active Impaired gait and mobility ICD-10: R26.8 9 ICD-9: 781.2 10/10/2024 Active Longstanding persistent atri al fibrillation ICD-10: I48.11 ICD-9: 427.31 10/10/2024 Active Recurrent major depressive disorder, in partial remission ICD-10: F33.41 ICD-9: 296.35 10/10/2024 Active Type 2 diabetes mellitus ICD-10: E11.9 ICD-9: 250.00 10/10/2024 Active Unspecified atrial fibrillation ICD-10: I48.91 025 Duplicate Advanced care planning - to document end of life discussions Unknown 09/04/2024 Active Diabetes mellitus Type 2 Unknown 09/04/2024 Act bi History of penicillin allergy ICD-10: Z8 8.0 ICD-9: V14.0 09/04/2024 Active History of smoking ICD-10: Z87.891 ICD-9: V15.82 09/04/2024 Active PVD (peripheral vascular disease) ICD-10: I73.9 ICD-9: 443.9 09/04/2024 Active Tobacco abuse [facility] CT: 967687521 ICD-10: Z72.0 ICD-9: 305.1 09/04/2024 Active Medications Medication Codes Instructions Start Date Stop Date Status Fill Instructions Tamiflu 75 mg capsule RxNorm: 535823 Take 1 Capsule(s) Oral QD 5 025 Inactive GFR 79 Tamiflu 75 mg capsule RxNorm: 248862 Take 1 Capsule(s) Oral QD 5 025 Inactive GFR 79 ipratropium 0.5 mg-albuterol 3 mg (2.5 mg base)/3 mL nebulization soln RxNorm: 1677653 Take 3 Milliliter(s) Inhalation QID as needed wheezing/ shortness of breath 5 025 Inactive albuterol sulfate HFA 90 mcg/actuation aerosol inhaler RxNorm: 6439478 Take 2 Puff(s) Inhalation Q2H every 2 hours as needed for SOB 5 No Stop Date Active metformin 500 mg tablet RxNorm: 138945 Take 1 Tablet(s) Oral QAM every morning 5 025 Inactive Milk of Magnesia 400 mg/5 mL oral suspension RxNorm: 670776 Take 30 Milliliter(s) Oral QD as needed 5 No Stop Date Active bisacodyl 10 mg rectal suppository RxNorm: 142763 Insert 1 Suppository Rectal QD as needed 5 No Stop Date Active lisinopril 10 mg tablet RxNorm: 779266 Take 1 Tablet(s) Oral QD 5 No Stop Date Active tamsulosin 0.4 mg capsule RxNorm: 354329 Take 1 Capsule(s) Oral QAM every morning 5 No Stop Date Active loperamide 2 mg tablet RxNorm: 584490 Take 1 Tablet(s) Oral QD as needed 5 No Stop Date Active atorvastatin 20 mg tablet RxNorm: 277018 Take 1 Tablet(s) Oral QHS every night at bedtime 5 No Stop Date Active magnesium 400 mg (as magnesium oxide) tablet RxNorm: 887155 Take 1 Tablet(s) Oral BID 5 No Stop Date Active aspirin 325 mg tablet RxNorm: 556781 Take 1 Tablet(s) Oral QD as needed 5 025 Inactive psyllium oral powder RxNorm: Take 1 Teaspoon(s) Oral QD as needed 5 No Stop Date Active Antacid 200 mg (as calcium carbonate 500 mg) chewable tablet RxNorm: 475432 Take 2 Tablet(s) Oral Q1H every hour as needed 5 No Stop Date Active hydrocortisone 1 % topical cream RxNorm: 408476 Apply 1 Application Topical QD as needed 5 No Stop Date Active trazodone 50 mg tablet RxNorm: 479834 Take 1 Tablet(s) Oral QHS every night at bedtime 5 No Stop Date Active finasteride 5 mg tablet RxNorm: 944838 Take 1 Tablet(s) Oral QAM every morning 5 No Stop Date Active levothyroxine 75 mcg tablet RxNorm: 337049 Take 1 Tablet(s) Oral QD 5 No Stop Date Active acetaminophen 325 mg tablet RxNorm: 889232 Take 2 Tablet(s) Oral Q4H every four hours as needed 5 No Stop Date Active Claritin 10 mg tablet RxNorm: 338527 Take 1 Tablet(s) Oral QD as needed 5 No Stop Date Active guaifenesin 100 mg/5 mL oral liquid RxNorm: 707960 Take 10 Milliliter(s) Oral Q4H every four hours as needed 5 No Stop Date Active omeprazole 20 mg capsule,delayed release RxNorm: 121672 Take 1 Capsule(s) Oral BID 5 No Stop Date Active Xarelto 20 mg tablet RxNorm: 5204469 Take 1 Tablet(s) Oral QPM every evening 5 No Stop Date Active metoprolol tartrate 50 mg tablet RxNorm: 475095 Take 1/2 Tablet(s) Oral BID 4 No Stop Date Active Triple Antibiotic Plus topical RxNorm: 809416 topical 5 Active menthol mucous membrane RxNorm: [...] data Assessments Condition Codes Effective Dates Notes Essential hypertension ICD-10: I10 ICD-9: 401.9 10/10/2024 No note found Impaired gait and mobility ICD-10: R26.8 9 ICD-9: 781.2 10/10/2024 No note found Recurrent major depressive d isorder, in partial remission ICD-10: F33.41 ICD-9: 296.35 10/10/2024 No note found Frailty SNOMED: 900154652 ICD-10: R54 ICD-9: 797 10/10/2024 No note found Chronic constipation ICD-10: K59.09 ICD-9: 564.00 10/10/2024 No note found Encounter for preventive care SNOMED: 30 5349703 ICD-10: Z00.00 ICD-9: V70.0 10/10/2024 No note found Acquired hypothyroidism ICD-10: E03.9 ICD-9: 244.9 10/10/2024 No note found 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 IC D-10: K22.70 ICD-9: 530.85 10/10/2024 No note found COPD (chronic obstructive pu lmonary disease) ICD-10: J44.9 ICD-9: 496 10/10/2024 No note found Type 2 diabetes mellitus ICD-10: E11.9 ICD-9: 250.00 10/10/2024 No note found Hypercoagulability due to at rial fibrillation ICD-10: D68.69 ICD-9: 289.82 10/10/2024 No note found Cerebrovascular disease ICD-10: I67.9 ICD-9: 437.9 10/10/2024 No note found Longstanding persistent atri al fibrillation ICD-10: I48.11 ICD-9: 427.31 10/10/2024 No note found HLD (hyperlipidemia) ICD-10: E78.5 ICD-9: 272.4 10/10/2024 No note found Alzheimer's dementia ICD-10: G30.9 ICD-9: 331.0 10/10/2024 No note found BPH (benign prostatic hyperplasia) ICD-1 0: N40.0 ICD-9: 600.00 10/10/2024 No note found Dementia in other diseases c lassified elsewhere, unspecified severity, without behavioral disturbance, psychotic disturbance, mood disturbance, and anxiety ICD-10: F02.80 10/10/2024 No note found ACP (advance care planning) SNOMED: 3050 14975 ICD-10: Z71.89 ICD-9: V65.49 10/10/2024 No note found Reason For Visit No Reason For Visit data Review of Systems No Review of Systems data Physical Exam No Physical Exam data Procedures Procedure Codes Date SYST BP LT 130 MM HG CPT-4: 3074F 10/10/2024 DIAST BP <80 MM HG CPT-4: 3078F 10/10/2024 PT INELIG NEG SCRN DEPRES SNOMED CT: 428 [id number] CPT-4: G8510 10/10/2024 TOBACCO Education CPT-4: TOBACCO 10/10/2024 Vital Signs Date Vital 10/10/2024 Blood Pressure 1: 102/58 Code: 8480-6 BMI: NaN Code: 61151-6 Heart Rate 1: 66 bpm Code: 8867-4 Height: 5'11 Code: 8302-2 Respiratory Rate: 20 bpm Temperature: 36.3 (C) / 97.3 (F) Weight: 203 lbs Code: 3141-9 Functional Status Functional / Cognitive [...] Encounter Performer Location Location Address Codes Date (G0439) Medicare Annual Wellness Visit- Subsequent Diagnosis: Encounter for preventive care[SNOMED: 618867637] Diagnosis: ACP (advance care planning)[SNOMED: 470881219] Diagnosis: Frailty[SNOMED: 487247662] Diagnosis: Acquired hypothyroidism[ICD10: E03.9] Diagnosis: Alzheimer's dementia[ICD10: G30.9] Diagnosis: 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[ICD10: K22.70] Diagnosis: BPH (benign prostatic hyperplasia)[ICD10: N40.0] Diagnosis: Cerebrovascular disease[ICD10: I67.9] Diagnosis: Chronic constipation[ICD10: K59.09] Diagnosis: COPD (chronic obstructive pulmonary disease)[ICD10: J44.9] Diagnosis: Dementia in other diseases classified elsewhere, unspecified severity, without behavioral disturbance, psychotic disturbance, mood disturbance, and anxiety[ICD10: F02.80] Diagnosis: Essential hypertension[ICD10: I10] Diagnosis: HLD (hyperlipidemia)[ICD10: E78.5] Diagnosis: Hypercoagulability due to atrial fibrillation[ICD10: D68.69] Diagnosis: Impaired gait and mobility[ICD10: R26.89] Diagnosis: Longstanding persistent atrial fibrillation[ICD10: I48.11] Diagnosis: Recurrent major depressive disorder, 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] Diagnosis: Type 2 diabetes mellitus[ICD10: E11.9] [address] [address] CPT-4: G0439 Plan of Care Planned Activity Notes Codes Status Date Patient Education: Patient Medication Summary Completed 10/10/2024 Patient Education: Addiction and Substance Abuse Completed 10/10/2024 Patient Education: Alzheimer''s Disease Completed 10/10/2024 Patient Education: Influenza Complet ed 10/10/2024 Patient Education: Smoking Cessation Completed 10/10/2024 Patient Education: Dementia Complete d 10/10/2024 Patient Education: Exercise and Fitness Completed 10/10/2024 Appointment: Eugenia Burgos WPtel: [phone] CORPORATE COORDINATOR 09/04/2024 Instructions Comment Date Elderly male with a past med ical history of POLST:SLUMS:LAB: POA: 2 daughters Specialists: Patient's preferred name is BillInitial visit 09/04/2024 05/05/2025 Essential hypertension Managed with lisinopril 10mg daily Impaired gait and mobility No recent falls reported. Will continue fall prevention measures. Could consider PT/OT eval if needed in the future. Recurrent major depressive disorder, in partial remission Per outside records- not on medications. Chronic constipation Managed with fiber supplement Prevent Health Care Based on age and gender, patient not due for any USPTF Screenings. Vaccination history reviewed and patient is due for vaccine(s) as outlined in the History/Preventative Care section above. This patient has advanced illness and frailty, and routine preventive screening tests are not aligned with their/their POA's goals of care. Acquired hypothyroidism Managed with levothyroxine 75mcg daily 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 Managed with Omeprazole 20mg BID COPD (chronic obstructive pulmonary disease) Not on inhaled therapies. Continues with duo-nebs PRN Type 2 diabetes mellitus Managed with Metformin 500mg once daily Hypercoagulability due to atrial fibrillation At risk for thrombus due to atrial fibrillation. Plan: continue to monitor for thrombus formation Cerebrovascular disease Managed with Atorvastatin and xarelto Longstanding persistent atrial fibrillation Managed with metoprolol and Xarelto HLD (hyperlipidemia) Managed with atorvastatin Alzheimer's dementia Patient safe in setting. Ongoing decline is expected due to progressive nature of disease process. Facility to monitor for increased needs and ongoing decline including changes in ADLs and behaviors. Plan to reassess in 4-6 weeks. BPH (benign prostatic hyperplasia) Managed with Finasteride 5mg and tamsulosin 0.4mg daily Dementia in other diseases classified elsewhere, unspecified severity, without behavioral disturbance, psychotic disturbance, mood disturbance, and anxiety see Alzheimer's dementia Advance Care Planning Verified patient code status- DNR. 10/10/2024 Health Concerns Section Concern Status Date (D68.69-289.82) [...] urinary retention and urinary tract infections. 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 [...]
--- OUTSIDE RECORDS SUMMARY | 2025-05-25 16:24 | XMS_ITS | CCD ---
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 Unknown No 10/10/2024 Children Unknown Has Children 10/10/2024 Caregiver Assessment Unknown Healthcare POA on [facility] 10/10/2024 Patient Health Status Self [...] Assisted Living 09/[address]: 56824246 Current ever y day smoker 09/04/[address]: 100285062 No Alcohol Consum ption 09/04/2024 Children Unknown Has Children 09/04/2024 Caregiver Assessment Unknown Healthcare POA on fi le 09/04/2024 Marital status Unknown 08/15/[address]: 43737796 Current ever y day smoker 08/15/[address]: 503258585 No Alcohol Consum ption 08/15/2024 Children Unknown Has Children 3 08/15/2024 Allergies, Adverse Reactions, Alerts Substance Reaction Codes Entered Date Inactivated Date Status Augmentin RxNorm: 340268 08/02/2024 No Inactive Da te Active erythromycin RxNorm: 4053 08/02/2024 No Inactive D ate Active Past Medical History Illness Codes Condition Status Onset Date Resolved Date Alzheimer's dementia ICD-10: G30.9 ICD-9: 331.0 Active 04/14/2025 Unknown Essential hypertension ICD-10: I10 ICD-9: 401.9 Active 04/14/2025 Unknown Recurrent major depressive disorder, in partial remission ICD-10: F33.41 ICD-9: 296.35 Active 04/14/2025 Unknown COPD (chronic obstructive pulmonary disease) ICD-10: J44.9 ICD-9: 496 Active 03/10/2025 Unknown Dementia in other diseases classified elsewhere, unspecified severity, without behavioral disturbance, psychotic disturbance, mood disturbance, and anxiety ICD-10: F02.80 Active 03/10/2025 Unknown Type 2 diabetes mellitus ICD-10: E11.9 ICD-9: 250.00 Active 03/10/2025 Unknown Acquired hypothyroidism ICD-10: E03.9 ICD-9: 244.9 Active 02/10/2025 Unknown Chronic constipation ICD-10: K59.09 ICD-9: 564.00 Active 01/09/2025 Unknown Impaired gait and mobility ICD-10: R26.8 9 ICD-9: 781.2 Active 01/09/2025 Unknown BPH (benign prostatic hyperplasia) ICD-10: N40.0 ICD-9: 600.00 Active 11/14/2024 Unknown ACP (advance care planning) SNOMED CT: 561223173 ICD-10: Z71.89 ICD-9: V65.49 Active 10/10/2024 Unknown 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 ICD-10: K22.70 ICD-9: 530.85 Active 10/10/2024 Unknown Cerebrovascular disease ICD-10: I67.9 ICD-9: 437.9 Active 10/10/2024 Unknown Encounter for preventive care SNOMED CT: 873135867 ICD-10: Z00.00 ICD-9: V70.0 Active 10/10/[address]: 688185630 ICD-10: R54 ICD-9: 797 Active 10/10/2024 Unknown HLD (hyperlipidemia) ICD-10: E78.5 ICD-9: 272.4 Active 10/10/2024 Unknown Hypercoagulability due to atrial fibrillation ICD-10: D68.69 ICD-9: 289.82 Active 10/10/2024 Unknown Longstanding persistent atrial fibrillation ICD-10: I48.11 ICD-9: 427.31 Active 10/10/2024 Unknown Unspecified atrial fibrillation ICD-10: I48.91 Duplicate 10/10/2024 [...] Active 09/04/2024 Unknown Tobacco abuse SNOMED CT: 876715103 ICD-10: Z72.0 ICD-9: 305.1 Active 09/04/2024 Unknown Problems Condition Codes Effective Dates Condition St atus Alzheimer's dementia ICD-10: G30.9 ICD-9: 331.0 04/14/2025 Active Essential hypertension ICD-10: I10 ICD-9: 401.9 04/14/2025 Active Recurrent major depressive disorder, in partial remission ICD-10: F33.41 ICD-9: 296.35 04/14/2025 Active COPD (chronic obstructive pulmonary disease) ICD-10: J44.9 ICD-9: 496 03/10/2025 Active Dementia in other diseases classified elsewhere, unspecified severity, without behavioral disturbance, psychotic disturbance, mood disturbance, and anxiety ICD-10: F02.80 03/10/2025 Active Type 2 diabetes mellitus ICD-10: E11.9 ICD-9: 250.00 03/10/2025 Active Acquired hypothyroidism ICD-10: E03.9 ICD-9: 244.9 02/10/2025 Active Chronic constipation ICD-10: K59.09 ICD-9: 564.00 01/09/2025 Active Impaired gait and mobility ICD-10: R26.8 9 ICD-9: 781.2 01/09/2025 Active BPH (benign prostatic hyperplasia) ICD-10: N40.0 ICD-9: 600.00 11/14/2024 Active ACP (advance care planning) SNOMED CT: 3 72839891 ICD-10: Z71.89 ICD-9: V65.49 10/10/2024 Active 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 ICD-10: K22.70 ICD-9: 530.85 10/10/2024 Active Cerebrovascular disease ICD-10: I67.9 ICD-9: 437.9 10/10/2024 Active Encounter for preventive care SNOMED CT: 260791603 ICD-10: Z00.00 ICD-9: V70.0 10/10/[address]: 709481771 ICD-10: R54 ICD-9: 797 10/10/2024 Active HLD (hyperlipidemia) ICD-10: E78.5 ICD-9: 272.4 10/10/2024 Active Hypercoagulability due to atrial fibrillation ICD-10: D68.69 ICD-9: 289.82 10/10/2024 Active Longstanding persistent atri al fibrillation ICD-10: I48.11 ICD-9: 427.31 10/10/2024 Active Unspecified atrial fibrillation ICD-10: I48.91 025 Duplicate Advanced care planning - to document end of life discussions Unknown 09/04/2024 Active Diabetes mellitus Type 2 Unknown 09/04/2024 Act bi History of penicillin allergy ICD-10: Z8 8.0 ICD-9: V14.0 09/04/2024 Active History of smoking ICD-10: Z87.891 ICD-9: V15.82 09/04/2024 Active PVD (peripheral vascular disease) ICD-10: I73.9 ICD-9: 443.9 09/04/2024 Active Tobacco abuse [facility] CT: 671849348 ICD-10: Z72.0 ICD-9: 305.1 09/04/2024 Active Medications Medication Codes Instructions Start Date Stop Date Status Fill Instructions escitalopram 5 mg tablet RxNorm: 660067 Take 1 Tablet(s) Oral QD 5 026 Active metformin 500 mg tablet RxNorm: 481439 Take 1 Tablet(s) Oral BID 5 026 Active senna 8.6 mg tablet RxNorm: 238504 Take 2 Tablet(s) Oral QD as needed 5 No Stop Date Active ipratropium 0.5 mg-albuterol 3 mg (2.5 mg base)/3 mL nebulization soln RxNorm: 7961320 Take 3 Milliliter(s) Inhalation BID and BID PRN wheezing/ shortness of breath 5 026 Active Tamiflu 75 mg capsule RxNorm: 140584 Take 1 Capsule(s) Oral QD 5 025 Inactive GFR 79 Tamiflu 75 mg capsule RxNorm: 877344 Take 1 Capsule(s) Oral QD 5 025 Inactive GFR 79 albuterol sulfate HFA 90 mcg/actuation aerosol inhaler RxNorm: 6582813 Take 2 Puff(s) Inhalation Q2H every 2 hours as needed for SOB 5 No Stop Date Active ipratropium 0.5 mg-albuterol 3 mg (2.5 mg base)/3 mL nebulization soln RxNorm: 1754879 Take 3 Milliliter(s) Inhalation QID as needed wheezing/ shortness of breath 5 025 Inactive Milk of Magnesia 400 mg/5 mL oral suspension RxNorm: 342672 Take 30 Milliliter(s) Oral QD as needed 5 No Stop Date Active bisacodyl 10 mg rectal suppository RxNorm: 204599 Insert 1 Suppository Rectal QD as needed 5 No Stop Date Active lisinopril 10 mg tablet RxNorm: 633238 Take 1 Tablet(s) Oral QD 5 No Stop Date Active tamsulosin 0.4 mg capsule RxNorm: 352450 Take 1 Capsule(s) Oral QAM every morning 5 No Stop Date Active loperamide 2 mg tablet RxNorm: 332773 Take 1 Tablet(s) Oral QD as needed 5 No Stop Date Active atorvastatin 20 mg tablet RxNorm: 748402 Take 1 Tablet(s) Oral QHS every night at bedtime 5 No Stop Date Active magnesium 400 mg (as magnesium oxide) tablet RxNorm: 968845 Take 1 Tablet(s) Oral BID 5 No Stop Date Active psyllium oral powder RxNorm: Take 1 Teaspoon(s) Oral QD as needed 5 No Stop Date Active Antacid 200 mg (as calcium carbonate 500 mg) chewable tablet RxNorm: 318032 Take 2 Tablet(s) Oral Q1H every hour as needed 5 No Stop Date Active hydrocortisone 1 % topical cream RxNorm: 433991 Apply 1 Application Topical QD as needed 5 No Stop Date Active trazodone 50 mg tablet RxNorm: 060182 Take 1 Tablet(s) Oral QHS every night at bedtime 5 No Stop Date Active finasteride 5 mg tablet RxNorm: 130654 Take 1 Tablet(s) Oral QAM every morning 5 No Stop Date Active levothyroxine 75 mcg tablet RxNorm: 800818 Take 1 Tablet(s) Oral QD 5 No Stop Date Active acetaminophen 325 mg tablet RxNorm: 188178 Take 2 Tablet(s) Oral Q4H every four hours as needed 5 No Stop Date Active Claritin 10 mg tablet RxNorm: 371475 Take 1 Tablet(s) Oral QD as needed 5 No Stop Date Active guaifenesin 100 mg/5 mL oral liquid RxNorm: 651038 Take 10 Milliliter(s) Oral Q4H every four hours as needed 5 No Stop Date Active omeprazole 20 mg capsule,delayed release RxNorm: 672774 Take 1 Capsule(s) Oral BID 5 No Stop Date Active Xarelto 20 mg tablet RxNorm: 1556019 Take 1 Tablet(s) Oral QPM every evening 5 No Stop Date Active metformin 500 mg tablet RxNorm: 714191 Take 1 Tablet(s) Oral QAM every morning 5 025 Inactive aspirin 325 mg tablet RxNorm: 961013 Take 1 Tablet(s) Oral QD as needed 5 025 Inactive metoprolol tartrate 50 mg tablet RxNorm: 244531 Take 1/2 Tablet(s) Oral BID 4 No Stop Date Active Triple Antibiotic Plus topical RxNorm: 799573 topical 5 Active menthol mucous membrane RxNorm: [...] Notes Essential hypertension ICD-10: I10 ICD-9: 401.9 04/14/2025 No note found Alzheimer's dementia ICD-10: G30.9 ICD-9: 331.0 04/14/2025 No note found Recurrent major depressive d isorder, in partial remission ICD-10: F33.41 ICD-9: 296.35 04/14/2025 No note found Reason For Visit No Reason For Visit data Review of Systems No Review of Systems data Physical Exam No Physical Exam data Procedures Procedure Codes Date SYST BP GE 130 - 139MM HG CPT-4: 3075F 2024 DIAST BP <80 MM HG CPT-4: 3078F 04/14/2025 TOBACCO Education CPT-4: TOBACCO 04/14/2025 Vital Signs Date Vital 04/14/2025 Blood Pressure 1: 132/65 Code: 8480-6 BMI: 29.6 Code: 38639-1 Heart Rate 1: 61 bpm Code: 8867-4 Height: 5'11 Code: 8302-2 Respiratory Rate: 18 bpm SpO2: 94% Temperature: 36.6 (C) / 97.8 (F) Weight: 212 lbs Code: 3141-9 Functional Status Functional / [...] Encounter Performer Location Location Address Codes Date (26019) Home Visit - Est Pt, moderate Diagnosis: Alzheimer's dementia[ICD10: G30.9] Diagnosis: Recurrent major depressive disorder, 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] Diagnosis: Essential hypertension[ICD1 0: I10] Eugenia Burgos [address] [address] CPT-4: 68161 04/14/2025 Plan of Care Planned Activity Notes Codes Status Date Patient Education: Patient Medication Summary Completed 04/14/2025 Patient Education: Influenza Complet ed 04/14/2025 Patient Education: Smoking Cessation Completed 04/14/2025 Appointment: Eugenia Burgos WPtel: [address] [place], [place] [phone] F/U 03/10/2025 Appointment: Eugenia Burgos WPtel: [address] [facility] [id number] [place] 10/10/2024 Appointment: Eugenia Burgos WPtel: [address] [facility] [address] [id number] [place] 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 Continues with LexaproDEPRESSION: 5 mg daily. ALZHEIMERS: Patient appropriate for memory care setting. Due to progressive nature of disease process, ongoing decline is expected. Will continue supportive measures. Will continue fall prevention measures. Plan to continue to monitor for changes in cognition and behaviors. Will reevaluate in 4 to 6 weeks. HYPERTENSION: Blood pressure within goal range today at 132/65. Will continue current regimen of lisinopril 10mg daily. 04/14/2025 Health Concerns Section Concern Status Date (D68.69-289.82) [...] urinary retention and urinary tract infections. The longterm prognosis is generally good with appropriate management. [...]
--- OUTSIDE RECORDS SUMMARY | 2025-05-25 16:24 | XMS_ITS | CCD ---
Author Name Eugenia Burgos CNP Address [address] [facility] [address] [place] [address] Phone Organization [facility] Phone Care Team Providers Care Assistant Head Cashier Name Role Phone Eugenia Burgos CNP Primary Care Provider Unavail able Unavailable Chronic Care Management Unavaila ble Summary Purpose DataExchange Insurance Providers Payer name Policy type / Coverage type Covered alliance party ID Effective Begin Date Effective End Date [facility] Medicare Risk [id number] Unknown Unknown Family history Sister Diagnosis Age [...] Assisted Living 10/[address]: 43627867 Current some days smoker 10/10/[address]: 171319162 No Alcohol Consum ption 10/10/2024 Sexually Active? Unknown No 10/10/2024 Children Unknown Has Children 10/10/2024 Caregiver Assessment Unknown Healthcare POA on [facility] 10/10/2024 Patient Health Status Self Assessment [...] Assisted Living 09/[address]: 05589603 Current ever y day smoker 09/04/[address]: 085889040 No Alcohol Consum ption 09/04/2024 Children Unknown Has Children 09/04/2024 Caregiver Assessment Unknown Healthcare POA on fi le 09/04/2024 Marital status Unknown 08/15/[address]: 10079987 Current ever y day smoker 08/15/[address]: 353169937 No Alcohol Consum ption 08/15/2024 Children Unknown Has Children 3 08/15/2024 Allergies, Adverse Reactions, Alerts Substance Reaction Codes Entered Date Inactivated Date Status Augmentin RxNorm: 680632 08/02/2024 No Inactive Da te Active erythromycin RxNorm: 4053 08/02/2024 No Inactive D ate Active Past Medical History Illness Codes Condition Status Onset Date Resolved Date Alzheimer's dementia ICD-10: G30.9 ICD-9: 331.0 Active 11/14/2024 11/28/2024 BPH (benign prostatic hyperplasia) ICD-10: N40.0 ICD-9: 600.00 Active 11/14/2024 Unknown COPD (chronic obstructive pulmonary disease) ICD-10: J44.9 ICD-9: 496 Active 11/14/2024 11/28/2024 ACP (advance care planning) SNOMED CT: 963419191 ICD-10: Z71.89 ICD-9: V65.49 Active 10/10/2024 Unknown Acquired hypothyroidism ICD-10: E03.9 ICD-9: 244.9 Active 10/10/2024 02/10/2025 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 ICD-10: K22.70 ICD-9: 530.85 Active 10/10/2024 Unknown Cerebrovascular disease ICD-10: I67.9 ICD-9: 437.9 Active 10/10/2024 Unknown Chronic constipation ICD-10: K59.09 ICD-9: 564.00 Active 10/10/2024 01/09/2025 Dementia in other diseases classified elsewhere, unspecified severity, without behavioral disturbance, psychotic disturbance, mood disturbance, and anxiety ICD-10: F02.80 Active 10/10/2024 025 Encounter for preventive care SNOMED CT: 198542185 ICD-10: Z00.00 ICD-9: V70.0 Active 10/10/2024 Unknown Essential hypertension ICD-10: I10 ICD-9: 401.9 Active 10/10/2024 11/28/[address]: 680865860 ICD-10: R54 ICD-9: 797 Active 10/10/2024 Unknown [...] Active 09/04/2024 Unknown Tobacco abuse SNOMED CT: 201988155 ICD-10: Z72.0 ICD-9: 305.1 Active 09/04/2024 Unknown Problems Condition Codes Effective Dates Condition St atus Alzheimer's dementia ICD-10: G30.9 ICD-9: 331.0 11/14/2024 Active BPH (benign prostatic hyperplasia) ICD-10: N40.0 ICD-9: 600.00 11/14/2024 Active COPD (chronic obstructive pulmonary disease) ICD-10: J44.9 ICD-9: 496 11/14/2024 Active ACP (advance care planning) SNOMED CT: 3 31813729 ICD-10: Z71.89 ICD-9: V65.49 10/10/2024 Active Acquired hypothyroidism ICD-10: E03.9 ICD-9: 244.9 10/10/2024 Active 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 ICD-10: K22.70 ICD-9: 530.85 10/10/2024 Active Cerebrovascular disease ICD-10: I67.9 ICD-9: 437.9 10/10/2024 Active Chronic constipation ICD-10: K59.09 ICD-9: 564.00 10/10/2024 Active Dementia in other diseases classified elsewhere, unspecified severity, without behavioral disturbance, psychotic disturbance, mood disturbance, and anxiety ICD-10: F02.80 10/10/2024 Active Encounter for preventive care SNOMED CT: 402699774 ICD-10: Z00.00 ICD-9: V70.0 10/10/2024 Active Essential hypertension ICD-10: I10 ICD-9: 401.9 10/10/[address]: 917313847 ICD-10: R54 ICD-9: 797 10/10/2024 Active HLD [...] I73.9 ICD-9: 443.9 09/04/[address] [facility] CT: 931450891 ICD-10: Z72.0 ICD-9: 305.1 09/04/2024 Active Medications Medication Codes Instructions Start Date Stop Date Status Fill Instructions Tamiflu 75 mg capsule RxNorm: 703686 Take 1 Capsule(s) Oral QD 5 025 Inactive GFR 79 Tamiflu 75 mg capsule RxNorm: 069235 Take 1 Capsule(s) Oral QD 5 025 Inactive GFR 79 ipratropium 0.5 mg-albuterol 3 mg (2.5 mg base)/3 mL nebulization soln RxNorm: 8666404 Take 3 Milliliter(s) Inhalation QID as needed wheezing/ shortness of breath 5 025 Inactive albuterol sulfate HFA 90 mcg/actuation aerosol inhaler RxNorm: 8025146 Take 2 Puff(s) Inhalation Q2H every 2 hours as needed for SOB 5 No Stop Date Active metformin 500 mg tablet RxNorm: 261290 Take 1 Tablet(s) Oral QAM every morning 5 025 Inactive Milk of Magnesia 400 mg/5 mL oral suspension RxNorm: 464194 Take 30 Milliliter(s) Oral QD as needed 5 No Stop Date Active bisacodyl 10 mg rectal suppository RxNorm: 731133 Insert 1 Suppository Rectal QD as needed 5 No Stop Date Active lisinopril 10 mg tablet RxNorm: 966357 Take 1 Tablet(s) Oral QD 5 No Stop Date Active tamsulosin 0.4 mg capsule RxNorm: 433746 Take 1 Capsule(s) Oral QAM every morning 5 No Stop Date Active loperamide 2 mg tablet RxNorm: 332086 Take 1 Tablet(s) Oral QD as needed 5 No Stop Date Active atorvastatin 20 mg tablet RxNorm: 275841 Take 1 Tablet(s) Oral QHS every night at bedtime 5 No Stop Date Active magnesium 400 mg (as magnesium oxide) tablet RxNorm: 953749 Take 1 Tablet(s) Oral BID 5 No Stop Date Active aspirin 325 mg tablet RxNorm: 845273 Take 1 Tablet(s) Oral QD as needed 5 025 Inactive psyllium oral powder RxNorm: Take 1 Teaspoon(s) Oral QD as needed 5 No Stop Date Active Antacid 200 mg (as calcium carbonate 500 mg) chewable tablet RxNorm: 366949 Take 2 Tablet(s) Oral Q1H every hour as needed 5 No Stop Date Active hydrocortisone 1 % topical cream RxNorm: 832614 Apply 1 Application Topical QD as needed 5 No Stop Date Active trazodone 50 mg tablet RxNorm: 628690 Take 1 Tablet(s) Oral QHS every night at bedtime 5 No Stop Date Active finasteride 5 mg tablet RxNorm: 961326 Take 1 Tablet(s) Oral QAM every morning 5 No Stop Date Active levothyroxine 75 mcg tablet RxNorm: 515148 Take 1 Tablet(s) Oral QD 5 No Stop Date Active acetaminophen 325 mg tablet RxNorm: 264798 Take 2 Tablet(s) Oral Q4H every four hours as needed 5 No Stop Date Active Claritin 10 mg tablet RxNorm: 171047 Take 1 Tablet(s) Oral QD as needed 5 No Stop Date Active guaifenesin 100 mg/5 mL oral liquid RxNorm: 981590 Take 10 Milliliter(s) Oral Q4H every four hours as needed 5 No Stop Date Active omeprazole 20 mg capsule,delayed release RxNorm: 214865 Take 1 Capsule(s) Oral BID 5 No Stop Date Active Xarelto 20 mg tablet RxNorm: 2267928 Take 1 Tablet(s) Oral QPM every evening 5 No Stop Date Active metoprolol tartrate 50 mg tablet RxNorm: 153031 Take 1/2 Tablet(s) Oral BID 4 No Stop Date Active Triple Antibiotic Plus topical RxNorm: 161958 topical 5 Active menthol mucous membrane RxNorm: [...] data Assessments Condition Codes Effective Dates Notes BPH (benign prostatic hyperplasia) ICD-1 0: N40.0 ICD-9: 600.00 11/14/2024 No note found COPD (chronic obstructive pu lmonary disease) ICD-10: J44.9 ICD-9: 496 11/14/2024 No note found Alzheimer's dementia ICD-10: G30.9 ICD-9: 331.0 11/14/2024 No note found Reason For Visit No Reason For Visit data Review of Systems No Review of Systems data Physical Exam No Physical Exam data Procedures Procedure Codes Date SYST BP >/= 140 MM HG CPT-4: 3077F 11/14/2024 DIAST BP <80 MM HG CPT-4: 3078F 11/14/2024 TOBACCO Education CPT-4: TOBACCO 11/14/2024 Vital Signs Date Vital 11/14/2024 Blood Pressure 1: 154/71 Code: 8480-6 BMI: 29.4 Code: 53551-3 Heart Rate 1: 54 bpm Code: 8867-4 Height: 5'11 Code: 8302-2 Respiratory Rate: 16 bpm Temperature: 36.5 (C) / 97.7 (F) Weight: 211 lbs Code: 3141-9 Functional Status Functional / [...] Encounter Performer Location Location Address Codes Date ([address]) Home Visit - Est Pt, moderate Diagnosis: Alzheimer's dementia[ICD10: G30.9] Diagnosis: COPD (chronic obstructive pulmonary disease)[ICD10: J44.9] Diagnosis: BPH (benign prostatic hyperplasia)[ICD10 : N40.0] Eugenia Aubrey[address] [address] CPT-4: 87713 11/14/2024 Plan of Care Planned Activity Notes Codes Status Date Patient Education: Patient Medication Summary Completed 11/14/2024 Patient Education: Influenza Complet ed 11/14/2024 Patient Education: Smoking Cessation Completed 11/14/2024 Appointment: Eugenia Burgos WPtel: [id number] [place] 10/10/2024 Appointment: Eugenia Burgos WPtel: [phone] 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 Remains appropriate for memory care setting. Ongoing decline is expected due to progressive nature of disease process. Will continue to monitor for changes in mood or behavior every 4 to 6 weeks. BPH: No urinary symptoms reported. Denies any difficulty with starting his stream. Continues on Flomax 0.4 mg daily. COPD: Denies any shortness of breath. Does continue to smoke. Some fine expiratory wheezing noted on exam. He does continue with as needed DuoNebs. Will continue to monitor for fluctuation in breathing.. 11/14/2024 Health Concerns Section Concern Status Date (D68.69-289.82) [...] urinary retention and urinary tract infections. The fpc prognosis is generally good with appropriate management. [...]
--- OUTSIDE RECORDS SUMMARY | 2025-05-25 16:25 | XMS_ITS | CCD ---
Author Name Eugenia Burgos CNP Address [address] [place] [address] Phone Organization [facility] Phone Care Team Providers Care Prize Jacker Name Role Phone Eugenia Burgos CNP Primary Care Provider Unavail able Unavailable Chronic Care Management Unavaila ble Summary Purpose DataExchange Insurance Providers Payer name Policy type / Coverage type Covered democrat ID Effective Begin Date Effective End Date [facility] Medicare Risk [id number] Unknown Unknown Family history Sister Diagnosis Age [...] Assisted Living 10/[address]: 11647298 Current some days smoker 10/10/[address]: 154022840 No Alcohol Consum ption 10/10/2024 Sexually Active? Unknown No 10/10/2024 Children Unknown Has Children 10/10/2024 Caregiver Assessment Unknown Healthcare POA on [facility] 10/10/2024 Patient Health Status Self Assessment Unknown [...] Assisted Living 09/[address]: 14062083 Current ever y day smoker 09/04/[address]: 291331350 No Alcohol Consum ption 09/04/2024 Children Unknown Has Children 09/04/2024 Caregiver Assessment Unknown Healthcare POA on fi le 09/04/2024 Marital status Unknown 08/15/[address]: 02075252 Current ever y day smoker 08/15/[address]: 356943692 No Alcohol Consum ption 08/15/2024 Children Unknown Has Children 3 08/15/2024 Allergies, Adverse Reactions, Alerts Substance Reaction Codes Entered Date Inactivated Date Status Augmentin RxNorm: 625173 08/02/2024 No Inactive Da te Active erythromycin RxNorm: 4053 08/02/2024 No Inactive D ate Active Past Medical History Illness Codes Condition Status Onset Date Resolved Date Acquired hypothyroidism ICD-10: E03.9 ICD-9: 244.9 Active 02/10/2025 Unknown Recurrent major depressive disorder, in partial remission ICD-10: F33.41 ICD-9: 296.35 Active 02/10/2025 03/10/2025 Type 2 diabetes mellitus ICD-10: E11.9 ICD-9: 250.00 Active 02/10/2025 03/10/2025 Chronic constipation ICD-10: K59.09 ICD-9: 564.00 Active 01/09/2025 Unknown COPD (chronic obstructive pulmonary disease) ICD-10: J44.9 ICD-9: 496 Active 01/09/2025 03/10/2025 Impaired gait and mobility ICD-10: R26.8 9 ICD-9: 781.2 Active 01/09/2025 Unknown Alzheimer's dementia ICD-10: G30.9 ICD-9: 331.0 Active 11/28/2024 04/14/2025 Essential hypertension ICD-10: I10 ICD-9: 401.9 Active 11/28/2024 04/14/2025 BPH (benign prostatic hyperplasia) ICD-10: N40.0 ICD-9: 600.00 Active 11/14/2024 Unknown ACP (advance care planning) SNOMED CT: 787146393 ICD-10: Z71.89 ICD-9: V65.49 Active 10/10/2024 Unknown 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 ICD-10: K22.70 ICD-9: 530.85 Active 10/10/2024 Unknown Cerebrovascular disease ICD-10: I67.9 ICD-9: 437.9 Active 10/10/2024 Unknown Dementia in other diseases classified elsewhere, unspecified severity, without behavioral disturbance, psychotic disturbance, mood disturbance, and anxiety ICD-10: F02.80 Active 10/10/2024 025 Encounter for preventive care SNOMED CT: 556747020 ICD-10: Z00.00 ICD-9: V70.0 Active 10/10/[address]: 735742797 ICD-10: R54 ICD-9: 797 Active 10/10/2024 Unknown [...] Active 09/04/2024 Unknown Tobacco abuse SNOMED CT: 410296050 ICD-10: Z72.0 ICD-9: 305.1 Active 09/04/2024 Unknown Problems Condition Codes Effective Dates Condition St atus Acquired hypothyroidism ICD-10: E03.9 ICD-9: 244.9 02/10/2025 Active Recurrent major depressive disorder, in partial remission ICD-10: F33.41 ICD-9: 296.35 02/10/2025 Active Type 2 diabetes mellitus ICD-10: E11.9 ICD-9: 250.00 02/10/2025 Active Chronic constipation ICD-10: K59.09 ICD-9: 564.00 01/09/2025 Active COPD (chronic obstructive pulmonary disease) ICD-10: J44.9 ICD-9: 496 01/09/2025 Active Impaired gait and mobility ICD-10: R26.8 9 ICD-9: 781.2 01/09/2025 Active Alzheimer's dementia ICD-10: G30.9 ICD-9: 331.0 11/28/2024 Active Essential hypertension ICD-10: I10 ICD-9: 401.9 11/28/2024 Active BPH (benign prostatic hyperplasia) ICD-10: N40.0 ICD-9: 600.00 11/14/2024 Active ACP (advance care planning) SNOMED CT: 3 57964634 ICD-10: Z71.89 ICD-9: V65.49 10/10/2024 Active 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 ICD-10: K22.70 ICD-9: 530.85 10/10/2024 Active Cerebrovascular disease ICD-10: I67.9 ICD-9: 437.9 10/10/2024 Active Dementia in other diseases classified elsewhere, unspecified severity, without behavioral disturbance, psychotic disturbance, mood disturbance, and anxiety ICD-10: F02.80 10/10/2024 Active Encounter for preventive care SNOMED CT: 473919792 ICD-10: Z00.00 ICD-9: V70.0 10/10/[address]: 053019613 ICD-10: R54 ICD-9: 797 10/10/2024 Active HLD [...] I73.9 ICD-9: 443.9 09/04/2024 Active Tobacco abuse [facility] CT: 742521992 ICD-10: Z72.0 ICD-9: 305.1 09/04/2024 Active Medications Medication Codes Instructions Start Date Stop Date Status Fill Instructions ipratropium 0.5 mg-albuterol 3 mg (2.5 mg base)/3 mL nebulization soln RxNorm: 8613050 Take 3 Milliliter(s) Inhalation BID and BID PRN wheezing/ shortness of breath 5 026 Active Tamiflu 75 mg capsule RxNorm: 582314 Take 1 Capsule(s) Oral QD 5 025 Inactive GFR 79 Tamiflu 75 mg capsule RxNorm: 991355 Take 1 Capsule(s) Oral QD 5 025 Inactive GFR 79 albuterol sulfate HFA 90 mcg/actuation aerosol inhaler RxNorm: 0610219 Take 2 Puff(s) Inhalation Q2H every 2 hours as needed for SOB 5 No Stop Date Active ipratropium 0.5 mg-albuterol 3 mg (2.5 mg base)/3 mL nebulization soln RxNorm: 0701698 Take 3 Milliliter(s) Inhalation QID as needed wheezing/ shortness of breath 5 025 Inactive metformin 500 mg tablet RxNorm: 885399 Take 1 Tablet(s) Oral QAM every morning 5 025 Inactive Milk of Magnesia 400 mg/5 mL oral suspension RxNorm: 624659 Take 30 Milliliter(s) Oral QD as needed 5 No Stop Date Active bisacodyl 10 mg rectal suppository RxNorm: 975981 Insert 1 Suppository Rectal QD as needed 5 No Stop Date Active lisinopril 10 mg tablet RxNorm: 497860 Take 1 Tablet(s) Oral QD 5 No Stop Date Active tamsulosin 0.4 mg capsule RxNorm: 417090 Take 1 Capsule(s) Oral QAM every morning 5 No Stop Date Active loperamide 2 mg tablet RxNorm: 338527 Take 1 Tablet(s) Oral QD as needed 5 No Stop Date Active atorvastatin 20 mg tablet RxNorm: 803717 Take 1 Tablet(s) Oral QHS every night at bedtime 5 No Stop Date Active magnesium 400 mg (as magnesium oxide) tablet RxNorm: 939354 Take 1 Tablet(s) Oral BID 5 No Stop Date Active psyllium oral powder RxNorm: Take 1 Teaspoon(s) Oral QD as needed 5 No Stop Date Active Antacid 200 mg (as calcium carbonate 500 mg) chewable tablet RxNorm: 624843 Take 2 Tablet(s) Oral Q1H every hour as needed 5 No Stop Date Active hydrocortisone 1 % topical cream RxNorm: 216586 Apply 1 Application Topical QD as needed 5 No Stop Date Active trazodone 50 mg tablet RxNorm: 284166 Take 1 Tablet(s) Oral QHS every night at bedtime 5 No Stop Date Active finasteride 5 mg tablet RxNorm: 634372 Take 1 Tablet(s) Oral QAM every morning 5 No Stop Date Active levothyroxine 75 mcg tablet RxNorm: 793321 Take 1 Tablet(s) Oral QD 5 No Stop Date Active acetaminophen 325 mg tablet RxNorm: 960727 Take 2 Tablet(s) Oral Q4H every four hours as needed 5 No Stop Date Active Claritin 10 mg tablet RxNorm: 306400 Take 1 Tablet(s) Oral QD as needed 5 No Stop Date Active guaifenesin 100 mg/5 mL oral liquid RxNorm: 014164 Take 10 Milliliter(s) Oral Q4H every four hours as needed 5 No Stop Date Active omeprazole 20 mg capsule,delayed release RxNorm: 339426 Take 1 Capsule(s) Oral BID 5 No Stop Date Active Xarelto 20 mg tablet RxNorm: 8300641 Take 1 Tablet(s) Oral QPM every evening 5 No Stop Date Active aspirin 325 mg tablet RxNorm: 090767 Take 1 Tablet(s) Oral QD as needed 5 025 Inactive metoprolol tartrate 50 mg tablet RxNorm: 591161 Take 1/2 Tablet(s) Oral BID 4 No Stop Date Active Triple Antibiotic Plus topical RxNorm: 916605 topical 5 Active menthol mucous membrane RxNorm: [...] Codes Effective Dates Notes Recurrent major depressive d isorder, in partial remission ICD-10: F33.41 ICD-9: 296.35 02/10/2025 No note found Type 2 diabetes mellitus ICD-10: E11.9 ICD-9: 250.00 02/10/2025 No note found Acquired hypothyroidism ICD-10: E03.9 ICD-9: 244.9 02/10/2025 No note found Reason For Visit No Reason For Visit data Results Observation Observation Code Item Item Code Result Date Service Location TSH with Reflex to Free T4 [id number] TSH ([place]) 46635-5 1.79 uIU/mL 02/18/20 25 Unknown Comprehensive Metabolic Panel [id number] GLUCOSE ([facility]) 2345-7 160 mg/dL 02/18/20 25 Unknown Comprehensive Metabolic Panel [id number] Sodium 139 mmol/L 02/18/20 25 Unknown Comprehensive Metabolic Panel [id number] POTASSIUM ([place]) 2823-3 4.0 mmol/L 02/18/20 25 Unknown Comprehensive Metabolic Panel [id number] CO2 ([place]) 25 mmol/L 02/18/20 25 Unknown Comprehensive Metabolic Panel [id number] ANION GAP ([place]) 10 mmol/L 02/18/20 25 Unknown Comprehensive Metabolic Panel [id number] Alkaline Phosphatase 112 U/L 02/18/20 25 Unknown Comprehensive Metabolic Panel [id number] UREA NITROGEN ([place]) 12.8 mg/dL 02/18/20 25 Unknown Comprehensive Metabolic Panel [id number] ALT 6 U/L 02/18/20 25 Unknown Comprehensive Metabolic Panel [id number] Creatinine 0.88 mg/dL 02/18/20 25 Unknown Comprehensive Metabolic Panel [id number] AST 19 U/L 02/18/20 25 Unknown Comprehensive Metabolic Panel [id number] GFR, ESTIMATE 66481-5 89 mL/min/1.7 3m2 02/18/20 25 Unknown Comprehensive Metabolic Panel [id number] Bilirubin Total 0.6 mg/dL 02/18/20 25 Unknown Comprehensive Metabolic Panel [id number] Calcium 9.3 mg/dL 02/18/20 25 Unknown Comprehensive Metabolic Panel [id number] CHLORIDE ([place]) 104 mmol/L 02/18/20 25 Unknown Comprehensive Metabolic Panel [id number] PROTEIN, TOTAL 2885-2 6.1 g/dL 02/18/20 25 Unknown Comprehensive Metabolic Panel [id number] Albumin 3.5 g/dL 02/18/20 25 Unknown Hemoglobin A1c LAB90 EST AVERAGE GLUCOSE 197 mg/dL 02/18/20 25 Unknown Hemoglobin A1c LAB90 Hemoglobin A1c 74631-0 8.5 % 02/18/20 25 Unknown CBC with Platelets [id number] WBC COUNT (AUTOMATED) 7.5 10e3/uL 02/18/20 25 Unknown CBC with Platelets [id number] RBC COUNT 789-8 4.38 10e6/uL 02/18/20 25 Unknown CBC with Platelets [id number] Hemoglobin 12.9 g/dL 02/18/20 25 Unknown CBC with Platelets OCF351 Hematocrit 39.9 % 02/18/20 25 Unknown CBC with Platelets [id number] MCV 91 fL 02/18/20 25 Unknown CBC with Platelets [id number] MCH 29.5 pg 02/18/20 25 Unknown CBC with Platelets TBM001 MCHC 32.3 g/dL 02/18/20 25 Unknown CBC with Platelets JAU334 RDW 13.7 % 02/18/20 25 Unknown CBC with Platelets [id number] Platelet Count 777-3 195 10e3/uL 06/30/20 25 Unknown Review of Systems No Review of Systems data Physical Exam No Physical Exam data Procedures Procedure Codes Date SYST BP >/= 140 MM HG CPT-4: 3077F 02/10/2025 DIAST BP <80 MM HG CPT-4: 3078F 02/10/2025 TOBACCO Education CPT-4: TOBACCO 02/10/2025 Vital Signs Date Vital 02/10/2025 Blood Pressure 1: 141/65 Code: 8480-6 Heart Rate 1: 69 bpm Code: 8867-4 Respiratory Rate: 20 bpm SpO2: 94% Weight: 215 lbs 7 oz Code: 3141-9 Functional Status Functional / [...] Encounter Performer Location Location Address Codes Date () Home Visit - Est Pt, moderate Diagnosis: Acquired hypothyroidism[IC D10: E03.9] Diagnosis: Type 2 diabetes mellitus[ICD10: E11.9] Diagnosis: Recurrent major depressive disorder, 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] Eugenia Burgos [address] [address] CPT-4: 37170 02/10/2025 Plan of Care Planned Activity Notes Codes Status Date Patient Education: Patient Medication Summary Completed 02/10/2025 Patient Education: Influenza Complet ed 02/10/2025 Patient Education: Smoking Cessation Completed 02/10/2025 Appointment: Eugenia Burgos WPtel: [address] [place], [place] [phone] [facility] 10/10/2024 Appointment: Eugenia Burgos WPtel: [address] [place], [place] [phone] 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 TYPE 2 DIABETES: Continues on metformin every morning. Plan to obtain hemoglobin A1c, CBC and CMP. DEPRESSION: No changes in mood noted by nursing staff. Mood is bright on exam today. Not on medication. Will continue to monitor at this time.. 02/10/2025 Health Concerns Section Concern Status Date (D68.69-289.82) [...] urinary retention and urinary tract infections. The custodial prognosis is generally good with appropriate management. [...]
--- OUTSIDE RECORDS SUMMARY | 2025-05-25 16:25 | XMS_ITS | CCD ---
Author Name Eugenia Burgos CNP Address [address] [place] [address] Phone Organization [facility] Phone Care Team Providers Care Curber Name Role Phone Eugenia Burgos CNP Primary Care Provider Unavail able Unavailable Chronic Care Management Unavaila ble Summary Purpose DataExchange Insurance Providers Payer name Policy type / Coverage type Covered republican ID Effective Begin Date Effective End Date [facility] Medicare Risk [id number] Unknown Unknown Family history Sister Diagnosis Age [...] Assisted Living 10/[address]: 06177442 Current some days smoker 10/10/[address]: 317193661 No Alcohol Consum ption 10/10/2024 Sexually Active? Unknown No 10/10/2024 Children Unknown Has Children 10/10/2024 Caregiver Assessment Unknown Healthcare POA on [facility] 10/10/2024 Patient Health Status Self Assessment Unknown [...] Assisted Living 09/[address]: 88344123 Current ever y day smoker 09/04/[address]: 435839274 No Alcohol Consum ption 09/04/2024 Children Unknown Has Children 09/04/2024 Caregiver Assessment Unknown Healthcare POA on le 09/04/2024 Marital status Unknown 08/15/[address]: 15237417 Current ever y day smoker 08/15/[address]: 508087622 No Alcohol Consum ption 08/15/2024 Children Unknown Has Children 3 08/15/2024 Allergies, Adverse Reactions, Alerts Substance Reaction Codes Entered Date Inactivated Date Status Augmentin RxNorm: 951940 08/02/2024 No Inactive Da te Active erythromycin RxNorm: 4053 08/02/2024 No Inactive D ate Active Past Medical History Illness Codes Condition Status Onset Date Resolved Date Alzheimer's dementia ICD-10: G30.9 ICD-9: 331.0 Active 11/28/2024 04/14/2025 COPD (chronic obstructive pulmonary disease) ICD-10: J44.9 ICD-9: 496 Active 11/28/2024 01/09/2025 Essential hypertension ICD-10: I10 ICD-9: 401.9 Active 11/28/2024 04/14/2025 BPH (benign prostatic hyperplasia) ICD-10: N40.0 ICD-9: 600.00 Active 11/14/2024 Unknown ACP (advance care planning) SNOMED CT: 291055714 ICD-10: Z71.89 ICD-9: V65.49 Active 10/10/2024 Unknown [...] 025 Encounter for preventive care SNOMED CT: 547549471 ICD-10: Z00.00 ICD-9: V70.0 Active 10/10/[address]: 196789117 ICD-10: R54 ICD-9: 797 Active 10/10/2024 Unknown [...] Active 09/04/2024 Unknown Tobacco abuse SNOMED CT: 043865725 ICD-10: Z72.0 ICD-9: 305.1 Active 09/04/2024 Unknown Problems Condition Codes Effective Dates Condition [facility] Alzheimer's dementia ICD-10: G30.9 ICD-9: 331.0 11/28/2024 Active COPD (chronic obstructive pulmonary disease) ICD-10: J44.9 ICD-9: 496 11/28/2024 Active Essential hypertension ICD-10: I10 ICD-9: 401.9 11/28/2024 Active BPH (benign prostatic hyperplasia) ICD-10: N40.0 ICD-9: 600.00 11/14/2024 Active ACP (advance care planning) SNOMED CT: 3 32074824 ICD-10: Z71.89 ICD-9: V65.49 10/10/2024 Active Acquired [...] Active Encounter for preventive care SNOMED CT: 564312400 ICD-10: Z00.00 ICD-9: V70.0 10/10/[address]: 472820152 ICD-10: R54 ICD-9: 797 10/10/2024 Active HLD [...] I73.9 ICD-9: 443.9 09/04/2024 Active Tobacco abuse [facility] CT: 938583141 ICD-10: Z72.0 ICD-9: 305.1 09/04/2024 Active Medications Medication Codes Instructions Start Date Stop Date Status Fill Instructions ipratropium 0.5 mg-albuterol 3 mg (2.5 mg base)/3 mL nebulization soln RxNorm: 1722229 Take 3 Milliliter(s) Inhalation BID and BID PRN wheezing/ shortness of breath 5 026 Active Tamiflu 75 mg capsule RxNorm: 984054 Take 1 Capsule(s) Oral QD 5 025 Inactive GFR 79 Tamiflu 75 mg capsule RxNorm: 827570 Take 1 Capsule(s) Oral QD 5 025 Inactive GFR 79 ipratropium 0.5 mg-albuterol 3 mg (2.5 mg base)/3 mL nebulization soln RxNorm: 3987093 Take 3 Milliliter(s) Inhalation QID as needed wheezing/ shortness of breath 5 025 Inactive albuterol sulfate HFA 90 mcg/actuation aerosol inhaler RxNorm: 8236998 Take 2 Puff(s) Inhalation Q2H every 2 hours as needed for SOB 5 No Stop Date Active metformin 500 mg tablet RxNorm: 908053 Take 1 Tablet(s) Oral QAM every morning 5 025 Inactive Milk of Magnesia 400 mg/5 mL oral suspension RxNorm: 428957 Take 30 Milliliter(s) Oral QD as needed 5 No Stop Date Active bisacodyl 10 mg rectal suppository RxNorm: 180997 Insert 1 Suppository Rectal QD as needed 5 No Stop Date Active lisinopril 10 mg tablet RxNorm: 177271 Take 1 Tablet(s) Oral QD 5 No Stop Date Active tamsulosin 0.4 mg capsule RxNorm: 097195 Take 1 Capsule(s) Oral QAM every morning 5 No Stop Date Active loperamide 2 mg tablet RxNorm: 774867 Take 1 Tablet(s) Oral QD as needed 5 No Stop Date Active atorvastatin 20 mg tablet RxNorm: 101887 Take 1 Tablet(s) Oral QHS every night at bedtime 5 No Stop Date Active magnesium 400 mg (as magnesium oxide) tablet RxNorm: 419838 Take 1 Tablet(s) Oral BID 5 No Stop Date Active aspirin 325 mg tablet RxNorm: 081880 Take 1 Tablet(s) Oral QD as needed 5 025 Inactive psyllium oral powder RxNorm: Take 1 Teaspoon(s) Oral QD as needed 5 No Stop Date Active Antacid 200 mg (as calcium carbonate 500 mg) chewable tablet RxNorm: 112682 Take 2 Tablet(s) Oral Q1H every hour as needed 5 No Stop Date Active hydrocortisone 1 % topical cream RxNorm: 639697 Apply 1 Application Topical QD as needed 5 No Stop Date Active trazodone 50 mg tablet RxNorm: 862744 Take 1 Tablet(s) Oral QHS every night at bedtime 5 No Stop Date Active finasteride 5 mg tablet RxNorm: 177613 Take 1 Tablet(s) Oral QAM every morning 5 No Stop Date Active levothyroxine 75 mcg tablet RxNorm: 347494 Take 1 Tablet(s) Oral QD 5 No Stop Date Active acetaminophen 325 mg tablet RxNorm: 706042 Take 2 Tablet(s) Oral Q4H every four hours as needed 5 No Stop Date Active Claritin 10 mg tablet RxNorm: 716978 Take 1 Tablet(s) Oral QD as needed 5 No Stop Date Active guaifenesin 100 mg/5 mL oral liquid RxNorm: 758206 Take 10 Milliliter(s) Oral Q4H every four hours as needed 5 No Stop Date Active omeprazole 20 mg capsule,delayed release RxNorm: 854045 Take 1 Capsule(s) Oral BID 5 No Stop Date Active Xarelto 20 mg tablet RxNorm: 8823330 Take 1 Tablet(s) Oral QPM every evening 5 No Stop Date Active metoprolol tartrate 50 mg tablet RxNorm: 209593 Take 1/2 Tablet(s) Oral BID 4 No Stop Date Active Triple Antibiotic Plus topical RxNorm: 228352 topical 5 Active menthol mucous membrane RxNorm: [...] data Assessments Condition Codes Effective Dates Notes COPD (chronic obstructive pu lmonary disease) ICD-10: J44.9 ICD-9: 496 11/28/2024 No note found Alzheimer's dementia ICD-10: G30.9 ICD-9: 331.0 11/28/2024 No note found Essential hypertension ICD-10: I10 ICD-9: 401.9 11/28/2024 No note found Reason For Visit No Reason For Visit data Review of Systems No Review of Systems data Physical Exam No Physical Exam data Procedures Procedure Codes Date SYST BP GE 130 - 139MM HG CPT-4: 3075F 2024 DIAST BP <80 MM HG CPT-4: 3078F 11/28/2024 TOBACCO Education CPT-4: TOBACCO 11/28/2024 Vital Signs Date Vital 11/28/2024 Blood Pressure 1: 135/60 Code: 8480-6 BMI: 28.1 Code: 80953-7 Heart Rate 1: 58 bpm Code: 8867-4 Height: 5'11 Code: 8302-2 Respiratory Rate: 18 bpm SpO2: 95% Temperature: 36.3 (C) / 97.4 (F) Weight: 201 lbs 5 oz Code: 3141-9 Functional Status Functional / [...] Encounter Performer Location Location Address Codes Date (80719) Home Visit - Est Pt, moderate Diagnosis: COPD (chronic obstructive pulmonary disease)[ICD10: J44.9] Diagnosis: Alzheimer's dementia[ICD10: G30.9] Diagnosis: Essential hypertension[ICD10 : I10] Eugenia Burgos [address] [address] CPT-4: 71380 11/28/2024 Plan of Care Planned Activity Notes Codes Status Date Patient Education: Patient Medication Summary Completed 11/28/2024 Patient Education: Influenza Complet ed 11/28/2024 Patient Education: Smoking Cessation Completed 11/28/2024 Appointment: Eugenia Burgos WPtel: [phone] [facility] 10/10/2024 Appointment: Eugenia Burgos WPtel: [address] 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 HTN: within goal range. Continue with 10 mg lisinopril daily. Continue to monitor BP monthly. COPD: Denies any shortness of breath. Does continue to smoke. Some fine expiratory wheezing noted on exam. Will add scheduled DuoNebs treatments for 4 weeks. Reevaluate work of breathing in 4 weeks. . 11/28/2024 Health Concerns Section Concern Status Date (D68.69-289.82) [...] urinary retention and urinary tract infections. The jail prognosis is generally good with appropriate management. [...]
--- OUTSIDE RECORDS SUMMARY | 2025-05-25 16:25 | XMS_ITS | CCD ---
Author Name Eugenia Burgos CNP Address [address] [place] [address] Phone Organization [facility] Phone Care Team Providers Care Cell Installer Name Role Phone Eugenia Burgos CNP Primary Care Provider Unavail able Unavailable Chronic Care Management Unavaila ble Summary Purpose DataExchange Insurance Providers Payer name Policy type / Coverage type Covered democrat ID Effective Begin Date Effective End Date [facility] Medicare Risk [id number] Unknown Unknown Family history Sister Diagnosis Age [...] Assisted Living 10/[address]: 68025399 Current some days smoker 10/10/[address]: 369192262 No Alcohol Consum ption 10/10/2024 Sexually Active? Unknown No 10/10/2024 Children Unknown Has Children 10/10/2024 Caregiver Assessment Unknown Healthcare POA on [facility] 10/10/2024 Patient Health Status Self Assessment [...] Assisted Living 09/[address]: 82347405 Current ever y day smoker 09/04/[address]: 508133241 No Alcohol Consum ption 09/04/2024 Children Unknown Has Children 09/04/2024 Caregiver Assessment Unknown Healthcare POA on fi le 09/04/2024 Marital status Unknown 08/15/[address]: 65362896 Current ever y day smoker 08/15/[address]: 720411504 No Alcohol Consum ption 08/15/2024 Children Unknown Has Children 3 08/15/2024 Allergies, Adverse Reactions, Alerts Substance Reaction Codes Entered Date Inactivated Date Status Augmentin RxNorm: 473433 08/02/2024 No Inactive Da te Active erythromycin RxNorm: 4053 08/02/2024 No Inactive D ate Active Past Medical History Illness Codes Condition Status Onset Date Resolved Date Chronic constipation ICD-10: K59.09 ICD-9: 564.00 Active [...] Unknown ACP (advance care planning) SNOMED CT: 945334939 ICD-10: Z71.89 ICD-9: V65.49 Active 10/10/2024 Unknown [...] 025 Encounter for preventive care SNOMED CT: 912383402 ICD-10: Z00.00 ICD-9: V70.0 Active 10/10/[address]: 400762228 ICD-10: R54 ICD-9: 797 Active 10/10/2024 Unknown [...] Active 09/04/2024 Unknown Tobacco abuse SNOMED CT: 798489864 ICD-10: Z72.0 ICD-9: 305.1 Active 09/04/2024 Unknown Problems Condition Codes Effective Dates Condition St atus Chronic constipation ICD-10: K59.09 ICD-9: 564.00 01/09/2025 Active COPD (chronic obstructive pulmonary disease) ICD-10: J44.9 ICD-9: 496 01/09/2025 Active Impaired gait and mobility ICD-10: R26.8 9 ICD-9: 781.2 01/09/2025 Active Alzheimer's dementia ICD-10: G30.9 ICD-9: 331.0 11/28/2024 Active Essential hypertension ICD-10: I10 ICD-9: 401.9 11/28/2024 Active BPH (benign prostatic hyperplasia) ICD-10: N40.0 ICD-9: 600.00 11/14/2024 Active ACP (advance care planning) SNOMED CT: 3 05699745 ICD-10: Z71.89 ICD-9: V65.49 10/10/2024 Active Acquired hypothyroidism ICD-10: E03.9 ICD-9: 244.9 10/10/2024 Active 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 ICD-10: K22.70 ICD-9: 530.85 10/10/2024 Active Cerebrovascular disease ICD-10: I67.9 ICD-9: 437.9 10/10/2024 Active Dementia in other diseases classified elsewhere, unspecified severity, without behavioral disturbance, psychotic disturbance, mood disturbance, and anxiety ICD-10: F02.80 10/10/2024 Active Encounter for preventive care SNOMED CT: 958031750 ICD-10: Z00.00 ICD-9: V70.0 10/10/[address]: 025393556 ICD-10: R54 ICD-9: 797 10/10/2024 Active HLD [...] ICD-9: 443.9 09/04/2024 Active Tobacco abuse [facility] CT: 467340319 ICD-10: Z72.0 ICD-9: 305.1 09/04/2024 Active Medications Medication Codes Instructions Start Date Stop Date Status Fill Instructions ipratropium 0.5 mg-albuterol 3 mg (2.5 mg base)/3 mL nebulization soln RxNorm: 2042752 Take 3 Milliliter(s) Inhalation BID and BID PRN wheezing/ shortness of breath 5 026 Active Tamiflu 75 mg capsule RxNorm: 487933 Take 1 Capsule(s) Oral QD 5 025 Inactive GFR 79 Tamiflu 75 mg capsule RxNorm: 095024 Take 1 Capsule(s) Oral QD 5 025 Inactive GFR 79 albuterol sulfate HFA 90 mcg/actuation aerosol inhaler RxNorm: 0533247 Take 2 Puff(s) Inhalation Q2H every 2 hours as needed for SOB 5 No Stop Date Active ipratropium 0.5 mg-albuterol 3 mg (2.5 mg base)/3 mL nebulization soln RxNorm: 5276948 Take 3 Milliliter(s) Inhalation QID as needed wheezing/ shortness of breath 5 025 Inactive metformin 500 mg tablet RxNorm: 935279 Take 1 Tablet(s) Oral QAM every morning 5 025 Inactive Milk of Magnesia 400 mg/5 mL oral suspension RxNorm: 230062 Take 30 Milliliter(s) Oral QD as needed 5 No Stop Date Active bisacodyl 10 mg rectal suppository RxNorm: 509554 Insert 1 Suppository Rectal QD as needed 5 No Stop Date Active lisinopril 10 mg tablet RxNorm: 487429 Take 1 Tablet(s) Oral QD 5 No Stop Date Active tamsulosin 0.4 mg capsule RxNorm: 045579 Take 1 Capsule(s) Oral QAM every morning 5 No Stop Date Active loperamide 2 mg tablet RxNorm: 068257 Take 1 Tablet(s) Oral QD as needed 5 No Stop Date Active atorvastatin 20 mg tablet RxNorm: 014721 Take 1 Tablet(s) Oral QHS every night at bedtime 5 No Stop Date Active magnesium 400 mg (as magnesium oxide) tablet RxNorm: 852961 Take 1 Tablet(s) Oral BID 5 No Stop Date Active aspirin 325 mg tablet RxNorm: 686506 Take 1 Tablet(s) Oral QD as needed 5 025 Inactive psyllium oral powder RxNorm: Take 1 Teaspoon(s) Oral QD as needed 5 No Stop Date Active Antacid 200 mg (as calcium carbonate 500 mg) chewable tablet RxNorm: 643832 Take 2 Tablet(s) Oral Q1H every hour as needed 5 No Stop Date Active hydrocortisone 1 % topical cream RxNorm: 628863 Apply 1 Application Topical QD as needed 5 No Stop Date Active trazodone 50 mg tablet RxNorm: 657183 Take 1 Tablet(s) Oral QHS every night at bedtime 5 No Stop Date Active finasteride 5 mg tablet RxNorm: 985699 Take 1 Tablet(s) Oral QAM every morning 5 No Stop Date Active levothyroxine 75 mcg tablet RxNorm: 963666 Take 1 Tablet(s) Oral QD 5 No Stop Date Active acetaminophen 325 mg tablet RxNorm: 480765 Take 2 Tablet(s) Oral Q4H every four hours as needed 5 No Stop Date Active Claritin 10 mg tablet RxNorm: 067997 Take 1 Tablet(s) Oral QD as needed 5 No Stop Date Active guaifenesin 100 mg/5 mL oral liquid RxNorm: 402832 Take 10 Milliliter(s) Oral Q4H every four hours as needed 5 No Stop Date Active omeprazole 20 mg capsule,delayed release RxNorm: 859976 Take 1 Capsule(s) Oral BID 5 No Stop Date Active Xarelto 20 mg tablet RxNorm: 5433039 Take 1 Tablet(s) Oral QPM every evening 5 No Stop Date Active metoprolol tartrate 50 mg tablet RxNorm: 377433 Take 1/2 Tablet(s) Oral BID 4 No Stop Date Active Triple Antibiotic Plus topical RxNorm: 107948 topical 5 Active menthol mucous membrane RxNorm: [...] data Assessments Condition Codes Effective Dates Notes Impaired gait and mobility ICD-10: R26.8 9 ICD-9: 781.2 01/09/2025 No note found COPD (chronic obstructive pu lmonary disease) ICD-10: J44.9 ICD-9: 496 01/09/2025 No note found Chronic constipation ICD-10: K59.09 ICD-9: 564.00 01/09/2025 No note found Reason For Visit No Reason For Visit data Review of Systems No Review of Systems data Physical Exam No Physical Exam data Procedures Procedure Codes Date SYST BP GE 130 - 139MM HG CPT-4: 3075F 2024 DIAST BP 80-89 MM HG CPT-4: 3079F 01/09/2025 TOBACCO Education CPT-4: TOBACCO 01/09/2025 Vital Signs Date Vital 01/09/2025 Blood Pressure 1: 134/89 Code: 8480-6 Heart Rate 1: 74 bpm Code: 8867-4 Respiratory Rate: 18 bpm SpO2: 94% Weight: 211 lbs Code: 3141-9 Functional Status [...] COPD (chronic obstructive pulmonary disease)[ICD10: J44.9] Diagnosis: Chronic constipation[ICD10 : K59.09] Diagnosis: Impaired gait and mobility[ICD10: R26.89] Eugenia Burgos [address] [address] CPT-4: 32881 01/09/2025 Plan of Care Planned Activity Notes Codes Status Date Patient Education: Patient Medication Summary Completed 01/09/2025 Patient Education: Influenza Complet ed 01/09/2025 Patient Education: Smoking Cessation Completed 01/09/2025 Appointment: Eugenia Burgos WPtel: [address] [place], [place] [phone] AWV 10/10/2024 Appointment: Eugenia Burgos WPtel: [address] [employer] [facility] 09/04/2024 Instructions Comment Date Elderly male with a past med ical history of POLST:SLUMS:LAB: POA: 2 daughters Specialists: Patient's preferred name is BillInitial visit 09/04/2024 05/05/2025 COPD: Lung sounds have impro rafa since adding scheduled DuoNebs twice a day. Will continue DuoNebs twice daily and twice daily as needed. Will continue to monitor for fluctuations in breathing. He does continue to smoke as well. CONSTIPATION has history of chronic constipation. Does continue with fiber supplement. IMPAIRED GAIT AND MOBILITY: Remains high fall risk due to age and comorbidities. Uses assistive device for mobility. Will continue fall prevention measures. No falls reported by nursing staff in the last month. . 01/09/2025 Health Concerns Section Concern Status Date (D68.69-289.82) [...] urinary retention and urinary tract infections. The [facility] prognosis is generally good with appropriate management. [...]
--- OUTSIDE RECORDS SUMMARY | 2025-05-25 16:26 | XMS_ITS | CCD ---
Author Organization Unknown Care Team Providers Care Instruction Dean Name Role Phone Aubrey JLUISEugenia Primary Care Provider Unavail able Unavailable Chronic Care Management Unavaila ble Summary Purpose DataExchange Insurance Providers Payer name Policy type / Coverage type Covered green party ID Effective Begin Date Effective End Date [facility] Medicare Risk [id number] Unknown Unknown Family history Sister Diagnosis Age [...] Assisted Living 09/[address]: 51762109 Current every day smoker 09/04/[address]: 609194143 No Alcohol Consum ption 09/04/2024 Children Unknown Has Children 09/04/2024 Caregiver Assessment Unknown Healthcare POA on [facility] 09/04/2024 Marital status Unknown 08/15/[address]: 30844314 Current every day smoker 08/15/[address]: 054236338 No Alcohol Consum ption 08/15/2024 Children Unknown Has Children 3 08/15/2024 Allergies, Adverse Reactions, Alerts Substance Reaction Codes Entered Date Inactivated Date Status Augmentin RxNorm: 644547 08/02/2024 No Inactive Da te Active erythromycin [...] Active 09/04/2024 10/10/[address]: 740399472 ICD-10: Z72.0 ICD-9: 305.1 Active 09/04/2024 Unknown [...] 296.35 09/04/2024 Active Tobacco abuse SNOMED CT: 284109106 ICD-10: Z72.0 ICD-9: 305.1 09/04/2024 Active Type 2 diabetes mellitus ICD-10: E11.9 ICD-9: 250.00 09/04/2024 Active Unspecified atrial fibrillation ICD-10: I48.91 025 Active Medications Medication Codes Instructions Start Date Stop Date Status Fill Instructions Tamiflu 75 mg capsule RxNorm: 387141 Take 1 Capsule(s) Oral QD 5 025 Inactive GFR 79 Tamiflu 75 mg capsule RxNorm: 567268 Take 1 Capsule(s) Oral QD 5 025 Inactive GFR 79 ipratropium 0.5 mg-albuterol 3 mg (2.5 mg base)/3 mL nebulization soln RxNorm: 0451392 Take 3 Milliliter(s) Inhalation QID as needed wheezing/ shortness of breath 5 025 Inactive albuterol sulfate HFA 90 mcg/actuation aerosol inhaler RxNorm: 6664156 Take 2 Puff(s) Inhalation Q2H every 2 hours as needed for SOB 5 No Stop Date Active metformin 500 mg tablet RxNorm: 393641 Take 1 Tablet(s) Oral QAM every morning 5 025 Inactive Milk of Magnesia 400 mg/5 mL oral suspension RxNorm: 538817 Take 30 Milliliter(s) Oral QD as needed 5 No Stop Date Active bisacodyl 10 mg rectal suppository RxNorm: 516549 Insert 1 Suppository Rectal QD as needed 5 No Stop Date Active lisinopril 10 mg tablet RxNorm: 522952 Take 1 Tablet(s) Oral QD 5 No Stop Date Active tamsulosin 0.4 mg capsule RxNorm: 437774 Take 1 Capsule(s) Oral QAM every morning 5 No Stop Date Active loperamide 2 mg tablet RxNorm: 256439 Take 1 Tablet(s) Oral QD as needed 5 No Stop Date Active atorvastatin 20 mg tablet RxNorm: 248440 Take 1 Tablet(s) Oral QHS every night at bedtime 5 No Stop Date Active magnesium 400 mg (as magnesium oxide) tablet RxNorm: 364760 Take 1 Tablet(s) Oral BID 5 No Stop Date Active aspirin 325 mg tablet RxNorm: 005570 Take 1 Tablet(s) Oral QD as needed 5 025 Inactive psyllium oral powder RxNorm: Take 1 Teaspoon(s) Oral QD as needed 5 No Stop Date Active Antacid 200 mg (as calcium carbonate 500 mg) chewable tablet RxNorm: 404473 Take 2 Tablet(s) Oral Q1H every hour as needed 5 No Stop Date Active hydrocortisone 1 % topical cream RxNorm: 265852 Apply 1 Application Topical QD as needed 5 No Stop Date Active trazodone 50 mg tablet RxNorm: 085208 Take 1 Tablet(s) Oral QHS every night at bedtime 5 No Stop Date Active finasteride 5 mg tablet RxNorm: 631750 Take 1 Tablet(s) Oral QAM every morning 5 No Stop Date Active levothyroxine 75 mcg tablet RxNorm: 491317 Take 1 Tablet(s) Oral QD 5 No Stop Date Active acetaminophen 325 mg tablet RxNorm: 960457 Take 2 Tablet(s) Oral Q4H every four hours as needed 5 No Stop Date Active Claritin 10 mg tablet RxNorm: 183208 Take 1 Tablet(s) Oral QD as needed 5 No Stop Date Active guaifenesin 100 mg/5 mL oral liquid RxNorm: 455868 Take 10 Milliliter(s) Oral Q4H every four hours as needed 5 No Stop Date Active omeprazole 20 mg capsule,delayed release RxNorm: 731418 Take 1 Capsule(s) Oral BID 5 No Stop Date Active Xarelto 20 mg tablet RxNorm: 5496540 Take 1 Tablet(s) Oral QPM every evening 5 No Stop Date Active Triple Antibiotic Plus topical RxNorm: 182753 topical 5 Active menthol mucous membrane RxNorm: [...] Medical Equipment No Medical Equipment data Assessments No Assessment data Reason For Visit No Reason For Visit data Review of Systems No Review of Systems data Physical Exam No Physical Exam data Functional Status Functional / Cognitive Codes Status [...] data Advance Directives No Advance Directive data Instructions Comment Date Elderly male with a past med ical history of POLST:SLUMS:LAB: POA: 2 daughters Specialists: Patient's preferred name is BillInitial visit 09/04/2024 05/05/2025 Health Concerns Section Concern Status Date (D68.69-289.82) [...] urinary retention and urinary tract infections. [facility] generally good with appropriate management. [...]
--- OUTSIDE RECORDS SUMMARY | 2025-05-25 16:26 | XMS_ITS | CCD ---
Author Name Eugenia Burgos CNP Address [address] [place] [address] Phone Organization [facility] Phone Care Team Providers Care Export Specialist Name Role Phone Eugenia Burgos CNP Primary Care Provider Unavail able Unavailable Chronic Care Management Unavaila ble Summary Purpose DataExchange Insurance Providers Payer name Policy type / Coverage type Covered constitution party ID Effective Begin Date Effective End Date [facility] Medicare Risk [id number] Unknown Unknown Family history Sister Diagnosis Age [...] Assisted Living 10/[address]: 94710319 Current some days smoker 10/10/[address]: 106072617 No Alcohol Consum ption 10/10/2024 Sexually Active? Unknown No 10/10/2024 Children Unknown Has Children 10/10/2024 Caregiver Assessment Unknown Healthcare POA on [facility] 10/10/2024 Patient Health Status Self [...] Assisted Living 09/[address]: 80317584 Current ever y day smoker 09/04/[address]: 288137466 No Alcohol Consum ption 09/04/2024 Children Unknown Has Children 09/04/2024 Caregiver Assessment Unknown Healthcare POA on fi le 09/04/2024 Marital status Unknown 08/15/[address]: 57460667 Current ever y day smoker 08/15/[address]: 991255475 No Alcohol Consum ption 08/15/2024 Children Unknown Has Children 3 08/15/2024 Allergies, Adverse Reactions, Alerts Substance Reaction Codes Entered Date Inactivated Date Status Augmentin RxNorm: 068807 08/02/2024 No Inactive Da te Active erythromycin RxNorm: 4053 08/02/2024 No Inactive D ate Active Past Medical History Illness Codes Condition Status Onset Date Resolved Date COPD (chronic obstructive pulmonary disease) ICD-10: J44.9 ICD-9: 496 Active 03/10/2025 Unknown Dementia in other diseases classified elsewhere, unspecified severity, without behavioral disturbance, psychotic disturbance, mood disturbance, and anxiety ICD-10: F02.80 Active 03/10/2025 Unknown Recurrent major depressive disorder, in partial remission ICD-10: F33.41 ICD-9: 296.35 Active 03/10/2025 04/14/2025 Type 2 diabetes mellitus ICD-10: E11.9 ICD-9: [...] Unknown ACP (advance care planning) SNOMED CT: 636736324 ICD-10: Z71.89 ICD-9: V65.49 Active 10/10/2024 Unknown 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 ICD-10: K22.70 ICD-9: 530.85 Active 10/10/2024 Unknown Cerebrovascular disease ICD-10: I67.9 ICD-9: 437.9 Active 10/10/2024 Unknown Encounter for preventive care SNOMED CT: 389943318 ICD-10: Z00.00 ICD-9: V70.0 Active 10/10/[address]: 984442106 ICD-10: R54 ICD-9: 797 Active 10/10/2024 Unknown [...] Active 09/04/2024 Unknown Tobacco abuse SNOMED CT: 959062052 ICD-10: Z72.0 ICD-9: 305.1 Active 09/04/2024 Unknown Problems Condition Codes Effective Dates Condition [facility] COPD (chronic obstructive pulmonary disease) ICD-10: J44.9 ICD-9: 496 03/10/2025 Active Dementia in other diseases classified elsewhere, unspecified severity, without behavioral disturbance, psychotic disturbance, mood disturbance, and anxiety ICD-10: F02.80 03/10/2025 Active Recurrent major depressive disorder, in partial remission ICD-10: F33.41 ICD-9: 296.35 03/10/2025 Active Type 2 diabetes mellitus ICD-10: [...] ACP (advance care planning) SNOMED CT: 3 58337451 ICD-10: Z71.89 ICD-9: V65.49 10/10/2024 Active 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 ICD-10: K22.70 ICD-9: 530.85 10/10/2024 Active Cerebrovascular disease ICD-10: I67.9 ICD-9: 437.9 10/10/2024 Active Encounter for preventive care SNOMED CT: 704830434 ICD-10: Z00.00 ICD-9: V70.0 10/10/[address]: 007379715 ICD-10: R54 ICD-9: 797 10/10/2024 Active HLD [...] I73.9 ICD-9: 443.9 09/04/2024 [facility] ICD-10: Z72.0 ICD-9: 305.1 09/04/2024 Active Medications Medication Codes Instructions Start Date Stop Date Status Fill Instructions escitalopram 5 mg tablet RxNorm: 652937 Take 1 Tablet(s) Oral QD 5 026 Active metformin 500 mg tablet RxNorm: 536171 Take 1 Tablet(s) Oral BID 5 026 Active senna 8.6 mg tablet RxNorm: 511856 Take 2 Tablet(s) Oral QD as needed 5 No Stop Date Active ipratropium 0.5 mg-albuterol 3 mg (2.5 mg base)/3 mL nebulization soln RxNorm: 2751336 Take 3 Milliliter(s) Inhalation BID and BID PRN wheezing/ shortness of breath 5 026 Active Tamiflu 75 mg capsule RxNorm: 557662 Take 1 Capsule(s) Oral QD 5 025 Inactive GFR 79 Tamiflu 75 mg capsule RxNorm: 686582 Take 1 Capsule(s) Oral QD 5 025 Inactive GFR 79 albuterol sulfate HFA 90 mcg/actuation aerosol inhaler RxNorm: 4797951 Take 2 Puff(s) Inhalation Q2H every 2 hours as needed for SOB 5 No Stop Date Active ipratropium 0.5 mg-albuterol 3 mg (2.5 mg base)/3 mL nebulization soln RxNorm: 6889348 Take 3 Milliliter(s) Inhalation QID as needed wheezing/ shortness of breath 5 025 Inactive Milk of Magnesia 400 mg/5 mL oral suspension RxNorm: 426745 Take 30 Milliliter(s) Oral QD as needed 5 No Stop Date Active bisacodyl 10 mg rectal suppository RxNorm: 099432 Insert 1 Suppository Rectal QD as needed 5 No Stop Date Active lisinopril 10 mg tablet RxNorm: 268000 Take 1 Tablet(s) Oral QD 5 No Stop Date Active tamsulosin 0.4 mg capsule RxNorm: 262702 Take 1 Capsule(s) Oral QAM every morning 5 No Stop Date Active loperamide 2 mg tablet RxNorm: 043753 Take 1 Tablet(s) Oral QD as needed 5 No Stop Date Active atorvastatin 20 mg tablet RxNorm: 421809 Take 1 Tablet(s) Oral QHS every night at bedtime 5 No Stop Date Active magnesium 400 mg (as magnesium oxide) tablet RxNorm: 915215 Take 1 Tablet(s) Oral BID 5 No Stop Date Active psyllium oral powder RxNorm: Take 1 Teaspoon(s) Oral QD as needed 5 No Stop Date Active Antacid 200 mg (as calcium carbonate 500 mg) chewable tablet RxNorm: 504150 Take 2 Tablet(s) Oral Q1H every hour as needed 5 No Stop Date Active hydrocortisone 1 % topical cream RxNorm: 032687 Apply 1 Application Topical QD as needed 5 No Stop Date Active trazodone 50 mg tablet RxNorm: 194529 Take 1 Tablet(s) Oral QHS every night at bedtime 5 No Stop Date Active finasteride 5 mg tablet RxNorm: 788379 Take 1 Tablet(s) Oral QAM every morning 5 No Stop Date Active levothyroxine 75 mcg tablet RxNorm: 764206 Take 1 Tablet(s) Oral QD 5 No Stop Date Active acetaminophen 325 mg tablet RxNorm: 360841 Take 2 Tablet(s) Oral Q4H every four hours as needed 5 No Stop Date Active Claritin 10 mg tablet RxNorm: 860926 Take 1 Tablet(s) Oral QD as needed 5 No Stop Date Active guaifenesin 100 mg/5 mL oral liquid RxNorm: 403107 Take 10 Milliliter(s) Oral Q4H every four hours as needed 5 No Stop Date Active omeprazole 20 mg capsule,delayed release RxNorm: 394974 Take 1 Capsule(s) Oral BID 5 No Stop Date Active Xarelto 20 mg tablet RxNorm: 1135397 Take 1 Tablet(s) Oral QPM every evening 5 No Stop Date Active metformin 500 mg tablet RxNorm: 433375 Take 1 Tablet(s) Oral QAM every morning 5 025 Inactive aspirin 325 mg tablet RxNorm: 267142 Take 1 Tablet(s) Oral QD as needed 5 025 Inactive metoprolol tartrate 50 mg tablet RxNorm: 758134 Take 1/2 Tablet(s) Oral BID 4 No Stop Date Active Triple Antibiotic Plus topical RxNorm: 976488 topical 5 Active menthol mucous membrane RxNorm: [...] in partial remission ICD-10: F33.41 ICD-9: 296.35 03/10/2025 No note found COPD (chronic obstructive pu lmonary disease) ICD-10: J44.9 ICD-9: 496 03/10/2025 No note found Type 2 diabetes mellitus ICD-10: E11.9 ICD-9: 250.00 03/10/2025 No note found Dementia in other diseases c lassified elsewhere, unspecified severity, without behavioral disturbance, psychotic disturbance, mood disturbance, and anxiety ICD-10: F02.80 03/10/2025 No note found Reason For Visit No Reason For Visit data Review of Systems No Review of Systems data Physical Exam No Physical Exam data Procedures Procedure Codes Date HG A1C LEVEL 8.0-9.0% CPT-4: 3052F 03/10/2025 SYST BP LT 130 MM HG CPT-4: 3074F 03/10/2025 DIAST BP <80 MM HG CPT-4: 3078F 03/10/2025 TOBACCO Education CPT-4: TOBACCO 03/10/2025 Vital Signs Date Vital 03/10/2025 Blood Pressure 1: 119/58 Code: 8480-6 BMI: 29.9 Code: 45397-5 Heart Rate 1: 57 bpm Code: 8867-4 Height: 5'11 Code: 8302-2 Respiratory Rate: 18 bpm SpO2: 93% Temperature: 36.4 (C) / 97.5 (F) Weight: 214 lbs 7 oz Code: 3141-9 Functional Status [...] Encounter Performer Location Location Address Codes Date (16703) Home Visit - Est Pt, moderate Diagnosis: Type 2 diabetes mellitus[ICD10: E11.9] Diagnosis: Recurrent major depressive disorder, 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] Diagnosis: COPD (chronic obstructive pulmonary disease)[ICD10: J44.9] Diagnosis: Dementia in other diseases classified elsewhere, unspecified severity, without behavioral disturbance, psychotic disturbance, mood disturbance, and anxiety[ICD10: F02.80] [facility] [address] [place] [address] CPT-4: 68527 03/10/2025 Plan of Care Planned Activity Notes Codes Status Date Patient Education: Patient Medication Summary Completed 03/10/2025 Patient Education: Influenza Complet ed 03/10/2025 Patient Education: Smoking Cessation Completed 03/10/2025 Appointment: Eugenia Burgos WPtel: [address] [facility] [address] [id number] AWV 10/10/2024 Appointment: Eugenia Burgos WPtel: [address] [facility] [address] 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 Plan to trial starting escitalopram 5 mg daily. DEMENTIA: Nursing expresses no acute concerns regarding behaviors or safety. Remains appropriate for memory care setting. Ongoing decline is expected due to progressive nature of disease process. Will continue to monitor for changes in mood or behavior every 4 to 6 weeks. TYPE 2 DIABETES: Recent hemoglobin A1c elevated to 8.5%. Plan to increase metformin to 500 mg twice daily. COPD: Lung sounds heard after completing nebulizer. He does continue to have coarse lung sounds in right lower lobe. Plan to obtain chest x-ray to evaluate for infection.. 03/10/2025 Health Concerns Section Concern Status Date (D68.69-289.82) [...] urinary retention and urinary tract infections. 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 [...]
--- OUTSIDE RECORDS SUMMARY | 2025-05-25 16:26 | XMS_ITS | CCD ---
Author Name Eugenia Burgos CNP Address [address] [place] [address] Phone Organization [facility] Phone Care Team Providers Care Measurement Superintendent Name Role Phone Eugenia Burgos CNP Primary Care Provider Unavail able Unavailable Chronic Care Management Unavaila ble Summary Purpose DataExchange Insurance Providers Payer name Policy type / Coverage type Covered libertarian ID Effective Begin Date Effective End Date [facility] Medicare Risk [id number] Unknown Unknown Family history Sister Diagnosis Age [...] Assisted Living 10/[address]: 11523750 Current some days smoker 10/10/[address]: 767341438 No Alcohol Consum ption 10/10/2024 Sexually Active? Unknown No 10/10/2024 Children Unknown Has Children 10/10/2024 Caregiver Assessment Unknown Healthcare POA on [facility] 10/10/2024 Patient Health Status Self [...] Assisted Living 09/[address]: 57841217 Current ever y day smoker 09/04/[address]: 543195937 No Alcohol Consum ption 09/04/2024 Children Unknown Has Children 09/04/2024 Caregiver Assessment Unknown Healthcare POA on le 09/04/2024 Marital status Unknown 08/15/[address]: 53331017 Current ever y day smoker 08/15/[address]: 515072045 No Alcohol Consum ption 08/15/2024 Children Unknown Has Children 3 08/15/2024 Allergies, Adverse Reactions, Alerts Substance Reaction Codes Entered Date Inactivated Date Status Augmentin RxNorm: 144198 08/02/2024 No Inactive Da te Active erythromycin [...] Unknown ACP (advance care planning) SNOMED CT: 623200829 ICD-10: Z71.89 ICD-9: V65.49 Active 10/10/2024 Unknown [...] 025 Encounter for preventive care SNOMED CT: 918074195 ICD-10: Z00.00 ICD-9: V70.0 Active 10/10/[address]: 663983972 ICD-10: R54 ICD-9: 797 Active 10/10/2024 Unknown [...] Active 09/04/2024 Unknown Tobacco abuse SNOMED CT: 104399887 ICD-10: Z72.0 ICD-9: 305.1 Active 09/04/2024 Unknown Problems Condition Codes Effective Dates Condition [facility] Alzheimer's dementia ICD-10: G30.9 ICD-9: 331.0 11/28/2024 Active COPD (chronic obstructive pulmonary disease) ICD-10: J44.9 ICD-9: 496 11/28/2024 Active Essential hypertension ICD-10: I10 ICD-9: 401.9 11/28/2024 Active BPH (benign prostatic hyperplasia) ICD-10: N40.0 ICD-9: 600.00 11/14/2024 Active ACP (advance care planning) SNOMED CT: 3 41325787 ICD-10: Z71.89 ICD-9: V65.49 10/10/2024 Active Acquired [...] Active Encounter for preventive care SNOMED CT: 709888499 ICD-10: Z00.00 ICD-9: V70.0 10/10/[address]: 567198289 ICD-10: R54 ICD-9: 797 10/10/2024 Active HLD [...] I73.9 ICD-9: 443.9 09/04/2024 Active Tobacco abuse [facility]: 270036563 ICD-10: Z72.0 ICD-9: 305.1 09/04/2024 Active Medications Medication Codes Instructions Start Date Stop Date Status Fill Instructions ipratropium 0.5 mg-albuterol 3 mg (2.5 mg base)/3 mL nebulization soln RxNorm: 3742812 Take 3 Milliliter(s) Inhalation BID and BID PRN wheezing/ shortness of breath 5 026 Active Tamiflu 75 mg capsule RxNorm: 431435 Take 1 Capsule(s) Oral QD 5 025 Inactive GFR 79 Tamiflu 75 mg capsule RxNorm: 133456 Take 1 Capsule(s) Oral QD 5 025 Inactive GFR 79 albuterol sulfate HFA 90 mcg/actuation aerosol inhaler RxNorm: 4868915 Take 2 Puff(s) Inhalation Q2H every 2 hours as needed for SOB 5 No Stop Date Active ipratropium 0.5 mg-albuterol 3 mg (2.5 mg base)/3 mL nebulization soln RxNorm: 1872161 Take 3 Milliliter(s) Inhalation QID as needed wheezing/ shortness of breath 5 025 Inactive metformin 500 mg tablet RxNorm: 035319 Take 1 Tablet(s) Oral QAM every morning 5 025 Inactive Milk of Magnesia 400 mg/5 mL oral suspension RxNorm: 860260 Take 30 Milliliter(s) Oral QD as needed 5 No Stop Date Active bisacodyl 10 mg rectal suppository RxNorm: 857059 Insert 1 Suppository Rectal QD as needed 5 No Stop Date Active lisinopril 10 mg tablet RxNorm: 672004 Take 1 Tablet(s) Oral QD 5 No Stop Date Active tamsulosin 0.4 mg capsule RxNorm: 832246 Take 1 Capsule(s) Oral QAM every morning 5 No Stop Date Active loperamide 2 mg tablet RxNorm: 028340 Take 1 Tablet(s) Oral QD as needed 5 No Stop Date Active atorvastatin 20 mg tablet RxNorm: 523857 Take 1 Tablet(s) Oral QHS every night at bedtime 5 No Stop Date Active magnesium 400 mg (as magnesium oxide) tablet RxNorm: 297851 Take 1 Tablet(s) Oral BID 5 No Stop Date Active aspirin 325 mg tablet RxNorm: 435849 Take 1 Tablet(s) Oral QD as needed 5 025 Inactive psyllium oral powder RxNorm: Take 1 Teaspoon(s) Oral QD as needed 5 No Stop Date Active Antacid 200 mg (as calcium carbonate 500 mg) chewable tablet RxNorm: 892552 Take 2 Tablet(s) Oral Q1H every hour as needed 5 No Stop Date Active hydrocortisone 1 % topical cream RxNorm: 805261 Apply 1 Application Topical QD as needed 5 No Stop Date Active trazodone 50 mg tablet RxNorm: 171690 Take 1 Tablet(s) Oral QHS every night at bedtime 5 No Stop Date Active finasteride 5 mg tablet RxNorm: 724030 Take 1 Tablet(s) Oral QAM every morning 5 No Stop Date Active levothyroxine 75 mcg tablet RxNorm: 183947 Take 1 Tablet(s) Oral QD 5 No Stop Date Active acetaminophen 325 mg tablet RxNorm: 447880 Take 2 Tablet(s) Oral Q4H every four hours as needed 5 No Stop Date Active Claritin 10 mg tablet RxNorm: 746817 Take 1 Tablet(s) Oral QD as needed 5 No Stop Date Active guaifenesin 100 mg/5 mL oral liquid RxNorm: 020038 Take 10 Milliliter(s) Oral Q4H every four hours as needed 5 No Stop Date Active omeprazole 20 mg capsule,delayed release RxNorm: 988633 Take 1 Capsule(s) Oral BID 5 No Stop Date Active Xarelto 20 mg tablet RxNorm: 6387654 Take 1 Tablet(s) Oral QPM every evening 5 No Stop Date Active metoprolol tartrate 50 mg tablet RxNorm: 408663 Take 1/2 Tablet(s) Oral BID 4 No Stop Date Active Triple Antibiotic Plus topical RxNorm: 143617 topical 5 Active menthol mucous membrane RxNorm: [...] Item Item Code Result Date Service Location UA with Microscopic Reflex to Culture 49675 COLOR Yellow 12/19/19 Unknown UA with Microscopic Reflex to Culture 65087 Appearance Clear 12/19/19 25 Unknown UA with Microscopic Reflex to Culture [id number] GLUCOSE, URINE 100 mg/dL 12/19/19 25 Unknown UA with Microscopic Reflex to Culture 40513 BILIRUBIN, URINE Negative 12/19/19 Unknown UA with Microscopic Reflex to Culture 58630 Ketones Urine Negative mg/dL 12/19/19 25 Unknown UA with Microscopic Reflex to Culture 61584 Specific [place] Urine 1.022 12/19/19 Unknown UA with Microscopic Reflex to Culture 48371 BLOOD, URINE Large 12/19/19 25 Unknown UA with Microscopic Reflex to Culture 36592 pH Urine 5.5 12/19/19 25 Unknown UA with Microscopic Reflex to Culture 92713 Protein urine Negative mg/dL 12/19/19 25 Unknown UA with Microscopic Reflex to Culture 48860 UROBILINOGEN IRIS Normal mg/dL 12/19/19 25 Unknown UA with Microscopic Reflex to Culture 42367 Nitrites Negative 12/19/19 25 Unknown UA with Microscopic Reflex to Culture 55860 LEUK ESTERASE Negative 12/19/19 25 Unknown UA with Microscopic Reflex to Culture 93561 Mucus Urine Present /LPF 12/19/19 25 Unknown UA with Microscopic Reflex to Culture 19550 RBC Urine 44 /HPF 12/19/19 25 Unknown UA with Microscopic Reflex to Culture 78996 CALCIUM OXALATE Few /HPF 12/19/19 25 Unknown UA with Microscopic Reflex to Culture 78030 WBC Urine 53726-9 2 /HPF 12/19/19 25 Unknown UA with Microscopic Reflex to Culture 77844 SQUAMOUS EPITHELIAL <1 /HPF 12/19/19 25 Unknown Review of Systems No Review [...] data Advance Directives No Advance Directive data Plan of Care Planned Activity Notes Codes Status Date Appointment: Eugenia Burgos WPtel: [address] [facility] [address] [id number] 10/10/2024 Appointment: Eugenia Burgos WPtel: [address] [facility] 300 [id number] 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
--- OUTSIDE RECORDS SUMMARY | 2025-05-25 16:27 | XMS_ITS | CCD ---
Author Name Euegnia Burgos CNP Address [address] [place] [address] Phone Organization [facility] Phone Care Team Providers Care Concert Or Lecture Hall Manager Name Role Phone Eugenia Burgos CNP Primary Care Provider Unavail able Unavailable Chronic Care Management Unavaila ble Summary Purpose DataExchange Insurance Providers Payer name Policy type / Coverage type Covered constitution party ID Effective Begin Date Effective End Date [facility] Medicare Risk [id number] Unknown Unknown Family history Sister Diagnosis Age [...] Assisted Living 10/[address]: 23334405 Current some days smoker 10/10/[address]: 558498876 No Alcohol Consum ption 10/10/2024 Sexually Active? Unknown No 10/10/2024 Children Unknown Has Children 10/10/2024 Caregiver Assessment Unknown Healthcare POA on [facility] 10/10/2024 Patient Health Status Self Assessment [...] Assisted Living 09/[address]: 47500200 Current ever y day smoker 09/04/[address]: 392475200 No Alcohol Consum ption 09/04/2024 Children Unknown Has Children 09/04/2024 Caregiver Assessment Unknown Healthcare POA on fi le 09/04/2024 Marital status Unknown 08/15/[address]: 79995727 Current ever y day smoker 08/15/[address]: 236605888 No Alcohol Consum ption 08/15/2024 Children Unknown Has Children 3 08/15/2024 Allergies, Adverse Reactions, Alerts Substance Reaction Codes Entered Date Inactivated Date Status Augmentin RxNorm: 342322 08/02/2024 No Inactive Da te Active erythromycin [...] Unknown ACP (advance care planning) SNOMED CT: 059742201 ICD-10: Z71.89 ICD-9: V65.49 Active 10/10/2024 Unknown 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 ICD-10: K22.70 ICD-9: 530.85 Active 10/10/2024 Unknown Cerebrovascular disease ICD-10: I67.9 ICD-9: 437.9 Active 10/10/2024 Unknown Encounter for preventive care SNOMED CT: 640078948 ICD-10: Z00.00 ICD-9: V70.0 Active 10/10/[address]: 714798237 ICD-10: R54 ICD-9: 797 Active 10/10/2024 Unknown [...] Active 09/04/2024 Unknown Tobacco abuse SNOMED CT: 617277472 ICD-10: Z72.0 ICD-9: 305.1 Active 09/04/2024 Unknown [...] ACP (advance care planning) SNOMED CT: 3 04927772 ICD-10: Z71.89 ICD-9: V65.49 10/10/2024 Active 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 ICD-10: K22.70 ICD-9: 530.85 10/10/2024 Active Cerebrovascular disease ICD-10: I67.9 ICD-9: 437.9 10/10/2024 Active Encounter for preventive care SNOMED CT: 355532652 ICD-10: Z00.00 ICD-9: V70.0 10/10/[address]: 895185561 ICD-10: R54 ICD-9: 797 10/10/2024 Active HLD [...] I73.9 ICD-9: 443.9 09/04/2024 Active Tobacco abuse [facility] CT: 752026506 ICD-10: Z72.0 ICD-9: 305.1 09/04/2024 Active Medications Medication Codes Instructions Start Date Stop Date Status Fill Instructions escitalopram 5 mg tablet RxNorm: 270278 Take 1 Tablet(s) Oral QD 5 026 Active metformin 500 mg tablet RxNorm: 663802 Take 1 Tablet(s) Oral BID 5 026 Active senna 8.6 mg tablet RxNorm: 481923 Take 2 Tablet(s) Oral QD as needed 5 No Stop Date Active ipratropium 0.5 mg-albuterol 3 mg (2.5 mg base)/3 mL nebulization soln RxNorm: 6743823 Take 3 Milliliter(s) Inhalation BID and BID PRN wheezing/ shortness of breath 5 026 Active Tamiflu 75 mg capsule RxNorm: 594986 Take 1 Capsule(s) Oral QD 5 025 Inactive GFR 79 Tamiflu 75 mg capsule RxNorm: 857330 Take 1 Capsule(s) Oral QD 5 025 Inactive GFR 79 albuterol sulfate HFA 90 mcg/actuation aerosol inhaler RxNorm: 9602017 Take 2 Puff(s) Inhalation Q2H every 2 hours as needed for SOB 5 No Stop Date Active ipratropium 0.5 mg-albuterol 3 mg (2.5 mg base)/3 mL nebulization soln RxNorm: 4357994 Take 3 Milliliter(s) Inhalation QID as needed wheezing/ shortness of breath 5 025 Inactive Milk of Magnesia 400 mg/5 mL oral suspension RxNorm: 890017 Take 30 Milliliter(s) Oral QD as needed 5 No Stop Date Active bisacodyl 10 mg rectal suppository RxNorm: 389514 Insert 1 Suppository Rectal QD as needed 5 No Stop Date Active lisinopril 10 mg tablet RxNorm: 457510 Take 1 Tablet(s) Oral QD 5 No Stop Date Active tamsulosin 0.4 mg capsule RxNorm: 653139 Take 1 Capsule(s) Oral QAM every morning 5 No Stop Date Active loperamide 2 mg tablet RxNorm: 184149 Take 1 Tablet(s) Oral QD as needed 5 No Stop Date Active atorvastatin 20 mg tablet RxNorm: 649333 Take 1 Tablet(s) Oral QHS every night at bedtime 5 No Stop Date Active magnesium 400 mg (as magnesium oxide) tablet RxNorm: 992640 Take 1 Tablet(s) Oral BID 5 No Stop Date Active psyllium oral powder RxNorm: Take 1 Teaspoon(s) Oral QD as needed 5 No Stop Date Active Antacid 200 mg (as calcium carbonate 500 mg) chewable tablet RxNorm: 400789 Take 2 Tablet(s) Oral Q1H every hour as needed 5 No Stop Date Active hydrocortisone 1 % topical cream RxNorm: 184357 Apply 1 Application Topical QD as needed 5 No Stop Date Active trazodone 50 mg tablet RxNorm: 334397 Take 1 Tablet(s) Oral QHS every night at bedtime 5 No Stop Date Active finasteride 5 mg tablet RxNorm: 948328 Take 1 Tablet(s) Oral QAM every morning 5 No Stop Date Active levothyroxine 75 mcg tablet RxNorm: 659118 Take 1 Tablet(s) Oral QD 5 No Stop Date Active acetaminophen 325 mg tablet RxNorm: 208374 Take 2 Tablet(s) Oral Q4H every four hours as needed 5 No Stop Date Active Claritin 10 mg tablet RxNorm: 350898 Take 1 Tablet(s) Oral QD as needed 5 No Stop Date Active guaifenesin 100 mg/5 mL oral liquid RxNorm: 245871 Take 10 Milliliter(s) Oral Q4H every four hours as needed 5 No Stop Date Active omeprazole 20 mg capsule,delayed release RxNorm: 816169 Take 1 Capsule(s) Oral BID 5 No Stop Date Active Xarelto 20 mg tablet RxNorm: 3731730 Take 1 Tablet(s) Oral QPM every evening 5 No Stop Date Active metformin 500 mg tablet RxNorm: 674515 Take 1 Tablet(s) Oral QAM every morning 5 025 Inactive aspirin 325 mg tablet RxNorm: 764781 Take 1 Tablet(s) Oral QD as needed 5 025 Inactive metoprolol tartrate 50 mg tablet RxNorm: 183070 Take 1/2 Tablet(s) Oral BID 4 No Stop Date Active Triple Antibiotic Plus topical RxNorm: 333106 topical 5 Active menthol mucous membrane RxNorm: [...] 04/14/2025 No note found Recurrent major depressive disorder, in partial remission ICD-10: F33.41 ICD-9: 296.35 04/14/2025 No note found COPD (chronic obstructive pulmonary disease) ICD-10: J44.9 ICD-9: 496 03/10/2025 No note found Type 2 diabetes mellitus ICD-10: E11.9 ICD-9: 250.00 03/10/2025 No note found Dementia in other diseases classified elsewhere, unspecified severity, without behavioral disturbance, psychotic disturbance, mood disturbance, and anxiety ICD-10: F02.80 03/10/2025 No note found Acquired hypothyroidism ICD-10: E03.9 ICD-9: 244.9 02/10/2025 No note found Impaired gait and mobility ICD-10: R26.8 9 ICD-9: 781.2 01/09/2025 No note found Chronic constipation ICD-10: K59.09 ICD-9: 564.00 01/09/2025 No note found BPH (benign prostatic hyperplasia) ICD-10: N40.0 ICD-9: 600.00 11/14/2024 No note found Frailty SNOMED: 950643642 ICD-10: R54 ICD-9: 797 10/10/2024 No note found Encounter for preventive care SNOMED: 30 6835418 ICD-10: Z00.00 ICD-9: V70.0 10/10/2024 No note found 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 ICD-10: K22.70 ICD-9: 530.85 10/10/2024 No note found Hypercoagulability due to at rial fibrillation ICD-10: D68.69 ICD-9: 289.82 10/10/2024 No note found Cerebrovascular disease ICD-10: I67.9 ICD-9: 437.9 10/10/2024 No note found Longstanding persistent atri al fibrillation ICD-10: I48.11 ICD-9: 427.31 10/10/2024 No note found HLD (hyperlipidemia) ICD-10: E78.5 ICD-9: 272.4 10/10/2024 No note found ACP (advance care planning) SNOMED: 3050 78411 ICD-10: Z71.89 ICD-9: V65.49 10/10/2024 No note found History of penicillin allergy ICD-10: Z8 8.0 ICD-9: V14.0 09/04/2024 No note found Unspecified atrial fibrillation ICD-10: I48.91 025 No note found History of smoking ICD-10: Z87.891 ICD-9: V15.82 09/04/2024 No note found PVD (peripheral vascular disease) ICD-10: I73.9 ICD-9: 443.9 09/04/2024 S/P stent to right SFA in 2013 Tobacco abuse SNOMED: 807483159 ICD-10: Z72.0 ICD-9: 305.1 09/04/2024 No note found Reason For Visit No Reason For Visit data Results Observation Observation Code Item Item Code Result Date Service Location TSH with Reflex to Free T4 [id number] TSH ([place]) 83976-0 1.79 uIU/mL 025 Unknown Comprehensive Metabolic Panel [id number] GLUCOSE ([facility]) 2345-7 160 mg/dL 025 Unknown Comprehensive Metabolic Panel [id number] Sodium 139 mmol/L 025 Unknown Comprehensive Metabolic Panel [id number] POTASSIUM ([place]) 2823-3 4.0 mmol/L 025 Unknown Comprehensive Metabolic Panel [id number] CO2 ([place]) 25 mmol/L 025 Unknown Comprehensive Metabolic Panel [id number] ANION GAP ([place]) 10 mmol/L 025 Unknown Comprehensive Metabolic Panel [id number] Alkaline Phosphatase 112 U/L 025 Unknown Comprehensive Metabolic Panel [id number] UREA NITROGEN ([place]) 12.8 mg/dL 025 Unknown Comprehensive Metabolic Panel NEE2032 ALT 6 U/L 025 Unknown Comprehensive Metabolic Panel DEB8706 Creatinine 0.88 mg/dL 025 Unknown Comprehensive Metabolic Panel [id number] AST 19 U/L 025 Unknown Comprehensive Metabolic Panel ABY9750 GFR, ESTIMATE 26304-7 89 mL/min/1.73 m2 025 Unknown Comprehensive Metabolic Panel YSG2325 Bilirubin Total 0.6 mg/dL 025 Unknown Comprehensive Metabolic Panel [id number] Calcium 9.3 mg/dL 025 Unknown Comprehensive Metabolic Panel [id number] CHLORIDE ([place]) 104 mmol/L 025 Unknown Comprehensive Metabolic Panel RSE3048 PROTEIN, TOTAL 2885-2 6.1 g/dL 025 Unknown Comprehensive Metabolic Panel [id number] Albumin 3.5 g/dL 025 Unknown Hemoglobin A1c LAB90 EST AVERAGE GLUCOSE 197 mg/dL 025 Unknown Hemoglobin A1c LAB90 Hemoglobin A1c 34015-8 8.5 % 025 Unknown CBC with Platelets CHD970 WBC COUNT (AUTOMATED) 7.5 10e3/uL 025 Unknown CBC with Platelets GDS019 RBC COUNT 789-8 4.38 10e6/uL 025 Unknown CBC with Platelets XLI018 Hemoglobin 12.9 g/dL 025 Unknown CBC with Platelets BPS840 Hematocrit 39.9 % 025 Unknown CBC with Platelets MAP511 MCV 91 fL 025 Unknown CBC with Platelets JMB788 MCH 29.5 pg 025 Unknown CBC with Platelets GEE834 MCHC 32.3 g/dL 025 Unknown CBC with Platelets ISY955 RDW 13.7 % 025 Unknown CBC with Platelets ZQY017 Platelet Count 777-3 195 10e3/uL 025 Unknown UA with Microscopic Reflex to Culture 69722 COLOR Yellow 025 Unknown UA with Microscopic Reflex to Culture [id number] Appearance Clear 025 Unknown UA with Microscopic Reflex to Culture 85014 GLUCOSE, URINE 100 mg/dL 025 Unknown UA with Microscopic Reflex to Culture 67285 BILIRUBIN, URINE Negative 025 Unknown UA with Microscopic Reflex to Culture 15734 Ketones Urine Negative mg/dL 025 Unknown UA with Microscopic Reflex to Culture 29434 Specific [place] Urine 1.022 025 Unknown UA with Microscopic Reflex to Culture 30085 BLOOD, URINE Large 025 Unknown UA with Microscopic Reflex to Culture 72304 pH Urine 5.5 025 Unknown UA with Microscopic Reflex to Culture 22039 Protein urine Negative mg/dL 025 Unknown UA with Microscopic Reflex to Culture 73163 UROBILINOGEN IRIS Normal mg/dL 025 Unknown UA with Microscopic Reflex to Culture 94993 Nitrites Negative 025 Unknown UA with Microscopic Reflex to Culture 50610 LEUK ESTERASE Negative 025 Unknown UA with Microscopic Reflex to Culture 50639 Mucus Urine Present /LPF 025 Unknown UA with Microscopic Reflex to Culture 95123 RBC Urine 44 /HPF 025 Unknown UA with Microscopic Reflex to Culture 36485 CALCIUM OXALATE Few /HPF 025 Unknown UA with Microscopic Reflex to Culture 12743 WBC Urine 80204-0 2 /HPF 025 Unknown UA with Microscopic Reflex to Culture 49655 SQUAMOUS EPITHELIAL <1 /HPF 025 Unknown SLUMS (bps) 06355-1 SLUMS 99739-4 16 025 Unknown PHQ2 PHQ2 58393-6 0 025 Unknown Review of Systems No Review of Systems data Physical Exam No Physical Exam data Procedures Procedure Codes Date SYST BP GE 130 - 139MM HG CPT-4: 3075F 2024 DIAST BP <80 MM HG CPT-4: 307F 04/14/2025 TOBACCO Education CPT-4: TOBACCO 04/14/2025 HG A1C LEVEL 8.0-9.0% CPT-4: 3052F 03/10/2025 SYST BP LT 130 MM HG CPT-4: 307F 03/10/2025 DIAST BP <80 MM HG CPT-4: 307F 03/10/2025 TOBACCO Education CPT-4: TOBACCO 03/10/2025 SYST BP >/= 140 MM HG CPT-4: 3077F 02/10/2025 DIAST BP <80 MM HG CPT-4: 307F 02/10/2025 TOBACCO Education CPT-4: TOBACCO 02/10/2025 SYST BP GE 130 - 139MM HG CPT-4: 307F 2024 DIAST BP 80-89 MM HG CPT-4: 3079F 01/09/2025 TOBACCO Education CPT-4: TOBACCO 01/09/2025 SYST BP GE 130 - 139MM HG CPT-4: 3075F 2024 DIAST BP <80 MM HG CPT-4: 3078F 11/28/2024 TOBACCO Education CPT-4: TOBACCO 11/28/2024 SYST BP >/= 140 MM HG CPT-4: 3077F 11/14/2024 DIAST BP <80 MM HG CPT-4: 3078F 11/14/2024 TOBACCO Education CPT-4: TOBACCO 11/14/2024 SYST BP LT 130 MM HG CPT-4: 307F 10/10/2024 DIAST BP <80 MM HG CPT-4: 307F 10/10/2024 PT INELIG NEG SCRN DEPRES SNOMED CT: 428 716801644258 CPT-4: G8510 10/10/2024 TOBACCO Education CPT-4: TOBACCO 10/10/2024 SYST BP GE 130 - 139MM HG CPT-4: 3075F 2024 DIAST BP <80 MM HG CPT-4: 3078F 09/04/2024 PT INELIG NEG SCRN DEPRES SNOMED CT: 428 583517619026 CPT-4: G8510 09/04/2024 TOBACCO MEDICAL PRACTICE ASSISTANT NO CHARGE CPT-4: G0436 2024 Vital Signs Date Vital 04/14/2025 Blood Pressure 1: 132/65 Code: 8480-6 BMI: 29.6 Code: 16376-5 Heart Rate 1: 61 bpm Code: 8867-4 Height: 5'11 Code: 8302-2 Respiratory Rate: 18 bpm SpO2: 94% Temperature: 36.6 (C) / 97.8 (F) Weight: 212 lbs Code: 3141-9 03/10/2025 Blood Pressure 1: 119/58 Code: 8480-6 BMI: 29.9 Code: 62413-1 Heart Rate 1: 57 bpm Code: 8867-4 Height: 5'11 Code: 8302-2 Respiratory Rate: 18 bpm SpO2: 93% Temperature: 36.4 (C) / 97.5 (F) Weight: 214 lbs 7 oz Code: 314-9 02/10/2025 Blood Pressure 1: 141/65 Code: 8480-6 Heart Rate 1: 69 bpm Code: 8867-4 Respiratory Rate: 20 bpm SpO2: 94% Weight: 215 lbs 7 oz Code: 3141-9 01/09/2025 Blood Pressure 1: 134/89 Code: 8480-6 Heart Rate 1: 74 bpm Code: 8867-4 Respiratory Rate: 18 bpm SpO2: 94% Weight: 211 lbs Code: 3141-9 11/28/2024 Blood Pressure 1: 135/60 Code: 8480-6 BMI: 28.1 Code: 20831-2 Heart Rate 1: 58 bpm Code: 8867-4 Height: 5'11 Code: 8302-2 Respiratory Rate: 18 bpm SpO2: 95% Temperature: 36.3 (C) / 97.4 (F) Weight: 201 lbs 5 oz Code: 3141-9 11/14/2024 Blood Pressure 1: 154/71 Code: 8480-6 BMI: 29.4 Code: 54332-1 Heart Rate 1: 54 bpm Code: 8867-4 Height: 5'11 Code: 8302-2 Respiratory Rate: 16 bpm Temperature: 36.5 (C) / 97.7 (F) Weight: 211 lbs Code: 3141-9 10/10/2024 Blood Pressure 1: 102/58 Code: 8480-6 BMI: NaN Code: 83625-8 Heart Rate 1: 66 bpm Code: 8867-4 Height: 5'11 Code: 8302-2 Respiratory Rate: 20 bpm Temperature: 36.3 (C) / 97.3 (F) Weight: 203 lbs Code: 3141-9 09/04/2024 Blood Pressure 1: 166/72 Code: 8480-6 Blood Pressure 1: 130/70 Code: 8480-6 BMI: 30.0 Code: 74432-6 BMI: 30.0 Code: 41015-7 Heart Rate 1: 60 bpm Code: 8867-4 [...] Encounter Performer Location Location Address Codes Date ([id number]) Home Visit - Est Pt, moderate Diagnosis: Alzheimer's dementia[ICD10: G30.9] Diagnosis: Recurrent major depressive disorder, 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] Diagnosis: Essential hypertension[ICD10: I10] Eugenia Obando [address] [address] CPT-4: 72899 5 ([id number]) Home Visit - Est Pt, moderate Diagnosis: Type 2 diabetes mellitus[ICD10: E11.9] Diagnosis: Recurrent major depressive disorder, 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] Diagnosis: COPD (chronic obstructive pulmonary disease)[ICD10: J44.9] Diagnosis: Dementia in other diseases classified elsewhere, unspecified severity, without behavioral disturbance, psychotic disturbance, mood disturbance, and anxiety[ICD10: F02.80] Eugenia Burgos [address] [address] CPT-4: 48292 5 ([id number]) Home Visit - Est Pt, moderate Diagnosis: Acquired hypothyroidism[ICD10: E03.9] Diagnosis: Type 2 diabetes mellitus[ICD10: E11.9] Diagnosis: Recurrent major depressive disorder, 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] Eugenia Burgos [address] [address] CPT-4: 86955 5 ([id number]) Home Visit - Est Pt, moderate Diagnosis: COPD (chronic obstructive pulmonary disease)[ICD10: J44.9] Diagnosis: Chronic constipation[ICD10: K59.09] Diagnosis: Impaired gait and mobility[ICD10: R26.89] Eugenia Burgos [address] [address] CPT-4: 12010 5 ([id number]) Home Visit - Est Pt, moderate Diagnosis: COPD (chronic obstructive pulmonary disease)[ICD10: J44.9] Diagnosis: Alzheimer's dementia[ICD10: G30.9] Diagnosis: Essential hypertension[ICD10: I10] Eugenia Burgos [address] [address] CPT-4: 72319 5 ([id number]) Home Visit - Est Pt, moderate Diagnosis: Alzheimer's dementia[ICD10: G30.9] Diagnosis: COPD (chronic obstructive pulmonary disease)[ICD10: J44.9] Diagnosis: BPH (benign prostatic hyperplasia)[ICD10: N40.0] [address] [address] CPT-4: 31735 5 ([id number]) Medicare Annual Wellness Visit- Subsequent Diagnosis: Encounter for preventive care[SNOMED: 611471483] Diagnosis: ACP (advance care planning)[SNOMED: 297211729] Diagnosis: Frailty[SNOMED: 545587527] Diagnosis: Acquired hypothyroidism[ICD10: E03.9] Diagnosis: Alzheimer's dementia[ICD10: [...] F33.41] Diagnosis: Type 2 diabetes mellitus[ICD10: E11.9] [address] [address] CPT-4: G0439 5 (32654) Home or Residence 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, 60 mins Diagnosis: Type [...] (advance care planning)[ICD10: Z71.89] Diagnosis: Tobacco abuse[SNOMED: 674701627] Eugenia Burgos [address] [address] CPT-4: 77165 Plan of Care Planned Activity Notes Codes Status Date Patient Education: Patient Medication Summary Completed 04/14/2025 Patient Education: Influenza Complet ed 04/14/2025 Patient Education: Smoking Cessation Completed 04/14/2025 Appointment: Eugenia Burgos WPtel: [address] [place], [place] [phone] F/U 03/10/2025 Patient Education: Patient Medication Summary Completed 03/10/2025 Patient Education: Influenza Complet ed 03/10/2025 Patient Education: Smoking Cessation Completed 03/10/2025 Patient Education: Patient Medication Summary Completed 02/10/2025 Patient Education: Influenza Complet ed 02/10/2025 Patient Education: Smoking Cessation Completed 02/10/2025 Patient Education: Patient Medication Summary Completed 01/09/2025 Patient Education: Influenza Complet ed 01/09/2025 Patient Education: Smoking Cessation Completed 01/09/2025 Patient Education: Patient Medication Summary Completed 11/28/2024 Patient Education: Influenza Complet ed 11/28/2024 Patient Education: Smoking Cessation Completed 11/28/2024 Patient Education: Patient Medication Summary Completed 11/14/2024 Patient Education: Influenza Complet ed 11/14/2024 Patient Education: Smoking Cessation Completed 11/14/2024 Appointment: Eugenia Burgos WPtel: [phone] AWV 10/10/2024 Patient Education: Patient Medication Summary Completed 10/10/2024 Patient Education: Addiction and Substance Abuse Completed 10/10/2024 Patient Education: Alzheimer''s Disease Completed 10/10/2024 Patient Education: Influenza Complet ed 10/10/2024 Patient Education: Smoking Cessation Completed 10/10/2024 Patient Education: Dementia Complete d 10/10/2024 Patient Education: Exercise and Fitness Completed 10/10/2024 Appointment: Eugenia Burgos WPtel: [phone] ADULT LITERACY INSTRUCTOR 09/04/2024 Patient Education: Patient Medication Summary Completed 09/04/2024 [...] current regimen of lisinopril 10mg daily. 04/14/2025 DEPRESSION: Increased agitat ion and anger noted [...] chest x-ray to evaluate for infection.. 03/10/2025 HYPOTHYROIDISM: Plan to obta in TSH. TYPE 2 DIABETES: Continues on metformin every morning. Plan to obtain hemoglobin A1c, CBC and CMP. DEPRESSION: No changes in mood noted by nursing staff. Mood is bright on exam today. Not on medication. Will continue to monitor at this time.. 02/10/2025 COPD: Lung sounds have impro rafa since [...] staff in the last month. . 01/09/2025 ALZHEIMERS: Nursing expresse s no acute concerns [...] of breathing in 4 weeks. . 11/28/2024 ALZHEIMERS: Nursing expresse s no acute concerns [...] to monitor for fluctuation in breathing.. 11/14/2024 Essential hypertension Managed with lisinopril 10mg daily Impaired gait and mobility No recent falls reported. Will continue fall prevention measures. Could consider PT/OT eval if needed in the future. Recurrent major depressive disorder, in partial remission Per outside records- not on medications. Chronic constipation Managed with fiber supplement Prevent [facility] Care Based on age and gender, patient not due for any USP Screenings. Vaccination history reviewed and patient is [...] Planning Verified patient code status- DNR. 10/10/2024 Recurrent major depressive d isorder, in partial [...] urinary retention and urinary tract infections. 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 [...]
[2025-05-25 16:38] LABS: Albumin* 3.6 g/dL (3.3-5.0); Chloride* 100 mmol/L (96-114); Sodium* 134 mmol/L (135-149)
[2025-05-25 16:39] LABS: Potassium* 3.9 mmol/L (3.6-5.1)
[2025-05-25 16:41] LABS: Alanine Aminotransferase* 15 U/L (4-50); Alkaline Phosphatase* 99 U/L (40-150); Anion Gap 5 mEq/L (7-15); Aspartate Amino Transferase* 25 U/L (12-35); Bilirubin Total* 0.9 mg/dL (0.1-1.5); Blood Urea Nitrogen* 16 mg/dL (7-30); Carbon Dioxide* 29 mmol/L (20-32); Creatinine* 0.9 mg/dL (0.5-1.5); Est. Creatinine Clearance* 66.93; Estimated Glomerular Filt Rate 89 ml/min
[2025-05-25 16:42] LABS: Calcium* 9.3 mg/dL (8.4-10.6); Glucose* 231 mg/dL (60-115); Total Protein* 7.1 g/dL (6.0-8.3)
[2025-05-25 17:33] LABS: Erythrocyte SedimentationRate* 38 mm/hr (2-15)
--- OUTSIDE RECORDS SUMMARY | 2025-05-25 17:41 | XMS_ITS ---
Author Name REHANA WATSON Address [address] [place] [address] Phone Organization [facility] Address [address] [place] [address] Phone Care Team Providers Care Director Of Diagnostic Imaging Name Role Phone VICTORINO WATSON Unavailable [phone] DANIA ALMONTE Unavailable ALLERGIES, ADVERSE REACTIONS AND ALERTS Allergy Name Allergy Date Allergy Status Allergy Severity Allergy Reaction UNKNOWN DRUG ALLERGIES MAY E XIST PROBLEMS Problem Code Problem Description Problem Status Problem Da te Problem End Date 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 Current 08/27/2024 B35.1-Tinea unguium Tinea unguium Current 08/30/2024 E11.51-Type 2 diabetes mellitus with diabetic peripheral angiopathy without gangrene Type 2 diabetes mellitus with diabetic peripheral angiopathy without gangrene Current 08/30/2024 I70.203-Unspecified atherosclerosis of [place] arteries of extremities, bilateral legs Unspecified atherosclerosis of [place] arteries of extremities, bilateral legs Current 08/30/2024 I73.89-Other specified peripheral vascular diseases Other specified peripheral vascular diseases Current 08/30/2024 L60.3-NAIL DYSTROPHY NAIL DYSTROPHY Current 08/30/2024 K96-Idfhs and callosities Corns and callosities Current 08/30/2024 [...] Not Recorded Sex: Male CARE TEAM INFORMATION Director Of Diagnostic Imaging Provider ID Role Location Phone DANIA ALMONTE [id number] PHYSICIAN [address] [place] [address] Tess WATSON [id number] PHYSICIAN [address] [place] [address] INSURANCE PROVIDERS Payer Name Policy type / Covera ge type Covered constitution party ID Policy [place] AARP [facility] PLUS Private Health Insurance [id number] SELF
--- OUTSIDE RECORDS SUMMARY | 2025-05-25 17:42 | XMS_ITS | Clinical Summary ---
Author Organization [facility] Address [address] [place] [address] Care Team Providers Care Protective Services Officer Name Role Phone SkylertelDuane MD Primary Care Provider + Allergies Active Allergy Reactions Criticality Noted Date Comments Amoxicillin-Pot Clavulanate Anaphylaxis High Erythromycin Rash Low Penicillins Anaphylaxis High 04/14/2016 Medications atorvastatin (LIPITOR) 20 mg tabletIndications: Mixed hyperlipidemia Take 1 Tablet (20 mg) by mouth at bedtime. 90 Tablet 3 01/05/20 23 Active finasteride (PROSCAR) 5 mg tabletIndications: Benign prostatic hyperplasia with urinary frequency Take 1 Tablet (5 mg) by mouth every morning. 90 Tablet 3 01/05/20 23 Active psyllium powd Mix 1 tsp in liquid then take by mouth once daily if needed for Constipation. 283 g 11 01/06/20 23 Active tamsulosin (FLOMAX) 0.4 mg capsuleIndications :Benign prostatic hyperplasia with urinary frequency Take 1 Capsule (0.4 mg) by mouth once daily after a meal. 90 Capsule 3 01/11/20 23 Active levothyroxine (SYNTHROID) 75 mcg tabletIndications: Acquired hypothyroidism Take 1 Tablet (75 mcg) by mouth once daily. 90 Tablet 3 01/11/20 23 Active rivaroxaban (Xarelto) 20 mg tabletIndications: Anticoagulation monitoring, INR range 2-3,Longstanding persistent atrial fibrillation (HC) Take 1 Tablet (20 mg) by mouth once daily with evening meal. 90 Tablet 3 10/23/19 24 Active metoprolol tartrate (LOPRESSOR) 25 mg tabletIndications: New onset atrial fibrillation (HC) Take 0.5 Tablets (12.5 mg) by mouth two times daily. 90 Tablet 3 03/05/20 24 Active magnesium oxide (MAG-OX 400) 400 mg tabletIndications: Low magnesium level Take 1 Tablet (400 mg) by mouth two times daily. 180 Tablet 2 03/05/20 24 Active traZODone (DESYREL) 50 mg tabletIndications: Difficulty sleeping TAKE ONE TABLET BY MOUTH EVERY DAY AT BEDTIME 90 Tablet 2 05/29/20 24 Active lisinopriL (PRINIVIL; ZESTRIL) 10 mg tabletIndications: HTN (hypertension) Take 1 Tablet (10 mg) by mouth once daily. 90 Tablet 3 05/29/20 24 Active metFORMIN (GLUCOPHAGE) 500 mg tabletIndications: Diabetes mellitus without complication (HC) TAKE ONE TABLET BY MOUTH EVERY DAY WITH MEAL 90 Tablet 07/16/20 24 Active omeprazole 20 mg tabletIndications: 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 Take 1 Tablet (20 mg) by mouth two times daily before meals. 180 Tablet 2 07/16/20 24 Active clindamycin (CLEOCIN) 300 mg capsuleIndications :Diabetic ulcer of toe of right foot associated with type 2 diabetes mellitus, with other ulcer severity (HC) Take 1 Capsule (300 mg) by mouth three times daily for 7 days. 21 Capsule 05/25/20 25 Active clindamycin (CLEOCIN) 150 mg capsuleIndications :Diabetic ulcer of toe of right foot associated with type 2 diabetes mellitus, with other ulcer severity (HC) Take 1 Capsule (150 mg) by mouth three times daily for 7 days. IN ADDITION TO 300 mg CAPSULE THREE TIMES DAILY 21 Capsule 05/25/20 25 025 Active ciprofloxacin HCl (CIPRO) 750 mg tabletIndications: Diabetic ulcer of toe of right foot associated with type 2 diabetes mellitus, with other ulcer severity (HC) Take 1 Tablet (750 mg) by mouth two times daily before meals for 7 days. Take in addition to clindamycin Rx 14 Tablet 05/25/20 25 025 Active Active Problems Problem Noted Date Diagnosed [...] urinary stream 12/04/2015 Peripheral artery disease 05/04/2014 Overview (05/23/2014): Stent to right SFA - 05/20/2014 Elevated PSA 11/08/2013 Personal history of colonic polyps 09/08/2010 Overview (02/05/2014): Colonoscopy 08/2010 polyp repeat in 3 years Colonoscopy 01/2014 polyps repeat in 5 years Tobacco use disorder 06/18/2010 Cruz's esophagus 07/01/2009 Overview (12/23/2015): EGD 06/2009 - Cruz's esophagus, repeat EGD in 3 years EGD 08/2012 reflux , repeat EGD in 3 years EGD 11/2015 normal , repeat EGD in 5 years Kidney stones 10/07/2008 Overview (10/07/2008): Bilateral about 6 times History of Laminectomy 01/200804/07/2008 Spinal stenosis in cervical region 01/06/2008 Mixed hyperlipidemia Diverticulosis of large intestine without hemorr michelle Unspecified hypothyroidism Cervicalgia Esophageal reflux Unspecified essential hypertension Resolved Problems Problem Noted Date Diagnosed Date Resolved Date Anticoagulation monitoring, INR range 2-3 08/08/2016 10/31/2023 Type 2 diabetes mellitus with hyperglycemia 02/25/2015 07/07/2015 Overview (02/25/2015): Dx: 02/05/15 Encounters Date Type Department Care Team Description 05/25/2025 12:45 PM CDT Ancillary Procedure [facility] [address] [facility] [place] [address] Arrived 05/25/2025 12:05 PM CDT Office Visit [facility] [address] [facility] [place] [address] Salbador Segura DO Toe Pain/problem (R 2nd toe pain inflammation; noticed by daughter x1 day ago) 05/25/2025 Travel from Last 3 Months Immunizations Immunization Administration Dates Next Due AMB Influenza, IIV3 [...] cancer spi ne/brain Heart Disease Brother 4 UT at 71 Heart Disease Father d78, unsure [...] PHQ-2 Answer Date Recorded PHQ-2 TOTAL SCORE 1 05/07/2024 Social Connections Answer Date Recorded Do you often feel lonely or isolated from those around you? 0 05/25/2025 Alcohol Use Answer Date Recorded How often do you have a drink containing alcohol ? 0 05/25/2025 Average Number of Drinks Not on file 025 Frequency of Binge Drinking Not on file 12/2024 Financial Resource Strain Answer Date R ecorded Difficulty of Paying Living Expenses 3 05/25/2025 Difficulty of Paying Living Expenses Not on file 05/25/2025 Food Insecurity Answer Date Recorded Do you worry your food will run out before you are able to buy more? 1 05/25/2025 Transportation Needs Answer Date Record ed Does lack of transportation keep you from medica l appointments? 1 05/25/2025 Does lack of transportation keep you from work, meetings or getting things that you need? 1 05/25/2025 Housing Stability Answer Date Recorded What is your housing situation today? 1 05/25/2025 Utilities Answer Date Recorded Do you have trouble paying f or utilities (for example, heat, electricity, water, phone)? 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 Not on file Not on file [employer] Not on file Not on file Not on file Obstetrics History Last Filed Vital Signs Vital Sign Reading Time Taken Comments Blood Pressure 182/63 05/25/2025 12:23 PM CDT Pulse 66 05/25/2025 12:23 PM CDT Temperature 36.7 C (98 F) 05/25/2025 12:23 PM CDT Respiratory Rate 18 05/25/2025 12:23 PM CDT Oxygen Saturation 93% 05/25/2025 12:23 PM CDT Inhaled Oxygen Concentration - - Weight 102.1 kg (225 lb) 05/25/2025 12:23 PM CDT Height 175.3 cm (5' 9) 05/25/2025 12:23 PM CDT Body Mass Index 33.23 05/25/2025 12:23 PM CDT Plan of Treatment Health Maintenance Due Date Last Done Comments Low Dose CT (for lung CA) age 50-80 1998 RSV vaccine for adults or (1 - 1-dose 75+ series) 10/25/2023 Medicare Wellness for age 65+ 01/05/2024 01/04/2023 COVID-19 vaccine series ( season) 2025 01/04/2023, 01/28/2022, 08/18/2021, Additional history exists Influenza Vaccine (#1) 2025 , 07/09/2021, 06/15/2020, Additional history exists Depression screening for age 12+ 05/09/2025 05/09/2024, 05/07/2024, 01/06/2023, Additional history exists BMI (ht and wt on same day) for age 18+ 05/25/2026 05/25/2025, 05/07/2024, 11/23/2023, Additional history exists Tetanus booster 09/17/2031 09/17/2021, 04/0 11/2011, 11/20/2011, Additional history exists Hepatitis C screening for age 18-79 Completed 11/08/2013 Zoster (shingles) series for age 50+ Completed 02/04/2019, 12/03/2018 Pneumococcal series for age 50+ Completed 12/15/2020, 12/03/2018, 07/22/2016, Additional history exists Hepatitis B series for 19+ Aged Out N o longer eligible based on patient's age to complete this topic Medical Devices Implanted Type Area Die Try Out Worker Stamping Device Identifier Shelf Expiration Date Model / Serial / Lot Plate Cerv Ant 25mm [employer] Vision 976-125 - [id number] Implanted:Qty: 1 on 06/03/2011 at [facility] Spine Implants Cervical Vertebrae SOFAMOR DANEK 976-125# / / Screw Self Tap 4.5x15mm Fixed Ang - [id number] Implanted:Qty: 1 on 06/03/2011 at [facility] Spine Implants Cervical Vertebrae Medtronic 876-755# / / Screw 4.0x14mm - [id number] Implanted:Qty: 2 on 06/03/2011 at [facility] Spine Implants Cervical Vertebrae SOFAMOR DANEK 876-614# / / Screw 4.0x15mm - [id number] Implanted:Qty: 1 on 06/03/2011 at [facility] Spine Implants Cervical Vertebrae SOFAMOR DANEK 876-615# / / [id number] [[id number] ] Implanted:Qty: 1 on 06/03/2011 at [facility] Explanted:at [facility] (Quantity not on file) Spine SPINAL GRAFT 08/03/2013 [id number]# / [id number] / [id number] Progenix Dbm 1cc [[id number] ] Implanted:Qty: 1 on 06/03/2011 at [facility] Explanted:at [facility] (Quantity not on file) Spine SPINAL GRAFT 12/13/2012 [id number]# / [id number] / Procedures Procedure Name Priority Date/Time Associated Diagnosis Comments XR TOES 3 VIEWS RIGHT STAT 05/25/2025 12:56 PM CDT Open wound of toe, initial encounter Peripheral artery disease Type 2 diabetes mellitus with diabetic peripheral angiopathy without gangrene, without long-term current use of insulin (HC) ANTI HCV Routine 11/08/2013 4:27 PM CDT Need for hepatitis C screening test from Last 3 Months or Most Recently Relevant to Health Maintenance Results * XR TOES 3 VIEWS RIGHT (05/25/2025 12:56 PM CDT) Anatomical Region Laterality Modality TOES Computed Radiogr aphy 05/25/2025 12:5 6 PM CDT Impressions 05/25/2025 12:59 PM CDT Skin ulcer at the second toe distally. Surrounding soft tissue swelling is suspicious for cellulitis. There is bony erosion at the second distal phalanx distally, consistent with osteomyelitis. No acute fracture or malalignment. Mild degenerative changes. Osteopenia. Vascular calcification. Narrative 05/25/2025 12:59 PM CDT For Patients: As a result of the Cures Act, medical imaging exams and procedure reports are released immediately into your electronic medical record. You may view this report before your referring provider. If you have questions, please contact your health care provider. EXAM: XR TOES 3 VIEWS RIGHT LOCATION: [facility] DATE: 05/25/2025 INDICATION: Open Wound Of Toe, Initial Encounter Peripheral Artery Disease Type 2 Diabetes Mellitus With Diabetic Peripheral Angiopathy Without Gangrene, Without Long-term Current Use Of Insulin (hc) COMPARISON: None. Procedure Note Minh Busby MD - 05/25/2025 For Patients: As a result of the Cures Act, medical imagingexams and procedure reports are released immediately into your electronicmedical record. You may view this report before your referring provider.If you have questions, please contact your health care provider. EXAM: XR TOES 3 VIEWS RIGHT LOCATION: [facility] DATE: 05/25/2025 INDICATION: Open Wound Of Toe, Initial Encounter Peripheral Artery DiseaseType 2 Diabetes Mellitus With Diabetic Peripheral Angiopathy WithoutGangrene, Without Long-term Current Use Of Insulin (hc) COMPARISON: None. IMPRESSION: Skin ulcer at the second toe distally. Surrounding soft tissue swelling issuspicious for cellulitis. There is bony erosion at the second distalphalanx distally, consistent with osteomyelitis. No acute fracture ormalalignment. Mild degenerative changes. Osteopenia. Vascularcalcification. us Salbador Segura DO GENERAL IMAGING Final Result * ANTI HCV [[id number]] (11/08/2013 4:27 PM CDT) ANTI HCV Non-reacti ve [facility] Blood specimen (specimen) BLOOD SPECIMEN / Unknown 11/08/2013 4:27 PM CDT 11/08/2013 4:18 PM CDT Jorge Pulido MD SEND OUTS Final Re sult [facility] [place]NAL ZIP [id number] [place] [id number] from Last 3 Months or Most Recently Relevant to Health Maintenance Insurance MEDICARE PART A HB ONLY [facility] MR MEDICARE PPS Advance Directives Documents on File Type Date Recorded Patient Derrickman Helper Expl anation Treatment Guidelines 05/09/2024 Healthcare Directive 12/06/2022 1:29 PM [facility] 07/29/2021 Power of Sales Representative [employer] 12/02/2022 12:56 PM LIZA SU 07/29/2021 * [...] 7:59 AM 06/22/2016 3:54 PM Care Teams Protective Services Officer Relationship Specialty Start Date End Date Votel, Duane Arceo MD [address] [place] [address] PCP - General Family Practice 02/07/23
--- OUTSIDE RECORDS SUMMARY | 2025-05-25 17:42 | XMS_ITS | Clinical Summary ---
Author Organization [facility] Address [address] [place] [address]. [place] [address] Care Team Providers Care Cardiology Specialist Name Role Phone Jorge Pulido Unavailable Unavailable Services, [facility] Physician Primary Care Provi lita Allergies Active Allergy Reactions Criticality Noted Date Comments Amoxicillin-Pot Clavulanate 06/17/20 16 Amoxicillin-Pot Clavulanate Anaphylaxis High Erythromycin Rash Low Penicillins Anaphylaxis High 04/14/2016 Medications albuterol (2.5 MG/3ML) 0.083% nebulizer solution Take [...] stream 12/04/2015 Peripheral artery disease 05/04/2014 Overview (11/16/2017): Overview: Stent to right SFA - 05/20/2014 Elevated PSA 11/08/2013 History of colonic polyps 09/08/2010 Overview (11/16/2017): Overview: Colonoscopy 08/2010 polyp repeat in 3 years Colonoscopy 01/2014 polyps repeat in 5 years Tobacco use disorder 06/18/2010 Cruz's esophagus 07/01/2009 Overview (11/16/2017): Overview: EGD 06/2009 - Cruz's esophagus, repeat EGD in 3 years EGD 08/2012 reflux , repeat EGD in 3 years EGD 11/2015 normal , repeat EGD in 5 years Kidney stones 10/07/2008 Overview (11/16/2017): Overview: Bilateral about 6 times History of laminectomy 04/07/2008 Spinal stenosis in cervical region 01/06/2008 Immunizations Immunization Administration Dates Next Due Influenza (High Dose) Trival ent,PF (Fluzone) 07/22/2016,06/04/2015 Influenza (IIV3) PF 05/25/2011, 0,06/09/2009,2007,06/26/2007,06/28/2006,06/08/2005,1 ,06/26/2003 Influenza (prior to 2023) 05/25/2011,05/06/2010 Tdap (Adult) Unspecified Formulation 06/05/2002 Social History [...] at Not on file Legal Sex Male 10:34 AM CDT Gender Identity Not on file Sexual Orientation Not on file Last Filed Vital Signs Vital Sign Reading Time Taken Comments Blood Pressure 113/68 09/17/2024 10:45 PM HYDROGEN OPERATOR Pulse 102 09/17/2024 10:16 PM HYDROGEN OPERATOR Temperature 37.1 C (98.8 F) 09/17/2024 9:10 PM HYDROGEN OPERATOR Respiratory Rate 22 09/17/2024 10:45 PM HYDROGEN OPERATOR Oxygen Saturation 95% 09/17/2024 10:45 PM HYDROGEN OPERATOR Inhaled Oxygen Concentration - - Weight 103 kg (227 lb) 11/16/2017 12:52 PM CDT Height 176 cm (5' 9.29) 11/16/2017 12:52 PM CDT Body Mass Index 33.24 11/16/2017 12:52 PM CDT Plan of Treatment Health Maintenance Due Date Last Done Comments ANNUAL REVIEW OF HM ORDERS 1948 DEPRESSION ACTION PLAN 1948 DIABETIC FOOT EXAM 1950 EYE EXAM 1950 LIPID 1948 MICROALBUMIN 1948 PHQ-9 1948 LUNG CANCER SCREENING 1998 FALL RISK ASSESSMENT 11/16/2018 11/16/2017 RSV VACCINE (1 - 1-dose 75+ series) 10/25/2023 MEDICARE ANNUAL WELLNESS VISIT 01/05/2024 01/04/2023 COVID-19 VACCINE ( season) 2025 01/04/2023, 01/28/2022, 08/18/2021, Additional history exists INFLUENZA VACCINE (#1) 2025 , 10/04/2022, 07/09/2021, Additional history exists A1C 05/20/2025 02/17/2025 BMP 09/17/2025 09/17/2024, 06/17/2016 TSH W/FREE T4 REFLEX 02/17/2026 02/17/2025 ADVANCE CARE PLANNING 09/30/2029 09/30/2024, 025 DTAP/TDAP/TD VACCINE (5 - Td or Tdap) 09/17/2031 09/17/2021, 11/23/2011, 11/20/2011, Additional history exists HEPATITIS C SCREENING Completed 11/08/2013 COLONOSCOPY Discontinued 06/21/2016 COLORECTAL CANCER SCREENING Discontinued ZOSTER VACCINE Completed 02/04/2019, 12/03/2018 PNEUMOCOCCAL VACCINE 50+ YEARS Completed 12/15/2020, 12/03/2018, 07/22/2016, Additional history exists CT COLONOGRAPHY Discontinued FIT Discontinued FLEX SIG Discontinued HPV VACCINE (No Doses Required) Completed MENINGITIS VACCINE Aged Out No longer eligible based on patient's age to complete this topic sDNA (Cologuard) Discontinued Procedures Procedure Name Priority Date/Time Associated Diagnosis Comments TSH WITH FREE T4 REFLEX Routine 02/17/2025 7:23 AM CDT Hypothyroidism, unspecified Type 2 diabetes mellitus without complications (H) Major depressive disorder, recurrent, in partial remission HEMOGLOBIN A1C Routine 02/17/2025 7:23 AM CDT Hypothyroidism, unspecified Type 2 diabetes mellitus without complications (H) Major depressive disorder, recurrent, in partial remission BASIC METABOLIC PANEL STAT 09/17/2024 9:29 PM HYDROGEN OPERATOR from Last 3 Months or Most Recently Relevant to Health Maintenance Results * TSH with free T4 reflex (02/17/2025 7:23 AM CDT) TSH 1.79 0.30 - 4.20 uIU/mL 02/17/2025 12:43 PM CDT [facility] Blood STRUCTURE OF LEFT UPPER LIMB / Unknown Venipuncture / Unknown 02/17/2025 7:23 AM CDT 02/17/2025 9:19 AM CDT Eugenia Olayinka BAEZ RIGGING MAN LAB - BLOOD ORDERABLES Fi nal Result Performing Organization Address [facility]/ZIP Co de Phone Number [facility] [address] [facility], [address] [place] [phone] [[email or web address]] * (ABNORMAL) Hemoglobin A1c (02/17/2025 7:23 AM CDT) Estimated Average Glucose 197(H) <117 mg/dL 02/17/2025 11:53 AM CDT [facility] Hemoglobin A1C 8.5(H) <5.7 % 02/17/2025 11:53 AM CDT [facility] Comment: Normal <5.7% Prediabetes 5.7-6.4% Diabetes 6.5% or higher Note: Adopted from ADA consensus guidelines. Blood STRUCTURE OF LEFT UPPER LIMB / Unknown Venipuncture / Unknown 02/17/2025 7:23 AM CDT 02/17/2025 9:19 AM CDT Eugenia Bhagat APRN, CNP LAB - BLOOD ORDERABLES Fi nal Result Performing Organization Address City/[facility]/ZIP Co de Phone Number [facility] [address] [facility], [address] [phone] [[email or web address]] * (ABNORMAL) Basic metabolic panel (09/17/2024 9:29 PM HYDROGEN OPERATOR) Sodium 132(L) 135 - 145 mmol/L 09/17/2024 9:55 PM HYDROGEN OPERATOR [facility] Potassium 4.0 3.4 - 5.3 mmol/L 09/17/2024 9:55 PM HYDROGEN OPERATOR [facility] Chloride 94(L) 98 - 107 mmol/L 09/17/2024 9:55 PM HYDROGEN OPERATOR [facility] Carbon Dioxide (CO2) 24 22 - 29 mmol/L 09/17/2024 9:55 PM HYDROGEN OPERATOR [facility] Anion Gap 14 7 - 15 mmol/L 09/17/2024 9:55 PM HYDROGEN OPERATOR [facility] Urea Nitrogen 22.8 8.0 - 23.0 mg/dL 09/17/2024 9:55 PM HYDROGEN OPERATOR LABORATORY Creatinine 1.16 0.67 - 1.17 mg/dL 09/17/2024 9:55 PM HYDROGEN OPERATOR LABORATORY GFR Estimate 66 >60 mL/min/1.7 3m2 09/17/2024 9:55 PM HYDROGEN OPERATOR LABORATORY Comment:eGFR calculated us2020 CKD-EPI equation. Calcium 9.2 8.8 - 10.4 mg/dL 09/17/2024 9:55 PM HYDROGEN OPERATOR LABORATORY Glucose 183(H) 70 - 99 mg/dL 09/17/2024 9:55 PM HYDROGEN OPERATOR LABORATORY Blood BLOOD SPECIMEN / Unknown Venipuncture / Unknown 09/17/2024 9:29 PM HYDROGEN OPERATOR 09/17/2024 9:34 PM HYDROGEN OPERATOR Maggie Uribe MD LAB - BLOOD ORDERABLES Final Result LABORATORY [facility] [address] [facility] (1st floor, no room number) [place] [address], [facility] from Last 3 Months or Most Recently Relevant to Health Maintenance Insurance [employer] MEDICARE ADVANTAGE Advance Directives For more information, please contact: [phone] Documents on File Type Date Recorded 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
--- OUTSIDE RECORDS SUMMARY | 2025-05-25 18:41 | XMS_ITS | CCD ---
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 Unknown No 10/10/2024 Children Unknown Has Children 10/10/2024 Caregiver Assessment Unknown [facility] 10/10/2024 Patient Health Status Self Assessment [...] Assisted Living 09/[address]: 28882643 Current ever y day smoker 09/04/[address]: 240471589 No Alcohol Consum ption 09/04/2024 Children Unknown Has Children 09/04/2024 Caregiver Assessment Unknown Healthcare POA on fi le 09/04/2024 Marital status Unknown 08/15/[address]: 68879644 Current ever y day smoker 08/15/[address]: 967624934 No Alcohol Consum ption 08/15/2024 Children Unknown Has Children 3 08/15/2024 Allergies, Adverse Reactions, Alerts Substance Reaction Codes Entered Date Inactivated Date Status Augmentin RxNorm: 979559 08/02/2024 No Inactive Da te Active erythromycin [...] Unknown ACP (advance care planning) SNOMED CT: 897770299 ICD-10: Z71.89 ICD-9: V65.49 Active 10/10/2024 Unknown 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85 10/10/2024 Active Cerebrovascular disease ICD-10: I67.9 ICD-9: 437.9 10/10/2024 Active Encounter for preventive care SNOMED CT: 860861442 ICD-10: Z00.00 ICD-9: V70.0 10/10/[address]: 841501164 ICD-10: R54 ICD-9: 797 10/10/2024 Active HLD [...] 443.9 09/04/2024 Active Tobacco abuse [facility] CT: 411909255 ICD-10: Z72.0 ICD-9: 305.1 09/04/2024 Active Medications Medication Codes Instructions Start Date Stop Date Status Fill Instructions escitalopram 5 mg tablet RxNorm: 654949 Take 1 Tablet(s) Oral QD 5 026 Active metformin 500 mg tablet RxNorm: 276848 Take 1 Tablet(s) Oral BID 5 026 Active senna 8.6 mg tablet RxNorm: 554285 Take 2 Tablet(s) Oral QD as needed 5 No Stop Date Active ipratropium 0.5 mg-albuterol 3 mg (2.5 mg base)/3 mL nebulization soln RxNorm: 9770756 Take 3 Milliliter(s) Inhalation BID and BID PRN wheezing/ shortness of breath 5 026 Active Tamiflu 75 mg capsule RxNorm: 980309 Take 1 Capsule(s) Oral QD 5 025 Inactive GFR 79 Tamiflu 75 mg capsule RxNorm: 728982 Take 1 Capsule(s) Oral QD 5 025 Inactive GFR 79 albuterol sulfate HFA 90 mcg/actuation aerosol inhaler RxNorm: 2207902 Take 2 Puff(s) Inhalation Q2H every 2 hours as needed for SOB 5 No Stop Date Active ipratropium 0.5 mg-albuterol 3 mg (2.5 mg base)/3 mL nebulization soln RxNorm: 0267010 Take 3 Milliliter(s) Inhalation QID as needed wheezing/ shortness of breath 5 025 Inactive Milk of Magnesia 400 mg/5 mL oral suspension RxNorm: 697693 Take 30 Milliliter(s) Oral QD as needed 5 No Stop Date Active bisacodyl 10 mg rectal suppository RxNorm: 659154 Insert 1 Suppository Rectal QD as needed 5 No Stop Date Active lisinopril 10 mg tablet RxNorm: 959577 Take 1 Tablet(s) Oral QD 5 No Stop Date Active tamsulosin 0.4 mg capsule RxNorm: 338594 Take 1 Capsule(s) Oral QAM every morning 5 No Stop Date Active loperamide 2 mg tablet RxNorm: 589780 Take 1 Tablet(s) Oral QD as needed 5 No Stop Date Active atorvastatin 20 mg tablet RxNorm: 513395 Take 1 Tablet(s) Oral QHS every night at bedtime 5 No Stop Date Active magnesium 400 mg (as magnesium oxide) tablet RxNorm: 109013 Take 1 Tablet(s) Oral BID 5 No Stop Date Active psyllium oral powder RxNorm: Take 1 Teaspoon(s) Oral QD as needed 5 No Stop Date Active Antacid 200 mg (as calcium carbonate 500 mg) chewable tablet RxNorm: 239670 Take 2 Tablet(s) Oral Q1H every hour as needed 5 No Stop Date Active hydrocortisone 1 % topical cream RxNorm: 819231 Apply 1 Application Topical QD as needed 5 No Stop Date Active trazodone 50 mg tablet RxNorm: 070507 Take 1 Tablet(s) Oral QHS every night at bedtime 5 No Stop Date Active finasteride 5 mg tablet RxNorm: 201493 Take 1 Tablet(s) Oral QAM every morning 5 No Stop Date Active levothyroxine 75 mcg tablet RxNorm: 417616 Take 1 Tablet(s) Oral QD 5 No Stop Date Active acetaminophen 325 mg tablet RxNorm: 898033 Take 2 Tablet(s) Oral Q4H every four hours as needed 5 No Stop Date Active Claritin 10 mg tablet RxNorm: 134729 Take 1 Tablet(s) Oral QD as needed 5 No Stop Date Active guaifenesin 100 mg/5 mL oral liquid RxNorm: 664169 Take 10 Milliliter(s) Oral Q4H every four hours as needed 5 No Stop Date Active omeprazole 20 mg capsule,delayed release RxNorm: 179192 Take 1 Capsule(s) Oral BID 5 No Stop Date Active Xarelto 20 mg tablet RxNorm: 2159393 Take 1 Tablet(s) Oral QPM every evening 5 No Stop Date Active metformin 500 mg tablet RxNorm: 003189 Take 1 Tablet(s) Oral QAM every morning 5 025 Inactive aspirin 325 mg tablet RxNorm: 046843 Take 1 Tablet(s) Oral QD as needed 5 025 Inactive metoprolol tartrate 50 mg tablet RxNorm: 781691 Take 1/2 Tablet(s) Oral BID 4 No Stop Date Active Triple Antibiotic Plus topical RxNorm: 228622 topical 5 Active menthol mucous membrane RxNorm: [...] 600.00 11/14/2024 No note found Frailty SNOMED: 713340666 ICD-10: R54 ICD-9: 797 10/10/2024 No note found Encounter for preventive care SNOMED: 30 5553322 ICD-10: Z00.00 ICD-9: V70.0 10/10/2024 No note [...] found ACP (advance care planning) SNOMED: 3050 71663 ICD-10: Z71.89 ICD-9: V65.49 10/10/2024 No note found History of penicillin allergy ICD-10: Z8 8.0 ICD-9: V14.0 09/04/2024 No note found Unspecified atrial fibrillation ICD-10: I48.91 025 No note found History of smoking ICD-10: Z87.891 ICD-9: V15.82 09/04/2024 No note found PVD (peripheral vascular disease) ICD-10: I73.9 ICD-9: 443.9 09/04/2024 S/P stent to right SFA in 2013 Tobacco abuse SNOMED: 171674307 ICD-10: Z72.0 ICD-9: 305.1 09/04/2024 No note found Reason For Visit No Reason For Visit data Results Observation Observation Code Item Item Code Result Date Service Location TSH with Reflex to Free T4 [id number] TSH ([facility]) 20605-6 1.79 uIU/mL 025 Unknown Comprehensive Metabolic Panel [id number] GLUCOSE ([facility]) 2345-7 160 mg/dL 025 Unknown Comprehensive Metabolic Panel [id number] Sodium 139 mmol/L 025 Unknown Comprehensive Metabolic Panel [id number] POTASSIUM ([facility]) 2823-3 4.0 mmol/L 025 Unknown Comprehensive Metabolic Panel SXB1707 CO2 ([facility]) 25 mmol/L 025 Unknown Comprehensive Metabolic Panel [id number] ANION GAP ([facility]) 10 mmol/L 025 Unknown Comprehensive Metabolic Panel [id number] Alkaline Phosphatase 112 U/L 025 Unknown Comprehensive Metabolic Panel ZIU3484 UREA NITROGEN ([place]) 12.8 mg/dL 025 Unknown Comprehensive Metabolic Panel SFS4227 ALT 6 U/L 025 Unknown Comprehensive Metabolic Panel [id number] Creatinine 0.88 mg/dL 025 Unknown Comprehensive Metabolic Panel [id number] AST 19 U/L 025 Unknown Comprehensive Metabolic Panel KAV3104 GFR, ESTIMATE 56404-7 89 mL/min/1.73 m2 025 Unknown Comprehensive Metabolic Panel [id number] Bilirubin Total 0.6 mg/dL 025 Unknown Comprehensive Metabolic Panel [id number] Calcium 9.3 mg/dL 025 Unknown Comprehensive Metabolic Panel [id number] CHLORIDE ([place]) 104 mmol/L 025 Unknown Comprehensive Metabolic Panel SRR6041 PROTEIN, TOTAL 2885-2 6.1 g/dL 025 Unknown Comprehensive Metabolic Panel ECS1181 Albumin 3.5 g/dL 025 Unknown Hemoglobin A1c LAB90 EST AVERAGE GLUCOSE 197 mg/dL 025 Unknown Hemoglobin A1c LAB90 Hemoglobin A1c 56190-0 8.5 % 025 Unknown CBC with Platelets KDR536 WBC COUNT (AUTOMATED) 7.5 10e3/uL 025 Unknown CBC with Platelets XGR142 RBC COUNT 789-8 4.38 10e6/uL 025 Unknown CBC with Platelets CDV053 Hemoglobin 12.9 g/dL 025 Unknown CBC with Platelets QEB199 Hematocrit 39.9 % 025 Unknown CBC with Platelets MAH314 MCV 91 fL 025 Unknown CBC with Platelets IEH855 MCH 29.5 pg 025 Unknown CBC with Platelets SAY565 MCHC 32.3 g/dL 025 Unknown CBC with Platelets NOU486 RDW 13.7 % 025 Unknown CBC with Platelets RRJ748 Platelet Count 777-3 195 10e3/uL 025 Unknown UA with Microscopic Reflex to Culture 56073 COLOR Yellow 025 Unknown UA with Microscopic Reflex to Culture 13599 Appearance Clear 025 Unknown UA with Microscopic Reflex to Culture 19437 GLUCOSE, URINE 100 mg/dL 025 Unknown UA with Microscopic Reflex to Culture 97365 BILIRUBIN, URINE Negative 025 Unknown UA with Microscopic Reflex to Culture 25562 Ketones Urine Negative mg/dL 025 Unknown UA with Microscopic Reflex to Culture 35392 Specific [place] Urine 1.022 025 Unknown UA with Microscopic Reflex to Culture 15812 BLOOD, URINE Large 025 Unknown UA with Microscopic Reflex to Culture 60725 pH Urine 5.5 025 Unknown UA with Microscopic Reflex to Culture 17002 Protein urine Negative mg/dL 025 Unknown UA with Microscopic Reflex to Culture 70625 UROBILINOGEN IRIS Normal mg/dL 025 Unknown UA with Microscopic Reflex to Culture 57501 Nitrites Negative 025 Unknown UA with Microscopic Reflex to Culture 39989 LEUK ESTERASE Negative 025 Unknown UA with Microscopic Reflex to Culture 71395 Mucus Urine Present /LPF 025 Unknown UA with Microscopic Reflex to Culture 77333 RBC Urine 44 /HPF 025 Unknown UA with Microscopic Reflex to Culture 02548 CALCIUM OXALATE Few /HPF 025 Unknown UA with Microscopic Reflex to Culture 50265 WBC Urine 52356-7 2 /HPF 025 Unknown UA with Microscopic Reflex to Culture 74469 SQUAMOUS EPITHELIAL <1 /HPF 025 Unknown SLUMS (bps) 14280-0 SLUMS 60456-9 16 025 Unknown PHQ2 PHQ2 97858-4 0 025 Unknown Review of Systems No [...] INELIG NEG SCRN DEPRES SNOMED CT: 428 [id number] CPT-4: G8510 10/10/2024 TOBACCO Education CPT-4: TOBACCO 10/10/2024 SYST BP GE 130 - 139MM HG CPT-4: 3075F 2024 DIAST BP <80 MM HG CPT-4: 3078F 09/04/2024 PT INELIG NEG SCRN DEPRES SNOMED CT: 428 372586326068 CPT-4: G8510 09/04/2024 TOBACCO OTM CONSULTANT NO CHARGE CPT-4: G0436 2024 Vital Signs Date Vital 04/14/2025 Blood Pressure 1: 132/65 Code: 8480-6 BMI: 29.6 Code: 20942-1 Heart Rate 1: 61 bpm Code: 8867-4 Height: 5'11 Code: 8302-2 Respiratory Rate: 18 bpm SpO2: 94% Temperature: 36.6 (C) / 97.8 (F) Weight: 212 lbs Code: 3141-9 03/10/2025 Blood Pressure 1: 119/58 Code: 8480-6 BMI: 29.9 Code: 88357-8 Heart Rate 1: 57 bpm Code: 8867-4 [...] 1: 135/60 Code: 8480-6 BMI: 28.1 Code: 08839-1 Heart Rate 1: 58 bpm Code: 8867-4 Height: 5'11 Code: 8302-2 Respiratory Rate: 18 bpm SpO2: 95% Temperature: 36.3 (C) / 97.4 (F) Weight: 201 lbs 5 oz Code: 3141-9 11/14/2024 Blood Pressure 1: 154/71 Code: 8480-6 BMI: 29.4 Code: 20947-8 Heart Rate 1: 54 bpm Code: 8867-4 Height: 5'11 Code: 8302-2 Respiratory Rate: 16 bpm Temperature: 36.5 (C) / 97.7 (F) Weight: 211 lbs Code: 3141-9 10/10/2024 Blood Pressure 1: 102/58 Code: 8480-6 BMI: NaN Code: 34318-3 Heart Rate 1: 66 bpm Code: 8867-4 Height: 5'11 Code: 8302-2 Respiratory Rate: 20 bpm Temperature: 36.3 (C) / 97.3 (F) Weight: 203 lbs Code: 3141-9 09/04/2024 Blood Pressure 1: 166/72 Code: 8480-6 Blood Pressure 1: 130/70 Code: 8480-6 BMI: 30.0 Code: 84574-2 BMI: 30.0 Code: 11932-9 Heart Rate 1: 60 bpm Code: 8867-4 [...] Encounter Performer Location Location Address Codes Date ([id number]) Home Visit - Est Pt, moderate Diagnosis: Alzheimer's dementia[ICD10: G30.9] Diagnosis: Recurrent major depressive disorder, 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] Diagnosis: Essential hypertension[ICD10: I10] Eugenia Obando [address] [address] CPT-4: 35216 5 ([id number]) Home Visit - Est Pt, moderate Diagnosis: Type 2 diabetes mellitus[ICD10: E11.9] Diagnosis: Recurrent major depressive disorder, 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] Diagnosis: COPD (chronic obstructive pulmonary disease)[ICD10: J44.9] Diagnosis: Dementia in other diseases classified elsewhere, unspecified severity, without behavioral disturbance, psychotic disturbance, mood disturbance, and anxiety[ICD10: F02.80] Eugenia Burgos [address] [address] CPT-4: 00886 5 ([id number]) Home Visit - Est Pt, moderate Diagnosis: Acquired hypothyroidism[ICD10: E03.9] Diagnosis: Type 2 diabetes mellitus[ICD10: E11.9] Diagnosis: Recurrent major depressive disorder, 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] Eugenia Burgos [address] [address] CPT-4: 69318 5 ([id number]) Home Visit - Est Pt, moderate Diagnosis: COPD (chronic obstructive pulmonary disease)[ICD10: J44.9] Diagnosis: Chronic constipation[ICD10: K59.09] Diagnosis: Impaired gait and mobility[ICD10: R26.89] Eugenia Burgos [address] [address] CPT-4: 43560 5 ([id number]) Home Visit - Est Pt, moderate Diagnosis: COPD (chronic obstructive pulmonary disease)[ICD10: J44.9] Diagnosis: Alzheimer's dementia[ICD10: G30.9] Diagnosis: Essential hypertension[ICD10: I10] Eugenia Burgos [address] [address] CPT-4: 51219 5 ([id number]) Home Visit - Est Pt, moderate Diagnosis: Alzheimer's dementia[ICD10: G30.9] Diagnosis: COPD (chronic obstructive pulmonary disease)[ICD10: J44.9] Diagnosis: BPH (benign prostatic hyperplasia)[ICD10: N40.0] [address] [address] CPT-4: 21056 5 ([id number]) Medicare Annual Wellness Visit- Subsequent Diagnosis: Encounter for preventive care[SNOMED: 731713511] Diagnosis: ACP (advance care planning)[SNOMED: 936959941] Diagnosis: Frailty[SNOMED: 771308327] Diagnosis: Acquired hypothyroidism[ICD10: E03.9] Diagnosis: Alzheimer's dementia[ICD10: [...] F33.41] Diagnosis: Type 2 diabetes mellitus[ICD10: E11.9] [address] [address] CPT-4: G0439 5 ([id number]) Home or 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, 60 mins Diagnosis: [...] (advance care planning)[ICD10: Z71.89] Diagnosis: Tobacco abuse[SNOMED: 778581775] Eugenia Burgos [address] [address] CPT-4: 06010 Plan of Care Planned Activity Notes Codes Status Date Patient Education: Patient Medication Summary Completed 04/14/2025 Patient Education: Influenza Complet ed 04/14/2025 Patient Education: Smoking Cessation Completed 04/14/2025 Appointment: Eugenia Burgos WPtel: [address] [place], [place] [phone] F/U 03/10/2025 Patient Education: Patient Medication Summary [...] Completed 11/14/2024 Appointment: Eugenia Burgos WPtel: [phone] AWV 10/10/2024 Patient Education: Patient Medication Summary Completed 10/10/2024 Patient Education: Addiction and Substance Abuse Completed 10/10/2024 Patient Education: Alzheimer''s Disease Completed 10/10/2024 Patient Education: Influenza Complet ed 10/10/2024 Patient Education: Smoking Cessation Completed 10/10/2024 Patient Education: Dementia Complete d 10/10/2024 Patient Education: Exercise and Fitness Completed 10/10/2024 Appointment: Eugenia Burgos WPtel: [phone] GYM SUPERVISOR 09/04/2024 Patient Education: Patient Medication Summary Completed [...] urinary retention and urinary tract infections. 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 [...]
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
[2025-05-25 19:05] VITALS: BP 139/70; PULSE 82; RESP 16; O2SAT 95
== END 2025-05-25 19:15 | disposition home or self-care (01) ==
PROVIDERS: Emergency Provider Family Medicine
DX: M86.171 Other acute osteomyelitis, right ankle and foot (principal); F03.C0 Unspecified dementia, severe, without behavioral disturbance, psychotic disturbance, mood disturbance, and anxiety
CPT/HCPCS: 36415; 73718; 80053; 83605; 85025; 85651; 86140; 99283; 99284